=== PATIENT | male | born 1940 | race Caucasian/White ===

== ENCOUNTER → 2017-04-20 09:40 | Outpatient (CLI) | payer MEDICARE, MEDICAID, SELFPAY ==
--- NOTE | 2017-04-20 09:54 | XR_ITS ---
XR ankle RT min 3V HISTORY: Right ankle pain ITS.REASON: FACET DEGENERATION LSPINE, RT HIP AND ANKLE PAIN ORDERING PHYSICIAN: Josh Dias MD PATIENT AGE: 76 years COMPARISON: None FINDINGS: No fracture or dislocation. No lytic or blastic change. There is normal mineralization.. The joint spaces are well-preserved. No significant degenerative/arthritic changes. No erosive changes evident. Generalized vascular calcification noted. IMPRESSION: Negative ankle, no acute finding
--- NOTE | 2017-04-20 09:54 | XR_ITS ---
EXAM: XR lumbar spine min 4V HISTORY: Low back pain ITS.REASON: FACET DEGENERATION LSPINE, RT HIP AND ANKLE PAIN ORDERING PHYSICIAN: Josh Dias MD PATIENT AGE: 76 years COMPARISON: 10/22/2013 FINDINGS: No fracture or dislocation. There is mild retrolisthesis of L2 on L3 and L3 on L4 of 3 mm. There is slight decrease in height of L1 and appears chronic. Mild degenerative disc disease L2-L3 L4-L5 and L5-S1. Facet arthritic changes are present at L4-5 and L5-S1. Minimal lumbar curvature convex left. No lytic or blastic change. IMPRESSION: Mild lumbar spondylosis as described above with degenerative disc disease and facet arthritic change overall not significantly changed
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
== END ==
PROVIDERS: PCP Family Medicine; Visit Provider Family Medicine
DX: M47.816 Spondylosis without myelopathy or radiculopathy, lumbar region (principal); M25.551 Pain in right hip; M25.571 Pain in right ankle and joints of right foot
CPT/HCPCS: 72110; 73502; 73610

== ENCOUNTER 2017-04-27 13:22 | Emergency (ER) | payer MEDICARE, MEDICAID, SELFPAY ==
[2017-04-27 13:30] VITALS: BP 129/71; PULSE 66; RESP 20; TEMP 36.3; O2SAT 94; BMI 29.7
--- NOTE | 2017-04-27 13:57 | XR_ITS ---
XR chest 2V HISTORY: Fever and cough ITS.REASON: dyspnea ORDERING PHYSICIAN: Damon Blunt MD PATIENT AGE: 76 years COMPARISON: 01/11/2017 FINDINGS: Normal heart size. Right hemidiaphragm is elevated with bowel interposition on the right. There are chronic changes in the left lung base. No lobar consolidation or collapse. No acute bony anomalies. IMPRESSION: Chronic changes with elevated right hemidiaphragm, no acute finding.
[2017-04-27 14:37] LABS: Basophils # 0.1 K/mm3 (0-0.2); Basophils % 0.7 % (0.1-2.0); Eosinophils # 0.1 K/mm3 (0.0-0.4); Eosinophils % 1.2 % (0.1-12.0); Hematocrit 49.1 % (42.0-52.0); Hemoglobin 15.9 g/dL (14.1-18.0); Lymphocytes # 1.3 K/mm3 (0.7-4.5); Lymphocytes % 16.2 K/mm3 (10-50); Mean Corpuscular HGB Conc 32.5 g/dL (31.8-35.4); Mean Corpuscular Hemoglobin 31.6 pg (27.0-31.2); Mean Corpuscular Volume 97.4 fl (80-94); Mean Platelet Volume 7.6 fl (7.4-10.4); Monocytes # 0.5 K/mm3 (0.1-1.0); Monocytes % 6.7 % (1.7-9.3); Neutrophils # 5.9 K/mm3 (1.8-7.8); Neutrophils % 75.2 % (37.0-80.0); Platelet Count 279 K/mm3 (142-424); Red Blood Count 5.04 M/mm3 (4.60-6.20); Red Cell Distribution Width 12.9 % (11.5-17.5); White Blood Count 7.9 K/mm3 (4.8-10.8)
[2017-04-27 14:53] VITALS: BP 105/72; PULSE 75; O2SAT 93
[2017-04-27 14:56] LABS: Alanine Aminotransferase 42 U/L (12-78); Albumin Level 3.8 gm/dL (3.4-5.0); Albumin/Globulin Ratio 0.9 (1.1-1.8); Alkaline Phosphatase 77 U/L (46-116); Anion Gap 12.4 mEq/L (5-15); Aspartate Amino Transferase 32 U/L (15-37); Bilirubin,Total 0.9 mg/dL (0.2-1.0); Blood Urea Nitrogen 15 mg/dL (7-18); Calcium 9.2 mg/dL (8.5-10.1); Carbon Dioxide 31 mmol/L (21.0-32.0); Chloride 102 mmol/L (98-107); Creatinine Clearance Estimated 78 mL/min (0-300); Creatinine,Serum 0.73 mg/dL (0.70-1.30); Estimated Glomerular Filt Rate 105 ml/min (>60); GFR (African American) 127 ML/MIN (>60); Globulin 4.2 gm/dl (1.3-3.2); Glucose 117 mg/dL (74-106); Potassium 4.4 mmoL/L (3.5-5.1); Sodium 141 mmol/L (136-145)
[2017-04-27 14:58] LABS: Lactic Acid 1.4 mmol/L (0.4-2.0)
--- NOTE | 2017-04-27 15:34 | HMH.EDGENADL ---
ED Disposition Clinical Impression: Common cold Sinusitis Qualifiers: Sinusitis location: maxillary Chronicity: acute Recurrence: non-recurrent Qualified Code(s): J01.00 - Acute maxillary sinusitis, unspecified Disposition: Home, Self-Care Condition on Discharge: Good Instructions: Sinusitis, DI for Common Cold Additional Instructions: Please drink plenty of fluids, alternate Motrin with Tylenol for body aches/fever control. Prescriptions: Amoxicillin/Potassium Clav [Augmentin 875-125 Tablet] 1 tab PO Q12H #20 tab predniSONE [Prednisone 20mg Tab] 20 mg PO BID #10 tab Referrals: Josh Dias MD [Primary Care Provider] - Time of Disposition: 15:34 - Critical Care Critical Care Time: No Attestation: On 04/27/17, the high probability of a clinically significant, sudden or life threatening deterioration of the following system(s) required my full and direct attention, intervention and personal management. The time I documented below is in addition to time spent performing reported procedures but includes the following listed in this critical care notation. Medical Decision Making - Medical Records Medical records reviewed: Yes: I reviewed the patient's medical records. Vital Signs: 04/27/17 13:30 04/27/17 14:53 04/27/17 15:42 Temperature 97.4 F L 98.0 F Temperature Source Oral Temporal Artery Scan Pulse Rate 81 Pulse Rate [Right Brachial] 66 75 Respiratory Rate 20 20 Blood Pressure 110/73 Blood Pressure [Right Arm] 129/71 105/72 Blood Pressure Mean [Right Arm] 90 83 Blood Pressure Source Automatic Cuff Blood Pressure Source [Right Arm] Automatic Cuff Automatic Cuff Blood Pressure Position Sitting Blood Pressure Position [Right Arm] Sitting 02 Sat by Pulse Oximetry 94 L 93 L Oxygen Delivery Method Room Air Room Air - Lab Data Lab results reviewed: Yes: I reviewed the patient's lab results. Lab Results 04/27/17 13:50: Influenza Type A Ag Negative, Influenza Type B Ag Negative 04/27/17 14:00: WBC 7.9, RBC 5.04, Hgb 15.9, Hct 49.1, MCV 97.4 H, MCH 31.6 H, MCHC 32.5, RDW 12.9, Plt Count 279, MPV 7.6, Neut % (Auto) 75.2, Lymph % (Auto) 16.2, [place] % (Auto) 6.7, Eos % (Auto) 1.2, Baso % (Auto) 0.7, Neut # (Auto) 5.9, Lymph # (Auto) 1.3, [place] # (Auto) 0.5, Eos # (Auto) 0.1, Baso # (Auto) 0.1 04/27/17 14:00: Sodium 141, Potassium 4.4, Chloride 102, Carbon Dioxide 31, Anion Gap 12.4, BUN 15, Creatinine 0.73, Estimated Creat Clear 78, Estimated GFR 105, Est GFR ( Amer) 127, Glucose 117 H, Calcium 9.2, Total Bilirubin 0.9, AST 32, ALT 42, Alkaline Phosphatase 77, Total Protein 8.0, Albumin 3.8, Globulin 4.2 H, Albumin/Globulin Ratio 0.9 L 04/27/17 14:00: Lactic Acid 1.4 Result diagrams: 04/27/17 14:00 04/27/17 14:00 Orders (Tests/Meds): ED MEDICATIONS Discontinued Medications Generic Name Dose Route Start Last Admin Trade Name Jlq PRN Reason Stop Dose Admin Ondansetron HCl 4 mg 04/27/17 14:31 04/27/17 14:32 Zofran 4mg/2ml Vial IV 04/27/17 14:32 4 mg ONCE ONE Administration ORDERS Category Date Time Status Blood Culture Stat Micro 04/27/17 14:00 Results - Radiology Data #1 Image(s): Chest Image Reviewed: Yes I reviewed the patient's radiology results, Yes I reviewed the patient's radiology image Preliminary Findings: Normal/NAD - Isra Inquiry Pt receiving controlled substance: No - Reevaluation(s) Time: 15:15 Reevaluation #1: Upon reevaluation patient appears medically stable, in no acute distress. Advise patient of results obtained, need to follow-up with PCP in 2-3 days if not better. Patient instructed to take Tylenol every 4-6 hours as needed for pain, increase his fluid intake. General Adult HPI - General Chief complaint: Upper Respiratory Infection Stated complaint: flu like symptoms Mode of Arrival: Wheelchair Limitations: No Limitations Description of Symptoms (Recalled from ER Triage Doc. by RN): pt state
--- NOTE | 2017-04-27 15:37 | ED_ITS ---
ED Disposition Clinical Impression: Common cold Sinusitis Qualifiers: Sinusitis location: maxillary Chronicity: acute Recurrence: non-recurrent Qualified Code(s): J01.00 - Acute maxillary sinusitis, unspecified Disposition: Home, Self-Care Condition on Discharge: Good Instructions: Sinusitis, DI for Common Cold Additional Instructions: Please drink plenty of fluids, alternate Motrin with Tylenol for body aches/ fever control. Prescriptions: Amoxicillin/Potassium Clav [Augmentin 875-125 Tablet] 1 tab PO Q12H #20 tab predniSONE [Prednisone 20mg Tab] 20 mg PO BID #10 tab Referrals: Josh Dias MD [Primary Care Provider] - Time of Disposition: 15:34 - Critical Care Critical Care Time: No Attestation: On 04/27/17, the high probability of a clinically significant, sudden or life threatening deterioration of the following system(s) required my full and direct attention, intervention and personal management. The time I documented below is in addition to time spent performing reported procedures but includes the following listed in this critical care notation. Medical Decision Making - Medical Records Medical records reviewed: Yes: I reviewed the patient's medical records. Vital Signs: 04/27/17 13:30 04/27/17 14:53 04/27/17 15:42 Temperature 97.4 F L 98.0 F Temperature Source Oral Temporal Artery Scan Pulse Rate 81 Pulse Rate [Right Brachial] 66 75 Respiratory Rate 20 20 Blood Pressure 110/73 Blood Pressure [Right Arm] 129/71 105/72 Blood Pressure Mean [Right Arm] 90 83 Blood Pressure Source Automatic Cuff Blood Pressure Source [Right Arm] Automatic Cuff Automatic Cuff Blood Pressure Position Sitting Blood Pressure Position [Right Arm] Sitting 02 Sat by Pulse Oximetry 94 L 93 L Oxygen Delivery Method Room Air Room Air - Lab Data Lab results reviewed: Yes: I reviewed the patient's lab results. Lab Results 04/27/17 13:50: Influenza Type A Ag Negative, Influenza Type B Ag Negative 04/27/17 14:00: WBC 7.9, RBC 5.04, Hgb 15.9, Hct 49.1, MCV 97.4 H, MCH 31.6 H, MCHC 32.5, RDW 12.9, Plt Count 279, MPV 7.6, Neut % (Auto) 75.2, Lymph % (Auto) 16.2, [place] % (Auto) 6.7, Eos % (Auto) 1.2, Baso % (Auto) 0.7, Neut # (Auto) 5.9 , Lymph # (Auto) 1.3, [place] # (Auto) 0.5, Eos # (Auto) 0.1, Baso # (Auto) 0.1 04/27/17 14:00: Sodium 141, Potassium 4.4, Chloride 102, Carbon Dioxide 31, Anion Gap 12.4, BUN 15, Creatinine 0.73, Estimated Creat Clear 78, Estimated GFR 105, Est GFR ( Amer) 127, Glucose 117 H, Calcium 9.2, Total Bilirubin 0.9, AST 32, ALT 42, Alkaline Phosphatase 77, Total Protein 8.0, Albumin 3.8, Globulin 4.2 H, Albumin/Globulin Ratio 0.9 L 04/27/17 14:00: Lactic Acid 1.4 Result diagrams: 04/27/17 14:00 04/27/17 14:00 Orders (Tests/Meds): ED MEDICATIONS Discontinued Medications Generic Name Dose Route Start Last Admin Trade Name Freq PRN Reason Stop Dose Admin Ondansetron HCl 4 mg 04/27/17 14:31 04/27/17 14:32 Zofran 4mg/2ml Vial IV 04/27/17 14:32 4 mg ONCE ONE Administration ORDERS Category Date Time Status Blood Culture Stat Micro 04/27/17 14:00 Results - Radiology Data #1 Image(s): Chest Image Reviewed: Yes I reviewed the patient's radiology results, Yes I reviewed the patient's radiology image Preliminary Findings: No
[2017-04-27 15:42] VITALS: BP 110/73; PULSE 81; RESP 20; TEMP 36.7; O2SAT 95
== END 2017-04-27 15:44 | disposition home or self-care (01) ==
PROVIDERS: Emergency Provider Emergency Medicine; Family Provider Family Medicine; PCP Family Medicine
DX: J01.00 Acute maxillary sinusitis, unspecified (principal); I10 Essential (primary) hypertension; Z88.2 Allergy status to sulfonamides
CPT/HCPCS: 71046; 80053; 83605; 85025; 87040; 87275; 87276; 96374; 99284; J2405

== ENCOUNTER 2017-04-28 16:53 | Observation (INO) | payer MEDICARE, MEDICAID, SELFPAY ==
[2017-04-28 17:00] VITALS: RESP 20; TEMP 36.7; O2SAT 95
[2017-04-28 17:05] VITALS: BP 138/78; PULSE 99; RESP 18; TEMP 36.6; O2SAT 95; BMI 30.5
[2017-04-28 17:23] LABS: Basophils % 0.3 % (0.1-2.0); Eosinophils % 0.4 % (0.1-12.0); Hematocrit 49.1 % (42.0-52.0); Lymphocytes % 13.9 K/mm3 (10-50); Mean Corpuscular HGB Conc 32.5 g/dL (31.8-35.4); Mean Corpuscular Hemoglobin 31.4 pg (27.0-31.2); Mean Corpuscular Volume 96.7 fl (80-94); Mean Platelet Volume 7.8 fl (7.4-10.4); Monocytes # 0.2 K/mm3 (0.1-1.0); Neutrophils # 5.9 K/mm3 (1.8-7.8); Neutrophils % 82.4 % (37.0-80.0); Platelet Count 288 K/mm3 (142-424); Red Blood Count 5.08 M/mm3 (4.60-6.20); Red Cell Distribution Width 12.9 % (11.5-17.5); White Blood Count 7.2 K/mm3 (4.8-10.8)
[2017-04-28 17:36] LABS: Alanine Aminotransferase 41 U/L (12-78); Albumin Level 3.8 gm/dL (3.4-5.0); Albumin/Globulin Ratio 0.9 (1.1-1.8); Alkaline Phosphatase 79 U/L (46-116); Anion Gap 11.3 mEq/L (5-15); Aspartate Amino Transferase 29 U/L (15-37); Bilirubin,Total 0.9 mg/dL (0.2-1.0); Blood Urea Nitrogen 11 mg/dL (7-18); Carbon Dioxide 31 mmol/L (21.0-32.0); Chloride 102 mmol/L (98-107); Creatinine Clearance Estimated 80 mL/min (0-300); Creatinine,Serum 0.73 mg/dL (0.70-1.30); Estimated Glomerular Filt Rate 105 ml/min (>60); GFR (African American) 127 ML/MIN (>60); Globulin 4.4 gm/dl (1.3-3.2); Glucose 148 mg/dL (74-106); Potassium 4.3 mmoL/L (3.5-5.1); Sodium 140 mmol/L (136-145); Total Protein,Serum 8.2 gm/dL (6.4-8.2)
--- NOTE | 2017-04-28 17:42 | CT_ITS ---
CT head/brain wo con HISTORY: ITS.REASON: dizziness ORDERING PHYSICIAN: Damon Blunt MD PATIENT AGE: 76 years COMPARISON: None TECHNIQUE: Axial images obtained without contrast. Brain and bone windows reviewed. FINDINGS: No midline shift, mass effect, intracranial hemorrhage, hydrocephalus, or extra-axial fluid collection is evident. There are involutional changes of age with atrophy The calvarium has an unremarkable appearance. No mastoid effusion. No sinus air-fluid levels.. IMPRESSION: No acute finding, chronic senescent changes.
[2017-04-28 17:54] LABS: Microscopic, Urine URINE MICROSCOPIC (MICROSCOPIC)
[2017-04-28 17:57] LABS: Appearance,Urine CLEAR (Clear); Bilirubin,Urine Negative (Negative); Blood, Urine 1+ (Negative); Color,Urine YELLOW (Yellow); Glucose,Urine (UA) Negative (Negative); Ketones,Urine 1+ (Negative); Leukocyte Esterase,Urine Negative (Negative); Nitrate,Urine Negative (Negative); Protein,Urine Negative (Negative); Specific Gravity, Urine 1.015 (1.005-1.030); Urobilinogen,Urine 0.2 EU/dl (0.2)
[2017-04-28 18:06] LABS: Bacteria,Urine Trace /lpf; RBC,Urine Occasional #/hpf (0-3)
[2017-04-28 18:24] VITALS: BP 126/73; PULSE 84; RESP 18; O2SAT 95
--- NOTE | 2017-04-28 19:22 | HMH.EDGENADL ---
ED Disposition Clinical Impression: Labyrinthitis of left ear Disposition: Admitted As Inpatient Condition on Discharge: Good Time of Disposition: 19:22 - Critical Care Critical Care Time: No Attestation: On 04/28/17, the high probability of a clinically significant, sudden or life threatening deterioration of the following system(s) required my full and direct attention, intervention and personal management. The time I documented below is in addition to time spent performing reported procedures but includes the following listed in this critical care notation. Medical Decision Making - Medical Records Medical records reviewed: Yes: I reviewed the patient's medical records. Vital Signs: 04/28/17 17:00 04/28/17 17:05 04/28/17 18:24 Temperature 98.0 F 98 F Temperature Source Oral Oral Pulse Rate Pulse Rate [Right Brachial] 99 H 84 Respiratory Rate 20 18 18 Blood Pressure Blood Pressure [Right Arm] 138/78 126/73 Blood Pressure Mean [Right Arm] 98 90 Blood Pressure Source Blood Pressure Source [Right Arm] Automatic Cuff Blood Pressure Position Blood Pressure Position [Right Arm] Supine Right Lateral 02 Sat by Pulse Oximetry 95 95 95 Oxygen Delivery Method Room Air Room Air Room Air 04/28/17 20:22 Temperature 98.2 F Temperature Source Oral Pulse Rate 73 Pulse Rate [Right Brachial] Respiratory Rate 18 Blood Pressure 137/81 Blood Pressure [Right Arm] Blood Pressure Mean [Right Arm] Blood Pressure Source Automatic Cuff Blood Pressure Source [Right Arm] Blood Pressure Position Supine Blood Pressure Position [Right Arm] 02 Sat by Pulse Oximetry Oxygen Delivery Method Room Air - Lab Data Lab results reviewed: Yes: I reviewed the patient's lab results. Lab Results 04/28/17 17:15: WBC 7.2, RBC 5.08, Hgb 16.0, Hct 49.1, MCV 96.7 H, MCH 31.4 H, MCHC 32.5, RDW 12.9, Plt Count 288, MPV 7.8, Neut % (Auto) 82.4 H, Lymph % (Auto) 13.9, [place] % (Auto) 3.0, Eos % (Auto) 0.4, Baso % (Auto) 0.3, Neut # (Auto) 5.9, Lymph # (Auto) 1.0, [place] # (Auto) 0.2, Eos # (Auto) 0.0, Baso # (Auto) 0.0 04/28/17 17:15: Sodium 140, Potassium 4.3, Chloride 102, Carbon Dioxide 31, Anion Gap 11.3, BUN 11 D, Creatinine 0.73, Estimated Creat Clear 80, Estimated GFR 105, Est GFR ( Amer) 127, Glucose 148 H, Calcium 9.0, Total Bilirubin 0.9, AST 29, ALT 41, Alkaline Phosphatase 79, Total Protein 8.2, Albumin 3.8, Globulin 4.4 H, Albumin/Globulin Ratio 0.9 L 04/28/17 17:50: Urine Color Yellow, Urine Appearance Clear, Urine pH 6.0, Ur Specific [place] 1.015, Urine Protein Negative, Urine Glucose (UA) Negative, Urine Ketones 1+, Urine Blood 1+, Urine Nitrate Negative, Urine Bilirubin Negative, Urine Urobilinogen 0.2, Ur Leukocyte Esterase Negative, Urine RBC Occasional, Urine WBC 3-5, Ur Squamous Epith Cells 3-5, Urine Bacteria Trace Result diagrams: 04/28/17 17:15 04/28/17 17:15 Orders (Tests/Meds): ED MEDICATIONS Discontinued Medications Generic Name Dose Route Start Last Admin Trade Name Freq PRN Reason Stop Dose Admin Amoxicillin/Clavulanate Potassium 1 each 04/29/17 09:30 04/30/17 08:31 Augmentin 500mg Tablet PO 05/13/17 09:29 1 each TID MC Administration Sodium Chloride 1,000 mls @ 999 mls/hr 04/28/17 17:30 04/28/17 17:55 Sod Chlor 0.9% 1000ml Bag IV 04/28/17 18:30 999 mls/hr .Q1H1M MC Administration Sodium Chloride 1,000 mls @ 999 mls/hr 04/28/17 19:30 04/28/17 21:29 Sod Chlor 0.9% 1000ml Bag IV 04/28/17 20:30 Not Given .Q1H1M MC Sodium Chloride 1,000 mls @ 75 mls/hr 04/28/17 21:22 04/29/17 13:49 Sod Chlor 0.9% 1000ml Bag IV 05/28/17 21:21 75 mls/hr .[id number] MC Administration Methylprednisolone Sodium 100 mls @ 200 mls/hr 04/29/17 07:22 Succinate 250 mg/ Sodium IV 04/29/17 07:23 Chloride ONCE ONE Methylprednisolone Sodium 100 mls @ 200 mls/hr 04/29/17 08:15 04/29/17 09:51 Succinate 250 mg/ Sodium IV 04/29/17 08:44 200 mls/hr
[2017-04-28 20:22] VITALS: BP 137/81; PULSE 73; RESP 18; TEMP 36.8; O2SAT 96
[2017-04-28 21:56] VITALS: BMI 29.4
[2017-04-28 22:21] VITALS: O2SAT 95
[2017-04-29 04:28] VITALS: BP 119/50; PULSE 65; RESP 18; TEMP 36.7; O2SAT 94
--- NOTE | 2017-04-29 04:28 | PC.NURSE ---
no changes noted from previous assessment, pt has slept brief periods this shift, pt states he has nausea and vomiting, pt given prn medication per MAR with little relief, pt also states he feels like something is continuously creeping up his throat , bowel sounds are active x4 quad, pt c/o tenderness in the lower abdomen, breath sounds are clear, vss, no acute distress noted at this time, call light in reach, will continue to monitor.
--- NOTE | 2017-04-29 07:18 | PC.NURSE ---
Addendum entered by Elvira Arevalo RN 04/29/17 07:18: Report given to Tiffany Parra RN Original Note: Report given to Tiffany Parra
--- NOTE | 2017-04-29 07:22 | HMH.HP ---
*Admission Date: 04/28/17 *Chief complaint: Vertigo and vomiting *History of present illness: A 6-year-old male presented to the emergency department for the second time in 2 days with complaints of vertigo that now had associated vomiting. Patient tells me yesterday morning he awoke and felt slightly nauseous. As the day progressed nausea intensified until he developed vomiting and when vomiting began he also developed vertigo. Vertigo was so intense that the patient could not ambulate without holding onto objects at home. He felt so bad that he presented to the emergency department yesterday evening. Patient had presented with milder symptoms the day before. In the emergency department he continued to vomit and any time the patient returned to his right he would become dizzy and was unable to stand without holding onto someone or something. Patient was diagnosed with labyrinthitis. He was given a dose of Solu-Medrol intravenously and started on IV fluids. This morning the patient states so far he is feeling a little bit better. He has made no attempt to get out of bed. Overnight he did have some nausea and vomiting that was treated with Zofran and Phenergan. He believes the Phenergan caused bilateral leg tingling. His nausea has subsided. [facility] History Medical History: Reports:: Hyperlipidemia, Hypertension Denies:: Cancer, Diabetes Mellitus Type 1, Diabetes Mellitus Type 2, Internal Pacemaker, MRSA Other Surgeries: No: Pacemaker Amputation: No Fractures: No - *Social History Educational Level: Attended Grade School Smoking Status: Former smoker Tobacco Type: cigarettes #Yrs smoked (if former smoker): 10 Smoking End Date: 25 years ago Alcohol Intake: former Alcohol Intake Frequency:: a few times a week Occupational Status: employed Housing: house Household Members: other - Psychiatric History Expresses thoughts of harming self/others: None Suicide Plan Description: No Plan *Family Hx:: Diabetes, Hyperlipidemia, Hypertension Review of Systems - Review of Systems See HPI. He denies headache, chest pain, shortness of breath, visual disturbance, unilateral paresthesias or paralysis, unilateral weakness Meds Home Medications Medication Instructions Recorded Confirmed Type Esomeprazole Magnesium [Nexium] 20 mg PO DAILY 04/27/17 04/28/17 History Levocetirizine Dihydrochloride 5 mg PO DAILY 04/27/17 04/28/17 History Lisinopril [Lisinopril 10mg Tab] 10 mg PO DAILY 04/27/17 04/28/17 History Pravastatin Sodium [Pravachol 40mg 40 mg PO DAILY 04/27/17 04/28/17 History Tablet] Tamsulosin HCl [Flomax 0.4mg 0.4 mg PO DAILY 04/27/17 04/28/17 History capsule] [place]-3 Fatty Acids/Fish Oil [Fish 1 each PO DAILY 04/28/17 04/28/17 History Oil 1,000 mg Capsule] predniSONE [Prednisone 20mg 20 mg PO BID 04/28/17 04/28/17 History Tab] Allergies Allergy/AdvReac Type Severity Reaction Status Date / Time Sulfa (Sulfonamide Allergy Unknown I-RASH Verified 04/27/17 13:38 Antibiotics) [SULFA (SULFONAMIDE ANTIBIOTICS)] Exam Vital signs and Labs for Last 24 Hours: Temp Pulse Resp BP Pulse Ox 98.1 F 65 18 119/50 94 L 04/29/17 04:28 04/29/17 04:28 04/29/17 04:28 04/29/17 04:28 04/29/17 04:28 I & O for Last 24 hours: Intake & Output 04/26/17 04/27/17 04/28/17 04/29/17 11:59 11:59 11:59 11:59 Weight 187 lb 13.341 oz Narrative: Patient is lying comfortably in bed. HEENT exam is grossly normal. Pupils are equal round reactive to light and extraocular movements are intact. There is no nystagmus. Oropharynx is moist. Tongue is midline. Neck without carotid bruits. Lungs are clear. Heart has a regular rate and rhythm. Neurologic exam reveals no focal neurologic deficits Assessment and Plan (1) Labyrinthitis of left ear Current visit: Yes Status: Acute Category: Medical Code(s): H83.02 - Labyrinthitis, left ear - Assessment and plan all Dx Asse
--- NOTE | 2017-04-29 07:26 | P.HP_ITS ---
*Admission Date: 04/28/17 *Chief complaint: Vertigo and vomiting *History of present illness: A 6-year-old male presented to the emergency department for the second time in 2 days with complaints of vertigo that now had associated vomiting. Patient tells me yesterday morning he awoke and felt slightly nauseous. As the day progressed nausea intensified until he developed vomiting and when vomiting began he also developed vertigo. Vertigo was so intense that the patient could not ambulate without holding onto objects at home. He felt so bad that he presented to the emergency department yesterday evening. Patient had presented with milder symptoms the day before. In the emergency department he continued to vomit and any time the patient returned to his right he would become dizzy and was unable to stand without holding onto someone or something. Patient was diagnosed with labyrinthitis. He was given a dose of Solu-Medrol intravenously and started on IV fluids. This morning the patient states so far he is feeling a little bit better. He has made no attempt to get out of bed. Overnight he did have some nausea and vomiting that was treated with Zofran and Phenergan. He believes the Phenergan caused bilateral leg tingling. His nausea has subsided. [facility] History Medical History: Reports:: Hyperlipidemia, Hypertension Denies:: Cancer, Diabetes Mellitus Type 1, Diabetes Mellitus Type 2, Internal Pacemaker, MRSA Other Surgeries: No: Pacemaker Amputation: No Fractures: No - *Social History Educational Level: Attended Grade School Smoking Status: Former smoker Tobacco Type: cigarettes #Yrs smoked (if former smoker): 10 Smoking End Date: 25 years ago Alcohol Intake: former Alcohol Intake Frequency:: a few times a week Occupational Status: employed Housing: house Household Members: other - Psychiatric History Expresses thoughts of harming self/others: None Suicide Plan Description: No Plan *Family Hx:: Diabetes, Hyperlipidemia, Hypertension Review of Systems - Review of Systems See HPI. He denies headache, chest pain, shortness of breath, visual disturbance, unilateral paresthesias or paralysis, unilateral weakness Meds Home Medications Medication Instructions Recorded Confirmed Type Esomeprazole Magnesium [Nexium] 20 mg PO DAILY 04/27/17 04/28/17 History Levocetirizine Dihydrochloride 5 mg PO DAILY 04/27/17 04/28/17 History Lisinopril [Lisinopril 10mg Tab] 10 mg PO DAILY 04/27/17 04/28/17 History Pravastatin Sodium [Pravachol 40mg 40 mg PO DAILY 04/27/17 04/28/17 History Tablet] Tamsulosin HCl [Flomax 0.4mg 0.4 mg PO DAILY 04/27/17 04/28/17 History capsule] [place]-3 Fatty Acids/Fish Oil [Fish 1 each PO DAILY 04/28/17 04/28/17 History Oil 1,000 mg Capsule] predniSONE [Prednisone 20mg 20 mg PO BID 04/28/17 04/28/17 History Tab] Allergies Allergy/AdvReac Type Severity Reaction Status Date / Time Sulfa (Sulfonamide Allergy Unknown I-RASH Verified 04/27/17 13:38 Antibiotics) [SULFA (SULFONAMIDE ANTIBIOTICS)] Exam Vital signs and Labs for Last 24 Hours: Temp Pulse Resp BP Pulse Ox 98.1 F 65 18 119/50 94 L 04/29/17 04:28 04/29/17 04:28 04/29/17 04:28 04/29/17 04:28 04/29/17 04:28 I & O for Last 24 hours: Intake & Output 04/26/17 04/27/17 04/28/17 04/29/17 11:59 11:59 11:59 11:59 Weight 187 lb 13.341 oz
--- NOTE | 2017-04-29 07:32 | HMH.PHAVTE ---
[facility] Pharmacy VTE Monitoring - Patient Demographics Admission date: 04/28/17 Report Date: 04/29/17 Time: 07:32 Allergies/Adverse Reactions: Patient Allergies Sulfa (Sulfonamide Antibiotics) [SULFA (SULFONAMIDE ANTIBIOTICS)] Allergy (Unknown, Verified 04/27/17 13:38) I-RASH Height: 1.7 m Weight: 85.2 kg Patient Problems: Current Active Problems Labyrinthitis of left ear (Acute) - VTE Risk Labs: VTE Related Lab Results Hgb 16.0 g/dL (14.1-18.0) 04/28/17 17:15 Hct 49.1 % (42.0-52.0) 04/28/17 17:15 Plt Count 288 K/mm3 (142-424) 04/28/17 17:15 BUN 11 mg/dL (7-18) D 04/28/17 17:15 Creatinine 0.73 mg/dL (0.70-1.30) 04/28/17 17:15 Estimated Creat Clear 80 mL/min (0-300) 04/28/17 17:15 Was VTE Risk Assessment Performed: Yes VTE Score: 2 VTE Risk Level: Low Risk - Prophylaxis VTE Prophylaxis Ordered?: Yes Types of VTE Prophylaxis: TEDS Knee High Location of Applied Device: Bilateral Lower Extremeties - VTE Diagnosis Confirmed Treatment or plan recommended: Continue Current Treatment
[2017-04-29 07:53] VITALS: BP 134/75; PULSE 77; RESP 16; TEMP 36.8; O2SAT 93
--- NOTE | 2017-04-29 10:17 | PC.NURSE ---
PT IS RESTING IN BED, STATED HE DID NOT SLEEP WELL LAST NIGHT DUE TO FEELING SO NAUSEATED. FOR NOW HIS NAUSEA HAS SUBSIDED. HE HAS BEEN TOLERATING LIQUIDS AND WAS ABLE TO EAT SOME BREAKFAST THIS MORNING. LUNG SOUNDS CLEAR, BOWEL SOUNDS NORMAL, TEDS APPLIED. PT STATES HE STILL HAS NOT MADE ANY ATTEMPT TO GET OOB THIS MORNING. WILL CONTINUE TO MONITOR.
--- NOTE | 2017-04-29 12:14 | HMH.PTEV ---
Physical Therapy Evaluation Rehab PT IP Evaluation Start: 04/29/17 07:29 Freq: ONCE Status: Active Protocol: Document 04/29/17 12:12 PHORNE (Rec: 04/29/17 12:14 PHORNE [id number]) Subjective/History History History 76 yom adm to [facility] with c/o severe vertigo and nausea. Subjective Subjective Pt with no c/o this am, feels much better. Rehab PT IP Eval Objective Appearance Patient Behavior Appropriate Cooperative Patient Orientation Person Place Time Difficulty following instructions none Speech Pattern Clear Appropriate Ambulation Patient Able to Ambulate Yes Ambulation Observation IP General Gait Pattern Observation Wide Based Gait Ambulation Distance (feet) 25 Ambulation Assistive Device None Balance Ability to Arise Able, w/o using arms Sitting Balance Steady, safe Standing Balance Steady, wide stance Dynamic Sitting Balance Ability Good Dynamic Standing Balance Ability Good Transfers Bed Transfer Ability Independent Chair Transfer Ability Independent Sit to Stand Bed Transfer Ability Independent Sit to Stand Chair Transfer Ability Independent ROM All Extremities PT ROM Status WFL MMT All Extremities PT MMT WFL Rehab PT IP prob,goals,plan Problems Date of Evaluation: 04/29/17 Rehab Potential Rehab Potential Good Discharge Plan PT Discharge Plan Pt is appropriate to return home once medically stable. G -code Required Yes Eval Complexity Eval Charge Codes 33324 - Moderate Complexity G Codes PT Current Status Mobility PT Current Status Modifier CI-At least 1% but less than 20% impaired, limited or restricted PT Goal Status Mobility PT Goal Status Modifer CI-At least 1% but less than 20% impaired, limited or restricted PHYSICIAN CERTIFICATION: I certify the specified therapy services for Waldemar Bolaños are required, authorized, and reviewed every 30 days.
--- NOTE | 2017-04-29 14:35 | PC.NURSE ---
PT WAS ABLE TO GET OOB AND AMBULATE WITH PHYSICAL THERAPY. PT DID REALLY WELL AND HAS BEEN AMBULATING IN THE ROOM ON HIS OWN SINCE THERAPY HAS SEEN HIM. WAS ABLE TO TOLERATE HIS LUNCH W/O N/V. PT STATES HE IS NOT HAVING ANYMORE DIZZINESS. THE ONLY CONCERN PT STATES HE HAS IS GOING HOME AND FEELING BAD AGAIN AND HAVING TO BACK TO THE HOSPITAL.
[2017-04-29 16:00] VITALS: BP 122/74; PULSE 74; RESP 16; TEMP 37.1; O2SAT 92
[2017-04-29 20:00] VITALS: BP 130/73; PULSE 77; RESP 18; TEMP 36.9; O2SAT 93
[2017-04-30 04:00] VITALS: BP 107/54; PULSE 78; RESP 18; TEMP 36.7; O2SAT 92
--- NOTE | 2017-04-30 07:18 | PC.NURSE ---
pt has rested well this shift, denies weakness, n/v, and SOA, pt states he feels much better tonight, breath sounds are diminished in the bases, pt is tolerating room air well, no acute changes noted at this time, will continue to monitor.
[2017-04-30 07:26] VITALS: BP 102/60; PULSE 88; RESP 18; TEMP 36.8; O2SAT 94
--- NOTE | 2017-04-30 07:43 | HMH.DCSUM ---
General - General Admission date: 04/28/17 Discharge date: 04/30/17 HPI HPI: A 6-year-old male presented to the emergency department for the second time in 2 days with complaints of vertigo that now had associated vomiting. Patient tells me yesterday morning he awoke and felt slightly nauseous. As the day progressed nausea intensified until he developed vomiting and when vomiting began he also developed vertigo. Vertigo was so intense that the patient could not ambulate without holding onto objects at home. He felt so bad that he presented to the emergency department yesterday evening. Patient had presented with milder symptoms the day before. In the emergency department he continued to vomit and any time the patient returned to his right he would become dizzy and was unable to stand without holding onto someone or something. Patient was diagnosed with labyrinthitis. He was given a dose of Solu-Medrol intravenously and started on IV fluids. This morning the patient states so far he is feeling a little bit better. He has made no attempt to get out of bed. Overnight he did have some nausea and vomiting that was treated with Zofran and Phenergan. He believes the Phenergan caused bilateral leg tingling. His nausea has subsided. Objective Vital signs: Temp Pulse Resp BP Pulse Ox 98.2 F 88 18 102/60 94 L 04/30/17 07:26 04/30/17 07:26 04/30/17 07:26 04/30/17 07:26 04/30/17 07:26 Narrative: On my examination patient was not distressed. Tympanic membranes were clear without effusions. Oropharynx was moist. Eye examination revealed intact extraocular movements without nystagmus. Lungs are clear to auscultation. Heart had a regular rate and rhythm. Sitting balance was normal. Standing balance was also normal. Gait was assessed by physical therapy and was described as wide base. Patient had no focal neurologic deficits Hospital Course Hospital Course: Patient was admitted and placed on IV fluids and Solu-Medrol. By the following morning (April 29) patient had noted improvement in vertigo and nausea. Diet was ordered which patient tolerated. He was continued on Solu-Medrol 250 mg IV twice daily for labyrinthitis. On the morning of the the patient had been ambulating without difficulty and was tolerating his diet without nausea or vomiting. Patient was discharged home. He will finish steroids as an outpatient. He was given a prescription for meclizine. DS: Diagnosis - Discharge Diagnosis (1) Labyrinthitis of left ear Status: Resolved Meds Home Medications Medication Instructions Recorded Confirmed Type Esomeprazole Magnesium [Nexium] 20 mg PO DAILY 04/27/17 04/28/17 History Levocetirizine Dihydrochloride 5 mg PO DAILY 04/27/17 04/28/17 History Lisinopril [Lisinopril 10mg Tab] 10 mg PO DAILY 04/27/17 04/28/17 History Pravastatin Sodium [Pravachol 40mg 40 mg PO DAILY 04/27/17 04/28/17 History Tablet] Tamsulosin HCl [Flomax 0.4mg 0.4 mg PO DAILY 04/27/17 04/28/17 History capsule] [place]-3 Fatty Acids/Fish Oil [Fish 1 each PO DAILY 04/28/17 04/28/17 History Oil 1,000 mg Capsule] predniSONE [Prednisone 20mg 20 mg PO BID 04/28/17 04/28/17 History Tab] Allergies Allergy/AdvReac Type Severity Reaction Status Date / Time Sulfa (Sulfonamide Allergy Unknown I-RASH Verified 04/27/17 13:38 Antibiotics) [SULFA (SULFONAMIDE ANTIBIOTICS)] Discharge Plan - Patient Discharge Instructions ACTIVITY: Continue current activity DIET: continue same diet Patient Instructions: DI for Gastroesophageal Reflux Disease (GERD) - Follow up Plan Disposition: Home, Self-Retirement Medications: Home Medications Medication Instructions Recorded Confirmed Type Esomeprazole Magnesium [Nexium] 20 mg PO DAILY 04/27/17 04/28/17 History Levocetirizine Dihydrochloride 5 mg PO DAILY 04/27/17 04/28/17 History Lisinopril [Lisinopril 10mg Tab] 10 mg PO DAILY 0
--- NOTE | 2017-04-30 07:47 | P.DS_ITS ---
General - General Admission date: 04/28/17 Discharge date: 04/30/17 HPI HPI: A 6-year-old male presented to the emergency department for the second time in 2 days with complaints of vertigo that now had associated vomiting. Patient tells me yesterday morning he awoke and felt slightly nauseous. As the day progressed nausea intensified until he developed vomiting and when vomiting began he also developed vertigo. Vertigo was so intense that the patient could not ambulate without holding onto objects at home. He felt so bad that he presented to the emergency department yesterday evening. Patient had presented with milder symptoms the day before. In the emergency department he continued to vomit and any time the patient returned to his right he would become dizzy and was unable to stand without holding onto someone or something. Patient was diagnosed with labyrinthitis. He was given a dose of Solu-Medrol intravenously and started on IV fluids. This morning the patient states so far he is feeling a little bit better. He has made no attempt to get out of bed. Overnight he did have some nausea and vomiting that was treated with Zofran and Phenergan. He believes the Phenergan caused bilateral leg tingling. His nausea has subsided. Objective Vital signs: Temp Pulse Resp BP Pulse Ox 98.2 F 88 18 102/60 94 L 04/30/17 07:26 04/30/17 07:26 04/30/17 07:26 04/30/17 07:26 04/30/17 07:26 Narrative: On my examination patient was not distressed. Tympanic membranes were clear without effusions. Oropharynx was moist. Eye examination revealed intact extraocular movements without nystagmus. Lungs are clear to auscultation. Heart had a regular rate and rhythm. Sitting balance was normal. Standing balance was also normal. Gait was assessed by physical therapy and was described as wide base. Patient had no focal neurologic deficits Hospital Course Hospital Course: Patient was admitted and placed on IV fluids and Solu-Medrol. By the following morning (April 29) patient had noted improvement in vertigo and nausea. Diet was ordered which patient tolerated. He was continued on Solu-Medrol 250 mg IV twice daily for labyrinthitis. On the morning of the the patient had been ambulating without difficulty and was tolerating his diet without nausea or vomiting. Patient was discharged home. He will finish steroids as an outpatient. He was given a prescription for meclizine. DS: Diagnosis - Discharge Diagnosis (1) Labyrinthitis of left ear Status: Resolved Meds Home Medications Medication Instructions Recorded Confirmed Type Esomeprazole Magnesium [Nexium] 20 mg PO DAILY 04/27/17 04/28/17 History Levocetirizine Dihydrochloride 5 mg PO DAILY 04/27/17 04/28/17 History Lisinopril [Lisinopril 10mg Tab] 10 mg PO DAILY 04/27/17 04/28/17 History Pravastatin Sodium [Pravachol 40mg 40 mg PO DAILY 04/27/17 04/28/17 History Tablet] Tamsulosin HCl [Flomax 0.4mg 0.4 mg PO DAILY 04/27/17 04/28/17 History capsule] [place]-3 Fatty Acids/Fish Oil [Fish 1 each PO DAILY 04/28/17 04/28/17 History Oil 1,000 mg Capsule] predniSONE [Prednisone 20mg 20 mg PO BID 04/28/17 04/28/17 History Tab] Allergies Allergy/AdvReac Type Severity Reaction Status Date / Time Sulfa (Sulfonamide Allergy Unknown I-RASH Verified 04/27/17 13:38 Antibiotics) [SULFA (SULFONAMIDE ANTIBIOTICS)] Disch
== END 2017-04-30 09:25 | disposition home or self-care (01) ==
LOC: ER 19:22 → 2ND 20:23
PROVIDERS: Admitting Provider Family Medicine; Emergency Provider Emergency Medicine; Family Provider Family Medicine; PCP Family Medicine; Visit Provider Family Medicine
DX: H83.02 Labyrinthitis, left ear (principal); I10 Essential (primary) hypertension; Z87.891 Personal history of nicotine dependence; Z83.3 Family history of diabetes mellitus; Z82.49 Family history of ischemic heart disease and other diseases of the circulatory system; Z83.49 Family history of other endocrine, nutritional and metabolic diseases; Z79.52 Long term (current) use of systemic steroids; Z79.899 Other long term (current) drug therapy; Z88.2 Allergy status to sulfonamides
CPT/HCPCS: 70450; 80053; 81001; 85025; 96365; 97162; 99283; G0378; J2405

== ENCOUNTER → 2017-05-19 07:31 | Outpatient (CLI) | payer MEDICARE, MEDICAID, SELFPAY ==
--- NOTE | 2017-05-19 08:00 | CT_ITS ---
CT lumbar spine wo con INDICATION: Low back pain, lumbar spondylosis ITS.REASON: FACET DEGENERATION OF LUMBAR SPINE ORDERING PHYSICIAN: Josh Dias MD PATIENT AGE: 76 years COMPARISON: 04/20/2017 TECHNIQUE: Axial images are obtained without contrast. Sagittal and coronal reformatted images are reviewed as well. FINDINGS: There is normal alignment. No acute fracture or dislocation. No bony destructive process. T10-T11, T11-T12, T12-L1 have an unremarkable appearance. L1-L2: Minimal retrolisthesis of L1 of 2 to 3 mm. L2-L3: Minimal retrolisthesis of L2 on L3 of 3 mm. Small anterior osteophytes. L3-L4: Mild bulging disc. L4-5: Degenerative disc disease. There is facet hypertrophic change. L5-S1: Mild degenerative disc disease with bulging disc. There is moderate facet hypertrophic change slightly greater on the right. There is mild right-sided foraminal narrowing from facet hypertrophy. Incidental note made of cholelithiasis, 18 mm right renal cyst, and sigmoid diverticulosis. IMPRESSION: 1. Mild lumbar spondylosis as described above with mild degenerative disc disease and bulging disc along with facet hypertrophic change. Please see above for detailed description at each level. 2. Mild right-sided foraminal narrowing at L5-S1 from facet hypertrophy. 3. Cholelithiasis
== END ==
PROVIDERS: Family Provider Family Medicine; PCP Family Medicine; Visit Provider Family Medicine
DX: M47.816 Spondylosis without myelopathy or radiculopathy, lumbar region (principal)
CPT/HCPCS: 72131

== ENCOUNTER → 2017-06-28 09:18 | Outpatient (POV) | payer MEDICARE, MEDICAID, SELFPAY ==
[2017-06-28 09:31] VITALS: BP 134/75; PULSE 82; RESP 18; TEMP 36.9; O2SAT 95
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
== END ==
PROVIDERS: Family Provider Family Medicine; PCP Family Medicine; Visit Provider Clinical Nurse Specialist Family Health
DX: M47.9 Spondylosis, unspecified (principal)
CPT/HCPCS: 99202

== ENCOUNTER → 2017-08-30 11:17 | Outpatient (POV) | payer MEDICARE, MEDICAID, SELFPAY ==
[2017-08-30 11:30] VITALS: BP 107/69; PULSE 90; RESP 18; O2SAT 98; BMI 29.7
--- NOTE | 2017-08-30 11:53 | HMH.PAINSOAP ---
[facility] Pain Management SOAP Note Subjective:: Patient is a pleasant 77-year-old white male who presents today for follow-up after first round of medial branch blocks at L4-L5 L5-S1. Patient states he had significant relief of 90% and did not have to use his cane for ambulation after the injection. Patient is still having some pain relief however some of his pain is return. Patient and I discussed repeating the medial branch block and then moving forward with an RFA of those levels. Patient would like to do this. Patient has tried and failed physical therapy, medications, anti-inflammatories. ROS General: no recent weight change, no fever, no sleep disturbances Respiratory: no cough, no shortness of air, no recurring pulmonary infections Cardiovascular/Peripheral Vascular: No chest pain, No palpitations, no edema, no shortness of breath. Gastrointestinal: no incontinence, normal bowel movements reported Genitourinary: no incontinence Musculoskeletal: Lumbar back pain Psychiatric: normal mood/ affect Neurological: [denies weakness in extremities], [denies balance issues] Objective:: Physical Exam General: Alert and oriented x3, no acute distress, pleasant and cooperative, [on room air] Lungs: Resps E/U, Symmetrical chest expansion, Eyes: PERRL Musculoskeletal: Flexion and extension of lumbar spine somewhat guarded secondary to pain, deep tendon reflexes normal, strength in upper and lower extremities [5/5], [abnormal gait noted] a positive Kemps test Neurological: speech clear, maintainer central office equal, no gross sensory deficits Assessment:: 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 He will follow-up with the patient after this injection and we will determine if we need to move forward with a rhizotomy of these levels. Patient has tried and failed other modalities of treatment such as physical therapy, medications, anti-inflammatories. This note was dictated using voice recognition software and may contain errors or omissions
--- NOTE | 2017-08-30 11:56 | P.CONS_ITS ---
[facility] Pain Management SOAP Note Subjective:: Patient is a pleasant 77-year-old white male who presents today for follow-up after first round of medial branch blocks at L4-L5 L5-S1. Patient states he had significant relief of 90% and did not have to use his cane for ambulation after the injection. Patient is still having some pain relief however some of his pain is return. Patient and I discussed repeating the medial branch block and then moving forward with an RFA of those levels. Patient would like to do this. Patient has tried and failed physical therapy, medications, anti- inflammatories. ROS General: no recent weight change, no fever, no sleep disturbances Respiratory: no cough, no shortness of air, no recurring pulmonary infections Cardiovascular/Peripheral Vascular: No chest pain, No palpitations, no edema, no shortness of breath. Gastrointestinal: no incontinence, normal bowel movements reported Genitourinary: no incontinence Musculoskeletal: Lumbar back pain Psychiatric: normal mood/ affect Neurological: [denies weakness in extremities], [denies balance issues] Objective:: Physical Exam General: Alert and oriented x3, no acute distress, pleasant and cooperative, [ on room air] Lungs: Resps E/U, Symmetrical chest expansion, Eyes: PERRL Musculoskeletal: Flexion and extension of lumbar spine somewhat guarded secondary to pain, deep tendon reflexes normal, strength in upper and lower extremities [5/5], [abnormal gait noted] a positive Kemps test Neurological: speech clear, it sales representative equal, no gross sensory deficits Assessment:: 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 He will follow-up with the patient after this injection and we will determine if we need to move forward with a rhizotomy of these levels. Patient has tried and failed other modalities of treatment such as physical therapy, medications, anti-inflammatories. This note was dictated using voice recognition software and may contain errors or omissions
== END ==
PROVIDERS: Family Provider Family Medicine; PCP Family Medicine; Visit Provider Clinical Nurse Specialist Family Health
DX: M47.9 Spondylosis, unspecified (principal)
CPT/HCPCS: 99212

== ENCOUNTER → 2017-10-31 09:23 | Outpatient (POV) | payer MEDICARE, MEDICAID, SELFPAY ==
[2017-10-31 09:41] VITALS: BP 141/78; PULSE 79; RESP 18; O2SAT 98; BMI 30.5
--- NOTE | 2017-10-31 10:25 | P.CONS_ITS ---
[facility] Pain Management SOAP Note Subjective:: Patient is a pleasant 77-year-old white male who presents today for follow-up after second round of medial branch block/facet joint injections at L4-L5 L5- S1. Patient got 90% relief for several weeks. Patient is interested in pursuing an RFA. Patient states his left side hurts worse than his right side. Patient states the pain worsens when he does any twisting motions. Patient states the pain stays in his back and does not travel down his legs. ROS General: no recent weight change, no fever, no sleep disturbances Respiratory: no cough, no shortness of air, no recurring pulmonary infections Cardiovascular/Peripheral Vascular: No chest pain, No palpitations, no edema, no shortness of breath. Gastrointestinal: no incontinence, normal bowel movements reported Genitourinary: no incontinence Musculoskeletal: Back pain Psychiatric: normal mood/ affect Neurological: [denies weakness in extremities], [denies balance issues] Objective:: Physical Exam General: Alert and oriented x3, no acute distress, pleasant and cooperative, [ on room air] Lungs: Resps E/U, Symmetrical chest expansion, Eyes: PERRL Musculoskeletal: Flexion and extension of lumbar spine somewhat guarded secondary to pain, deep tendon reflexes normal, strength in upper and lower extremities [5/5], antalgic gait noted, positive facet loading bilaterally lumbar spine Neurological: speech clear, supplier quality engineer equal, no gross sensory deficits Assessment:: Facet arthropathy, 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 Patient and I discussed the procedure he understands the risks and benefits to proceed. Patient has had 2 rounds of medial branch blocks with good relief. Patient is not on any anticoagulation therapy. This note was dictated using voice recognition software and may contain errors or omissions
== END ==
PROVIDERS: Family Provider Family Medicine; PCP Family Medicine; Visit Provider Clinical Nurse Specialist Family Health
DX: M12.88 Other specific arthropathies, not elsewhere classified, other specified site (principal); M51.36 Other intervertebral disc degeneration, lumbar region; M47.896 Other spondylosis, lumbar region
CPT/HCPCS: 99212

== ENCOUNTER → 2017-12-12 09:47 | Outpatient (POV) | payer MEDICARE, MEDICAID, SELFPAY ==
[2017-12-12 10:18] VITALS: BP 139/68; PULSE 72; RESP 18; O2SAT 98; BMI 29.7
--- NOTE | 2017-12-12 10:55 | HMH.PAINSOAP ---
[facility] Pain Management SOAP Note Subjective:: Patient is a pleasant 77-year-old white male who presents today for follow-up after RFA of the left side at L4-L5 L5-S1. Patient states that he did not have much relief with this. Patient states that he gets 90% relief of his pain symptoms for several weeks when he has injections. Patient would like to continue with injective therapy instead of pursuing the other side of his RFA. Patient rates his pain a 6 out of 10 today mostly in his low back. Patient states that twisting motions make it worse. Patient is not on any blood thinners at this time. ROS General: no recent weight change, no fever, no sleep disturbances Respiratory: no cough, no shortness of air, no recurring pulmonary infections Cardiovascular/Peripheral Vascular: No chest pain, No palpitations, no edema, no shortness of breath. Gastrointestinal: no incontinence, normal bowel movements reported Genitourinary: no incontinence Musculoskeletal: Back pain Psychiatric: normal mood/ affect Neurological: [denies weakness in extremities], [denies balance issues] Objective:: Physical Exam General: Alert and oriented x3, no acute distress, pleasant and cooperative, [on room air] Lungs: Resps E/U, Symmetrical chest expansion, Eyes: PERRL Musculoskeletal: Flexion and extension of lumbar spine somewhat guarded secondary to pain, deep tendon reflexes normal, strength in upper and lower extremities [5/5], slightly antalgic gait noted, positive Kemps test bilaterally lumbar spine Neurological: speech clear, over the horizon targeting supervisor equal, no gross sensory deficits Assessment:: Degenerative disc disease lumbar spine with facet arthritic and lumbar spondylosis Plan:: We will schedule the patient for an L4-L5 L5-S1 bilateral medial branch block/facet joint injection. Patient is gotten good relief with these past. I will follow-up with the patient after his injection. Patient is not on any antibiotics and is not on any blood thinner. Patient is continuing to do home stretching program. This note was dictated using voice recognition software and may contain errors or omissions
--- NOTE | 2017-12-12 10:58 | P.CONS_ITS ---
[facility] Pain Management SOAP Note Subjective:: Patient is a pleasant 77-year-old white male who presents today for follow-up after RFA of the left side at L4-L5 L5-S1. Patient states that he did not have much relief with this. Patient states that he gets 90% relief of his pain symptoms for several weeks when he has injections. Patient would like to continue with injective therapy instead of pursuing the other side of his RFA. Patient rates his pain a 6 out of 10 today mostly in his low back. Patient states that twisting motions make it worse. Patient is not on any blood thinners at this time. ROS General: no recent weight change, no fever, no sleep disturbances Respiratory: no cough, no shortness of air, no recurring pulmonary infections Cardiovascular/Peripheral Vascular: No chest pain, No palpitations, no edema, no shortness of breath. Gastrointestinal: no incontinence, normal bowel movements reported Genitourinary: no incontinence Musculoskeletal: Back pain Psychiatric: normal mood/ affect Neurological: [denies weakness in extremities], [denies balance issues] Objective:: Physical Exam General: Alert and oriented x3, no acute distress, pleasant and cooperative, [on room air] Lungs: Resps E/U, Symmetrical chest expansion, Eyes: PERRL Musculoskeletal: Flexion and extension of lumbar spine somewhat guarded secondary to pain, deep tendon reflexes normal, strength in upper and lower extremities [5/5], slightly antalgic gait noted, positive Kemps test bilaterally lumbar spine Neurological: speech clear, plant operator control room operator equal, no gross sensory deficits Assessment:: Degenerative disc disease lumbar spine with facet arthritic and lumbar spondylosis Plan:: We will schedule the patient for an L4-L5 L5-S1 bilateral medial branch block/facet joint injection. Patient is gotten good relief with these past. I will follow-up with the patient after his injection. Patient is not on any antibiotics and is not on any blood thinner. Patient is continuing to do home stretching program. This note was dictated using voice recognition software and may contain errors or omissions
== END ==
PROVIDERS: Family Provider Family Medicine; PCP Family Medicine; Visit Provider Clinical Nurse Specialist Family Health
DX: M51.36 Other intervertebral disc degeneration, lumbar region (principal); M46.96 Unspecified inflammatory spondylopathy, lumbar region; M47.896 Other spondylosis, lumbar region
CPT/HCPCS: 99213

== ENCOUNTER → 2018-03-06 08:30 | Outpatient (CLI) | payer MEDICARE, MEDICAID, SELFPAY ==
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
--- NOTE | 2018-03-06 08:32 | NM_ITS ---
NM bone scan whole body Ordering Physician: Waldemar Beckford MD Patient Age: 77 years: Male HISTORY: ITS.REASON: prostate cancer TECHNIQUE: 3 hours after administration 27.2 mCi Tc MDP images of the entire skeletal were obtained. COMPARISON :CT lumbar spine 05/19/2017 as well as left femur left knee radiograph from today FINDINGS No metastatic disease evident. Areas of minimal activity related to arthritic changes old fractures and other features as detailed below: Subtle increased activity seen at the distal left femoral shaft .. Left femur and left knee radiograph from today shows the patient has had a old healed fracture of the distal left femur shaft.. At the medial left main Pronounced arthritic changes at medial compartment account for the appearance here. Subtle activity at the tibia is fairly symmetric only slightly more than left reflect mechanical changes likely. But no focal lesions Subtle activity related to mild arthritic changes at the right ankle likely account for the slight increased activity here. No significant findings in the spine. Subtle activity at lower L-spine is compatible with the degenerative changes seen on the CT L-spine. No rib lesion. No osseous lesions suspect for metastatic disease. The shoulder girdle symmetric and within normal limits. Cervical spine and skull reveal no suspicious areas. There is tiny focal slight activity projected over left ostiomeatal complex may reflect some mild sinus inflammatory changes here IMPRESSION: No metastatic disease evident. Subtle Activity at the distal femur from old fracture. Focal Activity at medial knee reflect advanced arthritic changes at medial compartment..
--- NOTE | 2018-03-06 08:32 | CT_ITS ---
CT abdomen pelvis wo/w con INDICATION: Urinary tract infections. New diagnosis prostate cancer rule out metastatic disease ITS.REASON: prostate cancer ORDERING PHYSICIAN: Waldemar Beckford MD PATIENT AGE: 77 years COMPARISON: Previous CT abdomen pelvis September 2015. . TECHNIQUE: . CT performed with and without contrast. Following the noncontrast study a postcontrast study was performed utilizing 75 cc Isovue-370 IV. No oral contrast.. Axial images obtained with sagittal and coronal reformats. All CT scans at the facility use one or more dose reduction, viz: automated exposure control, ma/kV adjustment per patient size (including targeted exams where dose is matched to indication, i.e. head), or iterative reconstruction technique. FINDINGS: Lung bases.. Stable. Right basilar atelectasis & scarring with elevation right hemidiaphragm again noted, similar to previous 2016 CT abdomen. Left lung bases clear. Heart normal size with calcified coronary artery most pronounced at LAD. Abdomen/pelvis Liver no focal lesions. Spleen unremarkable. Anchors unremarkable. Adrenals unremarkable. No retroperitoneal nor mesenteric nor pelvic adenopathy. Postsurgical changes right upper upper abdomen-history states previous stomach surgery. Gallbladder. A few small layering radiopaque stones at the dependen small gallbladder. No biliary ductal dilatation. . Pancreas on appears satisfactory and stable. Kidneys. No hydronephrosis. No significant mass. No obstruction. No calculi Benign right renal cyst 2 cm size stable. Minimal stranding about kidneys unchanged since prior study and. Reflect minor chronic change Ureters unremarkable. Pelvis. Enlarged prostate again noted. It measures up to 5.6 cm transverse x 4.7 cm AP. Life inhomogeneous character but with thick CT Again see enlarged seminal vesicles on right more so than left. With somewhat lobular characteristic Urinary bladder only question some borderline wall thickening which could reflect some hypertrophy. The enlarged prostate indents the base the bladder. No significant pelvic sidewall adenopathy no retroperitoneal nor mesenteric adenopathy. . Large bowel. Diverticulosis seen throughout the colon most evident at the sigmoid and left colon. No diverticulitis. Small bowel unremarkable.: . Diverticulosis sigmoid colon. No diverticulitis. \ Bones. No metastatic osseous lesions evident on CT nor on bone scan. Performed today IMPRESSION......... Enlarged prostate again evident Enlarged seminal vesicles, right greater than left.. Slightly lobulated contour. . Bones show no evidence of metastatic disease on CT nor on the bone scan from today Benign renal cyst. No hydronephrosis Cholelithiasis Colonic diverticulosis. No diverticulitis.
[2018-03-06 09:17] LABS: Blood Urea Nitrogen 14 mg/dL (7-18); Creatinine,Serum 0.76 mg/dL (0.70-1.30); Estimated Glomerular Filt Rate 100 ml/min (>60); GFR (African American) 121 ML/MIN (>60)
--- NOTE | 2018-03-06 09:22 | HMH.ITSHM ---
Current Home Medications as stated by this patient Waldemar Bolaños or associate financial representative. []LEVOCETIRIZINE TAMSULOSIN PRAVASTATIN LISINOPRIL NEXIUM NASAL SPRAY
== END ==
PROVIDERS: PCP Family Medicine; Visit Provider Urology
DX: C61 Malignant neoplasm of prostate (principal)
CPT/HCPCS: 73552; 73562; 74178; 78306; 82565; 84520; A9503; Q9967

== ENCOUNTER → 2018-10-02 11:12 | Outpatient (POV) | payer MEDICARE, MEDICAID, SELFPAY ==
[2018-10-02 11:34] VITALS: BP 143/74; PULSE 96; RESP 18; O2SAT 98; BMI 29.6
--- NOTE | 2018-10-02 11:54 | HMH.PAINSOAP ---
[facility] Pain Management SOAP Note Subjective:: Patient is a very pleasant 77-year-old white male who presents today for follow-up. Patient was last seen in December of 2017 for low back pain with back pain radiating to his left lower extremity. Since that time, the patient has been diagnosed with prostate cancer and has been undergoing treatment. He was advised by his oncologist to postpone pain management therapy while undergoing treatment. He recently finished 5-week treatment of radiation beads and says that he is ready to resume pain management therapy. Patient is complaining of pain to his lower back radiating into his left leg and knee. He also says that the pain is worse with bending and twisting. Patient says he is having difficulty with ambulation. He rates his pain an 8 out of 10 today. In the past, the patient did have medial branch blocks of L4-L5 and L5-S1 and says that he had 90% relief with this. He says that following the medial branch block in the past he was to walk without a cane. Today, he says he is unable to walk without the cane. The patient would like to have medial branch blocks again. Review of Systems General: No recent weight changes, no fever, no sleep disturbances Respiratory: No cough, no shortness of air, no recurring pulmonary infections Cardiovascular/peripheral vascular: No chest pain, no palpitations, no edema, no shortness of breath Gastrointestinal: No new onset incontinence, normal bowel movements reported Genitourinary: No new onset incontinence Musculoskeletal: Back pain, leg pain Psychiatric: Normal mood/affect Neurological: [Denies weakness in extremities], [denies balance issues] Objective:: Physical exam General: Alert and oriented x3, no acute distress, pleasant and cooperative, [on room air] Lungs: Respirations even and unlabored, symmetrical chest expansion Eyes: PERRL Musculoskeletal: Flexion and extension of lumbar spine somewhat guarded secondary to pain, deep tendon reflexes normal, strength in upper and lower extremities [5/5], [abnormal gait noted] positive Kemps test Neurological: Speech clear, rugby union footballer equal, no gross sensory deficit Assessment:: Degenerative disc disease lumbar spine with facet arthropathy and lumbar spondylosis Plan:: We will schedule the patient for an L4-L5 L5-S1 bilateral medial branch block/facet joint injection. He is not on any anticoagulation therapy. He will continue anti-inflammatories and a home stretching program. We will see the patient back after the procedure to reassess his symptoms at that time. He has been instructed to call the office if he has any concerns prior to his next appointment. Dr. Jacobs has reviewed this note and agrees with this plan of care. This note was dictated using voice recognition software and make contain errors or omissions
--- NOTE | 2018-10-02 11:58 | P.CONS_ITS ---
[facility] Pain Management SOAP Note Subjective:: Patient is a very pleasant 77-year-old white male who presents today for follow- up. Patient was last seen in December of 2017 for low back pain with back pain radiating to his left lower extremity. Since that time, the patient has been diagnosed with prostate cancer and has been undergoing treatment. He was advised by his oncologist to postpone pain management therapy while undergoing treatment. He recently finished 5-week treatment of radiation beads and says that he is ready to resume pain management therapy. Patient is complaining of pain to his lower back radiating into his left leg and knee. He also says that the pain is worse with bending and twisting. Patient says he is having dif ficulty with ambulation. He rates his pain an 8 out of 10 today. In the past, the patient did have medial branch blocks of L4-L5 and L5-S1 and says that he had 90% relief with this. He says that following the medial branch block in the past he was to walk without a cane. Today, he says he is unable to walk without the cane. The patient would like to have medial branch blocks again. Review of Systems General: No recent weight changes, no fever, no sleep disturbances Respiratory: No cough, no shortness of air, no recurring pulmonary infections Cardiovascular/peripheral vascular: No chest pain, no palpitations, no edema, no shortness of breath Gastrointestinal: No new onset incontinence, normal bowel movements reported Genitourinary: No new onset incontinence Musculoskeletal: Back pain, leg pain Psychiatric: Normal mood/affect Neurological: [Denies weakness in extremities], [denies balance issues] Objective:: Physical exam General: Alert and oriented x3, no acute distress, pleasant and cooperative, [on room air] Lungs: Respirations even and unlabored, symmetrical chest expansion Eyes: PERRL Musculoskeletal: Flexion and extension of lumbar spine somewhat guarded secondary to pain, deep tendon reflexes normal, strength in upper and lower extremities [5/5], [abnormal gait noted] positive Kemps test Neurological: Speech clear, general counsel equal, no gross sensory deficit Assessment:: Degenerative disc disease lumbar spine with facet arthropathy and lumbar spondylosis Plan:: We will schedule the patient for an L4-L5 L5-S1 bilateral medial branch block/facet joint injection. He is not on any anticoagulation therapy. He will continue anti-inflammatories and a home stretching program. We will see the patient back after the procedure to reassess his symptoms at that time. He has been instructed to call the office if he has any concerns prior to his next appointment. Dr. Jacobs has reviewed this note and agrees with this plan of care. This note was dictated using voice recognition software and make contain errors or omissions
== END ==
PROVIDERS: PCP Family Medicine; Visit Provider Clinical Nurse Specialist Family Health
DX: M51.36 Other intervertebral disc degeneration, lumbar region (principal); M47.896 Other spondylosis, lumbar region; M54.06 Panniculitis affecting regions of neck and back, lumbar region
CPT/HCPCS: 99212

== ENCOUNTER → 2018-10-09 14:00 | Outpatient (CLI) | payer MEDICARE, MEDICAID, SELFPAY ==
--- NOTE | 2018-10-09 14:13 | CT_ITS ---
CT lumbar spine wo con INDICATION: ITS.REASON: SPINAL STENOSIS ORDERING PHYSICIAN: Josh Dias MD PATIENT AGE: 78 years COMPARISON: 05/19/2017. TECHNIQUE: Axial images obtained with sagittal and coronal reformats. All CT scans at the facility use one or more dose reduction, viz: automated exposure control, ma/kV adjustment per patient size (including targeted exams where dose is matched to indication, i.e. head), or iterative reconstruction technique. FINDINGS: Bone density is normal. The previously described minimal retrolisthesis of L1 on L2 and L2 on L3 appears stable. Disc space heights are stable with moderate loss of disc space height posteriorly at L2-3, L3-4 and L4-5. There are borderline very minimal bulges at L1-2, L2-3 and L3-4. There is no significant mass effect. There is no central canal stenosis or focal soft disc herniation. There is borderline mild facet hypertrophy which is stable at L4-5 and more severe facet a percutaneous pressure on the right with mild foraminal stenosis which is stable at L5-S1. Again seen are the hypodense right renal lesions likely cysts as well as gallstones without pericholecystic fluid. There are some colonic diverticula without inflammatory changes. IMPRESSION: Overall no change. There has been no development of disc herniation or acquired central canal stenosis. Borderline minimal bulge is without mass effect at L1-2, L2-3 and L3-4. Stable L5-S1 facet arthrosis with mild foraminal stenosis on the right. Uncomplicated colonic diverticulosis. Uncomplicated cholelithiasis.
== END ==
PROVIDERS: PCP Family Medicine; Visit Provider Family Medicine
DX: M48.062 Spinal stenosis, lumbar region with neurogenic claudication (principal)
CPT/HCPCS: 72131

== ENCOUNTER → 2018-11-27 12:31 | Outpatient (POV) | payer MEDICARE, MEDICAID, SELFPAY ==
[2018-11-27 13:06] VITALS: BP 150/74; PULSE 78; RESP 18; O2SAT 98; BMI 30.5
--- NOTE | 2018-11-27 13:42 | HMH.PAINSOAP ---
[facility] Pain Management SOAP Note Subjective:: Patient is a very pleasant 78-year-old white male who presents today for follow-up. Patient had very good relief with his L4-L5 L5-S1 bilateral medial branch block. He rates pain 5 out of 10 states that he got 90% relief of his pain symptoms and would like to repeat this before the weather gets too cold. He does not have any active infections he is not on any anticoagulation therapy. He has been continuing his home stretching program. He is also on anti-inflammatory. ROS General: no recent weight change, no fever, no sleep disturbances Respiratory: no cough, no shortness of air, no recurring pulmonary infections Cardiovascular/Peripheral Vascular: No chest pain, No palpitations, no edema, no shortness of breath. Gastrointestinal: no incontinence, normal bowel movements reported Genitourinary: no incontinence Musculoskeletal: Back pain Psychiatric: normal mood/ affect, [denies depression], [denies anxiety] Neurological: [denies weakness in extremities], [denies balance issues] Objective:: Physical Exam General: Alert and oriented x3, no acute distress, pleasant and cooperative, [on room air] Lungs: Resps E/U, Symmetrical chest expansion, Eyes: PERRL Musculoskeletal: Flexion and extension of lumbar spine somewhat guarded secondary to pain, deep tendon reflexes normal, strength in upper and lower extremities [5/5], [abnormal gait noted] positive Kemps test bilateral lumbar spine positive facet loading lumbar spine Neurological: speech clear, network operations lead equal, no gross sensory deficits Assessment:: Degenerative disc disease lumbar spine with lumbar spondylosis and facet arthropathy of lumbar spine Plan:: We will schedule him for an L4-L5 L5-S1 bilateral medial branch block/facet joint injection at the end of next month. Patient's been instructed to call the office if he has any issues prior to his next appointment. Dr. Jacobs has reviewed this note and agrees with this plan of care. This note was dictated using voice recognition software and may contain errors or omissions Pain Management Hx Components *Have you ever received a pneumonia vaccine?: Yes *Have you received a flu vaccine this season?: Yes - *Social History *Occupational Status:: other *Travel in the last 8 weeks: None
== END ==
PROVIDERS: PCP Family Medicine; Visit Provider Clinical Nurse Specialist Family Health
DX: M51.36 Other intervertebral disc degeneration, lumbar region (principal); M47.896 Other spondylosis, lumbar region; M54.06 Panniculitis affecting regions of neck and back, lumbar region
CPT/HCPCS: 99212

== ENCOUNTER → 2019-01-01 09:02 | Outpatient (POV) | payer MEDICARE, MEDICAID, SELFPAY ==
[2019-01-01 09:39] VITALS: BP 115/71; PULSE 90; RESP 18; O2SAT 98; BMI 30.5
--- NOTE | 2019-01-01 10:14 | P.CONS_ITS ---
[facility] Pain Management SOAP Note Subjective:: Patient is a pleasant 78-year-old white male who presents today for follow-up after medial branch block. Patient had 90% relief after the procedure. His pain is just now beginning to come back he rates his pain a 7 out of 10. Patient has had RFA in the past however he did not feel it was as beneficial as the injections. He would like to repeat this medial branch block in several weeks. We did briefly discuss potential RFA. He is not on any anticoagulation therapy. He is continuing a home stretching program. ROS General: no recent weight change, no fever, no sleep disturbances Respiratory: no cough, no shortness of air, no recurring pulmonary infections Cardiovascular/Peripheral Vascular: No chest pain, No palpitations, no edema, no shortness of breath. Gastrointestinal: no incontinence, normal bowel movements reported Genitourinary: no incontinence Musculoskeletal: Back pain Psychiatric: normal mood/ affect Neurological: [denies weakness in extremities], [denies balance issues] Objective:: Physical Exam General: Alert and oriented x3, no acute distress, pleasant and cooperative, [on room air] Lungs: Resps E/U, Symmetrical chest expansion, Eyes: PERRL Musculoskeletal: Flexion and extension of lumbar spine somewhat guarded secondary to pain, deep tendon reflexes normal, strength in upper and lower extremities [5/5], [abnormal gait noted] Neurological: speech clear, beef cattle grazier equal, no gross sensory deficits Assessment:: Lumbar spondylosis, degenerative disc disease lumbar spine, facet arthropathy Plan:: We will plan a repeat medial branch block at L4-L5 L5-S1 bilaterally given the efficacy in the past I believe it would be beneficial. Dr. Jacobs has reviewed this note and agrees with this plan of care. This note was dictated using voice recognition software and may contain errors or omissions [facility] History I have reviewed the patient's past medical history: Yes Medical History: Reports:: Cancer, Hyperlipidemia, Hypertension Denies:: Diabetes Mellitus Type 1, Diabetes Mellitus Type 2, Internal Pacemaker, MRSA, Seizures *Have you ever received a pneumonia vaccine?: Yes *Have you received a flu vaccine this season?: No Other Medical History: Reports: Arthritis, Radiation Therapy, Sinus Problems Other Surgeries: Yes: No Previous Surgery, Colonoscopy, EGD. No: Pacemaker Amputation: No Fractures: No - *Social History Smoking Status: Never smoker Tobacco Type: cigarettes #Yrs smoked (if former smoker): 10 Alcohol Intake: never Alcohol Intake Frequency:: a few times a week Substance Use Type: denies use *Occupational Status:: other Housing: house Household Members: family *Travel in the last 8 weeks: None Family Hx:: Diabetes, Hyperlipidemia, Hypertension
== END ==
PROVIDERS: PCP Family Medicine; Visit Provider Clinical Nurse Specialist Family Health
DX: M47.816 Spondylosis without myelopathy or radiculopathy, lumbar region (principal); M51.36 Other intervertebral disc degeneration, lumbar region; M54.06 Panniculitis affecting regions of neck and back, lumbar region
CPT/HCPCS: 99212

== ENCOUNTER → 2019-02-06 08:56 | Outpatient (POV) | payer MEDICARE, MEDICAID, SELFPAY ==
[2019-02-06 09:17] VITALS: BP 124/65; PULSE 98; RESP 18; O2SAT 95; BMI 30.5
--- NOTE | 2019-02-06 09:49 | P.CONS_ITS ---
[facility] Pain Management SOAP Note Subjective:: Patient is a pleasant 78-year-old white male who presents today for follow-up after medial branch block at L3-L4 L4-L5 L5-S1 bilaterally. Patient is doing extremely well he rates his pain a 6 out of 10. Patient would like to repeat this given the efficacy of the injection. He states that he has 80% relief of his symptomology for up to 3 months at a time. Patient overall doing well he is not on any anticoagulation therapy is continuing anti-inflammatories and is continuing a home stretching program. He rates his pain a 6 out of 10 today. He does have a positive Kemps test and facet loading bilateral lumbar spine. ROS General: no recent weight change, no fever, no sleep disturbances Respiratory: no cough, no shortness of air, no recurring pulmonary infections Cardiovascular/Peripheral Vascular: No chest pain, No palpitations, no edema, no shortness of breath. Gastrointestinal: no new onset incontinence, normal bowel movements reported Genitourinary: no new onset incontinence Musculoskeletal: Back pain Psychiatric: normal mood/ affect Neurological: [denies new onset weakness in extremities], [denies new onset balance issues] Objective:: Physical Exam General: Alert and oriented x3, no acute distress, pleasant and cooperative, [on room air] Lungs: Resps E/U, Symmetrical chest expansion, Eyes: PERRL Musculoskeletal: Flexion and extension of lumbar spine somewhat guarded secondary to pain, deep tendon reflexes normal, strength in upper and lower extremities [5/5], [abnormal gait noted] Neurological: speech clear, holistic pulser equal, no gross sensory deficits Assessment:: Degenerative disc disease lumbar spine with lumbar spondylosis and facet arthropathy of lumbar spine Plan:: We will schedule an L3-L4 L4-L5 L5-S1 bilateral medial branch block given the efficacy of this in the past. Patient and I also discussed that potentially may be in the future doing some epidural injections. I will follow-up with the patient after his injection reassess his symptoms at that time he has been instructed to call the office if he has any issues prior to his next appointment. Dr. Jacobs has reviewed this note and agrees with this plan of care. This note was dictated using voice recognition software and may contain errors or omissions [facility] History I have reviewed the patient's past medical history: Yes Medical History: Reports:: Cancer, Hyperlipidemia, Hypertension Denies:: Diabetes Mellitus Type 1, Diabetes Mellitus Type 2, Internal Pacemaker, MRSA, Seizures *Have you ever received a pneumonia vaccine?: No *Have you received a flu vaccine this season?: No Other Medical History: Reports: Arthritis, Radiation Therapy, Sinus Problems. Denies: Blood Transfusion Reaction Other Surgeries: Yes: No Previous Surgery, Colonoscopy, EGD. No: Pacemaker Amputation: No Fractures: No - *Social History Smoking Status: Never smoker Tobacco Type: cigarettes #Yrs smoked (if former smoker): 10 Alcohol Intake: never Alcohol Intake Frequency:: a few times a week Substance Use Type: denies use *Occupational Status:: employed Housing: house Household Members: family *Travel in the last 8 weeks: None Family Hx:: Diabetes, Hyperlipidemia, Hypertension
== END ==
PROVIDERS: PCP Family Medicine; Visit Provider Clinical Nurse Specialist Family Health
DX: M51.36 Other intervertebral disc degeneration, lumbar region (principal); M47.816 Spondylosis without myelopathy or radiculopathy, lumbar region; M54.06 Panniculitis affecting regions of neck and back, lumbar region
CPT/HCPCS: 99212

== ENCOUNTER → 2019-03-22 11:05 | Outpatient (CLI) | payer MEDICARE, MEDICAID, SELFPAY ==
[2019-03-22 12:25] LABS: Prostate Specific Ag, Diagnost 0 ng/mL (0.0-4.0)
== END ==
PROVIDERS: Visit Provider Urology
DX: C61 Malignant neoplasm of prostate (principal)
CPT/HCPCS: 36415; 84153

== ENCOUNTER → 2019-03-26 10:53 | Outpatient (POV) | payer MEDICARE, MEDICAID, SELFPAY ==
--- NOTE | 2019-03-26 11:38 | HMH.PAINSOAP ---
[facility] Pain Management SOAP Note Subjective:: Is a pleasant 78-year-old white male who we are treating for low back pain. Patient had a medial branch block and he got good relief however his pain in his been a little different lately. Mostly in his low back and down his legs. He is interested in epidural injection I believe this would be beneficial for him. He rates his pain a 5 out of 10. He is not on any anticoagulation therapy he is continuing a home stretching program. Patient's failed anti-inflammatories. ROS General: no recent weight change, no fever, no sleep disturbances Respiratory: no cough, no shortness of air, no recurring pulmonary infections Cardiovascular/Peripheral Vascular: No chest pain, No palpitations, no edema, no shortness of breath. Gastrointestinal: no new onset incontinence, normal bowel movements reported Genitourinary: no new onset incontinence Musculoskeletal: Back pain, leg pain Psychiatric: normal mood/ affect Neurological: [denies new onset weakness in extremities], [denies new onset balance issues] Objective:: Physical Exam General: Alert and oriented x3, no acute distress, pleasant and cooperative, [on room air] Lungs: Resps E/U, Symmetrical chest expansion, Eyes: PERRL Musculoskeletal: Flexion and extension of lumbar spine somewhat guarded secondary to pain, deep tendon reflexes normal, strength in upper and lower extremities [5/5], [abnormal gait noted] Neurological: speech clear, training and development assistant equal, no gross sensory deficits Assessment:: Degenerative disc disease lumbar spine with lumbar radiculopathy Plan:: We will schedule L4-L5 lumbar epidural steroid injection with the patient. I will follow-up with him afterwards reassess his symptoms at this time he is been instructed call the office if he has any issues prior to his next appointment. Dr. Jacobs has reviewed this note and agrees with this plan of care. This note was dictated using voice recognition software and may contain errors or omissions [facility] History I have reviewed the patient's past medical history: Yes Medical History: Reports:: Cancer, Diabetes Mellitus Type 1, Diabetes Mellitus Type 2, Hyperlipidemia, Hypertension, Internal Pacemaker, MRSA, Seizures *Have you ever received a pneumonia vaccine?: Yes *Have you received a flu vaccine this season?: No Other Medical History: Reports: Arthritis, Blood Transfusion Reaction, Radiation Therapy, Sinus Problems Other Surgeries: Yes: No Previous Surgery, Colonoscopy, EGD, Pacemaker Amputation: No Fractures: No - *Social History Smoking Status: Never smoker Tobacco Type: cigarettes #Yrs smoked (if former smoker): 10 Alcohol Intake: never Alcohol Intake Frequency:: a few times a week Substance Use Type: denies use *Occupational Status:: employed Housing: house Household Members: family *Travel in the last 8 weeks: None Family Hx:: Diabetes, Hyperlipidemia, Hypertension
[2019-03-26 12:04] VITALS: BP 131/70; PULSE 91; RESP 18; O2SAT 99; BMI 30.5
== END ==
PROVIDERS: PCP Family Medicine; Visit Provider Clinical Nurse Specialist Family Health
DX: M51.16 Intervertebral disc disorders with radiculopathy, lumbar region (principal); E10.8 Type 1 diabetes mellitus with unspecified complications; E11.8 Type 2 diabetes mellitus with unspecified complications; E78.5 Hyperlipidemia, unspecified; I10 Essential (primary) hypertension; Z95.0 Presence of cardiac pacemaker; Z86.14 Personal history of Methicillin resistant Staphylococcus aureus infection
CPT/HCPCS: 99212

== ENCOUNTER → 2019-10-18 08:59 | Outpatient (CLI) | payer MEDICARE, MEDICAID, SELFPAY ==
[2019-10-18 11:25] LABS: Coronavirus 19 IgG Antibody Negative (Negative); Coronavirus 19 IgM Antibody Negative (Negative)
== END ==
PROVIDERS: Visit Provider Internal Medicine Gastroenterology
DX: Z01.818 Encounter for other preprocedural examination (principal); Z12.11 Encounter for screening for malignant neoplasm of colon
CPT/HCPCS: 36415; 86328

== ENCOUNTER 2019-10-19 11:06 | Day surgery (SDC) | payer MEDICARE, MEDICAID, SELFPAY ==
[2019-10-11 14:22] VITALS: BMI 31.3
[2019-10-19 12:44] VITALS: BP 171/92; PULSE 110; RESP 20; TEMP 36.2; O2SAT 96
[2019-10-19 13:39] VITALS: O2SAT 97
--- NOTE | 2019-10-19 14:03 | HMH.PROC ---
[facility] Procedure Note Procedure Note:: Colonoscopy Procedure Report: Colonoscopy with APC ablation Endoscopist: César Duke II, MD Referring physician: Josh Dias MD Date of Procedure: October 19, 2019 Equipment: Olympus 180 variable stiffness pediatric colonoscope Sedation: MAC sedation Indication: Mr. Bolaños is a 79-year-old gentleman who is here for diagnostic colonoscopy secondary to rectal bleeding. He does have chronic constipation. He has been on Senna?S for long-term. He does report some chronic lower abdominal discomfort, bloating and gassiness. He was having fairly frequent bright red rectal bleeding and some dark blood on the tissue and in the toilet bowl. This has improved over the last month. He reports no weight loss or family history of colon cancer. He did have a colonoscopy in 2009 and had a serrated adenoma. His colonoscopy in 2013 revealed no colon polyps. His recent lab work showed hemoglobin 14.4 and hematocrit 44.5. He does have a history of prostate cancer with radiation therapy. Procedure: Prior to the procedure, a history and physical exam was performed, and patient's medications and allergies were reviewed. The risks, benefits and alternatives of the sedation and procedure were discussed with the patient. All questions were answered and informed consent was obtained. The patient was brought to the procedure room. Patient identification and proposed procedure were verified by the physician and the nurse. The patient was placed in a left lateral decubitus position and the scope was passed under direct vision. Throughout the procedure, the patient's blood pressure, pulse, and oxygen saturations were monitored continuously. The colonoscopy was accomplished without difficulty. The patient tolerated the procedure well. Findings: On digital rectal examination there was reduced rectal tone. There were no external hemorrhoids. The colonoscope was introduced through the anal canal to the rectum and advanced to the cecum. The cecal cap was very difficult to visualize because of greenish-brown liquid stool with a lot of residue that could not be suctioned. The remainder of the colon was fully visualized. There was mild melanosis coli throughout the colon. There were extensive scattered diverticuli throughout the descending and sigmoid colon (LEFT colon). 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 This was certainly the presumed cause of his intermittent rectal bleeding. The radiation proctitis was treated with APC/argon ablation with ablation of all identified telangiectasias with excellent cautery effect. Upon retroflexion within the rectum there were grade 2 internal hemorrhoids. The preparation was excellent throughout with [place] Preparation Score of 7 out of 9. The cecal time was 12 minutes. Impression: 1. 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 Mild melanosis coli 3. Extensive left-sided diverticulosis 4. Grade 2 internal hemorrhoids Plan: I strongly suspect bleeding from radiation proctitis. I will discuss the findings with the patient and family. I would encourage a fiber bowel regimen which may improve defecation and colonic health. He should not require any further preventive colonoscopy.
[2019-10-19 14:05] VITALS: BP 102/49; PULSE 90; RESP 18; TEMP 36.2; O2SAT 92
[2019-10-19 14:15] VITALS: BP 103/50; PULSE 85; RESP 18; TEMP 36.2; O2SAT 95
[2019-10-19 14:25] VITALS: BP 119/75; PULSE 91; RESP 18; TEMP 36.2; O2SAT 96
[2019-10-19 14:40] VITALS: BP 114/77; PULSE 94; RESP 18; TEMP 36.2; O2SAT 96
--- NOTE | 2019-10-19 15:17 | P.PN_ITS ---
[facility] Anesthesia Checklist - Patient Identification Patient Identification: Arm Band - Structural Data Admitted From: Home Planned Operative Procedure/s: colonoscopy Consent for Planned Operative Procedure(s) Verified: Yes Verified Documents: Surgical Consent, History and Physical - NPO Status Verified Time NPO: 00:00 - Additional verifications Anesthesia Reactions: No Hx Blood Transfusions: Yes Blood Transfusion Reaction: Yes - Airway Assessment C-Spine Mobility Assessed: Yes (mp2) TMJ Mobility Assessed: Yes Dentition: Dentures-good fit - Neurological Assessment Level of Consciousness: Awake, Alert - Anesthesia Plan Anesthesia Risk discussed: Yes Anesthesia Plan: Verified ASA Class: III Anesthesia Type: MAC [facility] History I have reviewed the patient's past medical history: Yes Medical History: Reports:: Cancer (prostate), Chronic Obstructive Pulmonary Disease (COPD), Depression, Gastroesophageal Reflux Disease(GERD), Hyperlipidemia, Hypertension, Seizures Denies:: Diabetes Mellitus Type 1, Diabetes Mellitus Type 2, Internal Pacemaker, MRSA *Have you ever received a pneumonia vaccine?: Yes *Have you received a flu vaccine this season?: Yes Other Medical History: Reports: Arthritis, Blood Transfusion Reaction, Radiation Therapy, Sinus Problems Anesthesia experience/problems:: nac Other Surgeries: Yes: Cancer Surgery, Colonoscopy, EGD. No: Pacemaker Amputation: No Fractures: No - *Social History Last grade of school completed: 9th or 10th Smoking Status: Never smoker Tobacco Type: cigarettes #Yrs smoked (if former smoker): 10 Alcohol Intake: never Alcohol Intake Frequency:: a few times a week Substance Use Type: denies use *Occupational Status:: retired Housing: house Household Members: family *Travel in the last 8 weeks: None Family Hx:: Diabetes, Hyperlipidemia, Hypertension
== END 2019-10-19 14:40 | disposition home or self-care (01) ==
LOC: OUTP 11:09
PROVIDERS: PCP Family Medicine; Visit Provider Internal Medicine Gastroenterology
PROC: 0DJD8ZZ Inspection of Lower Intestinal Tract, Via Natural or Artificial Opening Endoscopic (ICD-10-PCS; CPT 45378; principal; 2019-10-19 13:00)
DX: K59.09 Other constipation (principal); K62.7 Radiation proctitis; K63.89 Other specified diseases of intestine; K57.30 Diverticulosis of large intestine without perforation or abscess without bleeding; K64.1 Second degree hemorrhoids; Z85.46 Personal history of malignant neoplasm of prostate; J44.9 Chronic obstructive pulmonary disease, unspecified; F32.9 Major depressive disorder, single episode, unspecified; K21.9 Gastro-esophageal reflux disease without esophagitis; E78.5 Hyperlipidemia, unspecified; I10 Essential (primary) hypertension; R56.9 Unspecified convulsions
CPT/HCPCS: 45388; C2618

== ENCOUNTER → 2019-10-22 09:23 | Outpatient (CLI) | payer MEDICARE, MEDICAID, SELFPAY | PROVIDERS: PCP Family Medicine; Visit Provider Family Medicine | DX: R06.02 Shortness of breath (principal); R06.2 Wheezing | CPT/HCPCS: 94060; 94640 ==

== ENCOUNTER → 2019-10-24 08:15 | Outpatient (CLI) | payer MEDICARE, MEDICAID, SELFPAY ==
--- NOTE | 2019-10-24 | CA_ITS ---
APPROVED REPORT EXAM: Comprehensive 2D, Doppler, and color-flow Echocardiogram Roller Maker: Karlee Garza CRT Ht: 5 ft 7 in Wt: 195lbs BSA: 2.00 BP: 120/82 mmHg Indications: COPD, Shortness of Breath, Obesity, Fatigue, Hyperlipidemia, Hypertension/HDD 2D Dimensions LVOT 1.62 cm (M/F) 1.5-2.5 M-Mode Dimensions RVDd 3.46 cm (0.9-2.6) LVDd 4.10 cm (3.5-5.7) LVDs 2.72 cm (3.5-5.7) IVSd 1.85 cm (0.6-1.1) PWd 0.84 cm (0.6-1.1) EF (Teich) 62.90% FS 33.70% EDV (Teich) 74.20 mL ESV (Teich) 27.50 mL LV Diastology E/A Ratio 0.70 Aortic Valve LVOT Max 121.00 (70-110 cm/s) LVOT VTI 19.63 cm Mitral Valve MV A Velocity 87.00 (40-130 cm/s) Left Ventricle Left atrium is mildly enlarged, left ventricle is normal size, mild concentric left ventricular hypertrophy, visually estimated ejection fraction 55% with no regional wall motion abnormality. Grade 1 diastolic dysfunction seen without tissue Doppler evidence of raise left atrial pressure. Right Ventricle Right atrium and right ventricle are mildly enlarged with normal contractility. Aortic Valve Aortic valve is thickened and calcified leaflet continue to display mobility. Aortic outflow velocities not indicated for aortic stenosis or aortic insufficiency. Mitral Valve Mitral valve is minimally thickened, there is no mitral stenosis, there is mild mitral regurgitation. Tricuspid Valve Tricuspid valve is grossly normal, there is mild tricuspid regurgitation, tricuspid regurgitation jet velocity is inadequate for calculation of the right ventricular systolic pressure Pulmonic Valve Pulmonic valve is poorly visualized. Great Vessels Aortic root is normal size. Pericardium No significant pericardial effusion noted. Conclusion 1. Mildly enlarged left atrium, normal left ventricular size, mild concentric left ventricular hypertrophy, visually estimated ejection fraction 55% with no regional wall motion abnormality, grade 1 diastolic dysfunction seen without tissue Doppler evidence of raise left atrial pressure. 2. Thickened and calcified aortic valve without Doppler evidence of aortic stenosis or aortic insufficiency. 3. Mildly enlarged right ventricle with normal contractility. 4. Mild mitral and tricuspid regurgitation. 5. No significant pericardial effusion noted. Electronically signed by : Rajesh Chew, 10/25/2019 14:37:09
== END ==
PROVIDERS: PCP Family Medicine; Visit Provider Family Medicine
DX: R07.89 Other chest pain (principal); R06.02 Shortness of breath
CPT/HCPCS: 93306

== ENCOUNTER → 2020-01-11 11:28 | Outpatient (CLI) | payer MEDICARE, MEDICAID, SELFPAY ==
[2020-01-12 15:25] LABS: Covid-19 Nasal PCR Sendout Lex Not Detected
== END ==
PROVIDERS: PCP Family Medicine; Visit Provider Nurse Practitioner Family
DX: Z03.818 Encounter for observation for suspected exposure to other biological agents ruled out (principal)
CPT/HCPCS: U0004

== ENCOUNTER → 2020-01-28 15:51 | Outpatient (CLI) | payer MEDICARE, MEDICAID, SELFPAY ==
--- NOTE | 2020-01-28 16:05 | XR_ITS ---
PROCEDURE: XR CHEST 2V CLINICAL HISTORY: SOA Shortness of air COMPARISON: CR CXR CHEST(2 VIEWS-NOT PORTABLE) from 03/14/2015 CR CXR CHEST(2 VIEWS-NOT PORTABLE) from 01/11/2017 CR CXR2V XR chest 2V from 04/27/2017 FINDINGS: The cardiomediastinal silhouette and pulmonary vascularity are within normal limits. Right hemidiaphragm is elevated with bowel interposition on the right with minimal blunting of the right CP angle. Chronic changes are present in the left lung base. Upper lobes are clear. No acute bony abnormalities. 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 No change with no acute finding. Dictated by: Clem Schroeder MD 01/28/2020 16:28 Clem Schroeder MD in [place] 01/28/2020 16:28
[2020-01-28 16:15] LABS: Basophils # 0.1 K/mm3 (0-0.2); Basophils % 0.6 % (0.1-2.0); Eosinophils # 0.5 K/mm3 (0.0-0.4); Eosinophils % 4.9 % (0.1-12.0); Hematocrit 47.9 % (42.0-52.0); Hemoglobin 15.4 g/dL (14.1-18.0); Lymphocytes # 1.3 K/mm3 (0.7-4.5); Lymphocytes % 13.8 % (10-50); Mean Corpuscular HGB Conc 32.1 g/dL (31.8-35.4); Mean Corpuscular Hemoglobin 31.9 pg (27.0-31.2); Mean Corpuscular Volume 99.3 fl (80-94); Mean Platelet Volume 7.8 fl (7.4-10.4); Monocytes # 0.8 K/mm3 (0.1-1.0); Monocytes % 8.5 % (1.7-9.3); Neutrophils # 6.9 K/mm3 (1.8-7.8); Neutrophils % 72.3 % (37.0-80.0); Platelet Count 358 K/mm3 (142-424); Red Blood Count 4.82 M/mm3 (4.60-6.20); White Blood Count 9.5 K/mm3 (4.8-10.8)
[2020-01-28 17:09] LABS: Anion Gap 12.5 mEq/L (5-15); Blood Urea Nitrogen 25 mg/dl (9-20); Calcium 9.5 mg/dl (8.4-10.2); Carbon Dioxide 30 mmol/L (22.0-30.0); Chloride 100 mmol/L (98-107); Estimated Glomerular Filt Rate 109 ml/min (>60); GFR (African American) 132 ML/MIN (>60); Glucose 124 mg/dl (74-100); Potassium 4.5 mmoL/L (3.5-5.1); Sodium 138 mmol/L (136-145)
[2020-01-28 17:20] LABS: NT Pro Brain Natriuretic Pep. 57.4 pg/mL (0-450)
[2020-01-28 17:25] LABS: Troponin I < 0.01 ng/ml (0.00-0.034)
== END ==
PROVIDERS: Visit Provider Family Medicine
DX: R06.02 Shortness of breath (principal)
CPT/HCPCS: 36415; 71046; 80048; 83880; 84484; 85025

== ENCOUNTER → 2020-03-03 14:46 | Outpatient (CLI) | payer MEDICARE, MEDICAID, SELFPAY ==
[2020-03-06 06:17] LABS: Covid-19 Nasal PCR Sendout Lex NOT DETECTED
== END ==
PROVIDERS: PCP Family Medicine; Visit Provider Nurse Practitioner Family
DX: Z03.818 Encounter for observation for suspected exposure to other biological agents ruled out (principal)
CPT/HCPCS: U0004

== ENCOUNTER 2020-03-22 15:11 | Emergency (ER) | payer MEDICARE, MEDICAID, SELFPAY ==
[2020-03-22 15:12] VITALS: BP 140/60; PULSE 60; RESP 16; TEMP 36.8; O2SAT 98; BMI 28.8
--- NOTE | 2020-03-22 15:38 | CT_ITS ---
PROCEDURE: CT ABDOMEN PELVIS WO CON CLINICAL INDICATION: urinary retention poss stone COMPARISON: CT [id number] CT abdomen pelvis wo/w con from 03/06/2018 TECHNIQUE: Axial images obtained with sagittal and coronal reformats. All CT scans at the facility use one or more dose reduction, viz: automated exposure control, ma/kV adjustment per patient size (including targeted exams where dose is matched to indication, i.e. head), or iterative reconstruction technique. FINDINGS: Lower thorax: Minimal right basilar atelectasis. There is elevation right hemidiaphragm. There is no pleural fluid. Cardiac size is normal, there is prominent coronary artery calcification. ABDOMEN: Liver: No masses or biliary dilatation. Gallbladder: The gallbladder is normal in size and there is somewhat subtle heterogenic appearance suggesting biliary sludge and a couple images suggest several tiny calcified gallstones layering along the dependent wall. Pancreas: No masses or peripancreatic fluid collections. Spleen: unremarkable Adrenals: unremarkable Kidneys/ureters: The kidneys are lower limits of normal in size and there are no calculi and there is no obstructive uropathy ABDOMEN & PELVIS: Stomach bowel: . there is a large amount of ingested food particles within the stomach. The duodenal sweep and small bowel appear normal. There is moderate scattered stool and gas seen throughout the colon. There is diffuse diverticulosis of the lower descending and sigmoid colon especially sigmoid colon but there is no definite evidence of diverticulitis. Peritoneum: There is a small umbilical hernia containing fat only. There is a small right inguinal hernia containing some mesentery but no definite loop of bowel. Lymph nodes: No enlarged lymph nodes apparent. Vasculature: There is scattered arteriosclerotic calcification of the abdominal aorta but there is no aneurysm. Bones: No acute fracture there are no lytic or blastic lesions seen in the visualized bony skeleton. PELVIS: Reproductive: unremarkable Bladder: The bladder is decompressed and there is a Ramirez catheter at the base of the bladder. There are multiple radium seeds within the prostate Appendix: There are no findings to suggest appendicitis. IMPRESSION: Diffuse diverticulosis of the descending and sigmoid colon without diverticulitis. There multiple radium seeds within the prostate, no acute abdominal or pelvic pathology identified Dictated by: Dr. Damon Belcher MD 03/22/2020 18:46 Dr. Damon Belcher MD in [place] 03/22/2020 18:46
[2020-03-22 15:44] VITALS: BP 140/60; PULSE 69; RESP 18; O2SAT 94
[2020-03-22 15:59] LABS: Microscopic, Urine URINE MICROSCOPIC (MICROSCOPIC)
[2020-03-22 16:00] LABS: Appearance,Urine CLEAR (Clear); Bilirubin,Urine Negative (Negative); Blood, Urine Negative (Negative); Color,Urine YELLOW (Yellow); Glucose,Urine (UA) Negative (Negative); Ketones,Urine Negative (Negative); Leukocyte Esterase,Urine Negative (Negative); Nitrate,Urine Negative (Negative); Protein,Urine Negative (Negative); Urobilinogen,Urine 0.2 EU/dl (0.2)
[2020-03-22 16:00] LABS: Basophils # 0.1 K/mm3 (0-0.2); Basophils % 0.5 % (0.1-2.0); Eosinophils # 0.2 K/mm3 (0.0-0.4); Eosinophils % 1.6 % (0.1-12.0); Hematocrit 42.6 % (42.0-52.0); Hemoglobin 13.8 g/dL (14.1-18.0); Lymphocytes # 1.3 K/mm3 (0.7-4.5); Lymphocytes % 12.7 % (10-50); Mean Corpuscular HGB Conc 32.3 g/dL (31.8-35.4); Mean Corpuscular Hemoglobin 32.7 pg (27.0-31.2); Mean Corpuscular Volume 101.1 fl (80-94); Mean Platelet Volume 7.8 fl (7.4-10.4); Monocytes # 0.7 K/mm3 (0.1-1.0); Monocytes % 6.7 % (1.7-9.3); Neutrophils % 78.4 % (37.0-80.0); Platelet Count 261 K/mm3 (142-424); Red Blood Count 4.21 M/mm3 (4.60-6.20); Red Cell Distribution Width 14.5 % (11.5-17.5); White Blood Count 10.2 K/mm3 (4.8-10.8)
[2020-03-22 16:07] LABS: Alanine Aminotransferase 41 U/L (12-78); Albumin/Globulin Ratio 1.3 (1.1-1.8); Alkaline Phosphatase 83 U/L (38-126); Anion Gap 10.2 mEq/L (5-15); Aspartate Amino Transferase 47 U/L (17-59); Bilirubin,Total 0.9 mg/dl (0.2-1.3); Blood Urea Nitrogen 19 mg/dl (9-20); Calcium 9.5 mg/dl (8.4-10.2); Carbon Dioxide 32 mmol/L (22.0-30.0); Chloride 99 mmol/L (98-107); Creatinine Clearance Estimated 76 mL/min (50-200); Estimated Glomerular Filt Rate 109 ml/min (>60); GFR (African American) 132 ML/MIN (>60); Globulin 3.1 g/dL (1.3-3.2); Glucose 126 mg/dl (74-100); Potassium 4.2 mmoL/L (3.5-5.1); Sodium 137 mmol/L (136-145); Total Protein,Serum 7.1 g/dl (6.3-8.2)
--- NOTE | 2020-03-22 16:57 | HMH.EDGENADL ---
ED Disposition Clinical Impression: Acute urinary retention Disposition: Home, Self-Care Condition on Discharge: Good Instructions: How to Care for Your Ramirez Catheter -- Male, DI for Urinary Retention in Men Additional Instructions: Keep Ramirez catheter in. See Dr. Beckford on Tuesday as scheduled. Referrals: Josh Dias MD [Primary Care Provider] - - Critical Care Critical Care Time: No Attestation: On 03/22/20, the high probability of a clinically significant, sudden or life threatening deterioration of the following system(s) required my full and direct attention, intervention and personal management. The time I documented below is in addition to time spent performing reported procedures but includes the following listed in this critical care notation. Medical Decision Making - Isra Inquiry Pt receiving controlled substance: No Vital Signs: 03/22/20 15:12 03/22/20 15:44 03/22/20 17:00 Temperature 98.2 F Temperature Source Oral Pulse Rate [Right] 60 69 56 L Respiratory Rate 16 18 20 Blood Pressure [Right Arm] 140/60 140/60 138/66 Blood Pressure Mean [Right Arm] 86 86 90 Blood Pressure Source [Right Arm] Automatic Cuff Automatic Cuff Automatic Cuff Blood Pressure Position [Right Arm] Sitting Sitting Sitting 02 Sat by Pulse Oximetry 98 94 L 96 Oxygen Delivery Method Room Air - Lab Data Lab Results 03/22/20 15:30: Urine Color Yellow, Urine Appearance Clear, Urine pH 6.0, Ur Specific Elizabeth 1.020, Urine Protein Negative, Urine Glucose (UA) Negative, Urine Ketones Negative, Urine Blood Negative, Urine Nitrate Negative, Urine Bilirubin Negative, Urine Urobilinogen 0.2, Ur Leukocyte Esterase Negative, Urine RBC None, Urine WBC None, Ur Squamous Epith Cells None, Urine Bacteria None 03/22/20 15:50: WBC 10.2, RBC 4.21 L, Hgb 13.8 L, Hct 42.6, MCV 101.1 H, MCH 32.7 H, MCHC 32.3, RDW 14.5, Plt Count 261, MPV 7.8, Neut % (Auto) 78.4, Lymph % (Auto) 12.7, Roane % (Auto) 6.7, Eos % (Auto) 1.6, Baso % (Auto) 0.5, Neut # (Auto) 8.0 H, Lymph # (Auto) 1.3, Roane # (Auto) 0.7, Eos # (Auto) 0.2, Baso # (Auto) 0.1 03/22/20 15:50: Sodium 137, Potassium 4.2, Chloride 99, Carbon Dioxide 32 H, Anion Gap 10.2, BUN 19, Creatinine 0.70, Estimated Creat Clear 76, Estimated GFR 109, Est GFR ( Amer) 132, Glucose 126 H, Calcium 9.5, Total Bilirubin 0.9, AST 47, ALT 41, Alkaline Phosphatase 83, Total Protein 7.1, Albumin 4.0, Globulin 3.1, Albumin/Globulin Ratio 1.3 Result diagrams: 03/22/20 15:50 03/22/20 15:50 Orders (Tests/Meds): ORDERS Category Date Time Status CT abdomen pelvis wo con Stat Cat Scan 03/22/20 15:38 Taken General Adult HPI - General Chief complaint: Abdominal Pain Stated complaint: Can't urinate Time Seen by Provider: 03/22/20 16:57 Mode of Arrival: Ambulatory Limitations: No Limitations Description of Symptoms (Recalled from ER Triage Doc. by RN): pt advises he hasn't been able to urinate since yesterday and has been having pain. Advises last time this happened he had a kidney stone - History of Present Illness HPI narrative: Unable to urinate since last night. Complains of bladder distention. States that he had bladder cancer a few years ago, treated with radiation treatments and implant beads and has had burning with urination ever since then. Had one previous episode of urinary retention with hematuria and it was thought that he might have passed a stone although none was found. He has an appointment to see Dr. Beckford, urologist, this Tuesday on 03/24/2020. No back pain, fever, vomiting. - Related Data Home Medications Medication Instructions Recorded Confirmed lisinopriL [Lisinopril 10mg Tab] 10 mg PO DAILY 04/27/17 10/19/19 fluticasone propionate 50 2 spray INTRANASAL DAILY 08/17/18 10/19/19 mcg/actuation nasal spray,suspension pravastatin 40 mg tablet 40 mg PO DAILY 08/17/18 10/19/19 tamsulosin 0.4 mg capsule 0.4 mg PO DAILY 08/17/18 10/19/19 Gabapentin [Gabapenti
[2020-03-22 17:00] VITALS: BP 138/66; PULSE 56; RESP 20; O2SAT 96
--- NOTE | 2020-03-22 17:42 | PC.NURSE ---
called about reading of ct scan , they advised me they were sending it to [facility] [place]
[2020-03-22 18:15] VITALS: BP 110/52; PULSE 61; RESP 16; TEMP 36.9; O2SAT 95
== END 2020-03-22 18:16 | disposition home or self-care (01) ==
PROVIDERS: Emergency Provider Emergency Medicine; PCP Family Medicine
DX: R33.8 Other retention of urine (principal); Z85.51 Personal history of malignant neoplasm of bladder; Z85.46 Personal history of malignant neoplasm of prostate; I10 Essential (primary) hypertension; J44.9 Chronic obstructive pulmonary disease, unspecified; K21.9 Gastro-esophageal reflux disease without esophagitis; F33.1 Major depressive disorder, recurrent, moderate; E78.5 Hyperlipidemia, unspecified; Z88.2 Allergy status to sulfonamides; Z79.899 Other long term (current) drug therapy
CPT/HCPCS: 74176; 80053; 81001; 85025; 99283

== ENCOUNTER 2020-07-09 16:33 | Emergency (ER) | payer MEDICARE, MEDICAID, SELFPAY ==
[2020-07-09 17:11] VITALS: BP 152/73; PULSE 103; RESP 18; TEMP 36.9; O2SAT 96; BMI 30.5
--- NOTE | 2020-07-09 17:38 | HMH.EDUTC ---
[facility] [place] Disposition Clinical Impression: Spider bite Qualifiers: Encounter type: initial encounter Injury intent: undetermined intent Qualified Code(s): T63.304A - Toxic effect of unspecified spider venom, undetermined, initial encounter Disposition: Home, Self-Care Condition on Discharge: Good Instructions: DI for Spider Bites, Bacitracin Topical Additional Instructions: Keep bite areas clean and dry Continue taking Cefdinir as prescribed by your family Doctor Apply ointment as prescribed FOllow up with Family Doctor immediately if no improvement or any worsening of symptom in the next 48 hours Return if needed Straight to ER if any life threatening symptoms Prescriptions: Bacitracin [Bacitracin Oint 0.9GM UDP] 1 each TP TID 10 Days #30 packet Transmission Status: Received by [facility] Referrals: Josh Dias MD [Primary Care Provider] - As needed Time of Disposition: 18:01 Medical Decision Making - Isra Inquiry Pt receiving controlled substance: No Isra was queried for this patient: No Vital Signs: 07/09/20 17:11 07/09/20 18:03 Temperature 98.4 F 98.4 F Temperature Source Oral Oral Pulse Rate 103 H Pulse Rate [Left] 103 H Respiratory Rate 18 18 Blood Pressure 152/73 H Blood Pressure [Left Arm] 152/73 H Blood Pressure Mean [Left Arm] 99 Blood Pressure Source Automatic Cuff Blood Pressure Source [Left Arm] Automatic Cuff Blood Pressure Position Sitting Blood Pressure Position [Left Arm] Sitting 02 Sat by Pulse Oximetry 96 Oxygen Delivery Method Room Air Room Air Medical Decision Narrative: Patient was prescribed Cefdinir by his PCP yesterday medications discussed with pharmacy, recommended continue taking Cefdinir add bacitracin and have patient follow up with Family Doctor if any worsening of infection [facility] [place] HPI - General Stated complaint: possible spidle bite on r leg Time Seen by Provider: 07/09/20 17:38 Mode of Arrival: Ambulatory Source of Information: Patient Limitations: No Limitations Description of Symptoms (Recalled from Triage Doc. by RN): Pt reports he has two red/purple spots on the back of his right leg that he thinks may be spider bites. HEENT Symptoms (Recalled from RN notes): No Resp Symptoms (Recalled from RN notes): No Skin Symptoms (Recalled from RN notes): Yes MS Symptoms (Recalled from RN notes): No Functional Status (Recalled from RN notes): wnl - History of Present Illness Provider Complaint: Patient states he was sitting in his chair and thinks he may have got bitten by a spider States that he felt something crawling and he looked down and saw a spider on the arm of the chair States that he saw his PCP yesterday and didnt think anything of it but noticed last night two small red itchy like areas on the back of his right leg and he scratched them State that today they was more red and had got a little larger so he came in to get them looked at - Related Data Home Medications Medication Instructions Recorded Confirmed lisinopriL [Lisinopril 10mg Tab] 10 mg PO DAILY 04/27/17 03/24/20 fluticasone propionate 50 2 spray INTRANASAL DAILY 08/17/18 03/24/20 mcg/actuation nasal spray,suspension pravastatin 40 mg tablet 40 mg PO DAILY 08/17/18 03/24/20 tamsulosin 0.4 mg capsule 0.4 mg PO DAILY 08/17/18 03/24/20 Gabapentin [Gabapentin 100mg Cap] 100 mg PO TID 10/27/18 03/24/20 esomeprazole magnesium 20 mg 20 mg PO cap 03/24/20 03/24/20 capsule,delayed release Previous Rx's Medication Instructions Recorded Bacitracin [Bacitracin Oint 0.9GM 1 each TP TID 10 Days #30 packet 07/09/20 UDP] Allergies Allergy/AdvReac Type Severity Reaction Status Date / Time Sulfa (Sulfonamide Allergy Unknown I-RASH Verified 03/24/20 13:10 Antibiotics) [SULFA (SULFONAMIDE ANTIBIOTICS)] - Worker's Comp Is this a Worker's Comp case?: No [facility] History - Hepatitis A Screen Drug use history?: No High risk sexual behaviors?: No History o
[2020-07-09 18:03] VITALS: BP 152/73; PULSE 103; RESP 18; TEMP 36.9; O2SAT 96
== END 2020-07-09 18:08 | disposition home or self-care (01) ==
LOC: ER 16:46 → UTC 17:09
PROVIDERS: Emergency Provider Emergency Medicine; PCP Family Medicine
DX: T63.304A Toxic effect of unspecified spider venom, undetermined, initial encounter (principal); S70.361A Insect bite (nonvenomous), right thigh, initial encounter; W57.XXXA Bitten or stung by nonvenomous insect and other nonvenomous arthropods, initial encounter; Y92.019 Unspecified place in single-family (private) house as the place of occurrence of the external cause; I10 Essential (primary) hypertension; K21.9 Gastro-esophageal reflux disease without esophagitis; E78.5 Hyperlipidemia, unspecified; J44.9 Chronic obstructive pulmonary disease, unspecified; F33.1 Major depressive disorder, recurrent, moderate; Z88.2 Allergy status to sulfonamides
CPT/HCPCS: G0463; 99202

== ENCOUNTER → 2020-09-23 09:48 | Outpatient (CLI) | payer MEDICARE, MEDICAID, SELFPAY ==
[2020-09-23 22:23] LABS: Prostate Specific Ag, Diagnost < 0.064 ng/ml (0.0-4.0)
== END ==
PROVIDERS: Visit Provider Urology
DX: C61 Malignant neoplasm of prostate (principal)
CPT/HCPCS: 36415; 84153

== ENCOUNTER 2020-12-13 11:00 | Emergency (ER) | payer MEDICARE, MEDICAID, SELFPAY ==
[2020-12-13 11:40] VITALS: BP 144/80; PULSE 67; RESP 18; TEMP 36.9; O2SAT 97; BMI 31.0
--- NOTE | 2020-12-13 12:26 | HMH.EDUTC ---
[facility] [place] Clinical Impression: Encounter for laboratory testing for COVID-19 virus Bilateral otitis media Qualifiers: Otitis media type: suppurative Chronicity: acute Recurrence: non-recurrent Spontaneous tympanic membrane rupture: without spontaneous rupture Qualified Code(s): H66.003 - Acute suppurative otitis media without spontaneous rupture of ear drum, bilateral Sinusitis Qualifiers: Sinusitis location: maxillary Chronicity: chronic Qualified Code(s): J32.0 - Chronic maxillary sinusitis Disposition: Home, Self-Care Condition on Discharge: Good Instructions: DI for Sinusitis Additional Instructions: Take all antibiotics as prescribed until gone Follow up with Dr Dias if not improving Prescriptions: Cefdinir [Omnicef 300mg Capsule] 300 mg PO BID #20 cap Transmission Status: Pending to [facility] Referrals: Josh Dias MD [Primary Care Provider] - Time of Disposition: 12:41 Medical Decision Making - Isra Inquiry Pt receiving controlled substance: No Vital Signs: 12/13/20 11:40 Temperature 98.5 F Temperature Source Oral Pulse Rate [Right Brachial] 67 Respiratory Rate 18 Blood Pressure [Right Arm] 144/80 H Blood Pressure Mean [Right Arm] 101 Blood Pressure Source [Right Arm] Automatic Cuff Blood Pressure Position [Right Arm] Sitting 02 Sat by Pulse Oximetry 97 Oxygen Delivery Method Room Air [facility] [place] - General Stated complaint: sinus pressure Time Seen by Provider: 12/13/20 12:26 Mode of Arrival: Ambulatory Source of Information: Patient Limitations: No Limitations Description of Symptoms (Recalled from Triage Doc. by RN): PATIENT C/O SINUS PRESSURE. ALSO NEEDING COVID TEST FOR EYE SURGERY NEXT WEEK HEENT Symptoms (Recalled from RN notes): Yes Resp Symptoms (Recalled from RN notes): No Skin Symptoms (Recalled from RN notes): No MS Symptoms (Recalled from RN notes): No Functional Status (Recalled from RN notes): WNL - History of Present Illness Provider Complaint: Patient has bilateral ear pain, sinus congestion and pressure X several days. Has chronic sinusitis. Has cataract surgery next week and needs COVID19 test. Onset (ago): day(s) (3) Relieving factors: none Exacerbating factors: none Associated symptoms: malaise Treatments prior to arrival: none - Related Data Home Medications Medication Instructions Recorded Confirmed lisinopriL [Lisinopril 10mg Tab] 10 mg PO DAILY 04/27/17 12/12/20 fluticasone propionate 50 2 spray INTRANASAL DAILY 08/17/18 12/12/20 mcg/actuation nasal spray,suspension pravastatin 40 mg tablet 40 mg PO DAILY 08/17/18 12/12/20 tamsulosin 0.4 mg capsule 0.4 mg PO DAILY 08/17/18 12/12/20 Gabapentin [Gabapentin 100mg Cap] 100 mg PO TID 10/27/18 12/12/20 esomeprazole magnesium 20 mg 20 mg PO DAILY cap 03/24/20 12/12/20 capsule,delayed release Fluticasone/Umeclidin/Vilanter 1 each IH DAILY 12/12/20 12/12/20 [Trelegy Ellipta 100-62.5-25] Previous Rx's Medication Instructions Recorded Cefdinir [Omnicef 300mg Capsule] 300 mg PO BID #20 cap 12/13/20 Allergies Allergy/AdvReac Type Severity Reaction Status Date / Time Sulfa (Sulfonamide Allergy Unknown I-RASH Verified 09/23/20 09:20 Antibiotics) [SULFA (SULFONAMIDE ANTIBIOTICS)] - Worker's Comp Is this a Worker's Comp case?: No H History - Hepatitis A Screen Drug use history?: No High risk sexual behaviors?: No History of sexually transmitted infection?: No Currently employed?: No Childcare worker?: No Do you have indoor plumbing?: Yes Do you have electricity?: Yes Attestation statement:: This patient has been screened for Hepatitis A risk factors. I have reviewed the patient's past medical history: Yes Medical History: Reports:: Cancer (prostate), Chronic Obstructive Pulmonary Disease (COPD), Depression, Gastroesophageal Reflux Disease(GERD), Hyperlipidemia, Hypertension, Seizures Denies:: Diabetes Mellitus Type 1, Diabetes Mercedes
[2020-12-13 12:50] VITALS: BP 144/80; PULSE 67; RESP 18; TEMP 36.9; O2SAT 97
== END 2020-12-13 13:00 | disposition home or self-care (01) ==
PROVIDERS: Emergency Provider Physician Assistant; PCP Family Medicine
DX: H66.003 Acute suppurative otitis media without spontaneous rupture of ear drum, bilateral (principal); J32.0 Chronic maxillary sinusitis; Z20.822 Contact with and (suspected) exposure to COVID-19; C61 Malignant neoplasm of prostate; K21.9 Gastro-esophageal reflux disease without esophagitis; I10 Essential (primary) hypertension; F33.1 Major depressive disorder, recurrent, moderate; E78.5 Hyperlipidemia, unspecified
CPT/HCPCS: G0463; 96372; 99202; C9803; J1040; U0003; U0005

== ENCOUNTER 2020-12-16 07:45 | Day surgery (SDC) | payer MEDICARE, MEDICAID, SELFPAY ==
[2020-12-12 14:34] VITALS: BMI 29.7
[2020-12-16] VITALS (8 sets, daily range): BP systolic 131–154; BP diastolic 55–76; PULSE 58–90; RESP 14–16; TEMP 36.1–36.6; O2SAT 96–100
== END 2020-12-16 09:23 | disposition home or self-care (01) ==
LOC: OR 07:47
PROVIDERS: PCP Family Medicine; Visit Provider Ophthalmology
DX: H25.813 Combined forms of age-related cataract, bilateral (principal); H53.149 Visual discomfort, unspecified; H02.831 Dermatochalasis of right upper eyelid; H02.834 Dermatochalasis of left upper eyelid; Z88.2 Allergy status to sulfonamides; Z79.899 Other long term (current) drug therapy; H21.81 Floppy iris syndrome
CPT/HCPCS: 66982; V2632

== ENCOUNTER 2021-01-10 11:37 | Emergency (ER) | payer MEDICARE, MEDICAID, SELFPAY ==
[2021-01-10 11:54] VITALS: BP 142/82; PULSE 109; RESP 22; TEMP 37; O2SAT 95; BMI 34.3
--- NOTE | 2021-01-10 12:05 | HMH.EDUTC ---
[facility] [place] Clinical Impression: Acute sinus infection Qualifiers: Sinusitis location: unspecified location Recurrence: non-recurrent Qualified Code(s): J01.90 - Acute sinusitis, unspecified Disposition: Home, Self-Care Condition on Discharge: Good Instructions: Sinusitis, DI for Sinusitis Additional Instructions: Drink plenty of fluids. Take tylenol or ibuprofen for pain or fever. Take the medications as directed. Follow up with your regular doctor. GO TO THE ER FOR ANY WORSENING SYMPTOMS Quarantine until you know the results of your covid-19 test. If it is positive, the health department should call you and give you further instructions about your length of Quarantine and other things. Notify your school or workplace of your results and follow their instructions regarding return to work/school. Prescriptions: Amoxicillin/Potassium Clav [Augmentin 875-125 Tablet] 1 tab PO Q12H 10 Days #20 tab Transmission Status: [facility] predniSONE [Deltasone 10mg tablet] 10 mg PO DAILY 9 Days #21 tab Transmission Status: Received by [facility] Benzonatate [Tessalon Perle 100mg Cap] 100 mg PO TIDP PRN #30 cap PRN Reason: Cough Transmission Status: Received by [facility] Referrals: Josh Dias MD [Primary Care Provider] - Time of Disposition: 12:37 Medical Decision Making - Medical Records Medical records reviewed: No: I reviewed the patient's medical records. - Isra Inquiry Pt receiving controlled substance: No Vital Signs: 01/10/21 11:54 01/10/21 12:41 Temperature 98.6 F 98.6 F Temperature Source Oral Oral Pulse Rate 100 H Pulse Rate [Radial] 109 H Respiratory Rate 22 17 Blood Pressure 140/80 Blood Pressure [Right Arm] 142/82 H Blood Pressure Mean [Right Arm] 102 02 Sat by Pulse Oximetry 95 Oxygen Delivery Method Room Air - Lab Data Lab Results 01/10/21 12:30: Chlamy pneumoniae PCR Not detected, Adenovirus (PCR) Not detected, B. pertussis DNA (PCR) Not detected, Coronavirus OC43 (PCR) Not detected, Coronavirus HKU1 (PCR) Not detected, Coronavirus 229E (PCR) Not detected, SARS-CoV-2 (PCR) Not detected, Coronavirus NL63 (PCR) Not detected, Human Metapneumovir PCR Not detected, Influenza A (H1) PCR Not detected, Influ A (H1N1/09) PCR Not detected, Influenza A (H3) PCR Not detected, Influenza Type A (PCR) Not detected, Influenza Type B (PCR) Not detected, M. pneumoniae (PCR) Not detected, Parainfluenza 1 (PCR) Not detected, Parainfluenza 2 (PCR) Not detected, Parainfluenza 3 (PCR) Not detected, Parainfluenza 4 (PCR) Not detected, RSV (PCR) Not detected, Entero/Rhino (PCR) Not detected Orders (Tests/Meds): ED MEDICATIONS Discontinued Medications Generic Name Dose Route Start Last Admin Trade Name Freq PRN Reason Stop Dose Admin Ceftriaxone Sodium 1 gm 01/10/21 12:12 01/10/21 12:22 Ceftriaxone 1gm Vial IM 01/10/21 12:13 1 gm ONCE ONE Administration Lidocaine HCl 0 ml 01/10/21 12:12 01/10/21 12:22 Lidocaine 1% 5ml Pf Vial IM 01/10/21 12:13 2.1 ml ONCE ONE Administration [facility] [place]PI - General Stated complaint: Sinus pain Time Seen by Provider: 01/10/21 12:06 Mode of Arrival: Ambulatory Source of Information: Patient Limitations: No Limitations Description of Symptoms (Recalled from Triage Doc. by RN): C/O SINUS PAIN/PRESSURE, CONGESTION, AND SOA FOR 1 WEEK. DENIES FEVRS. HEENT Symptoms (Recalled from RN notes): Yes Resp Symptoms (Recalled from RN notes): Yes Skin Symptoms (Recalled from RN notes): No MS Symptoms (Recalled from RN notes): No Functional Status (Recalled from RN notes): NA - History of Present Illness Provider Complaint: He states that for the past approx 10 days he has had sinus congestion and sinus pressure. He has saw his pcp (Dr. Dias) and he was prescribed prednisone. He finished the prednisone last Tuesday (4 days ago) and he did not get better with taking that. He has been vaccina
[2021-01-10 12:39] LABS: Adenovirus,PCR Not Detected (NotDetected); Bordetella Pertussis Not Detected (NotDetected); Chlamydophila Pneumoniae, PCR Not Detected (NotDetected); Coronavirus 19, PCR Not Detected (NotDetected); Coronavirus 229E Not Detected (NotDetected); Coronavirus NL63 Not Detected (NotDetected); Coronavirus OC43 Not Detected (NotDetected); Coronovirus HKU1,PCR Not Detected (NotDetected); Human Metapneumovirus Not Detected (NotDetected); Influenza A, PCR Not Detected (NotDetected); Influenza AH1, 2009 Not Detected (NotDetected); Influenza AH1, PCR Not Detected (NotDetected); Influenza AH3,PCR Not Detected (NotDetected); Influenza B, PCR Not Detected (NotDetected); Mycoplasma Pneumoniae, PCR Not Detected (NotDetected); Parainfluenza 1, PCR Not Detected (NotDetected); Parainfluenza 2, PCR Not Detected (NotDetected); Parainfluenza 3, PCR Not Detected (NotDetected); Parainfluenza 4, PCR Not Detected (NotDetected); Respiratory Syncytial Virus Not Detected (NotDetected); Rhinovirus/Enterovirus Not Detected (NotDetected)
[2021-01-10 12:41] VITALS: BP 140/80; PULSE 100; RESP 17; TEMP 37; O2SAT 100
== END 2021-01-10 12:42 | disposition home or self-care (01) ==
PROVIDERS: Emergency Provider Nurse Practitioner Family; PCP Family Medicine
DX: J01.90 Acute sinusitis, unspecified (principal); J44.9 Chronic obstructive pulmonary disease, unspecified; K21.9 Gastro-esophageal reflux disease without esophagitis; E78.5 Hyperlipidemia, unspecified; I10 Essential (primary) hypertension; Z20.822 Contact with and (suspected) exposure to COVID-19
CPT/HCPCS: G0463; 87581; 87632; 87798; 96372; 99202; C9803; U0003; U0005

== ENCOUNTER → 2021-02-18 08:20 | Outpatient (CLI) | payer MEDICARE, MEDICAID, SELFPAY | PROVIDERS: PCP Family Medicine; Visit Provider Nurse Practitioner | DX: Z20.822 Contact with and (suspected) exposure to COVID-19 (principal) | CPT/HCPCS: C9803; U0003; U0005 ==

== ENCOUNTER → 2021-03-31 13:21 | Outpatient (CLI) | payer MEDICARE, MEDICAID, SELFPAY ==
--- NOTE | 2021-03-31 13:21 | CT_ITS ---
FINAL REPORT TECHNIQUE: Thin section axial CT images of the facial bones and sinuses were obtained without contrast. Coronal reformatted images were also obtained.This study was performed with techniques to keep radiation doses as low as reasonably achievable, (ALARA). Individualized dose reduction techniques using automated exposure control or adjustment of mA and/or kV according to the patient''''s size were employed. CLINICAL HISTORY: sinusitis, drainage and sinus pressure COMPARISON: 04/28/2017 FINDINGS: There are postoperative changes of resection of the medial maxillary sinus mendosa and multiple ethmoid air cells. There is mild mucosal thickening of the maxillary sinuses as well as bilateral ethmoid regions. No fluid levels are identified. There is mild rightward nasal septal deviation. A paradoxical right middle turbinate is seen. There is nodular soft tissue in the nasal cavity which may represent nasal polyposis. No fracture or acute bony abnormality is identified. IMPRESSION: Mild mucosal thickening of the maxillary sinuses and ethmoid regions. No fluid levels identified. Nodular soft tissue in the nasal cavity which may represent nasal polyposis. Reviewed, Interpreted and Dictated by Reji Anne III, MD Transcribed by Mary Morrow Authenticated by Reji Anne III, MD on 03/31/2021 03:14:09 PM [facility]
== END ==
PROVIDERS: PCP Family Medicine; Visit Provider Otolaryngology
DX: J32.9 Chronic sinusitis, unspecified (principal)
CPT/HCPCS: 70486

== ENCOUNTER → 2021-04-02 11:17 | Outpatient (CLI) | payer MEDICARE, MEDICAID, SELFPAY ==
[2021-04-02 13:18] LABS: Prostate Specific Ag, Diagnost < 0.064 ng/ml (0.0-4.0)
== END ==
PROVIDERS: PCP Family Medicine; Visit Provider Urology
DX: C61 Malignant neoplasm of prostate (principal)
CPT/HCPCS: 36415; 84153

== ENCOUNTER → 2021-05-04 08:41 | Outpatient (CLI) | payer MEDICARE, MEDICAID, SELFPAY ==
--- NOTE | 2021-05-04 08:44 | US_ITS ---
FINAL REPORT CLINICAL HISTORY: EPIGASTRIC PAIN FINDINGS: Sonographic images of the abdomen were obtained. The liver has increased echogenicity consistent with mild fatty infiltration. The gallbladder has an unremarkable appearance without evidence of gallstones. There is no evidence of biliary ductal dilatation. The common hepatic duct measures 3 mm, which is within normal limits. Limited images of the pancreas are unremarkable. The spleen size is normal. The right kidney measures 10.8 cm in length. The left kidney measures 12.8 cm in length. There is normal renal echogenicity. There is a small right renal cyst measuring 1.7 cm. There is no evidence of hydronephrosis. The aorta has an unremarkable appearance. Limited images of the inferior vena cava are unremarkable. IMPRESSION: Mild fatty infiltration. Small right renal cyst. Reviewed, Interpreted and Dictated by Reji Anne III, MD Transcribed by Barb Carrion Authenticated by Reji Anne III, MD on 05/04/2021 11:08:07 AM [facility]
== END ==
PROVIDERS: PCP Family Medicine; Visit Provider Family Medicine
DX: R10.13 Epigastric pain (principal)
CPT/HCPCS: 76700

== ENCOUNTER → 2021-05-07 16:13 | Outpatient (CLI) | payer MEDICARE, MEDICAID, SELFPAY | PROVIDERS: Visit Provider Urology | DX: R31.0 Gross hematuria (principal) | CPT/HCPCS: 87086 ==

== ENCOUNTER → 2021-05-15 09:55 | Outpatient (CLI) | payer MEDICARE, MEDICAID, SELFPAY | PROVIDERS: Visit Provider Urology | DX: C61 Malignant neoplasm of prostate (principal); Z01.812 Encounter for preprocedural laboratory examination; Z11.52 Encounter for screening for COVID-19 | CPT/HCPCS: C9803; U0003; U0005 ==

== ENCOUNTER 2021-07-23 14:07 | Emergency (ER) | payer MEDICARE, MEDICAID, SELFPAY ==
[2021-07-23 16:00] VITALS: BP 143/73; PULSE 95; RESP 18; TEMP 36.9; O2SAT 94; BMI 29.2
--- NOTE | 2021-07-23 16:15 | HMH.EDUTC ---
[facility] [place] Disposition Clinical Impression: Sinusitis Qualifiers: Sinusitis location: unspecified location Chronicity: unspecified Qualified Code(s): J32.9 - Chronic sinusitis, unspecified Disposition: Home, Self-Care Condition on Discharge: Good Instructions: Sinusitis, DI for Sinusitis Additional Instructions: *Monitor Temp, Over the counter Motrin or Tylenol as directed/as needed Tylenol every 4 hours and Motrin every 6 hours (as long as your family doctor has told you that you can take it) for fever or pain. and straight to ER if unable to lower temp less than 101.0 after medication given *Warm salt water gargles may help to soothe the throat *Throat Lozenges *Warm fluids like tea with honey may help to soothe the throat *Sleep elevated *Humidifier/Vaporizer Take medication as prescribed Follow up IMMEDIATELY for new or worsening symptoms or no Noticeable improvement over the next 48-72 hours. 911 for difficulty breathing or swallowing Prescriptions: Amoxicillin/Potassium Clav [Amox-Clav 875-125 mg Tablet] 1 tab PO BID #20 tab Transmission Status: Received by [facility] Referrals: Josh Dias MD [Primary Care Provider] - As needed Time of Disposition: 16:19 Medical Decision Making - Isra Inquiry Pt receiving controlled substance: No Isra was queried for this patient: No Vital Signs: 07/23/21 16:00 07/23/21 16:27 Temperature 98.4 F 98.4 F Temperature Source Oral Pulse Rate 95 H Pulse Rate [Left Brachial] 95 H Respiratory Rate 18 18 Blood Pressure 143/73 H Blood Pressure [Left Arm] 143/73 H Blood Pressure Mean [Left Arm] 96 Blood Pressure Source [Left Arm] Automatic Cuff Blood Pressure Position [Left Arm] Sitting 02 Sat by Pulse Oximetry 94 L Oxygen Delivery Method Room Air Orders (Tests/Meds): ED MEDICATIONS Discontinued Medications Generic Name Dose Route Start Last Admin Trade Name Freq PRN Reason Stop Dose Admin Methylprednisolone Sodium Succinate 125 mg 07/23/21 16:15 07/23/21 16:25 Methylprednisolone Sod Succ 125mg Vial IM 07/23/21 16:16 125 mg ONCE ONE Administration [facility] [place] HPI - General Stated complaint: congestion, runny nose, sore throat Time Seen by Provider: 07/23/21 16:10 Mode of Arrival: Ambulatory Source of Information: Patient Limitations: No Limitations Description of Symptoms (Recalled from Triage Doc. by RN): PATIENT C/O SINUS PRESSURE, RUNNY NOSE, SCRATCHY THROAT, AND COUGH SINCE YESTERDAY MORNING HEENT Symptoms (Recalled from RN notes): Yes Resp Symptoms (Recalled from RN notes): Yes Skin Symptoms (Recalled from RN notes): No MS Symptoms (Recalled from RN notes): No Functional Status (Recalled from RN notes): WNL - History of Present Illness Provider Complaint: Patient states that he gets chronic sinus infections several times each year State that he has been having sinus congestion and pressure for over two weeks that has got worse over he last couple of days and this morning he felt like it was draining in his throat making his throat feel sore and scratchy so he came in to get it treated - Related Data Home Medications Medication Instructions Recorded Confirmed lisinopriL [Lisinopril 10mg Tab] 10 mg PO DAILY 04/27/17 05/07/21 pravastatin 40 mg tablet 40 mg PO DAILY 08/17/18 05/07/21 tamsulosin 0.4 mg capsule 0.4 mg PO DAILY 08/17/18 05/07/21 esomeprazole magnesium 20 mg 20 mg PO DAILY cap 03/24/20 05/07/21 capsule,delayed release clopidogrel 75 mg tablet 75 mg PO DAILY tab 03/18/21 05/07/21 ipratropium bromide 21 mcg (0.03 2 spray INTRANASAL BID 03/18/21 05/07/21 %) nasal spray Previous Rx's Medication Instructions Recorded Amoxicillin/Potassium Clav 1 tab PO BID #20 tab 07/23/21 [Amox-Clav 875-125 mg Tablet] Allergies Allergy/AdvReac Type Severity Reaction Status Date / Time Sulfa (Sulfonamide Allergy Unknown I-RASH Verified 04/02/21 10:27 Antibiotics) [SULFA (SULFONAMIDE
[2021-07-23 16:27] VITALS: BP 143/73; PULSE 95; RESP 18; TEMP 36.9; O2SAT 94
== END 2021-07-23 16:38 | disposition home or self-care (01) ==
PROVIDERS: Emergency Provider Nurse Practitioner; PCP Family Medicine
DX: J32.9 Chronic sinusitis, unspecified (principal); J44.9 Chronic obstructive pulmonary disease, unspecified; I10 Essential (primary) hypertension; K21.9 Gastro-esophageal reflux disease without esophagitis; E78.5 Hyperlipidemia, unspecified; Z87.891 Personal history of nicotine dependence; Z85.46 Personal history of malignant neoplasm of prostate
CPT/HCPCS: 96372; 99212; G0463

== ENCOUNTER 2021-08-28 13:16 | Emergency (ER) | payer MEDICARE, MEDICAID, SELFPAY ==
[2021-08-28 13:18] VITALS: BP 149/73; PULSE 83; RESP 16; TEMP 37.1; O2SAT 98; BMI 29.7
--- NOTE | 2021-08-28 13:44 | PC.NURSE ---
ER MD Cummings at
--- NOTE | 2021-08-28 14:07 | PC.NURSE ---
Dalilarn at [facility] at this time obtaining labs
--- NOTE | 2021-08-28 14:10 | HMH.EDGENADL ---
ED Disposition Clinical Impression: Dental abscess, Cellulitis Disposition: Home, Self-Care Condition on Discharge: Good Instructions: Cellulitis, Tooth Abscess Additional Instructions: Follow-up with your doctor on Tuesday and return to the ER if you develop difficulty swallowing, changes in your voice, or persistent fever. Prescriptions: cephALEXin [Cephalexin 500mg Tab] 500 mg PO Q6H 7 Days #28 tab Transmission Status: Pending to [facility] clindamycin HCL [Clindamycin HCl] 300 mg PO TID 7 Days #21 cap Transmission Status: Pending to [facility] Referrals: Josh Dias MD [Primary Care Provider] - - Critical Care Critical Care Time: No Attestation: On 08/28/21, the high probability of a clinically significant, sudden or life threatening deterioration of the following system(s) required my full and direct attention, intervention and personal management. The time I documented below is in addition to time spent performing reported procedures but includes the following listed in this critical care notation. Medical Decision Making - Medical Records Medical records reviewed: Yes: I reviewed the patient's medical records. - Isra Inquiry Pt receiving controlled substance: No Vital Signs: 08/28/21 13:18 Temperature 98.7 F Temperature Source Oral Pulse Rate [Radial] 83 Respiratory Rate 16 Blood Pressure [Right Arm] 149/73 H Blood Pressure Mean [Right Arm] 98 Blood Pressure Position [Right Arm] Sitting 02 Sat by Pulse Oximetry 98 Oxygen Delivery Method Room Air - Lab Data Lab Results 08/28/21 14:10: WBC 8.1, RBC 4.09 L, Hgb 13.8 L, Hct 42.0, MCV 102.6 H, MCH 33.7 H, MCHC 32.8, RDW 14.2, Plt Count 358, MPV 8.5, Neut % (Auto) 77.7, Lymph % (Auto) 13.6, [place] % (Auto) 6.4, Eos % (Auto) 1.8, Baso % (Auto) 0.5, Neut # (Auto) 6.3, Lymph # (Auto) 1.1, [place] # (Auto) 0.5, Eos # (Auto) 0.1, Baso # (Auto) 0.0 08/28/21 14:10: C-Reactive Protein 1.9 Result diagrams: 08/28/21 14:10 Medical Decision Narrative: 81-year-old male who presents with left-sided facial erythema there is no obvious fluctuance or firmness to the exam. Soft tissues are unremarkable. There is no concern for elevation of the floor the mouth he does have a dental carry concerning for dental abscess on the left lower molar of that side. The left TM and ear canal are clear. CBC and CRP are within normal limits. We will treat with clindamycin and Keflex for dental abscess concerning for early mild cellulitis. General Adult HPI - General Chief complaint: PAIN Stated complaint: facial redness/heat Time Seen by Provider: 08/28/21 13:30 Mode of Arrival: Ambulatory Limitations: No Limitations Description of Symptoms (Recalled from ER Triage Doc. by RN): TO ED PER PVT CAR WITH C/O LT SIDE FACIAL SWELLING AND EAR PAIN STARTING TODAY STATES STARTED WITH A STIFF NECK LT SIDE 2 DAYS AGO. DENIES RASH, NAUSEA, VOMITING, FEVER, CHILLS. - History of Present Illness HPI narrative: 81-year-old male who presents with mild redness to the left side of the face with pain over the left jaw. No change in voice no difficulty swallowing and denies fevers chills or body aches. No changes to hearing has a history of shingles but it did not feel like this. No medication taken prior to arrival has been ongoing for about 2 days. Pain is 4 out of 10. - Related Data Home Medications Medication Instructions Recorded Confirmed lisinopriL [Lisinopril 10mg Tab] 10 mg PO DAILY 04/27/17 05/07/21 pravastatin 40 mg tablet 40 mg PO DAILY 08/17/18 05/07/21 tamsulosin 0.4 mg capsule 0.4 mg PO DAILY 08/17/18 05/07/21 esomeprazole magnesium 20 mg 20 mg PO DAILY cap 03/24/20 05/07/21 capsule,delayed release clopidogrel 75 mg tablet 75 mg PO DAILY tab 03/18/21 05/07/21 ipratropium bromide 21 mcg (0.03 2 spray INTRANASAL BID 03/18/21 05/07/21 %) nasal spray Previous Rx's Medication Instructions Recorded Amoxicillin/Potassium Clav 1
[2021-08-28 14:17] LABS: Basophils % 0.5 % (0.1-2.0); Eosinophils # 0.1 K/mm3 (0.0-0.4); Eosinophils % 1.8 % (0.1-12.0); Hemoglobin 13.8 g/dL (14.1-18.0); Lymphocytes # 1.1 K/mm3 (0.7-4.5); Lymphocytes % 13.6 % (10-50); Mean Corpuscular HGB Conc 32.8 g/dL (31.8-35.4); Mean Corpuscular Hemoglobin 33.7 pg (27.0-31.2); Mean Corpuscular Volume 102.6 fl (80-94); Mean Platelet Volume 8.5 fl (7.4-10.4); Monocytes # 0.5 K/mm3 (0.1-1.0); Monocytes % 6.4 % (1.7-9.3); Neutrophils # 6.3 K/mm3 (1.8-7.8); Neutrophils % 77.7 % (37.0-80.0); Platelet Count 358 K/mm3 (142-424); Red Blood Count 4.09 M/mm3 (4.60-6.20); Red Cell Distribution Width 14.2 % (11.5-17.5); White Blood Count 8.1 K/mm3 (4.8-10.8)
[2021-08-28 14:27] LABS: C-Reactive Protein 1.9 mg/L (0-4)
[2021-08-28 14:28] VITALS: BP 117/49; PULSE 73; O2SAT 95
[2021-08-28 14:30] VITALS: BP 114/53; PULSE 73; O2SAT 94
[2021-08-28 15:00] VITALS: BP 114/63; PULSE 78; RESP 16; TEMP 36.6; O2SAT 98
== END 2021-08-28 15:01 | disposition home or self-care (01) ==
PROVIDERS: Student in an Organized Health Care Education/Training Program; Emergency Provider Emergency Medicine; PCP Family Medicine
DX: K04.7 Periapical abscess without sinus; L03.211 Cellulitis of face; Z88.2 Allergy status to sulfonamides; J44.9 Chronic obstructive pulmonary disease, unspecified; K21.9 Gastro-esophageal reflux disease without esophagitis; F32.A Depression, unspecified; E78.5 Hyperlipidemia, unspecified; I11.0 Hypertensive heart disease with heart failure; I50.9 Heart failure, unspecified; M19.90 Unspecified osteoarthritis, unspecified site; Z87.891 Personal history of nicotine dependence; Z85.46 Personal history of malignant neoplasm of prostate
CPT/HCPCS: 85025; 86140; 99283

== ENCOUNTER → 2021-10-01 14:26 | Outpatient (CLI) | payer MEDICARE, MEDICAID, SELFPAY ==
[2021-10-01 16:43] LABS: Prostate Specific Ag, Diagnost < 0.064 ng/ml (0.0-4.0)
== END ==
PROVIDERS: PCP Family Medicine; Visit Provider Urology
DX: C61 Malignant neoplasm of prostate (principal)
CPT/HCPCS: 36415; 84153

== ENCOUNTER → 2021-11-12 09:41 | Outpatient (CLI) | payer MEDICARE, MEDICAID, SELFPAY | PROVIDERS: PCP Family Medicine; Visit Provider Urology | DX: Z01.812 Encounter for preprocedural laboratory examination (principal); Z20.822 Contact with and (suspected) exposure to COVID-19; R31.9 Hematuria, unspecified; R33.9 Retention of urine, unspecified | CPT/HCPCS: C9803; U0003; U0005 ==

== ENCOUNTER 2021-11-13 10:18 | Day surgery (SDC) | payer MEDICARE, MEDICAID, SELFPAY ==
[2021-11-13 10:44] VITALS: BP 135/68; PULSE 95; RESP 18; TEMP 36.3; O2SAT 96; BMI 29.7
[2021-11-13 12:19] VITALS: BP 120/68; PULSE 98; RESP 16; TEMP 36.8; O2SAT 97
--- NOTE | 2021-11-13 12:21 | EXP.OP.NOTE ---
Date of procedure: 11/13/21 Pre-op Diagnosis:: Urinary retention, gross hematuria Post-op Diagnosis:: BPH Procedure performed:: Cystoscopy Surgeon:: Waldemar Beckford MD Anesthesia: local Estimated blood loss (mL): 0 Clinical Note:: 81-year-old white male with recent urinary retention and gross hematuria presents for cystoscopic evaluation. He has had a Ramirez catheter and since his emergency room visit last week. Operative findings:: Cystoscopy revealed some mild bullous edema from the Ramirez catheter. There is no evidence of papillary tumors, stones or diverticula. Some mild trabeculation was present. There was some moderate hyperplasia of the prostate noted. Operative note:: Patient taken to the cystoscopy suite after informed consent was obtained. He was prepped and draped in the standard surgical fashion and 2% lidocaine placed into the urethra and clamped. After 5 minutes the Clamp was removed and the flexible cystoscope introduced into the urethral meatus and it was passed to the prostatic urethra without difficulty. There was moderate hyperplasia of the prostatic urethra and small amount of blood in the prostatic urethra. Scope passed into the bladder and examined in a systematic fashion. Some bullous edema noted in the floor the bladder consistent with Ramirez catheter. No papillary tumors were noted, no stones or diverticula were noted. Some mild trabeculation was present. The ureteral orifices in their normal anatomic position with clear efflux of urine. Scope was retroflexed showing a small median lobe. Scope then brought back to the prostatic urethra and it did not appear to be obstructing. The scope was removed and patient tolerated the procedure well. Patient was able to void after the procedure so the Ramirez catheter was not replaced. Condition: stable Disposition: same day Specimens:: None Complications:: None
== END 2021-11-13 12:40 | disposition home or self-care (01) ==
PROVIDERS: PCP Family Medicine; Visit Provider Urology
DX: N40.1 Benign prostatic hyperplasia with lower urinary tract symptoms (principal); R31.0 Gross hematuria; R33.8 Other retention of urine
CPT/HCPCS: 52000

== ENCOUNTER → 2021-11-25 10:04 | Outpatient (CLI) | payer MEDICARE, MEDICAID, SELFPAY | PROVIDERS: Visit Provider Urology | DX: R31.9 Hematuria, unspecified (principal) | CPT/HCPCS: 87086; 87088; 87186 ==

== ENCOUNTER 2021-11-25 12:35 | Emergency (ER) | payer MEDICARE, MEDICAID, SELFPAY ==
--- NOTE | 2021-11-25 13:22 | PC.NURSE ---
pt ambulated to restroom
[2021-11-25 13:30] VITALS: BP 161/64; PULSE 60; RESP 16; TEMP 36.7; O2SAT 96; BMI 29.7
[2021-11-25 13:35] VITALS: BP 161/64; PULSE 72; RESP 18; O2SAT 96
[2021-11-25 13:47] VITALS: BMI 29.7
[2021-11-25 13:49] LABS: Microscopic, Urine URINE MICROSCOPIC (MICROSCOPIC)
[2021-11-25 13:53] LABS: Appearance,Urine SL CLOUDY (Clear); Bilirubin,Urine Negative (Negative); Blood, Urine 3+ (Negative); Color,Urine YELLOW (Yellow); Glucose,Urine (UA) Negative (Negative); Ketones,Urine Negative (Negative); Leukocyte Esterase,Urine Negative (Negative); Nitrate,Urine Negative (Negative); PH,Urine 7.5 (5.0-8.5); Protein,Urine Negative (Negative)
--- NOTE | 2021-11-25 13:53 | PC.NURSE ---
LAB HERE FOR BLOOD DRAW
[2021-11-25 14:00] VITALS: BP 114/62; PULSE 94; O2SAT 97
[2021-11-25 14:15] LABS: RBC,Urine 50-100 #/hpf (0-3); WBC,Urine Occasional #/hpf (0-3)
[2021-11-25 14:16] LABS: Basophils % 0.5 % (0.1-2.0); Eosinophils # 0.1 K/mm3 (0.0-0.4); Eosinophils % 1.2 % (0.1-12.0); Hematocrit 44.1 % (42.0-52.0); Hemoglobin 13.9 g/dL (14.1-18.0); Lymphocytes # 0.9 K/mm3 (0.7-4.5); Lymphocytes % 13.7 % (10-50); Mean Corpuscular HGB Conc 31.5 g/dL (31.8-35.4); Mean Corpuscular Hemoglobin 32.4 pg (27.0-31.2); Mean Corpuscular Volume 102.8 fl (80-94); Mean Platelet Volume 7.9 fl (7.4-10.4); Monocytes # 0.5 K/mm3 (0.1-1.0); Monocytes % 7.6 % (1.7-9.3); Neutrophils # 4.9 K/mm3 (1.8-7.8); Platelet Count 407 K/mm3 (142-424); Red Blood Count 4.29 M/mm3 (4.60-6.20); Red Cell Distribution Width 13.4 % (11.5-17.5); White Blood Count 6.4 K/mm3 (4.8-10.8)
[2021-11-25 14:17] LABS: Chloride 104 mmol/L (98-107); Potassium 4.2 mmoL/L (3.5-5.1); Sodium 138 mmol/L (136-145)
[2021-11-25 14:20] LABS: Alanine Aminotransferase 29 U/L (12-78); Albumin Level 3.8 g/dl (3.5-5.0); Albumin/Globulin Ratio 1.2 (1.1-1.8); Alkaline Phosphatase 103 U/L (38-126); Anion Gap 9.2 mEq/L (5-15); Aspartate Amino Transferase 41 U/L (17-59); Bilirubin,Total 0.4 mg/dl (0.2-1.3); Calcium 8.4 mg/dl (8.4-10.2); Carbon Dioxide 29 mmol/L (22.0-30.0); Globulin 3.1 g/dL (1.3-3.2); Glucose 119 mg/dl (74-100); Total Protein,Serum 6.9 g/dl (6.3-8.2)
[2021-11-25 14:25] LABS: Blood Urea Nitrogen 11 mg/dl (9-20); Creatinine Clearance Estimated 72 mL/min (50-200); Estimated Glomerular Filt Rate 160 ml/min (>60); GFR (African American) 194 ML/MIN (>60)
[2021-11-25 14:31] VITALS: BP 93/50; PULSE 63; O2SAT 98
--- NOTE | 2021-11-25 14:43 | HMH.EDGENADL ---
Discharge Plan Disposition Patient Disposition: Home, Self-Care Condition: Good Prescriptions Prescriptions: No Action pravastatin 40 mg tablet 40 mg PO DAILY tamsulosin 0.4 mg capsule 0.4 mg PO DAILY esomeprazole magnesium 20 mg capsule,delayed release(DR/EC) 20 mg PO DAILY clopidogrel 75 mg tablet 75 mg PO DAILY ipratropium bromide 21 mcg (0.03 %) spray,non-aerosol 2 spray INTRANASAL BID Rx Instructions: administer into each nostril Eligard (6 month) 45 mg syringe 45 mg SQ [id number] Qty: 1 0RF clindamycin HCl 300 MG capsule 300 mg PO TID lisinopril 10 MG tablet 10 mg PO DAILY Label Comments: Referrals Follow up/Referrals: Josh Dias MD [Primary Care Provider] - See instructions Waldemar Beckford MD [Staff Physician] - See instructions Activity Restrictions/Add. Instructions Additional Instructions/Restrictions: You have been evaluated for inability to urinate, hematuria. Please keep Ramirez catheter in place until you follow-up with your urologist tomorrow. Return to the emergency department at once for any new or worsening symptoms, inability to urinate, flank pain, other concerns. Clinical Impressions Clinical Impression: Hematuria, Acute urinary retention Instructions Patient Instructions: DI for Urinary Tract Infection (UTI), DI for Urinary Tract Infection in Children Discharge ED Provider: Ana Rosa Malcolm Adult HPI General Chief complaint: Urogenital-Male Stated complaint: Trouble urinating Time Seen by Provider: 11/25/21 14:13 Mode of Arrival: Ambulatory Source of Information: Patient Limitations: No Limitations Description of Symptoms (Recalled from ER Triage Doc. by RN): pt reports unable to urinate since last night. Pt reports he began urinating blood and then was unable to urinate anymore since then. Pt reports has hx of prostate CA, sees Dr. Beckford for urology. Pt reports has hx of urinary retention, reports in the past he has had to wear a catheter for about a week and then he is okay after that. Pt reports he has an appt with dr. beckford tomorrow. History of Present Illness HPI narrative: 81-year-old male presenting to the emergency department with dysuria. Symptom started yesterday evening. He initially had a weak stream of urine, noticed some bright red blood. Overnight, he became unable to urinate at all. Now he has abdominal pain that is located in the lower abdomen. Feels like pressure. He has had symptoms like this before, follows with Dr. Beckford. Had a Ramirez catheter in place, had cystoscopy. Was not told of any abnormal findings other than a large prostate. Denies fevers, chills, nausea, vomiting. Related Data Home Medications Medication Instructions Recorded Confirmed lisinopril 10 mg tablet 10 mg PO DAILY blood pressure 04/27/17 11/24/21 pravastatin 40 mg tablet 40 mg PO DAILY cholestrol 08/17/18 11/24/21 tamsulosin 0.4 mg capsule 0.4 mg PO DAILY prostate 08/17/18 11/24/21 esomeprazole magnesium 20 mg 20 mg PO DAILY allergies 03/24/20 11/24/21 capsule,delayed release clopidogrel 75 mg tablet 75 mg PO DAILY Blood thinner 03/18/21 11/24/21 ipratropium bromide 21 mcg (0.03 2 spray intranasal BID Allergy 03/18/21 11/24/21 %) nasal spray symptoms clindamycin HCl 300 mg capsule 300 mg PO TID Infection 11/13/21 11/24/21 Allergies Allergy/AdvReac Type Severity Reaction Status Date / Time Sulfa (Sulfonamide Allergy Unknown I-RASH Verified 11/24/21 09:25 Antibiotics) [SULFA (SULFONAMIDE ANTIBIOTICS)] [facility] Medical History (Updated 11/25/21 @ 14:59 by Ana Rosa Malcolm DO) Arthritis Asthma Colonoscopy planned COPD (chronic obstructive pulmonary disease) History of gastroesophageal reflux (GERD) Hyperlipidemia Hypertension Prostate cancer Ulcer Urinary tract infection Surgical History History of cardiac cath History
[2021-11-25 15:32] VITALS: BP 102/60; PULSE 100; RESP 19; TEMP 36.7; O2SAT 98
== END 2021-11-25 15:35 | disposition home or self-care (01) ==
PROVIDERS: Emergency Provider Emergency Medicine; PCP Family Medicine
DX: R33.9 Retention of urine, unspecified (principal); R31.9 Hematuria, unspecified; Z79.899 Other long term (current) drug therapy; Z88.2 Allergy status to sulfonamides; M19.90 Unspecified osteoarthritis, unspecified site; J44.9 Chronic obstructive pulmonary disease, unspecified; K21.9 Gastro-esophageal reflux disease without esophagitis; E78.5 Hyperlipidemia, unspecified; I10 Essential (primary) hypertension; Z85.46 Personal history of malignant neoplasm of prostate; Z87.440 Personal history of urinary (tract) infections
CPT/HCPCS: 51702; 80053; 81001; 85025; 87086; 87088; 87186; 99282; 99283

== ENCOUNTER 2022-05-27 17:40 | Emergency (ER) | payer MEDICARE, MEDICAID, SELFPAY ==
[2022-05-27 17:50] VITALS: BP 128/69; PULSE 100; RESP 16; TEMP 37; O2SAT 95; BMI 28.1
--- NOTE | 2022-05-27 18:19 | PC.NURSE ---
Pt states he does not want to see the MD, he just wanted a emanuel cath and fu with his urologist.
--- NOTE | 2022-05-27 18:41 | PC.NURSE ---
LEG BAG PLACED ON PT. HE IS READY TO GO AND IS GONNA F/U WITH HIS UROLOGIST
--- NOTE | 2022-05-27 19:04 | HMH.EDGENADL ---
Discharge Plan Disposition Patient Disposition: Home, Self-Care Condition: Good Chief Complaint: Urogenital-Male Prescriptions Prescriptions: No Action pravastatin 40 mg tablet 40 mg PO DAILY tamsulosin 0.4 mg capsule 0.4 mg PO DAILY esomeprazole magnesium 20 mg capsule,delayed release(DR/EC) 20 mg PO DAILY clopidogrel 75 mg tablet 75 mg PO DAILY ipratropium bromide 21 mcg (0.03 %) spray,non-aerosol 2 spray INTRANASAL BID Rx Instructions: administer into each nostril Eligard (6 month) 45 mg syringe 45 mg SQ [id number] Qty: 1 0RF cefdinir 300 mg capsule 300 mg PO BID Qty: 14 0RF ondansetron HCl 4 mg tablet 4 mg PO DAILY MDD take 1 q 12h prn nausea Qty: 10 2RF clindamycin HCl 300 MG capsule 300 mg PO TID lisinopril 10 MG tablet 10 mg PO DAILY Label Comments: Referrals Follow up/Referrals: Josh Dias MD [Primary Care Provider] - See instructions Activity Restrictions/Add. Instructions Additional Instructions/Restrictions: Follow-up with Dr. Brooks in 1 week. Urine culture has been performed, results generally take 2 to 3 days. Follow-up the results of this test with your primary care provider within 2 to 3 days. Clinical Impressions Clinical Impression: Acute urinary retention Instructions Patient Instructions: DI for Urinary Retention in Men, How to Care for Your Emanuel Catheter -- Male Discharge ED Provider: Aldo Shaffer General Adult HPI General Chief complaint: Urogenital-Male Stated complaint: cannot urinate Time Seen by Provider: 05/27/22 18:59 Mode of Arrival: Wheelchair Source of Information: Patient Limitations: No Limitations Description of Symptoms (Recalled from ER Triage Doc. by RN): Presents with urinary retention. Pt states he is followed by Dr. Brooks ([facility]) which has had an indwelling emanuel x 1 week with clear urine output. Pt saw Uro yesterday and discontinued the catheter in the office. Pt was able to spontaneous void last night without complication. Pt awoke this morning with slight blood in urine. Second void with increased elly blood. Pt unable to void since. History of Present Illness HPI narrative: Patient complains of urinary retention. He has a history of prostate cancer treated with radiation and pellets. States that he has had problems with urinary retention and hematuria ever since then. He says he has had many Emanuel catheters in the past. Most recently he had urinary retention a week ago and had a catheter put in. He says that he was seen in [facility] and they did a full work-up and he did not have a UTI. He had his catheter taken out yesterday at his urologist office, Dr. Brooks. He was urinating well until today when he began having some hematuria and then this evening developed urinary retention. He comes in requesting a catheter. His urologist went out of town and will be back in 1 week and he will follow-up with him then. He denies dysuria, fever, back pain, or vomiting. Related Data Home Medications Medication Instructions Recorded Confirmed lisinopril 10 mg tablet 10 mg PO DAILY blood pressure 04/27/17 12/03/21 pravastatin 40 mg tablet 40 mg PO DAILY cholestrol 08/17/18 12/03/21 tamsulosin 0.4 mg capsule 0.4 mg PO DAILY prostate 08/17/18 12/03/21 esomeprazole magnesium 20 mg 20 mg PO DAILY allergies 03/24/20 12/03/21 capsule,delayed release clopidogrel 75 mg tablet 75 mg PO DAILY Blood thinner 03/18/21 12/03/21 ipratropium bromide 21 mcg (0.03 2 spray intranasal BID Allergy 03/18/21 12/03/21 %) nasal spray symptoms clindamycin HCl 300 mg capsule 300 mg PO TID Infection 11/13/21 12/03/21 Previous Rx's Medication Instructions Recorded cefdinir 300 mg capsule 300 mg PO BID #14 caps 11/26/21 ondansetron HCl 4 mg tablet 4 mg PO DAILY #10 tabs 11/26/21 Allergies Allergy/AdvReac Type Severity Reaction Status Date / Time Sulfa (Sulfona
[2022-05-27 19:07] LABS: Microscopic, Urine URINE MICROSCOPIC (MICROSCOPIC)
[2022-05-27 19:15] LABS: Appearance,Urine CLEAR (Clear); Bilirubin,Urine Negative (Negative); Blood, Urine 3+ (Negative); Color,Urine YELLOW (Yellow); Glucose,Urine (UA) Negative (Negative); Ketones,Urine Negative (Negative); Leukocyte Esterase,Urine Negative (Negative); Nitrate,Urine Negative (Negative); PH,Urine 6.5 (5.0-8.5); Protein,Urine Negative (Negative); Specific Gravity, Urine <= 1.005 (1.005-1.030); Urobilinogen,Urine 0.2 EU/dl (0.2)
[2022-05-27 19:31] VITALS: BP 122/74; PULSE 90; RESP 16; TEMP 37; O2SAT 95
[2022-05-27 19:40] LABS: Squamous Epithelial Cell,Urine Occasional #/hpf (0-5); WBC,Urine Occasional #/hpf (0-3)
== END 2022-05-27 19:32 | disposition home or self-care (01) ==
PROVIDERS: Emergency Provider Emergency Medicine; PCP Family Medicine
DX: R33.9 Retention of urine, unspecified (principal); M19.90 Unspecified osteoarthritis, unspecified site; J45.909 Unspecified asthma, uncomplicated; J44.9 Chronic obstructive pulmonary disease, unspecified; I10 Essential (primary) hypertension; E78.5 Hyperlipidemia, unspecified; K21.9 Gastro-esophageal reflux disease without esophagitis; Z87.440 Personal history of urinary (tract) infections; Z86.79 Personal history of other diseases of the circulatory system; Z85.46 Personal history of malignant neoplasm of prostate; Z95.1 Presence of aortocoronary bypass graft
CPT/HCPCS: 51702; 81001; 87086; 99283

== ENCOUNTER 2023-04-22 23:45 | Observation (INO) | payer MEDICARE, MEDICAID, SELFPAY ==
--- NOTE | 2023-04-22 23:39 | XR_ITS ---
PROCEDURE INFORMATION: Exam: XR Pelvis Exam date and time: 04/22/2023 11:59 PM Age: 82 years old Clinical indication: Injury or trauma; Fall; Blunt trauma (contusions or hematomas); Left; Pelvic region TECHNIQUE: Imaging protocol: Radiologic exam of the pelvis. Views: 1 or 2 view. COMPARISON: CT ABDOMEN PELVIS WO CON 03/22/2020 4:08 PM FINDINGS: Bones/joints: The bony pelvis is intact. The SI joints, hips and pubic symphysis are normally aligned. There are 2 vertical lucency is involving the left greater trochanter which are noted on both images. Soft tissues: Multiple round metallic foreign bodies are noted within the soft tissues of the proximal thighs and lower pelvis. Organs: Prostate seed implants are noted. IMPRESSION: Vertical lucencies of the left greater trochanter may represent nondisplaced fractures. Further evaluation with CT of the left hip is recommended.
--- NOTE | 2023-04-22 23:39 | XR_ITS ---
PROCEDURE INFORMATION: Exam: XR Left Tibia and Fibula Exam date and time: 04/22/2023 11:59 PM Age: 82 years old Clinical indication: Pain; Knee; Left; Additional info: Fall knee pain TECHNIQUE: Imaging protocol: Radiologic exam of the left tibia and fibula. Views: 2 views. COMPARISON: BONEWB NM bone scan whole body 03/06/2018 2:20 PM FINDINGS: Bones/joints: The tibia and fibula are intact. There is no acute fracture. Severe tricompartment degenerative change of the knee is noted. The ankle is normally aligned. Soft tissues: Normal. IMPRESSION: No acute findings.
--- NOTE | 2023-04-22 23:39 | CT_ITS ---
PROCEDURE INFORMATION: Exam: CT Head Without Contrast Exam date and time: 04/23/2023 12:00 AM Age: 82 years old Clinical indication: Pain and injury or trauma; Fall; Blunt trauma (contusions or hematomas); Additional info: Fall, neck pain TECHNIQUE: Imaging protocol: Computed tomography of the head without contrast. Radiation optimization: All CT scans at this facility use at least one of these dose optimization techniques: automated exposure control; mA and/or kV adjustment per patient size (includes targeted exams where dose is matched to clinical indication); or iterative reconstruction. COMPARISON: 1. HEADWO CT head/brain wo con 04/28/2017 5:[address] SINUS WO CON 03/31/2021 1:56 PM 3. BONEWB NM bone scan whole body 03/06/2018 2:20 PM FINDINGS: Brain: The brain parenchyma appears unremarkable, with no signs of acute intracranial hemorrhage or significant mass effect. There is hypodensity in the subcortical and periventricular white matter which is technically nonspecific but most often related to chronic microvascular disease. Cerebral ventricles: Mild ventricular enlargement consistent with age-related cerebral atrophy is noted. Paranasal sinuses: Paranasal sinuses show age-appropriate mucosal thickening. Mastoid air cells: Visualized mastoid air cells are well aerated. Dental: There is dental amalgam which causes streak artifact and mildly limits evaluation of the oral cavity. Bones/joints: There are no skull fractures or bony lesions. Soft tissues: Unremarkable. IMPRESSION: Presumably age-related and chronic changes without acute intracranial abnormality.
--- NOTE | 2023-04-22 23:39 | CT_ITS ---
PROCEDURE INFORMATION: Exam: CT Cervical Spine Without Contrast Exam date and time: 04/23/2023 12:00 AM Age: 82 years old Clinical indication: Neck pain; Additional info: Fall neck pain TECHNIQUE: Imaging protocol: Computed tomography of the cervical spine without contrast. Radiation optimization: All CT scans at this facility use at least one of these dose optimization techniques: automated exposure control; mA and/or kV adjustment per patient size (includes targeted exams where dose is matched to clinical indication); or iterative reconstruction. COMPARISON: 1. BONEWB NM bone scan whole body 03/06/2018 2:[address] HEAD/BRAIN WO CON 04/23/2023 12:[address] SINUS WO CON 03/31/2021 1:56 PM FINDINGS: Bones/joints: There is diffuse osseous demineralization. The cervical spine shows relatively preserved alignment of the vertebral bodies with no evidence of acute fractures or dislocations. However, age-related degenerative changes are observed, including mild disc space narrowing and osteophyte formation at multiple levels. These findings are consistent with age related degenerative disease. Lungs: Lung apices are normal. Vasculature: There are atherosclerotic calcifications of the carotid bulbs bilaterally. Soft tissues: Unremarkable. IMPRESSION: Multilevel degenerative change without acute injury identified.
--- NOTE | 2023-04-22 23:39 | XR_ITS ---
PROCEDURE INFORMATION: Exam: XR Left Knee Exam date and time: 04/22/2023 11:59 PM Age: 82 years old Clinical indication: Pain; Hip; Left; Additional info: Fall knee pain TECHNIQUE: Imaging protocol: Radiologic exam of the left knee. Views: 3 views. COMPARISON: CR [id number] XR knee LT 3V 03/06/2018 2:13 PM FINDINGS: Bones/joints: There is severe tricompartmental degenerative changes of the left knee. No acute fracture. No joint effusion. Old healed distal femoral shaft fracture. Soft tissues: Multiple metallic foreign bodies within the soft tissues of the thigh. IMPRESSION: No acute fracture.
--- NOTE | 2023-04-22 23:39 | XR_ITS ---
PROCEDURE INFORMATION: Exam: XR Left Femur Exam date and time: 04/22/2023 11:59 PM Age: 82 years old Clinical indication: Pain; Knee; Left; Additional info: Fall knee pain TECHNIQUE: Imaging protocol: Radiologic exam of the left femur. Views: 2 views. COMPARISON: CR FEMURLT XR femur LT 2V 03/06/2018 2:13 PM FINDINGS: Bones/joints: The femur is intact. The linear lucencies of the greater trochanter noted on the pelvic images are not appreciated on this study. There is an old healed distal shaft fracture. Severe degenerative change the knee is noted. Soft tissues: Multiple soft tissue metallic foreign bodies are evident. IMPRESSION: No acute findings.
--- NOTE | 2023-04-22 23:39 | XR_ITS ---
PROCEDURE INFORMATION: Exam: XR Chest Exam date and time: 04/22/2023 11:59 PM Age: 82 years old Clinical indication: Injury or trauma; Fall; Blunt trauma (contusions or hematomas) TECHNIQUE: Imaging protocol: Radiologic exam of the chest. Views: 1 view. COMPARISON: CR XR CHEST 2V 01/28/2020 4:05 PM FINDINGS: Lungs: Stable density at the periphery left lung base likely representing scarring. No consolidation. Pleural spaces: Unremarkable. No pleural effusion. No pneumothorax. Heart/Mediastinum: Unremarkable. No cardiomegaly. Vasculature: Unremarkable. Diaphragm: There is persistent significant elevation of the right hemidiaphragm. Bones/joints: There is significant degenerative change of the left glenohumeral joint. IMPRESSION: No acute findings.
[2023-04-22 23:45] VITALS: BP 129/68; PULSE 108; RESP 18; TEMP 37.1; O2SAT 96; BMI 28.1
--- NOTE | 2023-04-22 23:45 | HMH.EDGENADL ---
Discharge Plan Disposition Patient Disposition: Admitted Chief Complaint: Fall Prescriptions Prescriptions: No Action pravastatin 40 mg tablet 40 mg PO DAILY tamsulosin 0.4 mg capsule 0.4 mg PO DAILY esomeprazole magnesium 20 mg capsule,delayed release(DR/EC) 20 mg PO DAILY ipratropium bromide 21 mcg (0.03 %) spray,non-aerosol 2 spray INTRANASAL BID Rx Instructions: administer into each nostril Eligard (6 month) 45 mg syringe 45 mg SQ [id number] Qty: 1 0RF lisinopril 10 MG tablet 10 mg PO DAILY Patient Comments: Referrals Follow up/Referrals: oJsh Dias MD [Primary Care Provider] - See instructions Clinical Impressions Clinical Impression: Acute pain of left hip, Physical debility Contusion of knee, left Qualifiers: Encounter type: initial encounter Qualified Code(s): S80.02XA - Contusion of left knee, initial encounter Discharge ED Provider: Beau Blanton General Adult HPI General Chief complaint: Fall Stated complaint: fall Time Seen by Provider: 04/22/23 23:45 History of Present Illness HPI narrative: 82-year-old male with history of prostate cancer, chronic left knee pain presents with left knee pain and neck pain after a fall. He reports that he tripped over his feet, falling forward striking his head against the wall and landing primarily on his left knee. He reports that he was able to walk immediately after, but his pain has been worsening and he is now unable to ambulate. He denies loss of consciousness or headache. He reports that he has chronic neck pain but it feels a little bit worse than normal. Denies any neurologic symptoms. Denies any chest pain abdominal pain shortness of breath. Related Data Home Medications Medication Instructions Recorded Confirmed lisinopril 10 mg tablet 10 mg PO DAILY blood pressure 04/27/17 04/23/23 pravastatin 40 mg tablet 40 mg PO DAILY cholestrol 08/17/18 04/23/23 tamsulosin 0.4 mg capsule 0.4 mg PO DAILY prostate 08/17/18 04/23/23 esomeprazole magnesium 20 mg 20 mg PO DAILY allergies 03/24/20 04/23/23 capsule,delayed release ipratropium bromide 21 mcg (0.03 2 spray intranasal BID Allergy 03/18/21 04/23/23 %) nasal spray symptoms Allergies Allergy/AdvReac Type Severity Reaction Status Date / Time Sulfa (Sulfonamide Allergy Unknown I-RASH Verified 12/03/21 08:50 Antibiotics) [SULFA (SULFONAMIDE ANTIBIOTICS)] [facility] Disclaimer: The information contained in this section may have been updated after the patient was seen, as this information can be updated by other users. Medical History Arthritis Asthma Colonoscopy planned COPD (chronic obstructive pulmonary disease) History of gastroesophageal reflux (GERD) Hyperlipidemia Hypertension Prostate cancer Ulcer Urinary tract infection Surgical History History of cardiac cath History of heart artery stent Family History Other Family history of acute congestive heart failure Social History Smoking Status: Former smoker tobacco type: cigarettes second hand exposure: No alcohol intake: former substance use type: denies use current occupational status: retired Travel in the last 8 weeks: None household members: family housing: house current occupational exposures/hazards: No caffeine: Yes ROS Obtained: Yes All systems reviewed & no additional complaints except as documented Physical Exam General General appearance: alert and in no apparent distress Head Head exam: atraumatic and normocephalic Eye Eye exam: Present normal appearance, PERRL and EOMI ENT ENT exam: Present normal oropharynx and normal external ear exam Neck Neck exam: Present full ROM and other (Neck tenderness, the patient reports that is stable from baseline.) Chest Chest inspection: Present normal inspection and symmetric chest wall rise; Absent tenderness Respiratory Respiratory exam: Present normal lung sounds bilaterally; Absent respiratory distress Cardiovascular Cardiovascular exam: Present regular rate and normal rhythm Abdominal Exam Abdominal exam: Present soft; Absent distention, tenderness or guarding Extremities Exam Extremities exam: Present other (Tenderness to palpation of the distal femur, knee, proximal tib-fib. Swelling of the knee noted. Range of motion limited secondary to pain. Otherwise no significant extremity tenderness.) Back Exam Back exam: Present normal inspection; Absent tenderness Neurological Exam Neurological exam: Present alert and oriented X3; Absent motor sensory deficit Psychiatric Psychiatric exam: Present normal affect and normal mood Skin Skin exam: Present warm, dry and normal color Lymphatic Lymphatic Findings: no adenopathy Medical Decision Making Medical Records Medical records reviewed: Yes I reviewed the patient's medical records. Isra Inquiry Pt receiving controlled substance: No Isra was queried for this patient: No Vital Signs: 04/22/23 23:45 Temperature 98.7 F Temperature Source Oral Pulse Rate [Left] 108 H Respiratory Rate 18 Blood Pressure [Right Arm] 129/68 Blood Pressure Mean [Right Arm] 88 Blood Pressure Source [Right Arm] Automatic Cuff Blood Pressure Position [Right Arm] Sitting 02 Sat by Pulse Oximetry 96 Oxygen Delivery Method Room Air Lab Data Lab results reviewed: Yes I reviewed the patient's lab results. Orders (Tests/Meds): ED MEDICATIONS Discontinued Medications Generic Name Dose Route Start Last Admin Trade Name Freq PRN Reason Stop Dose Admin Acetaminophen 1,000 mg 04/22/23 23:39 04/23/23 00:25 Acetaminophen 500mg Tab PO 04/22/23 23:40 1,000 mg ONCE ONE Administration Ketorolac Tromethamine 15 mg 04/22/23 23:39 04/23/23 00:27 Ketorolac 30mg/Ml Vial IM 04/22/23 23:40 15 mg ONCE ONE Administration Methocarbamol 500 mg 04/22/23 23:41 04/23/23 00:25 Methocarbamol 500mg Tablet PO 04/22/23 23:42 500 mg ONCE ONE Administration Oxycodone HCl 5 mg 04/22/23 23:39 04/23/23 00:25 Oxycodone 5mg Immediate Release Tablet PO 04/22/23 23:40 5 mg ONCE ONE Administration ORDERS Category Date Time Status CT cervical spine wo con Stat Cat Scan 04/22/23 23:[address] head/brain wo con Stat Cat Scan 04/22/23 23:[address] hip LT wo con Stat Cat Scan 04/23/23 01:[address] knee LT wo con Stat Cat Scan 04/23/23 01:06 Completed CXR --portable [XR chest portable] Stat Exams 04/22/23 23:39 Completed Femur XR left 2 views [XR femur LT 2V] Stat Exams 04/22/23 23:39 Completed Fibula/tibia XR left 2 views [XR tibia fibula LT 2V] Exams 04/22/23 23:39 Completed Stat Knee XR left 3 views [XR knee LT 3V] Stat Exams 02/02/24 23:39 Completed Pelvis XR 1-2 views [XR pelvis 1-2V] Stat Exams 04/22/23 23:39 Completed Medical Decision Narrative: 82-year-old male with history of prostate cancer, chronic left knee pain presents with neck pain and left knee pain after a mechanical fall from standing without loss of consciousness. History was obtained via conversation with patient, EMS. On arrival, patient is [afebrile, hemodynamically stable, satting appropriately, alert, oriented x4, GCS 15], moving all extremities spontaneously. Full physical exam performed and significant for traumatic findings as above. Differential includes but is not limited to intracranial trauma, cervical trauma, intrathoracic intra-abdominal trauma, extremity trauma, fracture dislocation. Patient was given p.o. Tylenol, IM Toradol, p.o. oxycodone, p.o. Robaxin for symptomatic management and correction of underlying abnormalities. Workup initiated including CT head, CT C-spine, chest x-ray pelvis x-ray and radiographs of the left femur knee tib-fib to assess for traumatic injuries.. On re-evaluation, patient [remains afebrile, HD stable.] Patient reports persistent severe pain. Imaging independently interpreted by me and significant for no intracranial bleeding, no acute cervical fracture on CT. Radiographs show questionable lucency in the left greater trochanter and severe degenerative changes in the left knee without obvious fracture. Given concern for occult hip/knee fracture, CTs of the left hip and knee were obtained. They show chronic degenerative changes but no evidence of acute fracture.. See radiology read for full review of final results. Labs and full contrasted trauma CT scans was considered, but deemed unnecessary due to history and exam. MRI of the knee was considered, but is unable to be performed secondary to retained metal fragments. Given patient history, exam and workup, patient's presentation most likely represents left knee and hip contusion after fall from standing. Patient is markedly debilitated, is unable to bear any weight. He reports that he has no significant family support or friends who can help him at home. He is not safe for discharge home alone at this time. Given this, interactive discussion was had with the hospitalist on-call and patient was admitted for debility. Procedures Risk/Benefits of Procedure(s) Were Explained: Yes Critical Care Critical Care Time Critical Care Time: No
[2023-04-23] MEDS: ACETAMINOPHEN 500MG TAB 1000 MG PO (00:25)
[2023-04-23] MEDS: OXYCODONE 5MG IMMEDIATE RELEASE TABLET 5 MG PO ×2 (00:25→10:25)
[2023-04-23] MEDS: METHOCARBAMOL 500MG TABLET 500 MG PO (00:25)
[2023-04-23] MEDS: KETOROLAC 30MG/ML VIAL 15 MG IM (00:27)
--- NOTE | 2023-04-23 01:06 | CT_ITS ---
PROCEDURE INFORMATION: Exam: CT Left Lower Extremity Without Contrast, Hip Exam date and time: 04/23/2023 1:51 AM Age: 82 years old Clinical indication: Injury or trauma; Fall; Blunt trauma; Hip; Left; Additional info: Fall, abnormal xray TECHNIQUE: Imaging protocol: CT of the left lower extremity without contrast was performed. Exam focused on the hip. Radiation optimization: All CT scans at this facility use at least one of these dose optimization techniques: automated exposure control; mA and/or kV adjustment per patient size (includes targeted exams where dose is matched to clinical indication); or iterative reconstruction. [facility] 03/06/2018 2:20 PM FINDINGS: Bones/joints: The left hip is normally aligned. There is [id number] joint space narrowing. No acute fracture of the proximal femur or imaged bony pelvis is noted. Soft tissues: Scattered small metallic soft tissue foreign bodies are noted. The musculature surrounding the hip is normal. No contusion or hematoma. Reproductive: Prostate seed implants are present. IMPRESSION: No acute fracture of the left hip.
--- NOTE | 2023-04-23 01:06 | CT_ITS ---
PROCEDURE INFORMATION: Exam: CT Left Lower Extremity Without Contrast, Knee Exam date and time: 04/23/2023 1:54 AM Age: 82 years old Clinical indication: Pain; Knee; Left; Additional info: Fall, knee pain TECHNIQUE: Imaging protocol: CT of the left lower extremity without contrast was performed. Exam focused on the knee. Radiation optimization: All CT scans at this facility use at least one of these dose optimization techniques: automated exposure control; mA and/or kV adjustment per patient size (includes targeted exams where dose is matched to clinical indication); or iterative reconstruction. COMPARISON: CT HIP LT WO CON 04/23/2023 1:51 AM FINDINGS: Bones/joints: There is a healed distal femoral shaft fracture. There are severe tricompartmental degenerative changes of the knee with associated prominent medial and lateral joint line and patellofemoral osteophytes. Very small suprapatellar joint effusion is noted. Soft tissues: The quadriceps and patellar tendons are intact. A few scattered metallic soft tissue foreign bodies noted. Vasculature: Arterial calcifications are noted. IMPRESSION: No acute fracture of the left knee. Severe tricompartment degenerative changes and very small suprapatellar effusion.
--- NOTE | 2023-04-23 02:58 | PC.NURSE ---
Report called to Natasha Velasco RN
--- NOTE | 2023-04-23 03:04 | P.HP_ITS ---
History of Present Illness *Admission Date: 04/23/23 *Reason for visit:: Non weight bearing left leg *History of present illness: 82 year old male presented to the [facility] ED with left knee pain and neck pain after a fall. He reports that he tripped over his feet, falling forward striking his head against the wall and landing primarily on his left knee. He reports that he was able to walk immediately after, but his pain has been worsening and he is now unable to ambulate. He denies loss of consciousness or headache. PMHX of prostate cancer, HTN and HLD. ED workup consisted of CT head, CT C-spine, chest x-ray pelvis x-ray and radiographs of the left femur knee tib-fib. There is no acute fracture noted on imaging. Unable to obtain MRI due to hx of metal in knee. The ED physician consulted the hospitalist team for further medical management. Pt is admitted to the medical floor for PT evaluation due to being non weight bearing on the left leg. [facility] Disclaimer: The information contained in this section may have been updated after the patient was seen, as this information can be updated by other users. Medical History (Updated 04/23/23 @ 03:09 by MALVIN Ragland) Arthritis Asthma Colonoscopy planned COPD (chronic obstructive pulmonary disease) History of gastroesophageal reflux (GERD) Hyperlipidemia Hypertension Prostate cancer Ulcer Urinary tract infection Surgical History History of cardiac cath History of heart artery stent Family History Other Family history of acute congestive heart failure Social History (Updated 04/23/23 @ 04:00 by Darlin Velasco RN) Smoking Status: Former smoker tobacco type: cigarettes second hand exposure: No alcohol intake: former substance use type: denies use current occupational status: retired Travel in the last 8 weeks: None household members: family housing: house current occupational exposures/hazards: No caffeine: Yes Review of Systems *Cardiovascular Cardiovascular: Reports system reviewed and no additional complaints, except as documented *Respiratory Respiratory: Reports system reviewed and no additional complaints, except as documented *Gastrointestinal Gastrointestinal: Reports system reviewed and no additional complaints, except as documented *Genitourinary Genitourinary: Reports system reviewed and no additional complaints, except as documented *Musculoskeletal Musculoskeletal: Reports abnormal gait, Reports arthralgias, Reports joint swelling and Reports limited range of motion Comments: left knee *Neurologic Neurologic: Reports abnormal gait Meds Home Medications and Allergies Home Medications Medication Instructions Recorded Confirmed Type lisinopril 10 mg tablet 10 mg PO DAILY High Blood Pressure 04/27/17 04/23/23 History tamsulosin 0.4 mg capsule 0.4 mg PO DAILY prostate 08/17/18 04/23/23 History esomeprazole magnesium 20 mg 20 mg PO DAILY Acid Reflux 03/24/20 04/23/23 History capsule,delayed release ipratropium bromide 21 mcg (0.03 2 spray intranasal BID Allergy 03/18/21 04/23/23 History %) nasal spray symptoms naproxen 500 mg tablet 500 mg PO BID PRN pain 5 days #10 04/23/23 Rx tabs rosuvastatin 20 mg tablet 20 mg PO DAILY Cholesterol 04/23/23 04/23/23 History New Prescriptions to Start Prescriptions: naproxen ReyIrfan Allergies Allergy/AdvReac Type Severity Reaction Status Date / Time Sulfa (Sulfonamide Allergy Unknown I-RASH Verified 12/03/21 08:50 Antibiotics) [SULFA (SULFONAMIDE ANTIBIOTICS)] Exam Data for Last 24 hours Vital signs and Labs for Last 24 Hours: Temp Pulse Resp BP Pulse Ox O2 Del Method 98.7 F 108 H 18 129/68 96 Room Air 04/22/23 23:45 04/22/23 23:45 04/22/23 23:45 04/22/23 23:45 04/22/23 23:45 04/22/23 23:45 I & O for Last 24 hours: Intake & Output 04/20/23 04/21/23 04/22/23 04/23/23 23:59 23:59 23:59 23:59 Weight 81.647 kg *Routine HEENT Exam Head: Present normocephalic Eye: Present EOMI ENT: Present mucous membranes moist *Routine Neck Exam Neck: Present full ROM *Routine Respiratory Exam Respiratory: Present CTA bilaterally *Routine Cardiovascular Exam Cardiovascular: Present RRR *Routine Abdominal Exam Abdominal: Present soft and normoactive bowel sounds; Absent tenderness *Routine Rectal Exam Rectal:: deferred *Routine Genitalia Exam Genitalia:: deferred *Routine Extremities Exam Extremities: Present tenderness (left knee ) and joint swelling *Routine Skin Exam Skin: Present intact *Routine Neurological Exam Neurological: Present alert and oriented X3 Assessment and Plan *Assessment and plan (1) Contusion of knee, left: Status: Acute Qualifiers: Encounter type: initial encounter Qualified Code(s): S80.02XA - Co ntusion of left knee, initial encounter Category: Medical Code(s): S80.02XA - Contusion of left knee, initial encounter (2) Hypertension: Status: Acute Category: Medical Code(s): I10 - Essential (primary) hypertension (3) Hyperlipidemia: Status: Acute Category: Medical Code(s): E78.5 - Hyperlipidemia, unspecified (4) Prostate cancer: Status: Acute Category: Medical Code(s): C61 - Malignant neoplasm of prostate Plan 82 year old male presented to the [facility] ED with left knee pain and neck pain after a fall. He reports that he tripped over his feet, falling forward striking his head against the wall and landing primarily on his left knee. He reports that he was able to walk immediately after, but his pain has been worsening and he is now unable to ambulate. He denies loss of consciousness or headache. PMHX of prostate cancer, HTN and HLD. ED workup consisted of CT head, CT C-spine, chest x-ray pelvis x-ray and radiographs of the left femur knee tib-fib. There is no acute fracture noted on imaging. Unable to obtain MRI due to hx of metal in knee. The ED physician consulted the hospitalist team for further medical management. Pt is admitted to the medical floor for PT evaluation due to being non weight bearing on the left leg. CONTUSION OF LEFT KNEE -Admission for non weight bearing of left knee. -Imaging reviewed and reveals no acute fracture. A suprapatellar effusion and degenerative changes noted. -PT evalution consult placed -CBC and CMP ordered for admission- Pending -Tylenol 1000mg, toradol 15mg, and oxycodone HCL PRN 6hr for pain HTN HLD PROSTATE CANCER -continue home medications lisinopril, pravastatin, and tamsulosin FULL CODE REGULAR DIET HEP SUB Q Patient was seen and evaluated at the bedside myself, agree with JAYLEEN note. Knee swelling is improving
[2023-04-23 03:38] VITALS: BP 128/74; PULSE 90; RESP 20; TEMP 37.1; O2SAT 97
--- NOTE | 2023-04-23 03:43 | PC.NURSE ---
Patient arrived to floor via stretcher from ED at 03:34.
[2023-04-23 03:45] VITALS: BP 109/58; PULSE 70; RESP 16; TEMP 36.9; O2SAT 90; BMI 27.1
[2023-04-23 04:00] VITALS: BMI 27.2
[2023-04-23 04:36] LABS: Basophils # 0.1 K/mm3 (0-0.2); Basophils % 0.5 % (0.1-2.0); Eosinophils # 0.2 K/mm3 (0.0-0.4); Eosinophils % 1.4 % (0.1-12.0); Hematocrit 39.5 % (42.0-52.0); Hemoglobin 13.4 g/dL (14.1-18.0); Lymphocytes # 1.4 K/mm3 (0.7-4.5); Lymphocytes % 12.5 % (10-50); Mean Corpuscular HGB Conc 33.9 g/dL (31.8-35.4); Mean Corpuscular Hemoglobin 33.3 pg (27.0-31.2); Mean Corpuscular Volume 98.1 fl (80-94); Mean Platelet Volume 8.5 fl (7.4-10.4); Monocytes # 0.7 K/mm3 (0.1-1.0); Neutrophils # 8.7 K/mm3 (1.8-7.8); Neutrophils % 79.6 % (37.0-80.0); Platelet Count 252 K/mm3 (142-424); Red Blood Count 4.03 M/mm3 (4.60-6.20); Red Cell Distribution Width 13.2 % (11.5-17.5); White Blood Count 10.9 K/mm3 (4.8-10.8)
[2023-04-23 04:44] LABS: Alanine Aminotransferase 21 U/L (12-78); Albumin Level 3.9 g/dl (3.5-5.0); Albumin/Globulin Ratio 1.3 (1.1-1.8); Alkaline Phosphatase 85 U/L (38-126); Anion Gap 11.4 mEq/L (5-15); Aspartate Amino Transferase 28 U/L (17-59); Blood Urea Nitrogen 18 mg/dl (9-20); Calcium 8.8 mg/dl (8.4-10.2); Carbon Dioxide 30 mmol/L (22.0-30.0); Chloride 99 mmol/L (98-107); Creatinine Clearance Estimated 64 mL/min (50-200); Estimated Glomerular Filt Rate 108 ml/min (>60); GFR (African American) 131 ML/MIN (>60); Glucose 114 mg/dl (74-100); Potassium 4.4 mmoL/L (3.5-5.1); Sodium 136 mmol/L (136-145); Total Protein,Serum 6.9 g/dl (6.3-8.2)
[2023-04-23 08:00] VITALS: BP 99/51; PULSE 76; RESP 16; TEMP 36.7; O2SAT 95
[2023-04-23] MEDS: PRAVASTATIN 40MG TAB 40 MG PO (10:16)
[2023-04-23] MEDS: TAMSULOSIN 0.4MG CAPSULE 0.400000000000000022 MG PO (10:16)
[2023-04-23] MEDS: HEPARIN SODIUM 5,000 UNIT/ML VIAL 5000 UNIT SQ (10:16)
--- NOTE | 2023-04-23 10:37 | HMH.PHAINT1 ---
Pharmacy Intervention Comments: MEDICATION RECONCILIATION COMPLETED ON PATIENT USING EXTERNAL FILL HISTORY FROM PHARMACY. -BELINDA SUH, ERLIND
[2023-04-23] MEDS: POLYETHYLENE GLYCOL 3350 17 GM PACKET PO (13:35)
[2023-04-23 15:34] VITALS: BP 113/61; PULSE 85; RESP 18; TEMP 36.8; O2SAT 97
[2023-04-23] MEDS: KETOROLAC 30MG/ML VIAL 15 MG IV (15:51)
--- NOTE | 2023-04-23 18:34 | PC.NURSE ---
pt has done well this shift. c/o pain x2 treated per mar with relief. attempted to stand but pt unable to bear weight on lt leg at this time. cb within reach.
[2023-04-23 20:00] VITALS: BP 106/54; PULSE 78; RESP 16; TEMP 37.1; O2SAT 92
--- NOTE | 2023-04-24 03:35 | PC.NURSE ---
PATIENT HAS RESTED WELL THIS SHIFT. NO C/O PAIN. REFUSED VTE HEPAINE AT HS.
[2023-04-24 04:00] VITALS: BP 132/83; PULSE 88; RESP 16; TEMP 36.9; O2SAT 92; BMI 27.1
--- NOTE | 2023-04-24 05:47 | PC.NURSE ---
CONTINUES TO REST COMFORTABLY AT THIS TIME. RESPS EVEN/UNLABORED.
[2023-04-24 07:36] VITALS: BP 130/63; PULSE 87; RESP 18; TEMP 36.8; O2SAT 93
[2023-04-24] MEDS: TAMSULOSIN 0.4MG CAPSULE 0.400000000000000022 MG PO (08:25)
[2023-04-24] MEDS: LISINOPRIL 10MG TABLET 10 MG PO (08:25)
[2023-04-24] MEDS: PRAVASTATIN 40MG TAB 40 MG PO (08:25)
[2023-04-24] MEDS: POLYETHYLENE GLYCOL 3350 17 GM PACKET PO (08:25)
[2023-04-24] MEDS: HEPARIN SODIUM 5,000 UNIT/ML VIAL 5000 UNIT SQ (08:25)
[2023-04-24] MEDS: OXYCODONE 5MG IMMEDIATE RELEASE TABLET 5 MG PO (08:29)
[2023-04-24 08:58] LABS: MANUAL DIFFERENTIAL MANUAL DIFFERENTIAL (MANUAL DIFF)
[2023-04-24 09:06] LABS: Basophils # 0.1 K/mm3 (0-0.2); Basophils % 0.5 % (0.1-2.0); Eosinophils # 0.3 K/mm3 (0.0-0.4); Eosinophils % 3.1 % (0.1-12.0); Hematocrit 36.5 % (42.0-52.0); Hemoglobin 12.3 g/dL (14.1-18.0); Lymphocytes # 1.7 K/mm3 (0.7-4.5); Lymphocytes % 17.2 % (10-50); Mean Corpuscular HGB Conc 33.8 g/dL (31.8-35.4); Mean Corpuscular Hemoglobin 32.9 pg (27.0-31.2); Mean Corpuscular Volume 97.5 fl (80-94); Mean Platelet Volume 8.9 fl (7.4-10.4); Monocytes # 0.7 K/mm3 (0.1-1.0); Monocytes % 7.2 % (1.7-9.3); Neutrophils # 7.1 K/mm3 (1.8-7.8); Neutrophils % 71.9 % (37.0-80.0); Platelet Count 224 K/mm3 (142-424); Red Blood Count 3.74 M/mm3 (4.60-6.20); Red Cell Distribution Width 13.3 % (11.5-17.5); White Blood Count 9.9 K/mm3 (4.8-10.8)
[2023-04-24 09:29] LABS: Chloride 100 mmol/L (98-107); Potassium 4.6 mmoL/L (3.5-5.1); Sodium 133 mmol/L (136-145)
[2023-04-24 09:31] LABS: Alanine Aminotransferase 18 U/L (12-78); Blood Urea Nitrogen 19 mg/dl (9-20); Creatinine Clearance Estimated 64 mL/min (50-200); Estimated Glomerular Filt Rate 108 ml/min (>60); GFR (African American) 131 ML/MIN (>60)
[2023-04-24 09:32] LABS: Albumin Level 3.7 g/dl (3.5-5.0); Albumin/Globulin Ratio 1.2 (1.1-1.8); Alkaline Phosphatase 93 U/L (38-126); Anion Gap 7.6 mEq/L (5-15); Aspartate Amino Transferase 27 U/L (17-59); Bilirubin,Total 1.1 mg/dl (0.2-1.3); Calcium 8.4 mg/dl (8.4-10.2); Carbon Dioxide 30 mmol/L (22.0-30.0); Glucose 116 mg/dl (74-100); Total Protein,Serum 6.7 g/dl (6.3-8.2)
[2023-04-24 10:12] LABS: Eosinophils % 2 % (0-3); Lymphocytes % 19 % (10-50); Monocytes % 7 % (2-9); Neutrophils % 71 % (42-76); Total Cells Counted 100
[2023-04-24 10:14] LABS: Band Neutrophils % 1 (0-8)
[2023-04-24 10:18] LABS: Anisocytosis 1+; Platelet Estimate Normal
[2023-04-24 10:19] LABS: Macrocytosis 1+
--- NOTE | 2023-04-24 11:25 | HMH.PTEV ---
Physical Therapy Evaluation Rehab PT IP Evaluation Start: 04/23/23 02:39 Freq: ONCE Status: Active Protocol: Document 04/24/23 11:20 PHORVIANNEY (Rec: 04/24/23 11:25 PHORNE [id number]) Subjective/History History History 82 yowm adm to [facility] with L knee pain after ground level fall at home. He has PMH of HTN, HLD, COPD, OA, prostate cancer . He reports he lives alone, ramp to enter the home, and he has cane, RW, and motorized w /c at home. He generally ambulates with the cane and is independent with all ADLs and mobility at baseline. Subjective Subjective Pt c/o pain in the L knee with weight bearing, but he does agree to mobility assessment. New diagnosis of cancer in past 12 No months? Rehab PT IP Eval Objective Appearance Patient Behavior Appropriate Patient Orientation Person,Place,Time Difficulty following instructions none Speech Pattern Clear Ambulation Patient Able to Ambulate Yes Ambulation Observation IP General Gait Pattern Observation Antalgic Gait,Decrease Stride Lngth (R),Decrease Stride Lngth (L) Ambulation Distance (feet) 15 Ambulation Assistive Device Rolling Walker Ambulation Ability Supervision/Stand by Balance Ability to Arise Able, uses arms to help Sitting Balance Steady, safe Standing Balance Steady, wide stance Dynamic Sitting Balance Ability Good Dynamic Standing Balance Ability Good Transfers Bed Transfer Ability Supervision/Stand by Chair Transfer Ability Supervision/Stand by Sit to Stand Bed Transfer Ability Supervision/Stand by Sit to Stand Chair Transfer Ability Supervision/Stand by ROM All Extremities PT ROM Status WFL MMT All Extremities PT MMT WFL Rehab PT IP prob,goals,plan Problems Date of Evaluation: 04/24/23 PT IP Problems Transfers,Gait Rehab Potential Rehab Potential Good Plan PT Intervention Plan Transfers,Gait,Therapeutic Exercise PT Plan Frequency Daily Duration LOS Discharge Goals Bed Transfer Ability Independent Sit to Stand Chair Transfer Ability Independent Ambulation Assistive Device Rolling Walker Ambulation Distance (feet) 30 Discharge Plan PT Discharge Plan Pt is appropriate to return home once medically stable for d/c. Recommend home health therapy and BSC once ready for d/c. Eval Complexity Eval Charge Codes 65452 - High Complexity PHYSICIAN CERTIFICATION: I certify the specified therapy services for Waldemar Kaure are required, authorized, and reviewed every 30 days.
--- NOTE | 2023-04-24 11:40 | EXP.DC.SUM ---
General Admission date:: 04/23/23 Discharge date: 04/24/23 HPI HPI HPI: 82 year old male presented to the [facility] ED with left knee pain and neck pain after a fall. He reports that he tripped over his feet, falling forward striking his head against the wall and landing primarily on his left knee. He reports that he was able to walk immediately after, but his pain has been worsening and he is now unable to ambulate. He denies loss of consciousness or headache. PMHX of prostate cancer, HTN and HLD. ED workup consisted of CT head, CT C-spine, chest x-ray pelvis x-ray and radiographs of the left femur knee tib-fib. There is no acute fracture noted on imaging. Unable to obtain MRI due to hx of metal in knee. The ED physician consulted the hospitalist team for further medical management. Pt is admitted to the medical floor for PT evaluation due to being non weight bearing on the left leg. Hospital Course Hospital Course Hospital Course: 82 year old male presented to the [facility] ED with left knee pain and neck pain after a fall. He reports that he tripped over his feet, falling forward striking his head against the wall and landing primarily on his left knee. He reports that he was able to walk immediately after, but his pain has been worsening and he is now unable to ambulate. He denies loss of consciousness or headache. PMHX of prostate cancer, HTN and HLD. ED workup consisted of CT head, CT C-spine, chest x-ray pelvis x-ray and radiographs of the left femur knee tib-fib. There is no acute fracture noted on imaging. Unable to obtain MRI due to hx of metal in knee. The ED physician consulted the hospitalist team for further medical management. Pt is admitted to the medical floor for PT evaluation due to being non weight bearing on the left leg. CONTUSION OF LEFT KNEE swelling has been improving and going down patient mentions pain is tolerable plan for dc on naproxen Stable for dc, f/u with PCP at DC Exam Data for Last 24 hours Vital signs and Labs for Last 24 Hours: Temp Pulse Resp BP Pulse Ox O2 Del Method 98.2 F 87 18 130/63 93 L Room Air 04/24/23 07:36 04/24/23 07:36 04/24/23 07:36 04/24/23 07:36 04/24/23 07:36 04/24/23 09:00 Laboratory Results - last 24 hr 04/24/23 08:46: WBC 9.9, RBC 3.74 L, Hgb 12.3 L, Hct 36.5 L, MCV 97.5 H, MCH 32.9 H, MCHC 33.8, RDW 13.3, Plt Count 224, MPV 8.9, Neut % (Auto) 71.9, Lymph % (Auto) 17.2, [place] % (Auto) 7.2, Eos % (Auto) 3.1, Baso % (Auto) 0.5, Neut # (Auto) 7.1, Lymph # (Auto) 1.7, [place] # (Auto) 0.7, Eos # (Auto) 0.3, Baso # (Auto) 0.1, Total Counted 100, Neutrophils % (Manual) 71, Band Neutrophils % 1, Lymphocytes % (Manual) 19, Monocytes % (Manual) 7, Eosinophils % (Manual) 2, Platelet Estimate Normal, Anisocytosis 1+, Macrocytosis 1+, Sodium 133 L, Potassium 4.6, Chloride 100, Carbon Dioxide 30, Anion Gap 7.6, BUN 19, Creatinine 0.70, Estimated Creat Clear 64, Estimated GFR 108, Est GFR ( Amer) 131, Glucose 116 H, Calcium 8.4, Total Bilirubin 1.1, AST 27, ALT 18, Alkaline Phosphatase 93, Total Protein 6.7, Albumin 3.7, Globulin 3.0, Albumin/Globulin Ratio 1.2 I & O for Last 24 hours: Intake & Output 04/21/23 04/22/23 04/23/23 04/24/23 23:59 23:59 23:59 23:59 Intake Total 1530 / 1530 280 / 280 Output Total 50 / 350 1600 / 1600 Balance 1480 / 1180 -1320 / -1320 Weight 81.647 kg 78.698 kg 78.517 kg Constitutional Constitutional: no acute distress *Routine HEENT Exam Head: Present normocephalic Eye: Present EOMI and PERRL ENT: Present mucous membranes moist *Routine Neck Exam Neck: Present supple; Absent lymphadenopathy *Routine Respiratory Exam Respiratory: Present CTA bilaterally *Routine Cardiovascular Exam Cardiovascular: Present RRR *Routine Abdominal Exam Abdominal: Present soft and normoactive bowel sounds; Absent tenderness *Routine Extremities Exam Extremities: Absent cyanosis, clubbing or edema Comments: has swelling on Left knee, no redness noted, has some tenderness *Routine Skin Exam Skin: Present warm; Absent rash *Routine Neurological Exam Neurological: Present alert and oriented X3 Results Data Completed and Pending Labs on day of discharge: Labs from last 24 hours 04/24/23 08:46 WBC 9.9 RBC 3.74 L Hgb 12.3 L Hct 36.5 L MCV 97.5 H MCH 32.9 H MCHC 33.8 RDW 13.3 Plt Count 224 MPV 8.9 Neut % (Auto) 71.9 Lymph % (Auto) 17.2 [place] % (Auto) 7.2 Eos % (Auto) 3.1 Baso % (Auto) 0.5 Neut # (Auto) 7.1 Lymph # (Auto) 1.7 [place] # (Auto) 0.7 Eos # (Auto) 0.3 Baso # (Auto) 0.1 Total Counted 100 Neutrophils % (Manual) 71 Band Neutrophils % 1 Lymphocytes % (Manual) 19 Monocytes % (Manual) 7 Eosinophils % (Manual) 2 Platelet Estimate Normal Anisocytosis 1+ Macrocytosis 1+ Sodium 133 L Potassium 4.6 Chloride 100 Carbon Dioxide 30 Anion Gap 7.6 BUN 19 Creatinine 0.70 Estimated Creat Clear 64 Estimated GFR 108 Est GFR ( Amer) 131 Glucose 116 H Calcium 8.4 Total Bilirubin 1.1 AST 27 ALT 18 Alkaline Phosphatase 93 Total Protein 6.7 Albumin 3.7 Globulin 3.0 Albumin/Globulin Ratio 1.2 DS: Diagnosis Discharge Diagnosis (1) Contusion of knee, left: Status: Acute Code(s): S80.02XA - Contusion of left knee, initial encounter Qualifiers: Encounter type: initial encounter Qualified Code(s): S80.02XA - Contusion of left knee, initial encounter (2) Hypertension: Status: Acute Code(s): I10 - Essential (primary) hypertension (3) Hyperlipidemia: Status: Acute Code(s): E78.5 - Hyperlipidemia, unspecified (4) Prostate cancer: Status: Acute Code(s): C61 - Malignant neoplasm of prostate Meds Home Medications and Allergies Home Medications Medication Instructions Recorded Confirmed Type lisinopril 10 mg tablet 10 mg PO DAILY High Blood Pressure 04/27/17 04/23/23 History tamsulosin 0.4 mg capsule 0.4 mg PO DAILY prostate 08/17/18 04/23/23 History esomeprazole magnesium 20 mg 20 mg PO DAILY Acid Reflux 03/24/20 04/23/23 History capsule,delayed release ipratropium bromide 21 mcg (0.03 2 spray intranasal BID Allergy 03/18/21 04/23/23 History %) nasal spray symptoms naproxen 500 mg tablet 500 mg PO BID PRN pain 5 days #10 04/23/23 Rx tabs rosuvastatin 20 mg tablet 20 mg PO DAILY Cholesterol 04/23/23 04/23/23 History New Prescriptions to Start Prescriptions: naproxen Soni Le Allergies Allergy/AdvReac Type Severity Reaction Status Date / Time Sulfa (Sulfonamide Allergy Unknown I-RASH Verified 12/03/21 08:50 Antibiotics) [SULFA (SULFONAMIDE ANTIBIOTICS)] Discharge Plan Disposition Patient Disposition: Home, Self-Care Condition: Good Follow up Plan Follow up with: Josh Dias MD [Primary Care Provider] - 2 weeks Prescriptions/Medication Reconciliation: New naproxen 500 mg tablet 500 mg PO BID PRN (Reason: pain) 5 Days Qty: 10 0RF Continued tamsulosin 0.4 mg capsule 0.4 mg PO DAILY esomeprazole magnesium 20 mg capsule,delayed release(DR/EC) 20 mg PO DAILY ipratropium bromide 21 mcg (0.03 %) spray,non-aerosol 2 spray INTRANASAL BID Rx Instructions: administer into each nostril Eligard (6 month) 45 mg syringe 45 mg SQ [id number] Qty: 1 0RF lisinopril 10 MG tablet 10 mg PO DAILY Patient Comments: rosuvastatin 20 mg tablet 20 mg PO DAILY Problem Reconciliation Problems Reviewed?: Yes Patient Discharge Instructions ACTIVITY: Ambulate as tolerated DIET: advance to your usual diet Patient Instructions: DI for Muscle Weakness Providers Primary Care Provider: Josh Dias Admit Provider: Soni Le Attending Provider: Soni Le
[2023-04-24] MEDS: KETOROLAC 30MG/ML VIAL 15 MG IV (12:46)
--- NOTE | 2023-04-25 15:53 | SW/DCPLANNER ---
Follow up phone call w/ this patient: patient stated that he is doing well and does not have any needs at this time. Patient is aware of his follow up appointments and will make an appointment w/ Dr Dias. Patient has no further needs at this time.
== END 2023-04-24 14:11 | disposition home or self-care (01) ==
LOC: ER 04-23 02:44 → 2ND 04-23 03:48
PROVIDERS: Nurse Practitioner Critical Care Medicine; Admitting Provider Internal Medicine; Emergency Provider Emergency Medicine; PCP Family Medicine; Visit Provider Internal Medicine
DX: S80.02XA Contusion of left knee, initial encounter (principal); I10 Essential (primary) hypertension; E78.5 Hyperlipidemia, unspecified; M25.552 Pain in left hip; W01.0XXA Fall on same level from slipping, tripping and stumbling without subsequent striking against object, initial encounter; M19.90 Unspecified osteoarthritis, unspecified site; Z87.891 Personal history of nicotine dependence; Z85.46 Personal history of malignant neoplasm of prostate
CPT/HCPCS: 70450; 71045; 72125; 72170; 73552; 73562; 73590; 73700; 80053; 85007; 85014; 85018; 85025; 85048; 85049; 97163; 99285; G0378

== ENCOUNTER 2023-08-13 14:25 | Emergency (ER) | payer MEDICARE, MEDICAID, SELFPAY ==
[2023-08-13 14:25] VITALS: BP 110/39; PULSE 78; RESP 18; TEMP 36.6; O2SAT 95; BMI 29.0
[2023-08-13 15:00] VITALS: BP 114/51; PULSE 71; O2SAT 95
--- NOTE | 2023-08-13 15:08 | XR_ITS ---
PROCEDURE INFORMATION: Exam: XR Chest Exam date and time: 08/13/2023 3:14 PM Age: 83 years old Clinical indication: Cough and dyspnea; Additional info: carmen CASTELLANOS TECHNIQUE: Imaging protocol: Radiologic exam of the chest. Views: 2 views. COMPARISON: CR XR CHEST PORTABLE 04/22/2023 11:59 PM FINDINGS: Lungs: Moderate elevation right hemidiaphragm with adjacent right basilar subsegmental atelectasis unchanged. Remaining lung santana are aerated and clear. There is an indistinct nodular density right lung apex not evident previously that needs further evaluation. Pleural spaces: Unremarkable. No pleural effusion. No pneumothorax. Heart/Mediastinum: Heart is borderline enlarged, unchanged. Bones/joints: Unremarkable for age. IMPRESSION: 1. Chronic elevation right hemidiaphragm with adjacent right basilar subsegmental atelectasis, stable. 2. Interval development of indistinct nodular density right lung apex which follow-up nonemergent CT chest recommended for further assessment..
[2023-08-13 15:20] VITALS: PULSE 71
[2023-08-13] MEDS: IPRATROPIUM/ALBUTEROL 3 ML NEB IH (15:20)
--- NOTE | 2023-08-13 15:34 | ECG_ITS ---
APPROVED REPORT Exam: Resting ECG HR:75 bpm ECG Measurements Heart Rate 75 AXES VT 157 P 26 QRSd 85 QRS -18 QT 362 T 10 QTc 391 Conclusion SINUS RHYTHM VOLTAGE CRITERIA FOR LVH [MEETS CRITERIA IN ONE OF: R(aVL), S(V1), R(V5), R(V5/V6)+S(V1)] POSSIBLE ANTERIOR MYOCARDIAL INFARCTION , PROBABLY OLD [30 ms Q WAVE IN V3/V4, OR R < 0.2 mV IN V4] INFERIOR MYOCARDIAL INFARCTION , PROBABLY OLD [40+ ms Q WAVE AND/OR ST/T ABNORMALITY IN II/aVF] ABNORMAL ECG Electronically signed by : CARROLL STONE, 08/14/2023 00:54:23
--- NOTE | 2023-08-13 15:52 | HMH.EDGENADL ---
Discharge Plan Disposition Patient Disposition: Home, Self-Care Condition: Good Prescriptions Prescriptions: New doxycycline hyclate 100 mg tablet 100 mg PO BID 7 Days Qty: 14 0RF [id number] [Bromfed DM] 2-30-10 mg/5 mL syrup 5 ml PO Q6H PRN (Reason: cold symptoms) Qty: 118 0RF No Action tamsulosin 0.4 mg capsule 0.4 mg PO DAILY esomeprazole magnesium 20 mg capsule,delayed release(DR/EC) 20 mg PO DAILY ipratropium bromide 21 mcg (0.03 %) spray,non-aerosol 2 spray INTRANASAL BID Rx Instructions: administer into each nostril Eligard (6 month) 45 mg syringe 45 mg SQ [id number] Qty: 1 0RF lisinopril 10 MG tablet 10 mg PO DAILY Patient Comments: rosuvastatin 20 mg tablet 20 mg PO DAILY naproxen 500 mg tablet 500 mg PO BID PRN (Reason: pain) 5 Days Qty: 10 0RF Referrals Follow up/Referrals: Josh Dias MD [Primary Care Provider] - See instructions Activity Restrictions/Add. Instructions Additional Instructions/Restrictions: You were evaluated in the emergency department today. 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 Follow-up closely with your primary care provider. Return to the emergency department for new or worsening symptoms. Clinical Impressions Clinical Impression: Acute exacerbation of chronic obstructive pulmonary disease, Bronchitis Instructions Patient Instructions: DI for Acute Bronchitis Discharge ED Provider: Paulina Singh General Adult HPI General Chief complaint: Upper Respiratory Infection Stated complaint: cough, SOA, back pain Time Seen by Provider: 08/13/23 15:01 Mode of Arrival: Wheelchair Source of Information: Patient Limitations: No Limitations Description of Symptoms (Recalled from ER Triage Doc. by RN): coughing,congestion. History of Present Illness HPI narrative: This patient is an 83-year-old male with a history of hypertension, hyperlipidemia, GERD, and COPD presenting to the emergency department for evaluation with concern for congestion, cough, and back pain. Patient reports that he started with a sinus infection about a week ago, and it has gone to his chest. He notes that he is coughing up stuff. He states it is mostly clear sputum, but it is intermittent. He notes that he overall just does not feel well and feels like he has felt when he had pneumonia in the past. No other concerns noted at this time Related Data Home Medications Medication Instructions Recorded Confirmed lisinopril 10 mg tablet 10 mg PO DAILY High Blood Pressure 04/27/17 04/23/23 tamsulosin 0.4 mg capsule 0.4 mg PO DAILY prostate 08/17/18 04/23/23 esomeprazole magnesium 20 mg 20 mg PO DAILY Acid Reflux 03/24/20 04/23/23 capsule,delayed release ipratropium bromide 21 mcg (0.03 2 spray intranasal BID Allergy 03/18/21 04/23/23 %) nasal spray symptoms rosuvastatin 20 mg tablet 20 mg PO DAILY Cholesterol 04/23/23 04/23/23 Previous Rx's Medication Instructions Recorded naproxen 500 mg tablet 500 mg PO BID PRN pain 5 days #10 04/23/23 tabs [id number]-[id number] 5 ml PO Q6H PRN cold symptoms #118 08/13/23 2 mg-30 mg-10 mg/5 mL oral syrup mL (Bromfed DM) doxycycline hyclate 100 mg tablet 100 mg PO BID 7 days #14 tabs 08/13/23 Allergies Allergy/AdvReac Type Severity Reaction Status Date / Time Sulfa (Sulfonamide Allergy Unknown I-RASH Verified 12/03/21 08:50 Antibiotics) [SULFA (SULFONAMIDE ANTIBIOTICS)] [facility] Disclaimer: The information contained in this section may have been updated after the patient was seen, as this information can be updated by other users. Medical History Physical debility Acute pain of left hip Acute urinary retention Acute UTI Acute urinary retention Hematuria Prostate cancer Colonoscopy planned Ulcer Urinary tract infection COPD (chronic obstructive pulmonary disease) Asthma Arthritis History of gastroesophageal reflux (GERD) Hyperlipidemia Hypertension Prostate cancer Urinary retention Hematuria Cellulitis Dental abscess Acute sinus infection Encounter for laboratory testing for COVID-19 virus Bilateral otitis media Spider bite Acute urinary retention Spondylosis Labyrinthitis of left ear Sinusitis Common cold Surgical History History of heart artery stent History of cardiac cath Family History Other Family history of acute congestive heart failure Social History Smoking Status: Never smoker second hand exposure: No alcohol intake: former substance use type: denies use current occupational status: retired Travel in the last 8 weeks: None household members: family housing: house current occupational exposures/hazards: No caffeine: Yes ROS Obtained: Yes All systems reviewed & no additional complaints except as documented Physical Exam General General appearance: alert and in no apparent distress Head Head exam: atraumatic and normocephalic Eye Eye exam: Present normal appearance, PERRL and EOMI ENT ENT exam: Present normal exam, normal oropharynx, mucous membranes moist and normal external ear exam Neck Neck exam: Present normal inspection, full ROM and trachea midline; Absent tenderness Chest Chest inspection: Present normal inspection and symmetric chest wall rise; Absent tenderness Respiratory Respiratory exam: Present wheezes and prolonged expiratory phase; Absent respiratory distress, stridor or accessory muscle use Cardiovascular Cardiovascular exam: Present regular rate and normal rhythm Abdominal Exam Abdominal exam: Present soft; Absent distention, tenderness or guarding Extremities Exam Extremities exam: Present normal inspection, full ROM and normal capillary refill; Absent tenderness or edema Back Exam Back exam: Present normal inspection and full ROM; Absent tenderness Neurological Exam Neurological exam: Present alert, oriented X3 and CN II-XII intact; Absent motor sensory deficit Psychiatric Psychiatric exam: Present normal affect and normal mood Skin Skin exam: Present warm and dry Medical Decision Making Medical Records Medical records reviewed: Yes I reviewed the patient's medical records. Isra Inquiry Pt receiving controlled substance: No Vital Signs: 08/13/23 14:25 08/13/23 15:00 08/13/23 15:20 Temperature 97.9 F Temperature Source Oral Pulse Rate 71 71 Pulse Rate [Right] 78 Respiratory Rate 18 Blood Pressure 114/51 L Blood Pressure [Right Arm] 110/39 L Blood Pressure Mean [Right Arm] 62 02 Sat by Pulse Oximetry 95 95 Oxygen Delivery Method Room Air Room Air 08/13/23 15:20 08/13/23 16:00 08/13/23 17:35 Temperature 97.9 F Temperature Source Pulse Rate 71 74 75 Pulse Rate [Right] Respiratory Rate 16 Blood Pressure 110/85 105/64 L Blood Pressure [Right Arm] Blood Pressure Mean [Right Arm] 02 Sat by Pulse Oximetry 100 Oxygen Delivery Method Room Air Lab Data Lab results reviewed: Yes I reviewed the patient's lab results. Lab Results 08/13/23 16:01: SARS-CoV-2 (PCR) Not detected, Influenza A Untype (PCR) Not detected, Influenza Type B (PCR) Not detected 08/13/23 16:39: WBC 7.4, RBC 3.98 L, Hgb 12.8 L, Hct 40.2 L, MCV 100.9 H, MCH 32.2 H, MCHC 31.9, RDW 13.8, Plt Count 282, MPV 7.7, Neut % (Auto) 59.9, Lymph % (Auto) 28.4, [place] % (Auto) 9.7 H, Eos % (Auto) 0.8, Baso % (Auto) 1.1, Neut # (Auto) 4.4, Lymph # (Auto) 2.1, [place] # (Auto) 0.7, Eos # (Auto) 0.1, Baso # (Auto) 0.1, Sodium 137, Potassium 4.6, Chloride 99, Carbon Dioxide 32 H, Anion Gap 10.6, BUN 14, Creatinine 0.70, Estimated Creat Clear 68, Estimated GFR 108, Est GFR ( Amer) 131, Glucose 104 H, Calcium 9.1, Total Bilirubin 0.4, AST 34, ALT 20, Alkaline Phosphatase 97, Total Protein 7.4, Albumin 4.0, Globulin 3.4 H, Albumin/Globulin Ratio 1.2 08/13/23 16:39 08/13/23 16:39 Orders (Tests/Meds): ED MEDICATIONS Discontinued Medications Generic Name Dose Route Start Last Admin Trade Name Freq PRN Reason Stop Dose Admin Albuterol/Ipratropium 3 ml 08/13/23 15:10 08/13/23 15:20 Ipratropium/Albuterol 3 Ml Neb IH 08/13/23 15:11 3 ml ONCE ONE Administration Doxycycline Hyclate 100 mg 08/13/23 17:21 08/13/23 17:29 Doxycycline Hycl 100 Mg Tablet PO 08/13/23 17:22 100 mg ONCE ONE Administration Prednisone 40 mg 08/13/23 16:26 08/13/23 16:32 Prednisone 20mg Tab PO 08/13/23 16:27 40 mg ONCE ONE Administration ORDERS Category Date Time Status Chest XR 2 view (NOT portable) [XR chest 2V] Stat Exams 08/13/23 15:08 Completed Complete Blood Count Auto Diff Stat Lab 08/13/23 16:39 Completed Comprehensive Metabolic Panel Stat Lab 08/13/23 16:39 Completed Rapid PCR Covid and Flu A/B Stat Lab 08/13/23 16:01 Completed ECG Data Tracing #1: I reviewed this ECG and interpreted as documented below: Normal sinus rhythm with a ventricular rate of [address] changes concerning for ischemia. Normal intervals. ECG initial impression date: 08/13/23 ECG initial impression time: 15:36 Medical Decision Narrative: In summary, this patient is a 83-year-old male presenting to the Emergency Department for evaluation of cough and congestion. Differential diagnoses considered include but are not limited to COPD exacerbation, viral syndrome, pneumonia, bronchitis. Ruling out the most morbid conditions drove assessment. It should be noted patient's history includes COPD, hypertension, and hyperlipidemia which may or may not be at goal therapy. This complicates all aspects of care by increasing patient's risk for morbidity. I reviewed patient's past medical records and noted previous ED evaluations in the past for urinary retention. On exam, the patient is resting comfortably. He does have wheezes noted on clinical exam, but he has no increased work of breathing. Vitals are reassuring cardiac telemetry. EKG was obtained and is reassuring workup included CBC, CMP, viral swab, and x-ray. He was given DuoNeb presented medic improvement. I independently interpreted x-ray prior to the radiologist read and noted obvious large focal consolidation. Please see their read for final interpretation. Labs were obtained that demonstrated no significant leukocytosis or other concern. On reassessment, patient had good improvement after administration of event as above. I feel that he is appropriate for discharge home with diagnosis of COPD exacerbation. He was given oral doxycycline for antibiotic treatment.. Patient was given prescriptions for doxycycline. He declines need for prednisone going home. He states that he does not like to take prednisone because it causes bladder issues after his radiation. Given this, I advised that he follow-up closely with his primary care provider for reassessment. He was given strict return precautions and was discharged after all questions were answered. Critical Care Critical Care Time Critical Care Time: No
[2023-08-13 16:00] VITALS: BP 110/85; PULSE 74; O2SAT 100
[2023-08-13 16:09] LABS: Coronavirus 19, PCR Not Detected (NotDetected); Influenza A, PCR Not Detected (NotDetected); Influenza B, PCR Not Detected (NotDetected)
[2023-08-13] MEDS: predniSONE 20MG TAB 40 MG PO (16:32)
[2023-08-13 16:51] LABS: Basophils # 0.1 K/mm3 (0-0.2); Basophils % 1.1 % (0.1-2.0); Eosinophils # 0.1 K/mm3 (0.0-0.4); Eosinophils % 0.8 % (0.1-12.0); Hematocrit 40.2 % (42.0-52.0); Hemoglobin 12.8 g/dL (14.1-18.0); Lymphocytes # 2.1 K/mm3 (0.7-4.5); Lymphocytes % 28.4 % (10-50); Mean Corpuscular HGB Conc 31.9 g/dL (31.8-35.4); Mean Corpuscular Hemoglobin 32.2 pg (27.0-31.2); Mean Corpuscular Volume 100.9 fl (80-94); Mean Platelet Volume 7.7 fl (7.4-10.4); Monocytes # 0.7 K/mm3 (0.1-1.0); Monocytes % 9.7 % (1.7-9.3); Neutrophils # 4.4 K/mm3 (1.8-7.8); Neutrophils % 59.9 % (37.0-80.0); Platelet Count 282 K/mm3 (142-424); Red Blood Count 3.98 M/mm3 (4.60-6.20); Red Cell Distribution Width 13.8 % (11.5-17.5); White Blood Count 7.4 K/mm3 (4.8-10.8)
[2023-08-13 16:56] LABS: Chloride 99 mmol/L (98-107); Potassium 4.6 mmoL/L (3.5-5.1); Sodium 137 mmol/L (136-145)
[2023-08-13 16:58] LABS: Alanine Aminotransferase 20 U/L (12-78); Aspartate Amino Transferase 34 U/L (17-59); Blood Urea Nitrogen 14 mg/dl (9-20); Creatinine Clearance Estimated 68 mL/min (50-200); Estimated Glomerular Filt Rate 108 ml/min (>60); GFR (African American) 131 ML/MIN (>60)
[2023-08-13 16:59] LABS: Albumin/Globulin Ratio 1.2 (1.1-1.8); Alkaline Phosphatase 97 U/L (38-126); Anion Gap 10.6 mEq/L (5-15); Bilirubin,Total 0.4 mg/dl (0.2-1.3); Calcium 9.1 mg/dl (8.4-10.2); Carbon Dioxide 32 mmol/L (22.0-30.0); Globulin 3.4 g/dL (1.3-3.2); Glucose 104 mg/dl (74-100); Total Protein,Serum 7.4 g/dl (6.3-8.2)
[2023-08-13] MEDS: DOXYCYCLINE HYCL 100 MG TABLET PO (17:29)
[2023-08-13 17:35] VITALS: BP 105/64; PULSE 75; RESP 16; TEMP 36.6; O2SAT 96
== END 2023-08-13 17:37 | disposition home or self-care (01) ==
PROVIDERS: Emergency Provider Emergency Medicine; PCP Family Medicine
DX: J44.1 Chronic obstructive pulmonary disease with (acute) exacerbation (principal); J20.9 Acute bronchitis, unspecified; K21.9 Gastro-esophageal reflux disease without esophagitis; I10 Essential (primary) hypertension; E78.5 Hyperlipidemia, unspecified
CPT/HCPCS: 71046; 80053; 85025; 87636; 93005; 99284

== ENCOUNTER 2023-10-08 14:39 | Observation (INO) | payer MEDICARE, MEDICAID, SELFPAY ==
[2023-10-08] VITALS (11 sets, daily range): BP systolic 102–132; BP diastolic 55–74; PULSE 63–109; RESP 18–20; TEMP 36.4–36.8; O2SAT 93–98; BMI 29.0
--- NOTE | 2023-10-08 14:40 | ECG_ITS ---
APPROVED REPORT Exam: Resting ECG HR:105 bpm ECG Measurements Heart Rate 105 AXES NE 141 P 59 QRSd 83 QRS -17 QT 316 T 66 QTc 377 Conclusion SINUS TACHYCARDIA INFERIOR MYOCARDIAL INFARCTION , PROBABLY OLD [40+ ms Q WAVE AND/OR ST/T ABNORMALITY IN II/aVF] ABNORMAL ECG Nonspecific ST changes lateral leads. Electronically signed by : EDDIE OSBORNE, 10/08/2023 15:33:39
--- OUTSIDE RECORDS SUMMARY | 2023-10-08 14:45 | XMS_ITS | Clinical Summary ---
Author Name Unknown Address [address] [place] [address] [place] [address] Phone Organization [facility] , [facility] Address [address] [place] [address] [place] [address] Phone Care Team Providers Care Operation Agent Name Role Phone Lyndon Miller MD Unavailable [phone] Reason for Visit and Chief Complaint Physician Specified Plan of Treatment No Plan of Treatment Recorded Assessments Includes: Assessments from this encounter No Assessments Recorded Medical Equipment - Implanted Devices Includes: Current Devices No Medical Equipment Recorded Medications Administered Includes: Administered Medications from this encounter No Administered Medications Recorded Results Includes: Results discussed during this encounter No Results Recorded For Specified Dates History of Present Illness Includes: History of Present Illness from this encounter No History of Present Illness Recorded Social History No Social History Recorded - Smoking Status Unknown Medical History Includes: Medical History addressed during this encounter No Medical History Recorded Family History Includes: Family History addressed during this encounter No Family History Recorded Review of Systems Includes: Review of Systems from this encounter No Review of Systems Recorded Mental Status Includes: Mental Status from this encounter No Mental Status Recorded Functional Status Includes: Functional Status from this encounter No Functional Status Recorded Physical Exam Includes: Physical Exam from this encounter No Physical Exam Recorded Insurance Includes: Active Insurance Policies Plan Name Member ID Group # Subscriber Relationship Effect shiraz Dates 1 - Medicare Part B [facility] [id number] Waldemar Ndiaye 2 - [facility] CLAIMS [employer] [id number] Waldemar Ndiaye Clinical Notes Includes: Clinical Notes from this encounter No Clinical Notes Recorded
--- OUTSIDE RECORDS SUMMARY | 2023-10-08 14:45 | XMS_ITS ---
Care Plan - [facility], [facility] Created on: October 08, 2023 Waldemar Bolaños : 1940 Sex: Male Author Name Unknown Address [address] [place] [address] [place] [address] Phone Organization [facility] , [facility] Address [address] [place] [address] [place] [address] Phone Care Team Providers Care Deboner Name Role Phone Paul ZIMMERMAN, Lyndon Naranjo Unavailable [phone]
--- OUTSIDE RECORDS SUMMARY | 2023-10-08 14:45 | XMS_ITS ---
Author Name Unknown Address [address] [place] [address] [place] [address] Phone Organization [facility] , [facility] Address [address] [place] [address] [place] [address] Phone Care Team Providers Care Supervisor International Reservations Name Role Phone Paul ZIMMERMAN, Lyndon Naranjo Unavailable [phone] Plan of Treatment No Plan of Treatment Recorded Assessments Includes: Assessments for all patient encounters No Assessments Recorded Medical Equipment - Implanted Devices Includes: Current and historical Devices No Medical Equipment Recorded Medications Administered Includes: Administered Medications in patient's chart No Administered Medications Recorded Results Includes: Results from 10/07/2022 through 10/08/2023 No Results Recorded For Specified Dates History of Present Illness History of Present Illness not supported for this document type No History of Present Illness Recorded Social History No Social History Recorded - Smoking Status Unknown Medical History Includes: Medical History in patient's chart No Medical History Recorded Family History Includes: Family History in patient's chart No Family History Recorded Review of Systems Review of Systems not supported for this document type No Review of Systems Recorded Mental Status No Mental Status Recorded Functional Status No Functional Status Recorded Physical Exam Physical Exam not supported for this document type No Physical Exam Recorded Insurance Includes: Active Insurance Policies Plan Name Member ID Group # Subscriber Relationship Effect shiraz Dates 1 - Medicare Part B [facility] [id number] Waldemar Ndiaye 2 - [facility] [id number] Waldemar Ndiaye Clinical Notes Includes: Signed Clinical Notes starting from 03/04/2022 No Clinical Notes Recorded
--- OUTSIDE RECORDS SUMMARY | 2023-10-08 14:45 | XMS_ITS ---
Author Name Unknown Organization [facility] No information ASSESSMENT No information CHIEF COMPLAINT No information Medications Date Medication Dosage Dosageunit Startdate Active Dispense Refills Ndccode Isprescription Srcstatus 10/22 00:00 :00 Albuterol Sulfate 108 (90 Base) MCG/ACT Aerosol Powder Breath Activated null 0 3 3 Stop 07/28 00:00 :00 Albuterol Sulfate 108 (90 Base) MCG/ACT Aerosol Powder Breath Activated 02/09/2020 00:00:00 1 3 3 Taking 04/28 00:00 :00 Albuterol Sulfate 108 (90 Base) MCG/ACT Aerosol Powder Breath Activated 02/09/2020 00:00:00 1 3 3 Taking 04/15 00:00 :00 Albuterol Sulfate 108 (90 Base) MCG/ACT Aerosol Powder Breath Activated 02/09/2020 00:00:00 1 3 3 Taking 03/11 00:00 :00 Albuterol Sulfate 108 (90 Base) MCG/ACT Aerosol Powder Breath Activated 02/09/2020 00:00:00 1 3 3 Taking 02/11 00:00 :00 Albuterol Sulfate 108 (90 Base) MCG/ACT Aerosol Powder Breath Activated 02/09/2020 00:00:00 1 3 3 Taking 12/29 00:00 :00 Albuterol Sulfate 108 (90 Base) MCG/ACT Aerosol Powder Breath Activated 02/09/2020 00:00:00 1 3 3 Taking 11/28 00:00 :00 Albuterol Sulfate 108 (90 Base) MCG/ACT Aerosol Powder Breath Activated 02/09/2020 00:00:00 1 3 3 Taking 11/10 00:00 :00 Albuterol Sulfate 108 (90 Base) MCG/ACT Aerosol Powder Breath Activated 02/09/2020 00:00:00 1 3 3 Taking 10/27 00:00 :00 Albuterol Sulfate 108 (90 Base) MCG/ACT Aerosol Powder Breath Activated 02/09/2020 00:00:00 1 3 3 Taking 10/06 00:00 :00 Albuterol Sulfate 108 (90 Base) MCG/ACT Aerosol Powder Breath Activated 02/09/2020 00:00:00 1 3 3 Taking 10/22 00:00 :00 Albuterol Sulfate HFA 108 (90 Base) MCG/ACT Aerosol Solution null 1 8.5 Gram 1 [id number] 301 Start 12/29 00:00 :00 Azithromyci n 250 MG Tablet 11/28/2020 00:00:00 0 6 0 [id number] 104 P Discontinu ed 11/28 00:00 :00 Azithromyci n 250 MG Tablet 11/28/2020 00:00:00 1 6 0 [id number] 104 P Start 07/28 00:00 :00 Cefdinir 300 MG Capsule 07/28/2021 00:00:00 1 20 0 [id number] 006 P Start 10/06 00:00 :00 Cyclobenzap rine HCl 5 MG Tablet 01/17/2020 00:00:00 0 30 0 [id number] 101 P Discontinu ed 10/27 00:00 :00 Doxycycline 100 MG Capsule Delayed Release 09/29/2020 00:00:00 0 14 Capsule 0 [id number] 205 P Discontinu ed 10/06 00:00 :00 Doxycycline 100 MG Capsule Delayed Release 09/29/2020 00:00:00 1 14 Capsule 0 [id number] 205 P Taking 07/28 00:00 :00 Esomeprazol e Magnesium 20 MG Capsule Delayed Release null 1 90 Capsule 1 [id number] 901 Start 07/28 00:00 :00 Esomeprazol e Magnesium 20 MG Capsule Delayed Release null 0 30 11 [id number] 056 Stop 07/28 00:00 :00 Esomeprazol e Magnesium 20 MG Capsule Delayed Release null 1 30 11 [id number] 056 Continue 07/28 00:00 :00 Esomeprazol e Magnesium 20 MG Capsule Delayed Release null 1 30 11 [id number] 056 P Taking 04/28 00:00 :00 Esomeprazol e Magnesium 20 MG Capsule Delayed Release null 1 30 11 [id number] 056 P Taking 04/15 00:00 :00 Esomeprazol e Magnesium 20 MG Capsule Delayed Release null 1 30 11 [id number] 056 P Taking 03/11 00:00 :00 Esomeprazol e Magnesium 20 MG Capsule Delayed Release null 1 30 11 [id number] 056 P Taking 02/11 00:00 :00 Esomeprazol e Magnesium 20 MG Capsule Delayed Release null 1 30 11 [id number] 056 P Taking 12/29 00:00 :00 Esomeprazol e Magnesium 20 MG Capsule Delayed Release null 1 30 11 [id number] 056 P Taking 11/28 00:00 :00 Esomeprazol e Magnesium 20 MG Capsule Delayed Release null 1 30 11 [id number] 056 P Taking 11/10 00:00 :00 Esomeprazol e Magnesium 20 MG Capsule Delayed Release null 1 30 11 [id number] 056 P Taking 10/27 00:00 :00 Esomeprazol e Magnesium 20 MG Capsule Delayed Release null 1 30 11 [id number] 056 P Taking 10/06 00:00 :00 Esomeprazol e Magnesium 20 MG Capsule Delayed Release null 1 30 11 [id number] 056 P Taking 07/28 00:00 :00 Fluticasone Propionate 50 MCG/ACT Suspension null 1 3 3 [id number] 099 Taking 04/28 00:00 :00 Fluticasone Propionate 50 MCG/ACT Suspension null 1 3 3 [id number] 099 Taking 04/15 00:00 :00 Fluticasone Propionate 50 MCG/ACT Suspension null 1 3 3 [id number] 099 Taking 03/11 00:00 :00 Fluticasone Propionate 50 MCG/ACT Suspension null 1 3 3 [id number] 099 Taking 02/11 00:00 :00 Fluticasone Propionate 50 MCG/ACT Suspension null 1 3 3 [id number] 099 Taking 12/29 00:00 :00 Fluticasone Propionate 50 MCG/ACT Suspension null 1 3 3 [id number] 099 Taking 11/28 00:00 :00 Fluticasone Propionate 50 MCG/ACT Suspension null 1 3 3 [id number] 099 Taking 11/10 00:00 :00 Fluticasone Propionate 50 MCG/ACT Suspension null 1 3 3 [id number] 099 Taking 10/27 00:00 :00 Fluticasone Propionate 50 MCG/ACT Suspension null 1 3 3 [id number] 099 Taking 10/10 00:00 :00 Fluticasone Propionate 50 MCG/ACT Suspension null 1 3 3 [id number] 099 Continue 10/06 00:00 :00 Fluticasone Propionate 50 MCG/ACT Suspension null 1 1 11 [id number] 099 Taking 07/28 00:00 :00 Gabapentin 300 MG Capsule 10/06/2020 00:00:00 1 90 5 [id number] 901 P Taking 04/28 00:00 :00 Gabapentin 300 MG Capsule 10/06/2020 00:00:00 1 90 5 [id number] 901 P Taking 04/15 00:00 :00 Gabapentin 300 MG Capsule 10/06/2020 00:00:00 1 90 5 [id number] 901 P Taking 03/11 00:00 :00 Gabapentin 300 MG Capsule 10/06/2020 00:00:00 1 90 5 [id number] 901 P Taking 02/11 00:00 :00 Gabapentin 300 MG Capsule 10/06/2020 00:00:00 1 90 5 [id number] 901 P Taking 12/29 00:00 :00 Gabapentin 300 MG Capsule 10/06/2020 00:00:00 1 90 5 [id number] 901 P Taking 11/28 00:00 :00 Gabapentin 300 MG Capsule 10/06/2020 00:00:00 1 90 5 [id number] 901 P Taking 11/10 00:00 :00 Gabapentin 300 MG Capsule 10/06/2020 00:00:00 1 90 5 [id number] 901 P Taking 10/27 00:00 :00 Gabapentin 300 MG Capsule 10/06/2020 00:00:00 1 90 5 [id number] 901 P Taking 10/06 00:00 :00 Gabapentin 300 MG Capsule 10/06/2020 00:00:00 1 90 5 [id number] 901 P Refill 10/06 00:00 :00 Gabapentin 100 MG Capsule 09/25/2018 00:00:00 0 90 5 [id number] 302 P Discontinu ed 01/07 00:00 :00 Ipratropium [place] 0.03 % Solution null 1 30 Millilite r 2 12876688 601 Start 01/07 00:00 :00 Ipratropium [place] 0.03 % Solution null 0 1 1 10615897 544 Stop 07/28 00:00 :00 Ipratropium [place] 0.03 % Solution 02/11/2021 00:00:00 1 1 1 [id number] 544 Taking 04/28 00:00 :00 Ipratropium [place] 0.03 % Solution 02/11/2021 00:00:00 1 1 1 [id number] 544 Taking 04/15 00:00 :00 Ipratropium [place] 0.03 % Solution 02/11/2021 00:00:00 1 1 1 [id number] 544 Taking 03/11 00:00 :00 Ipratropium [place] 0.03 % Solution 02/11/2021 00:00:00 1 1 1 [id number] 544 Taking 03/02 00:00 :00 Ipratropium [place] 0.03 % Solution 02/11/2021 00:00:00 1 1 1 [id number] 544 Continue 02/11 00:00 :00 Ipratropium [place] 0.03 % Solution 02/11/2021 00:00:00 1 1 1 [id number] 544 P Start 04/28 00:00 :00 levoFLOXaci n 500 MG Tablet 04/15/2021 00:00:00 0 7 Tablet 0 [id number] 502 P Discontinu ed 04/15 00:00 :00 levoFLOXaci n 500 MG Tablet 04/15/2021 00:00:00 1 7 Tablet 0 [id number] 502 P Start 07/28 00:00 :00 Lisinopril 10 MG Tablet null 1 90 3 [id number] 311 Taking 04/28 00:00 :00 Lisinopril 10 MG Tablet null 1 90 3 [id number] 311 Taking 04/15 00:00 :00 Lisinopril 10 MG Tablet null 1 90 3 [id number] 311 Taking 03/11 00:00 :00 Lisinopril 10 MG Tablet null 1 90 3 [id number] 311 Taking 03/02 00:00 :00 Lisinopril 10 MG Tablet null 1 90 3 [id number] 311 Continue 02/11 00:00 :00 Lisinopril 10 MG Tablet null 1 90 3 [id number] 311 Taking 12/29 00:00 :00 Lisinopril 10 MG Tablet null 1 90 3 [id number] 311 Taking 11/28 00:00 :00 Lisinopril 10 MG Tablet null 1 90 3 [id number] 311 Taking 11/10 00:00 :00 Lisinopril 10 MG Tablet null 1 90 3 [id number] 311 Taking 10/27 00:00 :00 Lisinopril 10 MG Tablet null 1 90 3 [id number] 311 Taking 10/06 00:00 :00 Lisinopril 10 MG Tablet null 1 90 3 [id number] 311 Taking 04/28 00:00 :00 Meloxicam 15 MG Tablet Disintegrat ing 10/27/2020 00:00:00 0 30 0 P Discontinu ed 04/15 00:00 :00 Meloxicam 15 MG Tablet Disintegrat ing 10/27/2020 00:00:00 1 30 0 P Taking 03/11 00:00 :00 Meloxicam 15 MG Tablet Disintegrat ing 10/27/2020 00:00:00 1 30 0 P Taking 02/11 00:00 :00 Meloxicam 15 MG Tablet Disintegrat ing 10/27/2020 00:00:00 1 30 0 P Taking 12/29 00:00 :00 Meloxicam 15 MG Tablet Disintegrat ing 10/27/2020 00:00:00 1 30 0 P Taking 11/28 00:00 :00 Meloxicam 15 MG Tablet Disintegrat ing 10/27/2020 00:00:00 1 30 0 P Taking 11/10 00:00 :00 Meloxicam 15 MG Tablet Disintegrat ing 10/27/2020 00:00:00 1 30 0 P Taking 10/27 00:00 :00 Meloxicam 15 MG Tablet Disintegrat ing 10/27/2020 00:00:00 1 30 0 P Start 10/06 00:00 :00 Meloxicam 7.5 MG Tablet 11/27/2019 00:00:00 0 30 0 [id number] 100 P Discontinu ed 07/28 00:00 :00 Ondansetron HCl 8 MG Tablet 04/28/2021 00:00:00 1 30 Tablet 0 [id number] 302 P Taking 04/28 00:00 :00 Ondansetron HCl 8 MG Tablet 04/28/2021 00:00:00 1 30 Tablet 0 [id number] 302 P Start 07/28 00:00 :00 Pravastatin Sodium 40 MG Tablet null 1 90 3 [id number] 007 P Taking 04/28 00:00 :00 Pravastatin Sodium 40 MG Tablet null 1 90 3 [id number] 007 P Refill 04/28 00:00 :00 Pravastatin Sodium 40 MG Tablet null 1 90 3 42240995 007 Taking 04/15 00:00 :00 Pravastatin Sodium 40 MG Tablet null 1 90 3 85132108 007 Taking 03/11 00:00 :00 Pravastatin Sodium 40 MG Tablet null 1 90 3 48995069 007 Taking 02/11 00:00 :00 Pravastatin Sodium 40 MG Tablet null 1 90 3 23170778 007 Taking 12/29 00:00 :00 Pravastatin Sodium 40 MG Tablet null 1 90 3 45985661 007 Taking 11/28 00:00 :00 Pravastatin Sodium 40 MG Tablet null 1 90 3 [id number] 007 Taking 11/10 00:00 :00 Pravastatin Sodium 40 MG Tablet null 1 90 3 [id number] 007 Taking 10/27 00:00 :00 Pravastatin Sodium 40 MG Tablet null 1 90 3 [id number] 007 Taking 10/10 00:00 :00 Pravastatin Sodium 40 MG Tablet null 1 90 3 [id number] 007 Continue 10/06 00:00 :00 Pravastatin Sodium 40 MG Tablet null 1 30 2 [id number] 007 Taking 04/28 00:00 :00 predniSONE 20 MG Tablet 09/29/2020 00:00:00 0 15 0 [id number] 820 P Discontinu ed 04/15 00:00 :00 predniSONE 20 MG Tablet 09/29/2020 00:00:00 1 15 0 [id number] 820 P Taking 03/11 00:00 :00 predniSONE 20 MG Tablet 09/29/2020 00:00:00 1 15 0 [id number] 820 P Taking 02/11 00:00 :00 predniSONE 20 MG Tablet 09/29/2020 00:00:00 1 15 0 [id number] 820 P Refill 02/11 00:00 :00 predniSONE 20 MG Tablet 09/29/2020 00:00:00 0 15 0 [id number] 820 P Discontinu ed 12/29 00:00 :00 predniSONE 20 MG Tablet 09/29/2020 00:00:00 1 15 0 [id number] 820 P Refill 10/27 00:00 :00 predniSONE 20 MG Tablet 09/29/2020 00:00:00 0 15 0 [id number] 820 P Discontinu ed 10/06 00:00 :00 predniSONE 20 MG Tablet 09/29/2020 00:00:00 1 15 0 [id number] 820 P Taking 12/29 00:00 :00 PredniSONE 20 MG Tablet 11/10/2020 00:00:00 0 21 0 [id number] 810 P Discontinu ed 11/28 00:00 :00 PredniSONE 20 MG Tablet 11/10/2020 00:00:00 1 21 0 [id number] 810 P Taking 11/10 00:00 :00 PredniSONE 20 MG Tablet 11/10/2020 00:00:00 1 21 0 [id number] 810 P Start 07/28 00:00 :00 Stahist AD 25-60 MG Tablet 02/11/2021 00:00:00 1 30 Tablet 0 [id number] 530 P Taking 04/28 00:00 :00 Stahist AD 25-60 MG Tablet 02/11/2021 00:00:00 1 30 Tablet 0 [id number] 530 P Taking 04/15 00:00 :00 Stahist AD 25-60 MG Tablet 02/11/2021 00:00:00 1 30 Tablet 0 [id number] 530 P Taking 03/11 00:00 :00 Stahist AD 25-60 MG Tablet 02/11/2021 00:00:00 1 30 Tablet 0 [id number] 530 P Taking 02/11 00:00 :00 Stahist AD 25-60 MG Tablet 02/11/2021 00:00:00 1 30 Tablet 0 [id number] 530 P Start 07/28 00:00 :00 Tamsulosin HCl 0.4 MG Capsule null 1 90 Capsule 1 [id number] 301 Taking 07/20 00:00 :00 Tamsulosin HCl 0.4 MG Capsule null 1 90 Capsule 1 [id number] 301 Start 07/20 00:00 :00 Tamsulosin HCl 0.4 MG Capsule null 0 90 3 [id number] 301 Stop 04/28 00:00 :00 Tamsulosin HCl 0.4 MG Capsule null 1 90 3 [id number] 301 Taking 04/15 00:00 :00 Tamsulosin HCl 0.4 MG Capsule null 1 90 3 [id number] 301 Taking 03/11 00:00 :00 Tamsulosin HCl 0.4 MG Capsule null 1 90 3 [id number] 301 Taking 02/11 00:00 :00 Tamsulosin HCl 0.4 MG Capsule null 1 90 3 [id number] 301 Taking 12/29 00:00 :00 Tamsulosin HCl 0.4 MG Capsule null 1 90 3 [id number] 301 Taking 11/28 00:00 :00 Tamsulosin HCl 0.4 MG Capsule null 1 90 3 [id number] 301 Taking 11/10 00:00 :00 Tamsulosin HCl 0.4 MG Capsule null 1 90 3 [id number] 301 Taking 10/27 00:00 :00 Tamsulosin HCl 0.4 MG Capsule null 1 90 3 [id number] 301 Taking 10/10 00:00 :00 Tamsulosin HCl 0.4 MG Capsule null 1 90 3 [id number] 301 Continue 10/06 00:00 :00 Tamsulosin HCl 0.4 MG Capsule null 1 30 2 [id number] 301 Taking 07/28 00:00 :00 Trelegy Ellipta 100-62. 5-25 MCG/INH Aerosol Powder Breath Activated 11/27/2019 00:00:00 1 1 11 [id number] 710 P Taking 04/28 00:00 :00 Trelegy Ellipta 100-62. 5-25 MCG/INH Aerosol Powder Breath Activated 11/27/2019 00:00:00 1 1 11 [id number] 710 P Taking 04/15 00:00 :00 Trelegy Ellipta 100-62. 5-25 MCG/INH Aerosol Powder Breath Activated 11/27/2019 00:00:00 1 1 11 [id number] 710 P Taking 03/11 00:00 :00 Trelegy Ellipta 100-62. 5-25 MCG/INH Aerosol Powder Breath Activated 11/27/2019 00:00:00 1 1 11 [id number] 710 P Taking 02/11 00:00 :00 Trelegy Ellipta 100-62. 5-25 MCG/INH Aerosol Powder Breath Activated 11/27/2019 00:00:00 1 1 11 [id number] 710 P Taking 12/29 00:00 :00 Trelegy Ellipta 100-62. 5-25 MCG/INH Aerosol Powder Breath Activated 11/27/2019 00:00:00 1 1 11 [id number] 710 P Taking 11/28 00:00 :00 Trelegy Ellipta 100-62. 5-25 MCG/INH Aerosol Powder Breath Activated 11/27/2019 00:00:00 1 1 11 [id number] 710 P Taking 11/10 00:00 :00 Trelegy Ellipta 100-62. 5-25 MCG/INH Aerosol Powder Breath Activated 11/27/2019 00:00:00 1 1 11 [id number] 710 P Taking 10/27 00:00 :00 Trelegy Ellipta 100-62. 5-25 MCG/INH Aerosol Powder Breath Activated 11/27/2019 00:00:00 1 1 11 [id number] 710 P Taking 10/06 00:00 :00 Trelegy Ellipta 100-62. 5-25 MCG/INH Aerosol Powder Breath Activated 11/27/2019 00:00:00 1 1 11 [id number] 710 P Taking OBJECTIVE DATA No information PHYSICAL EXAMINATION No information TREATMENT PLAN No information PROBLEMS No information RESULTS No information REVIEW OF SYSTEMS No information SUBJECTIVE DATA No information VITAL SIGNS No information
--- NOTE | 2023-10-08 14:55 | XR_ITS ---
PROCEDURE INFORMATION: Exam: XR Chest Exam date and time: 10/08/2023 2:57 PM Age: 83 years old Clinical indication: Pain; Shortness of breath; Chest pressure; Additional info: Chest pain, SOA TECHNIQUE: Imaging protocol: Radiologic exam of the chest. Views: 1 view. COMPARISON: CR XR CHEST 2V 08/13/2023 3:14 PM FINDINGS: Lungs: Bibasilar atelectasis. Pleural spaces: Unremarkable. No pleural effusion. No pneumothorax. Heart/Mediastinum: Unremarkable. No cardiomegaly. Diaphragm: Elevated right hemidiaphragm. Bones/joints: Unremarkable. IMPRESSION: Bibasilar atelectasis.
--- NOTE | 2023-10-08 14:57 | HMH.EDGENADL ---
Discharge Plan Disposition Chief Complaint: Chest Pain Prescriptions Prescriptions: No Action tamsulosin 0.4 mg capsule 0.4 mg PO DAILY esomeprazole magnesium 20 mg capsule,delayed release(DR/EC) 20 mg PO DAILY ipratropium bromide 21 mcg (0.03 %) spray,non-aerosol 2 spray INTRANASAL BID Rx Instructions: administer into each nostril Eligard (6 month) 45 mg syringe 45 mg SQ [id number] Qty: 1 0RF doxycycline hyclate 100 mg tablet 100 mg PO BID 7 Days Qty: 14 0RF [id number]-[id number]-[id number] [Bromfed DM] 2-30-10 mg/5 mL syrup 5 ml PO Q6H PRN (Reason: cold symptoms) Qty: 118 0RF lisinopril 10 MG tablet 10 mg PO DAILY Patient Comments: rosuvastatin 20 mg tablet 20 mg PO DAILY naproxen 500 mg tablet 500 mg PO BID PRN (Reason: pain) 5 Days Qty: 10 0RF Referrals Follow up/Referrals: Josh Dias MD [Primary Care Provider] - See instructions Clinical Impressions Clinical Impression: Chest pain Discharge ED Provider: Paulina Singh General Adult HPI <Paulina Singh DO - Last Filed: 10/08/23 15:02> General Chief complaint: Chest Pain Stated complaint: chest pain Time Seen by Provider: 10/08/23 14:39 History of Present Illness HPI narrative: Patient is an 83-year-old male with a history of hypertension, hyperlipidemia, COPD, CAD status post stenting, and GERD presenting to the emergency department for evaluation with concern for chest pressure and shortness of breath. Patient states that he always has some baseline shortness of breath, however it got acutely worse this morning when he woke up. He feels like something is sitting on his chest. He states that felt so bad he had to sit straight up. He notes he can never sleep lying flat at baseline. He states he had to clear his throat a lot, but he denies any fevers or cough. For associated symptoms, he does note lightheadedness as well as general weakness. He came in because he is concerned it could be his heart. He denies any calf pain or tenderness, leg swelling, abdominal pain, nausea, or vomiting. He does note compliance with his home medications. Related Data Home Medications Medication Instructions Recorded Confirmed lisinopril 10 mg tablet 10 mg PO DAILY High Blood Pressure 04/27/17 04/23/23 tamsulosin 0.4 mg capsule 0.4 mg PO DAILY prostate 08/17/18 04/23/23 esomeprazole magnesium 20 mg 20 mg PO DAILY Acid Reflux 03/24/20 04/23/23 capsule,delayed release ipratropium bromide 21 mcg (0.03 2 spray intranasal BID Allergy 03/18/21 04/23/23 %) nasal spray symptoms rosuvastatin 20 mg tablet 20 mg PO DAILY Cholesterol 04/23/23 04/23/23 Previous Rx's Medication Instructions Recorded naproxen 500 mg tablet 500 mg PO BID PRN pain 5 days #10 04/23/23 tabs mfqybkasgooektz-fhpfqdqffwxgdru-VI 5 ml PO Q6H PRN cold symptoms #118 08/13/23 2 mg-30 mg-10 mg/5 mL oral syrup mL (Bromfed DM) doxycycline hyclate 100 mg tablet 100 mg PO BID 7 days #14 tabs 08/13/23 Allergies Allergy/AdvReac Type Severity Reaction Status Date / Time Sulfa (Sulfonamide Allergy Unknown I-RASH Verified 12/03/21 08:50 Antibiotics) [SULFA (SULFONAMIDE ANTIBIOTICS)] [facility] <Paulina Singh DO - Last Filed: 10/08/23 15:02> [facility] Disclaimer: The information contained in this section may have been updated after the patient was seen, as this information can be updated by other users. Medical History Physical debility Acute pain of left hip Acute urinary retention Acute UTI Acute urinary retention Hematuria Prostate cancer Colonoscopy planned Ulcer Urinary tract infection COPD (chronic obstructive pulmonary disease) Asthma Arthritis History of gastroesophageal reflux (GERD) Hyperlipidemia Hypertension Prostate cancer Urinary retention Hematuria Cellulitis Dental abscess Acute sinus infection Encounter for laboratory testing for COVID-19 virus Bilateral otitis media Spider bite Acute urinary retention Spondylosis Labyrinthitis of left ear Sinusitis Common cold Surgical History History of heart artery stent History of cardiac cath Family History Other Family history of acute congestive heart failure Social History (Reviewed 10/08/23 @ 14:58 by HARLEEN Ascencio Smoking Status: Smoker, status unknown tobacco type: cigarettes second hand exposure: No alcohol intake: former substance use type: denies use current occupational status: retired Travel in the last 8 weeks: None household members: family housing: house current occupational exposures/hazards: No caffeine: Yes <Paulina Singh DO - Last Filed: 10/08/23 15:02> ROS Obtained: Yes All systems reviewed & no additional complaints except as documented Physical Exam <Paulina Singh DO - Last Filed: 10/08/23 15:02> General General appearance: alert and in no apparent distress Head Head exam: atraumatic and normocephalic Eye Eye exam: Present normal appearance, PERRL and EOMI ENT ENT exam: Present normal exam, normal oropharynx, mucous membranes moist and normal external ear exam Neck Neck exam: Present normal inspection, full ROM and trachea midline; Absent tenderness Chest Chest inspection: Present normal inspection and symmetric chest wall rise; Absent tenderness Respiratory Respiratory exam: Present normal lung sounds bilaterally; Absent respiratory distress, wheezes, stridor or accessory muscle use Cardiovascular Cardiovascular exam: Present regular rate and normal rhythm Abdominal Exam Abdominal exam: Present soft; Absent distention, tenderness or guarding Extremities Exam Extremities exam: Present normal inspection, full ROM and normal capillary refill; Absent tenderness or edema Back Exam Back exam: Present normal inspection and full ROM; Absent tenderness Neurological Exam Neurological exam: Present alert, oriented X3, CN II-XII intact and normal gait; Absent motor sensory deficit Psychiatric Psychiatric exam: Present normal affect and normal mood Skin Skin exam: Present warm and dry Medical Decision Making <Paulina Singh DO - Last Filed: 10/08/23 15:02> Medical Records Medical records reviewed: Yes I reviewed the patient's medical records. Isra Inquiry Pt receiving controlled substance: No Vital Signs: 10/08/23 14:52 10/08/23 15:00 10/08/23 15:30 Temperature 98.3 F Temperature Source Oral Pulse Rate 63 72 Pulse Rate [Left] 107 H Respiratory Rate 18 Blood Pressure 121/70 123/55 L Blood Pressure [Right Arm] 132/74 Blood Pressure Mean Blood Pressure Mean [Right Arm] 93 Blood Pressure Source [Right Arm] Automatic Cuff Blood Pressure Position [Right Arm] Sitting 02 Sat by Pulse Oximetry 93 L 94 L 93 L Oxygen Delivery Method Room Air 10/08/23 16:01 10/08/23 16:30 10/08/23 17:01 Temperature Temperature Source Pulse Rate 86 97 H 107 H Pulse Rate [Left] Respiratory Rate Blood Pressure 113/59 L 102/66 L 105/57 L Blood Pressure [Right Arm] Blood Pressure Mean 77 Blood Pressure Mean [Right Arm] Blood Pressure Source [Right Arm] Blood Pressure Position [Right Arm] 02 Sat by Pulse Oximetry 98 95 95 Oxygen Delivery Method Room Air Lab Data Lab results reviewed: Yes I reviewed the patient's lab results. Lab Results 10/08/23 14:45: WBC 10.5, RBC 3.91 L, Hgb 12.6 L, Hct 38.7 L, MCV 99.1 H, MCH 32.3 H, MCHC 32.6, RDW 14.1, Plt Count 267, MPV 8.2, Neut % (Auto) 70.8, Lymph % (Auto) 16.4, [place] % (Auto) 8.2, Eos % (Auto) 4.0, Baso % (Auto) 0.6, Neut # (Auto) 7.4, Lymph # (Auto) 1.7, [place] # (Auto) 0.9, Eos # (Auto) 0.4, Baso # (Auto) 0.1, D-Dimer 0.47, Sodium 138, Potassium 4.1, Chloride 104, Carbon Dioxide 27, Anion Gap 11.1, BUN 20, Creatinine 0.50 L, Estimated Creat Clear 68, Estimated GFR 159, Est GFR ( Amer) 193, Glucose 126 H, Calcium 9.2, Total Bilirubin 0.6, AST 33, ALT 26, Alkaline Phosphatase 91, Troponin I < 0.01, NT-Pro-B Natriuret Pep 132, Total Protein 7.2, Albumin 4.0, Globulin 3.2, Albumin/Globulin Ratio 1.3, TSH 1.13, Thyroxine (T4) 10.4 10/08/23 15:07: SARS-CoV-2 (PCR) Not detected, Influenza A Untype (PCR) Not detected, Influenza Type B (PCR) Not detected 10/08/23 16:45: Troponin I 0.03 10/08/23 14:45 10/08/23 14:45 Orders (Tests/Meds): ED MEDICATIONS Generic Name Dose Route Start Last Admin Trade Name Freq PRN Reason Stop Dose Admin Enoxaparin Sodium 85 mg 10/08/23 17:45 Enoxaparin 100mg/Ml Syringe 1 mg/kg (85 mg) 11/07/23 17:44 SQ Q12H MC Discontinued Medications Generic Name Dose Route Start Last Admin Trade Name Hilary PRN Reason Stop Dose Admin Albuterol/Ipratropium 6 ml 10/08/23 15:02 10/08/23 15:37 Ipratropium/Albuterol 3 Ml Neb IH 10/08/23 15:03 6 ml ONCE ONE Administration Aspirin 324 mg 10/08/23 14:58 10/08/23 15:09 Aspirin 81mg Chewable Tablet PO 10/08/23 14:59 324 mg ONCE ONE Administration Belladonna Alkaloids 60 ml 10/08/23 17:40 Belladonna Alkaloids 60 Ml Ml PO 10/08/23 17:41 ONCE ONE Clopidogrel Bisulfate 300 mg 10/08/23 17:36 Clopidogrel 300mg Tablet PO 10/08/23 17:37 ONCE ONE Nitroglycerin 1 gm 10/08/23 17:40 Nitroglycerin 1 Gm Ointment TD 10/08/23 17:41 ONCE ONE ORDERS Category Date Time Status CXR --portable [XR chest portable] Stat Exams 10/08/23 14:55 Completed BNP [NT Pro Brain Natriuretic Pep.] Stat Lab 10/08/23 14:45 Completed Complete Blood Count Auto Diff AMLAB Lab 10/09/23 06:00 Ordered Complete Blood Count Auto Diff Stat Lab 10/08/23 14:45 Completed Comprehensive Metabolic Panel AMLAB Lab 10/09/23 06:00 Ordered Comprehensive Metabolic Panel Stat Lab 10/08/23 14:45 Completed D-Dimer Stat Lab 10/08/23 14:45 Completed Magnesium AMLAB Lab 10/09/23 06:00 Ordered Rapid PCR Covid and Flu A/B Stat Lab 10/08/23 15:07 Completed T4 (Thyroxine) Stat Lab 10/08/23 14:45 Completed TSH [Thyroid Stimulating Hormone] Stat Lab 10/08/23 14:45 Completed Trop I [Troponin I] Routine Lab 10/09/23 06:00 Ordered Trop I [Troponin I] Stat Lab 10/08/23 14:45 Completed Troponin I Q3H Lab 10/08/23 16:45 Completed Troponin I Q3H Lab 10/08/23 21:00 Ordered ECG Data Tracing #1: I reviewed this ECG and interpreted as documented below: Sinus tachycardia with a ventricular rate of [address] changes concerning for ischemia. Normal intervals. ECG initial impression date: 10/08/23 ECG initial impression time: 14:42 HEART Score History (anamnesis): Highly suspicious ECG: Normal Age: >65 years Risk factors: Atherosclerosis history Medical Decision Narrative: In summary, this patient is a 83-year-old male presenting to the Emergency Department for evaluation of chest heaviness and shortness of breath. Differential diagnoses considered include but are not limited to ACS, dysrhythmia, GERD, COPD exacerbation, pneumonia, viral syndrome, PE. Ruling out the most morbid conditions drove assessment. It should be noted patient's history includes hypertension, hyperlipidemia, COPD, and CAD which may or may not be at goal therapy. This complicates all aspects of care by increasing patient's risk for morbidity. I reviewed patient's past medical records and noted previous ED evaluation approximately 2 months ago for COPD exacerbation. On exam, the patient is resting comfortably. He has reassuring vital signs on cardiac telemetry with the exception of mild sinus tachycardia. Oxygen saturation is normal on room air. Cardiopulmonary exam is reassuring, but he does have slightly diminished breath sounds, for which I will administer 2 DuoNeb to assess for symptomatic improvement. Workup included CBC, CMP, troponin, TSH, T4, BNP, viral swab, and D-dimer since per criteria cannot be used to exclude PE given the patient's age and tachycardia. Chest x-ray was also obtained. Patient was given oral aspirin. Patient care signed out to oncoming provider, Dr. Bone, pending workup and disposition. [HEART SCORE] <Juan Carlos Bone MD - Last Filed: 10/08/23 17:43> Vital Signs: 10/08/23 14:52 10/08/23 15:00 10/08/23 15:30 Temperature 98.3 F Temperature Source Oral Pulse Rate 63 72 Pulse Rate [Left] 107 H Respiratory Rate 18 Blood Pressure 121/70 123/55 L Blood Pressure [Right Arm] 132/74 Blood Pressure Mean Blood Pressure Mean [Right Arm] 93 Blood Pressure Source [Right Arm] Automatic Cuff Blood Pressure Position [Right Arm] Sitting 02 Sat by Pulse Oximetry 93 L 94 L 93 L Oxygen Delivery Method Room Air 10/08/23 16:01 10/08/23 16:30 10/08/23 17:01 Temperature Temperature Source Pulse Rate 86 97 H 107 H Pulse Rate [Left] Respiratory Rate Blood Pressure 113/59 L 102/66 L 105/57 L Blood Pressure [Right Arm] Blood Pressure Mean 77 Blood Pressure Mean [Right Arm] Blood Pressure Source [Right Arm] Blood Pressure Position [Right Arm] 02 Sat by Pulse Oximetry 98 95 95 Oxygen Delivery Method Room Air Lab Data Lab Results 10/08/23 14:45: WBC 10.5, RBC 3.91 L, Hgb 12.6 L, Hct 38.7 L, MCV 99.1 H, MCH 32.3 H, MCHC 32.6, RDW 14.1, Plt Count 267, MPV 8.2, Neut % (Auto) 70.8, Lymph % (Auto) 16.4, [place] % (Auto) 8.2, Eos % (Auto) 4.0, Baso % (Auto) 0.6, Neut # (Auto) 7.4, Lymph # (Auto) 1.7, [place] # (Auto) 0.9, Eos # (Auto) 0.4, Baso # (Auto) 0.1, D-Dimer 0.47, Sodium 138, Potassium 4.1, Chloride 104, Carbon Dioxide 27, Anion Gap 11.1, BUN 20, Creatinine 0.50 L, Estimated Creat Clear 68, Estimated GFR 159, Est GFR ( Amer) 193, Glucose 126 H, Calcium 9.2, Total Bilirubin 0.6, AST 33, ALT 26, Alkaline Phosphatase 91, Troponin I < 0.01, NT-Pro-B Natriuret Pep 132, Total Protein 7.2, Albumin 4.0, Globulin 3.2, Albumin/Globulin Ratio 1.3, TSH 1.13, Thyroxine (T4) 10.4 10/08/23 15:07: SARS-CoV-2 (PCR) Not detected, Influenza A Untype (PCR) Not detected, Influenza Type B (PCR) Not detected 10/08/23 16:45: Troponin I 0.03 Orders (Tests/Meds): ED MEDICATIONS Generic Name Dose Route Start Last Admin Trade Name Freq PRN Reason Stop Dose Admin Enoxaparin Sodium 85 mg 10/08/23 17:45 Enoxaparin 100mg/Ml Syringe 1 mg/kg (85 mg) 11/07/23 17:44 SQ Q12H MC Discontinued Medications Generic Name Dose Route Start Last Admin Trade Name Hilary PRN Reason Stop Dose Admin Albuterol/Ipratropium 6 ml 10/08/23 15:02 10/08/23 15:37 Ipratropium/Albuterol 3 Ml Neb IH 10/08/23 15:03 6 ml ONCE ONE Administration Aspirin 324 mg 10/08/23 14:58 10/08/23 15:09 Aspirin 81mg Chewable Tablet PO 10/08/23 14:59 324 mg ONCE ONE Administration Belladonna Alkaloids 60 ml 10/08/23 17:40 Belladonna Alkaloids 60 Ml Ml PO 10/08/23 17:41 ONCE ONE Clopidogrel Bisulfate 300 mg 10/08/23 17:36 Clopidogrel 300mg Tablet PO 10/08/23 17:37 ONCE ONE Nitroglycerin 1 gm 10/08/23 17:40 Nitroglycerin 1 Gm Ointment TD 10/08/23 17:41 ONCE ONE ORDERS Category Date Time Status CXR --portable [XR chest portable] Stat Exams 10/08/23 14:55 Completed BNP [NT Pro Brain Natriuretic Pep.] Stat Lab 10/08/23 14:45 Completed Complete Blood Count Auto Diff AMLAB Lab 10/09/23 06:00 Ordered Complete Blood Count Auto Diff Stat Lab 10/08/23 14:45 Completed Comprehensive Metabolic Panel AMLAB Lab 10/09/23 06:00 Ordered Comprehensive Metabolic Panel Stat Lab 10/08/23 14:45 Completed D-Dimer Stat Lab 10/08/23 14:45 Completed Magnesium AMLAB Lab 10/09/23 06:00 Ordered Rapid PCR Covid and Flu A/B Stat Lab 10/08/23 15:07 Completed T4 (Thyroxine) Stat Lab 10/08/23 14:45 Completed TSH [Thyroid Stimulating Hormone] Stat Lab 10/08/23 14:45 Completed Trop I [Troponin I] Routine Lab 10/09/23 06:00 Ordered Trop I [Troponin I] Stat Lab 10/08/23 14:45 Completed Troponin I Q3H Lab 10/08/23 16:45 Completed Troponin I Q3H Lab 10/08/23 21:00 Ordered ECG Data Tracing #2: Independently inter by me rate is 107, rhythm is regular, axis normal, no ST elevation in anatomical contiguous leads, ST depression in the anterolateral leads. T wave inversions. QTc 389. HEART Score ECG: Non-specific disturbance Troponin: </= normal limit HEART Score: 7 Medical Decision Narrative: In summary, this patient is a 83-year-old male presenting to the Emergency Department for evaluation of chest heaviness and shortness of breath. Differential diagnoses considered include but are not limited to ACS, dysrhythmia, GERD, COPD exacerbation, pneumonia, viral syndrome, PE. Ruling out the most morbid conditions drove assessment. It should be noted patient's history includes hypertension, hyperlipidemia, COPD, and CAD which may or may not be at goal therapy. This complicates all aspects of care by increasing patient's risk for morbidity. I reviewed patient's past medical records and noted previous ED evaluation approximately 2 months ago for COPD exacerbation. On exam, the patient is resting comfortably. He has reassuring vital signs on cardiac telemetry with the exception of mild sinus tachycardia. Oxygen saturation is normal on room air. Cardiopulmonary exam is reassuring, but he does have slightly diminished breath sounds, for which I will administer 2 DuoNeb to assess for symptomatic improvement. Workup included CBC, CMP, troponin, TSH, T4, BNP, viral swab, and D-dimer since per criteria cannot be used to exclude PE given the patient's age and tachycardia. Chest x-ray was also obtained. Patient was given oral aspirin. Patient care signed out to oncoming provider, Dr. Bone, pending workup and disposition. Juan Carlos Bone: Upon assumption of care patient is hemodynamically stable. Initial workup reviewed by me, hematologic labs are nonactionable, initial troponin undetectably low. There appears to be subtle ST changes in the initial anterolateral lead on EKG. D-dimer excludes pulmonary embolism and low risk aortic dissection. Serial troponin is now 0.03 although in the upper realm of normal given that it is uptrending patient will benefit from admission and further evaluation. Repeat EKG shows no dynamic changes, persistent ST changes in the anterolateral leads. Case was discussed with hospital medicine regarding management they will admit the patient their service for continued evaluation at this time. Critical Care <Paulina Singh, DO - Last Filed: 10/08/23 15:02> Critical Care Time Critical Care Time: No
[2023-10-08 15:01] LABS: Basophils # 0.1 K/mm3 (0-0.2); Basophils % 0.6 % (0.1-2.0); Eosinophils # 0.4 K/mm3 (0.0-0.4); Hematocrit 38.7 % (42.0-52.0); Hemoglobin 12.6 g/dL (14.1-18.0); Lymphocytes # 1.7 K/mm3 (0.7-4.5); Lymphocytes % 16.4 % (10-50); Mean Corpuscular HGB Conc 32.6 g/dL (31.8-35.4); Mean Corpuscular Hemoglobin 32.3 pg (27.0-31.2); Mean Corpuscular Volume 99.1 fl (80-94); Mean Platelet Volume 8.2 fl (7.4-10.4); Monocytes # 0.9 K/mm3 (0.1-1.0); Monocytes % 8.2 % (1.7-9.3); Neutrophils # 7.4 K/mm3 (1.8-7.8); Neutrophils % 70.8 % (37.0-80.0); Platelet Count 267 K/mm3 (142-424); Red Blood Count 3.91 M/mm3 (4.60-6.20); Red Cell Distribution Width 14.1 % (11.5-17.5); White Blood Count 10.5 K/mm3 (4.8-10.8)
[2023-10-08 15:09] LABS: Alanine Aminotransferase 26 U/L (12-78); Albumin/Globulin Ratio 1.3 (1.1-1.8); Alkaline Phosphatase 91 U/L (38-126); Anion Gap 11.1 mEq/L (5-15); Aspartate Amino Transferase 33 U/L (17-59); Bilirubin,Total 0.6 mg/dl (0.2-1.3); Blood Urea Nitrogen 20 mg/dl (9-20); Calcium 9.2 mg/dl (8.4-10.2); Carbon Dioxide 27 mmol/L (22.0-30.0); Chloride 104 mmol/L (98-107); Creatinine Clearance Estimated 68 mL/min (50-200); Estimated Glomerular Filt Rate 159 ml/min (>60); GFR (African American) 193 ML/MIN (>60); Globulin 3.2 g/dL (1.3-3.2); Glucose 126 mg/dl (74-100); Potassium 4.1 mmoL/L (3.5-5.1); Sodium 138 mmol/L (136-145); Total Protein,Serum 7.2 g/dl (6.3-8.2)
[2023-10-08] MEDS: ASPIRIN 81MG CHEWABLE TABLET 324 MG PO (15:09)
[2023-10-08 15:13] LABS: Coronavirus 19, PCR Not Detected (NotDetected); Influenza A, PCR Not Detected (NotDetected); Influenza B, PCR Not Detected (NotDetected)
[2023-10-08 15:14] LABS: D-Dimer 0.47 ug/mL (0.0-0.5)
[2023-10-08 15:23] LABS: NT Pro Brain Natriuretic Pep. 132 pg/mL (0-450)
[2023-10-08 15:27] LABS: Troponin I < 0.01 ng/ml (0.00-0.034)
[2023-10-08 15:28] LABS: T4 (Thyroxine) 10.4 ug/dl (5.53-11.0)
[2023-10-08] MEDS: IPRATROPIUM/ALBUTEROL 3 ML NEB 6 ML IH (15:37)
[2023-10-08 15:42] LABS: Thyroid Stimulating Hormone 1.13 uIU/mL (0.465-4.68)
--- NOTE | 2023-10-08 16:13 | PC.NURSE ---
urinal given to pt no other needs at this time
[2023-10-08 17:18] LABS: Troponin I 0.03 ng/ml (0.00-0.034)
--- NOTE | 2023-10-08 17:25 | ECG_ITS ---
APPROVED REPORT Exam: Resting ECG HR:107 bpm ECG Measurements Heart Rate 107 AXES CO 145 P 56 QRSd 88 QRS -17 QT 326 T 70 QTc 389 Conclusion SINUS TACHYCARDIA LEFT VENTRICULAR HYPERTROPHY AND ST-T CHANGE [VOLTAGE CRITERIA PLUS ST/T ABNORMALITY] INFERIOR MYOCARDIAL INFARCTION , OF INDETERMINATE AGE [40+ ms Q WAVE AND/OR ST/T ABNORMALITY IN II/aVF] ABNORMAL ECG Anterolateral ST depression, no ST elevation in anatomical contiguous leads. Electronically signed by : EDDIE OSBORNE, 10/09/2023 00:13:03
--- NOTE | 2023-10-08 17:40 | EXP.HP ---
History of Present Illness *Admission Date: 10/08/23 *Reason for visit:: chest pressure *History of present illness: Mr. Parr is an 83-year-old male with history of CAD, reports having had a cath a few years ago at with 2 stents to his LAD. Also has history of hypertension, hyperlipidemia, COPD, GERD. Presented to the ER for evaluation of chest pain and shortness of breath. States has had worsening shortness of breath over the past month or more. Got worse today when he woke up and felt like something was sitting on his chest. He states felt so bad he had to sit straight up. He has had dyspnea with exertion and orthopnea. Does not sleep laying flat. Denies any fever, cough, nausea, vomiting. No syncope. Has had slight increase swelling in his legs. Taking his medications at home. Workup in the ER concerning for uptrending troponins from less than 0.01-0.03. EKG with nonspecific changes. Patient has elevated cardiac risk. Medicine consulted for admission and further management. Loaded with 324 mg of aspirin in the ER. Prior to arrival to the floor, patient loaded with 300 mg Plavix and 1 mg/kg of Lovenox. Started 1 mg nitroglycerin paste on his chest. Feeling some better. Pain improving but not completely resolved. On telemetry. Stable on room air. On-call lithographic artist consulted and aware of patient. [facility] Disclaimer: The information contained in this section may have been updated after the patient was seen, as this information can be updated by other users. Medical History Physical debility Acute pain of left hip Acute urinary retention Acute UTI Acute urinary retention Hematuria Prostate cancer Colonoscopy planned Ulcer Urinary tract infection COPD (chronic obstructive pulmonary disease) Asthma Arthritis History of gastroesophageal reflux (GERD) Hyperlipidemia Hypertension Prostate cancer Urinary retention Hematuria Cellulitis Dental abscess Acute sinus infection Encounter for laboratory testing for COVID-19 virus Bilateral otitis media Spider bite Acute urinary retention Spondylosis Labyrinthitis of left ear Sinusitis Common cold Surgical History H/O abdominal surgery History of heart artery stent History of cardiac cath Family History Other Family history of acute congestive heart failure Social History Smoking Status: Former smoker tobacco type: cigarettes second hand exposure: No alcohol intake: former substance use type: denies use current occupational status: retired Travel in the last 8 weeks: None household members: family housing: house current occupational exposures/hazards: No caffeine: Yes Review of Systems Review of Systems Review of systems (narrative): 14 point review of systems performed, pertinent positives and negatives as per HPI Meds Home Medications and Allergies Home Medications Medication Instructions Recorded Confirmed Type lisinopril 10 mg tablet 10 mg PO DAILY High Blood Pressure 04/27/17 10/08/23 History tamsulosin 0.4 mg capsule 0.4 mg PO DAILY prostate 08/17/18 10/08/23 History esomeprazole magnesium 20 mg 20 mg PO DAILY Acid Reflux 03/24/20 10/08/23 History capsule,delayed release ipratropium bromide 21 mcg (0.03 2 spray intranasal BID Allergy 03/18/21 10/08/23 History %) nasal spray symptoms rosuvastatin 20 mg tablet 20 mg PO DAILY Cholesterol 04/23/23 10/08/23 History New Prescriptions to Start Prescriptions: Allergies Allergy/AdvReac Type Severity Reaction Status Date / Time Sulfa (Sulfonamide Allergy Unknown I-RASH Verified 12/03/21 08:50 Antibiotics) [SULFA (SULFONAMIDE ANTIBIOTICS)] Exam Data for Last 24 hours Vital signs and Labs for Last 24 Hours: Temp Pulse Resp BP Pulse Ox O2 Del Method 98.3 F 107 H 18 105/57 L 95 Room Air 10/08/23 14:52 10/08/23 17:01 10/08/23 14:52 10/08/23 17:01 10/08/23 17:01 10/08/23 17:01 Laboratory Results - last 24 hr 10/08/23 14:45: WBC 10.5, RBC 3.91 L, Hgb 12.6 L, Hct 38.7 L, MCV 99.1 H, MCH 32.3 H, MCHC 32.6, RDW 14.1, Plt Count 267, MPV 8.2, Neut % (Auto) 70.8, Lymph % (Auto) 16.4, [place] % (Auto) 8.2, Eos % (Auto) 4.0, Baso % (Auto) 0.6, Neut # (Auto) 7.4, Lymph # (Auto) 1.7, [place] # (Auto) 0.9, Eos # (Auto) 0.4, Baso # (Auto) 0.1, D-Dimer 0.47, Sodium 138, Potassium 4.1, Chloride 104, Carbon Dioxide 27, Anion Gap 11.1, BUN 20, Creatinine 0.50 L, Estimated Creat Clear 68, Estimated GFR 159, Est GFR ( Amer) 193, Glucose 126 H, Calcium 9.2, Total Bilirubin 0.6, AST 33, ALT 26, Alkaline Phosphatase 91, Troponin I < 0.01, NT-Pro-B Natriuret Pep 132, Total Protein 7.2, Albumin 4.0, Globulin 3.2, Albumin/Globulin Ratio 1.3, TSH 1.13, Thyroxine (T4) 10.4 10/08/23 15:07: SARS-CoV-2 (PCR) Not detected, Influenza A Untype (PCR) Not detected, Influenza Type B (PCR) Not detected 10/08/23 16:45: Troponin I 0.03 I & O for Last 24 hours: Intake & Output 10/05/23 10/06/23 10/07/23 10/08/23 23:59 23:59 23:59 23:59 Weight 83.915 kg Constitutional Constitutional: no acute distress, average body habitus, chronically ill appearing and cooperative *Routine HEENT Exam Head: Present normocephalic Eye: Present EOMI ENT: Present mucous membranes moist *Routine Neck Exam Neck: Present full ROM Routine Chest/Breast/Axilla Exam Chest wall: Absent tenderness *Routine Respiratory Exam Respiratory: Present CTA bilaterally; Absent rhonchi, wheezes or crackles *Routine Cardiovascular Exam Cardiovascular: Present RRR *Routine Abdominal Exam Abdominal: Present soft and normoactive bowel sounds; Absent tenderness *Routine Rectal Exam Rectal:: deferred *Routine Genitalia Exam Genitalia:: deferred *Routine Extremities Exam Extremities: Absent cyanosis, clubbing or edema *Routine Skin Exam Skin: Present intact *Routine Neurological Exam Neurological: Present alert, oriented X3 and moving all extremities; Absent altered mental status Assessment and Plan *Assessment and plan (1) Unstable angina: Status: Acute Category: Medical Code(s): I20.0 - Unstable angina (2) CAD (coronary artery disease): Status: Acute Category: Medical Code(s): I25.10 - Atherosclerotic heart disease of [place] coronary artery without angina pectoris (3) Hyperlipidemia: Status: Acute Category: Medical Code(s): E78.5 - Hyperlipidemia, unspecified (4) Hypertension: Status: Acute Category: Medical Code(s): I10 - Essential (primary) hypertension Plan 83-year-old male with history of CAD and previous stenting. Presented with chest pressure, exertional dyspnea. Discussed case with ER physician, request admission for serial troponins and medical management of unstable angina. I agreed to admit for further management. Having some improvement but still having pain by the time of arrival to the floor. Loaded with aspirin, Plavix. Initiated on Lovenox. Monitoring on telemetry. Problems addressed as follows: Unstable angina CAD -Loaded with aspirin, Plavix. Initiated on Lovenox 1 mg/kg twice daily. -Continue aspirin 81 mg daily. Continue Plavix 75 mg daily. Continue Lovenox 85 mg twice daily. -Echocardiogram ordered, will obtain Tuesday morning. -Monitoring on telemetry. -Cardiology consulted. -Serial troponins pending. Troponin peak so far of 0.03. Will obtain repeat EKG in the morning. -To evaluate for GERD component, will trial GI cocktail x 1. Continue pantoprazole 40 mg nightly. -Will obtain records from [facility] of previous cath and stents HLD: Lipid panel ordered for the morning. Continue Lipitor 20 mg daily HTN: Continue lisinopril 10 mg daily. BPH: Continue tamsulosin 0.4 mg daily Full code Lovenox 1mg/kg BID Cardiac diet
--- NOTE | 2023-10-08 17:42 | PC.NURSE ---
I had registration page Dr. Ball on for cardiology
--- NOTE | 2023-10-08 17:43 | PC.NURSE ---
Dr. Bone spoke to cardiology via phone.
--- NOTE | 2023-10-08 17:43 | PC.NURSE ---
I notified for the need of a bed for admission for unstable angina.
--- NOTE | 2023-10-08 17:55 | PC.NURSE ---
I called report to Tiffany Parra RN
[2023-10-08] MEDS: NITROGLYCERIN 1 GM OINTMENT TD (18:00)
[2023-10-08] MEDS: BELLADONNA ALKALOIDS 60 ML ML PO (18:01)
[2023-10-08] MEDS: CLOPIDOGREL 300MG TABLET 300 MG PO (18:01)
[2023-10-08] MEDS: ENOXAPARIN 100MG/ML SYRINGE 85 MG SQ (18:02)
--- NOTE | 2023-10-08 18:10 | PC.NURSE ---
arrived by w/c from ED
[2023-10-08] MEDS: ATORVASTATIN 40MG TABLET 40 MG PO (20:30)
[2023-10-08] MEDS: PANTOPRAZOLE 40MG TABLET 40 MG PO (20:31)
[2023-10-09] VITALS (7 sets, daily range): BP systolic 99–111; BP diastolic 51–67; PULSE 69–91; RESP 16–18; TEMP 36.6–36.9; O2SAT 93–97; BMI 27.8
--- NOTE | 2023-10-09 04:31 | PC.NURSE ---
83 yo male pt admitted with unstable angina has remained free from pain or discomfort throughout shift. BP has been slightly low but pt has been asymptomatic. He has tolerated his diet and is voiding per urinal. Pt is standby assist with walker but has remained in bed through shift.
[2023-10-09] MEDS: ENOXAPARIN 100MG/ML SYRINGE 85 MG SQ (05:59)
--- NOTE | 2023-10-09 08:24 | PC.NURSE ---
Nitro paste removed off pt's chest at this time. due to BP being on the soft side of 111/51
[2023-10-09 08:25] LABS: Basophils # 0.1 K/mm3 (0-0.2); Basophils % 0.9 % (0.1-2.0); Eosinophils # 0.4 K/mm3 (0.0-0.4); Eosinophils % 4.8 % (0.1-12.0); Hematocrit 36.4 % (42.0-52.0); Hemoglobin 12.3 g/dL (14.1-18.0); Lymphocytes # 1.6 K/mm3 (0.7-4.5); Lymphocytes % 17.9 % (10-50); Mean Corpuscular HGB Conc 33.9 g/dL (31.8-35.4); Mean Corpuscular Hemoglobin 34.2 pg (27.0-31.2); Mean Corpuscular Volume 100.9 fl (80-94); Mean Platelet Volume 8.5 fl (7.4-10.4); Monocytes # 0.7 K/mm3 (0.1-1.0); Monocytes % 8.1 % (1.7-9.3); Neutrophils % 68.3 % (37.0-80.0); Platelet Count 267 K/mm3 (142-424); Red Blood Count 3.61 M/mm3 (4.60-6.20); Red Cell Distribution Width 14.3 % (11.5-17.5); White Blood Count 8.7 K/mm3 (4.8-10.8)
[2023-10-09 08:29] LABS: Chloride 103 mmol/L (98-107); Potassium 4.2 mmoL/L (3.5-5.1); Sodium 139 mmol/L (136-145)
[2023-10-09 08:31] LABS: Blood Urea Nitrogen 19 mg/dl (9-20); Creatinine Clearance Estimated 65 mL/min (50-200); Estimated Glomerular Filt Rate 108 ml/min (>60); GFR (African American) 131 ML/MIN (>60)
[2023-10-09 08:32] LABS: Alanine Aminotransferase 22 U/L (12-78); Albumin Level 3.8 g/dl (3.5-5.0); Albumin/Globulin Ratio 1.2 (1.1-1.8); Alkaline Phosphatase 93 U/L (38-126); Anion Gap 12.2 mEq/L (5-15); Aspartate Amino Transferase 32 U/L (17-59); Bilirubin,Total 0.7 mg/dl (0.2-1.3); Calcium 8.8 mg/dl (8.4-10.2); Carbon Dioxide 28 mmol/L (22.0-30.0); Globulin 3.3 g/dL (1.3-3.2); Glucose 103 mg/dl (74-100); Total Protein,Serum 7.1 g/dl (6.3-8.2)
[2023-10-09 08:33] LABS: Magnesium 2.1 mg/dl (1.6-2.3)
[2023-10-09 08:39] LABS: Troponin I 0.11 ng/ml (0.00-0.034)
[2023-10-09 08:49] LABS: Chol/HDL Ratio 3.4 (1-3.5); Cholesterol 130 mg/dl (140-200); HDL Cholesterol 38 mg/dl (40-60); Triglycerides 150 mg/dl (30-150); VLDL Cholesterol 30 mg/dL (0-40)
[2023-10-09 09:00] LABS: Direct LDL Cholesterol 54.41 mg/dL (100-129)
--- NOTE | 2023-10-09 09:06 | ECG_ITS ---
APPROVED REPORT Exam: Resting ECG HR:73 bpm ECG Measurements Heart Rate 73 AXES AZ 172 P 36 QRSd 86 QRS -16 QT 374 T 56 QTc 400 Conclusion SINUS RHYTHM LAD Inferior STTW changes noted Abnormal ECG UNCONFIRMED REPORT Electronically signed by : Josh Blackman MD 10/09/2023 16:21:41
[2023-10-09] MEDS: CLOPIDOGREL 75MG TAB 75 MG PO (09:21)
[2023-10-09] MEDS: ASPIRIN EC 81MG TABLET 81 MG PO (09:21)
[2023-10-09] MEDS: TAMSULOSIN 0.4MG CAPSULE 0.4 MG PO (09:21)
[2023-10-09] MEDS: LISINOPRIL 10MG TABLET 10 MG PO (09:21)
--- NOTE | 2023-10-09 12:23 | EXP.ACUTE.PN ---
Subjective *Date: 10/09/23 *Time: 17:11 Interval history: Chest pain resolved this morning. Troponin on morning labs stable at 0.11. Continue to monitor on telemetry. Stable on room air. No nausea or vomiting. Tolerating p.o. intake. Medical Exam Vital signs and Labs for Last 24 Hours: Vital Signs Temp Pulse Pulse Resp BP BP Pulse Ox 10/09/23 11:00 10/09/23 09:00 10/09/23 08:25 10/09/23 08:00 75 10/09/23 08:00 98.2 F 82 16 111/51 L 95 10/09/23 06:42 10/09/23 05:00 10/09/23 04:00 75 10/09/23 04:00 98.0 F 72 16 102/54 L 96 10/09/23 03:00 10/09/23 01:00 10/09/23 00:00 85 10/09/23 00:00 97.9 F 91 H 18 99/52 L 94 L 10/08/23 23:00 10/08/23 21:00 10/08/23 20:00 107 H 10/08/23 20:00 96 10/08/23 19:38 97.5 F L 109 H 113/63 96 10/08/23 18:46 10/08/23 18:05 98.3 F 109 H 20 121/67 10/08/23 18:00 98 F 106 H 20 121/67 96 10/08/23 17:30 107 H 123/64 95 10/08/23 17:01 107 H 105/57 L 95 10/08/23 16:30 97 H 102/66 L 95 10/08/23 16:01 86 113/59 L 98 10/08/23 15:30 72 123/55 L 93 L 10/08/23 15:00 63 121/70 94 L 10/08/23 14:52 98.3 F 107 H 18 132/74 93 L O2 Del Method 10/09/23 11:00 Room Air 10/09/23 09:00 Room Air 10/09/23 08:25 Room Air 10/09/23 08:00 10/09/23 08:00 Room Air 10/09/23 06:42 Room Air 10/09/23 05:00 Room Air 10/09/23 04:00 10/09/23 04:00 Room Air 10/09/23 03:00 Room Air 10/09/23 01:00 Room Air 10/09/23 00:00 10/09/23 00:00 Room Air 10/08/23 23:00 Room Air 10/08/23 21:00 Room Air 10/08/23 20:00 10/08/23 20:00 Room Air 10/08/23 19:38 Room Air 10/08/23 18:46 Room Air 10/08/23 18:05 Room Air 10/08/23 18:00 Room Air 10/08/23 17:30 Room Air 10/08/23 17:01 Room Air 10/08/23 16:30 10/08/23 16:01 10/08/23 15:30 10/08/23 15:00 10/08/23 14:52 Room Air Intake and Output 10/08/23 10/09/23 10/09/23 23:59 07:59 15:59 Intake Total 240 / 590 350 / 590 Output Total 0 / 200 300 / 300 0 / 300 Balance 0 / -200 -60 / 290 350 / 290 Intake: Intake, Oral Amount 240 / 590 350 / 590 Output: Output, Urine Amount 0 / 200 300 / 300 0 / 300 Other: Number of Unmeasured Voids 1 1 1 Number of Bowel Movements 1 Weight 80.286 kg Patient Weight 10/09/23 23:59 Weight 80.286 kg Laboratory Results - last 24 hr 10/08/23 14:45: WBC 10.5, RBC 3.91 L, Hgb 12.6 L, Hct 38.7 L, MCV 99.1 H, MCH 32.3 H, MCHC 32.6, RDW 14.1, Plt Count 267, MPV 8.2, Neut % (Auto) 70.8, Lymph % (Auto) 16.4, [place] % (Auto) 8.2, Eos % (Auto) 4.0, Baso % (Auto) 0.6, Neut # (Auto) 7.4, Lymph # (Auto) 1.7, [place] # (Auto) 0.9, Eos # (Auto) 0.4, Baso # (Auto) 0.1, D-Dimer 0.47, Sodium 138, Potassium 4.1, Chloride 104, Carbon Dioxide 27, Anion Gap 11.1, BUN 20, Creatinine 0.50 L, Estimated Creat Clear 68, Estimated GFR 159, Est GFR ( Amer) 193, Glucose 126 H, Calcium 9.2, Total Bilirubin 0.6, AST 33, ALT 26, Alkaline Phosphatase 91, Troponin I < 0.01, NT-Pro-B Natriuret Pep 132, Total Protein 7.2, Albumin 4.0, Globulin 3.2, Albumin/Globulin Ratio 1.3, TSH 1.13, Thyroxine (T4) 10.4 10/08/23 15:07: SARS-CoV-2 (PCR) Not detected, Influenza A Untype (PCR) Not detected, Influenza Type B (PCR) Not detected 10/08/23 16:45: Troponin I 0.03 10/08/23 20:42: Troponin I 0.10 H 10/09/23 07:20: WBC 8.7, RBC 3.61 L, Hgb 12.3 L, Hct 36.4 L, MCV 100.9 H, MCH 34.2 H, MCHC 33.9, RDW 14.3, Plt Count 267, MPV 8.5, Neut % (Auto) 68.3, Lymph % (Auto) 17.9, [place] % (Auto) 8.1, Eos % (Auto) 4.8, Baso % (Auto) 0.9, Neut # (Auto) 6.0, Lymph # (Auto) 1.6, [place] # (Auto) 0.7, Eos # (Auto) 0.4, Baso # (Auto) 0.1, Sodium 139, Potassium 4.2, Chloride 103, Carbon Dioxide 28, Anion Gap 12.2, BUN 19, Creatinine 0.70 D, Estimated Creat Clear 65, Estimated GFR 108, Est GFR ( Amer) 131 D, Glucose 103 H, Calcium 8.8, Magnesium 2.1, Total Bilirubin 0.7, AST 32, ALT 22, Alkaline Phosphatase 93, Troponin I 0.11 H, Total Protein 7.1, Albumin 3.8, Globulin 3.3 H, Albumin/Globulin Ratio 1.2, Triglycerides 150, Cholesterol 130 L, LDL Cholesterol Direct 54.41 L, VLDL Cholesterol 30, HDL Cholesterol 38 L, Cholesterol/HDL Ratio 3.4 I & O for Labs for Last 24 Hours: Intake & Output 07/1810/07/23 10/08/23 10/09/23 23:59 23:59 23:59 23:59 Intake Total 590 / 590 Output Total 0 / 200 300 / 300 Balance 0 / -200 290 / 290 Weight 83.915 kg 80.286 kg Constitutional: Present no acute distress, average body habitus and cooperative Head: Present atraumatic and normocephalic ENT: Present normal exam Neck: Present normal inspection Respiratory: Present normal respiratory effort; Absent rhonchi, wheezes or crackles Cardiac: Present Reg Rate and Rhythm GI: Present soft and normal bowel sounds; Absent distention or tenderness Extremities: Present normal inspection and full ROM Skin: Present intact; Absent erythema Neuro: Present Grossly Intact, alert, awake, oriented x 3 and moves all extremities Assessment and Plan *Assessment and plan (1) Unstable angina: Status: Acute Category: Medical Code(s): I20.0 - Unstable angina (2) CAD (coronary artery disease): Status: Acute Category: Medical Code(s): I25.10 - Atherosclerotic heart disease of [place] coronary artery without angina pectoris (3) Hyperlipidemia: Status: Acute Category: Medical Code(s): E78.5 - Hyperlipidemia, unspecified (4) Hypertension: Status: Acute Category: Medical Code(s): I10 - Essential (primary) hypertension Plan 83-year-old male with history of CAD and previous stenting. Presented with chest pressure, exertional dyspnea. Discussed case with ER physician, request admission for serial troponins and medical management of unstable angina. I agreed to admit for further management. Chest pain improved this morning. Continues to require medical management. Cardiology to evaluate the patient in the morning for possible heart cath. Monitoring on telemetry. Problems addressed as follows: Unstable angina CAD -Loaded with aspirin, Plavix. Initiated on Lovenox 1 mg/kg twice daily. -Continue aspirin 81 mg daily. Continue Plavix 75 mg daily. Continue Lovenox 85 mg twice daily. -Echocardiogram ordered, will obtain Tuesday morning. -Monitoring on telemetry. -Cardiology consulted. -Serial troponins pending. Troponin 0.11 this morning, 0.10 last night. Stable. EKG with nonspecific changes, appears to have old MO. No acute ST changes -Will obtain records from [facility] of previous cath and stents HLD: Lipid panel with LDL of 54. Continue Lipitor 20 mg daily HTN: Continue lisinopril 10 mg daily. BPH: Continue tamsulosin 0.4 mg daily Full code Lovenox 1mg/kg BID Cardiac diet, n.p.o. at midnight.
[2023-10-09] MEDS: ENOXAPARIN 80MG/0.8ML SYRINGE 80 MG SQ (20:20)
[2023-10-09] MEDS: ATORVASTATIN 40MG TABLET 40 MG PO (20:20)
[2023-10-09] MEDS: PANTOPRAZOLE 40MG TABLET 40 MG PO (20:20)
[2023-10-10] VITALS (23 sets, daily range): BP systolic 92–123; BP diastolic 53–66; PULSE 66–100; RESP 16–19; TEMP 36–36.9; O2SAT 93–97; BMI 27.6
--- NOTE | 2023-10-10 04:31 | PC.NURSE ---
83 yo male pt admitted for unstable angina. Pt is A/O X 4. He has had uneventful night and continues to deny chest pain or increased SOA. He has slept most of the night and has remained NPO since [place] for upcoming procedure. Pt ambulates with walker and assist of 1.
[2023-10-10 06:33] LABS: Basophils # 0.1 K/mm3 (0-0.2); Eosinophils # 0.5 K/mm3 (0.0-0.4); Eosinophils % 5.9 % (0.1-12.0); Hematocrit 38.5 % (42.0-52.0); Hemoglobin 12.3 g/dL (14.1-18.0); Lymphocytes % 25.3 % (10-50); Mean Corpuscular HGB Conc 32.1 g/dL (31.8-35.4); Mean Corpuscular Hemoglobin 32.3 pg (27.0-31.2); Mean Corpuscular Volume 100.7 fl (80-94); Mean Platelet Volume 8.7 fl (7.4-10.4); Monocytes # 0.8 K/mm3 (0.1-1.0); Monocytes % 9.8 % (1.7-9.3); Neutrophils # 4.5 K/mm3 (1.8-7.8); Neutrophils % 58.1 % (37.0-80.0); Platelet Count 275 K/mm3 (142-424); Red Blood Count 3.82 M/mm3 (4.60-6.20); White Blood Count 7.8 K/mm3 (4.8-10.8)
[2023-10-10 06:34] LABS: Chloride 105 mmol/L (98-107); Potassium 4.3 mmoL/L (3.5-5.1); Sodium 139 mmol/L (136-145)
[2023-10-10 06:37] LABS: Alanine Aminotransferase 20 U/L (12-78); Albumin Level 3.5 g/dl (3.5-5.0); Albumin/Globulin Ratio 1.1 (1.1-1.8); Alkaline Phosphatase 83 U/L (38-126); Anion Gap 8.3 mEq/L (5-15); Aspartate Amino Transferase 27 U/L (17-59); Bilirubin,Total 0.7 mg/dl (0.2-1.3); Blood Urea Nitrogen 15 mg/dl (9-20); Carbon Dioxide 30 mmol/L (22.0-30.0); Creatinine Clearance Estimated 64 mL/min (50-200); Estimated Glomerular Filt Rate 108 ml/min (>60); GFR (African American) 131 ML/MIN (>60); Globulin 3.1 g/dL (1.3-3.2); Glucose 99 mg/dl (74-100); Total Protein,Serum 6.6 g/dl (6.3-8.2)
[2023-10-10] MEDS: ASPIRIN EC 81MG TABLET 81 MG PO (09:30)
[2023-10-10] MEDS: CLOPIDOGREL 75MG TAB 75 MG PO (09:30)
--- NOTE | 2023-10-10 09:52 | EXP.CARD.CON ---
History of Present Illness History of Present Illness Consult date: 10/10/23 Requesting physician: Pablo Calixto Consult reason: chest pain Chief complaint: chest pain History of present illness: This is an 83-year-old white gentleman who presented to the emergency department complaints of chest pressure. He has a past medical history of coronary artery disease with stenting to his LAD approximately 2 to 3 years ago, hypertension, hyperlipidemia and COPD. The patient states that he woke up on Tuesday morning with sudden onset of substernal chest pressure. He states that it radiated to his left arm. It was associated with shortness of breath. He states that this was a severe pain that continue to persist and worsen. He states that he had to sit up straight and was unable to lie down. He denies any nausea or diaphoresis. He states that this was worse with exertion and did improve with rest. He states for approximately a week before the chest pain he had noticed worsening in his shortness of breath and orthopnea. He also had a little bit of associated bilateral lower extremity edema. The patient presented to the emergency department and was found to have an elevated troponin consistent with a non-STEMI. The patient was admitted to the hospital. He has been loaded with Plavix and started on Nitropaste with improvement in his chest pressure. The patient reports that he just feels like something is really wrong and hopes that we get to the bottom of it while he is hospitalized. He denies any fever, chills, nausea, vomiting, diarrhea [facility] Disclaimer: The information contained in this section may have been updated after the patient was seen, as this information can be updated by other users. Medical History (Updated 10/10/23 @ 10:15 by Elvira Gallardo APRN) Abnormal electrocardiogram [ECG] [EKG] CAD (coronary artery disease) Non-STEMI (non-ST elevated myocardial infarction) Physical debility Acute pain of left hip Acute urinary retention Acute UTI Acute urinary retention Hematuria Prostate cancer Colonoscopy planned Ulcer Urinary tract infection COPD (chronic obstructive pulmonary disease) Asthma Arthritis History of gastroesophageal reflux (GERD) Hyperlipidemia Hypertension Prostate cancer Urinary retention Hematuria Cellulitis Dental abscess Acute sinus infection Encounter for laboratory testing for COVID-19 virus Bilateral otitis media Spider bite Acute urinary retention Spondylosis Labyrinthitis of left ear Sinusitis Common cold Surgical History H/O abdominal surgery History of heart artery stent History of cardiac cath Family History Other Family history of acute congestive heart failure Social History Smoking Status: Former smoker tobacco type: cigarettes second hand exposure: No alcohol intake: former substance use type: denies use current occupational status: retired Travel in the last 8 weeks: None household members: family housing: house current occupational exposures/hazards: No caffeine: Yes Review of Systems Review of Systems Review of systems:: pertinent systems reviewed and negative unless documented below Constitutional Constitutional: Reports system reviewed and no additional complaints, except as documented Eyes Eyes: Reports system reviewed and no additional complaints, except as documented ENT Ears, Nose, Mouth, and Throat: Reports system reviewed and no additional complaints, except as documented *Cardiovascular Cardiovascular: Reports system reviewed and no additional complaints, except as documented, Reports chest pain, Reports chest pain at rest, Reports chest pain with activity, Reports dyspnea, Reports dyspnea on exertion, Reports orthopnea and Reports radiating jaw, neck or arm pain *Respiratory Respiratory: Reports system reviewed and no additional complaints, except as documented, Reports dyspnea and Reports dyspnea on exertion *Gastrointestinal Gastrointestinal: Reports system reviewed and no additional complaints, except as documented *Genitourinary Genitourinary: Reports system reviewed and no additional complaints, except as documented *Musculoskeletal Musculoskeletal: Reports system reviewed and no additional complaints, except as documented Integumentary/Breasts Skin/Breast: Reports system reviewed and no additional complaints, except as documented *Neurologic Neurologic: Reports system reviewed and no additional complaints, except as documented Psychiatric Psychiatric: Reports system reviewed and no additional complaints, except as documented Endocrine Endocrine: Reports system reviewed and no additional complaints, except as documented Hematologic/Lymphatic Hematologic/Lymphatic: Reports system reviewed and no additional complaints, except as documented Allergic/Immunologic Allergic/Immunologic: Reports system reviewed and no additional complaints, except as documented Exam Data for Last 24 hours Vital signs and Labs for Last 24 Hours: Temp Pulse Resp BP Pulse Ox O2 Del Method 98.1 F 91 H 16 119/53 L 95 Room Air 10/10/23 08:00 10/10/23 08:00 10/10/23 08:00 10/10/23 08:00 10/10/23 08:00 10/10/23 09:00 Laboratory Results - last 24 hr 10/10/23 05:53: WBC 7.8, RBC 3.82 L, Hgb 12.3 L, Hct 38.5 L, MCV 100.7 H, MCH 32.3 H, MCHC 32.1, RDW 14.0, Plt Count 275, MPV 8.7, Neut % (Auto) 58.1, Lymph % (Auto) 25.3, [place] % (Auto) 9.8 H, Eos % (Auto) 5.9, Baso % (Auto) 1.0, Neut # (Auto) 4.5, Lymph # (Auto) 2.0, [place] # (Auto) 0.8, Eos # (Auto) 0.5 H, Baso # (Auto) 0.1, Sodium 139, Potassium 4.3, Chloride 105, Carbon Dioxide 30, Anion Gap 8.3, BUN 15, Creatinine 0.70, Estimated Creat Clear 64, Estimated GFR 108, Est GFR ( Amer) 131, Glucose 99, Calcium 9.0, Magnesium 2.0, Total Bilirubin 0.7, AST 27, ALT 20, Alkaline Phosphatase 83, Total Protein 6.6, Albumin 3.5, Globulin 3.1, Albumin/Globulin Ratio 1.1 I & O for Last 24 hours: Intake & Output 10/07/23 10/08/23 10/09/23 10/10/23 23:59 23:59 23:59 23:59 Intake Total 1130 / 1370 240 / 240 Output Total 0 / 200 300 / 950 1250 / 1250 Balance 0 / -200 830 / 420 -1010 / -1010 Weight 185 lb 177 lb 176 lb 6.4 oz Narrative: EKG #1 shows sinus tachycardia with a rate of 105 and an old inferior SD pattern. EKG #2 shows sinus tachycardia with a rate of 107 bpm, LVH, old inferior SD and anterior lateral ST depression. EKG #3 shows sinus rhythm with left axis deviation and old inferior SD pattern. Constitutional Constitutional: no acute distress and average body habitus *Routine HEENT Exam Head: Present normocephalic and atraumatic ENT: Present mucous membranes moist *Routine Neck Exam Neck: Present supple, full ROM and normal carotid upstroke; Absent JVD, carotid bruit or lymphadenopathy *Routine Respiratory Exam Respiratory: Present CTA bilaterally, normal respiratory effort, able to speak in complete sentences and symmetric chest movement *Routine Cardiovascular Exam Cardiovascular: Present RRR, Normal S1 and Normal S2; Absent murmur or gallop *Routine Abdominal Exam Abdominal: Present soft and normoactive bowel sounds; Absent tenderness, distended or organomegaly *Routine Extremities Exam Extremities: Present full ROM, pulses intact and normal capillary refill; Absent cyanosis, clubbing or edema *Routine Skin Exam Skin: Present intact and warm; Absent erythema *Routine Neurological Exam Neurological: Present alert, oriented X3 and CN II-XII intact; Absent sensory deficit or motor deficit Routine Psychiatric Exam Psychiatric: Present normal affect Meds Home Medications and Allergies Home Medications Medication Instructions Recorded Confirmed Type lisinopril 10 mg tablet 10 mg PO DAILY High Blood Pressure 04/27/17 10/08/23 History tamsulosin 0.4 mg capsule 0.4 mg PO DAILY prostate 08/17/18 10/08/23 History esomeprazole magnesium 20 mg 20 mg PO DAILY Acid Reflux 03/24/20 10/08/23 History capsule,delayed release ipratropium bromide 21 mcg (0.03 2 spray intranasal BID Allergy 03/18/21 10/08/23 History %) nasal spray symptoms rosuvastatin 20 mg tablet 20 mg PO DAILY Cholesterol 04/23/23 10/08/23 History New Prescriptions to Start Prescriptions: Allergies Allergy/AdvReac Type Severity Reaction Status Date / Time Sulfa (Sulfonamide Allergy Unknown I-RASH Verified 12/03/21 08:50 Antibiotics) [SULFA (SULFONAMIDE ANTIBIOTICS)] Assessment and Plan *Assessment and plan (1) Non-STEMI (non-ST elevated myocardial infarction): Status: Acute Category: Medical Code(s): I21.4 - Non-ST elevation (NSTEMI) myocardial infarction (2) Unstable angina: Status: Acute Category: Medical Code(s): I20.0 - Unstable angina (3) CAD (coronary artery disease): Status: Acute Qualifiers: Associated angina: with unstable angina Coronary Disease-Associated Artery/Lesion type: [place] artery [place] vs. transplanted heart: [place] heart Qualified Code(s): I25.110 - Atherosclerotic heart disease of [place] coronary artery with unstable angina pectoris Category: Medical Code(s): I25.10 - Atherosclerotic heart disease of [place] coronary artery without angina pectoris (4) Hyperlipidemia: Status: Acute Qualifiers: Hyperlipidemia type: mixed hyperlipidemia Qualified Code(s): E78.2 - Mixed hyperlipidemia Category: Medical Code(s): E78.5 - Hyperlipidemia, unspecified (5) Hypertension: Status: Acute Qualifiers: Hypertension type: primary hypertension Qualified Code(s): I10 - Essential (primary) hypertension Category: Medical Code(s): I10 - Essential (primary) hypertension (6) Abnormal electrocardiogram [ECG] [EKG]: Status: Acute Category: Medical Code(s): R94.31 - Abnormal electrocardiogram [ECG] [EKG] Plan Plan: 1. The patient was admitted to the hospital with a non-STEMI. He has known coronary artery disease with stenting to his LAD approximately 2 to 3 years ago at [facility]. Given his non-STEMI and unstable angina we will plan to proceed with left cardiac catheterization today to evaluate his coronary artery disease. 2. The patient has been educated the risk and benefits of proceeding with left cardiac catheterization. The patient verbalized understanding and is agreeable in proceeding with the procedure. 3. The patient will be n.p.o. in preparation for left cardiac catheterization. 4. He has been loaded with Plavix and will remain on Plavix and aspirin for dual antiplatelet therapy. 5. The patient does report having a history of prostate cancer in the past and the radiation treatments for his prostate cancer did burn his bladder and he had some hematuria while on Plavix in the past. That is why his Plavix was subsequently stopped. He has been restarted on Plavix this hospital admission with no signs of hematuria at this time. 6. His blood pressure is well-controlled. 7. His LDL goal is less than 55. His LDL is 54. He is on a statin. 8. Start Toprol-XL 12.5 mg p.o. daily for coronary artery disease and angina. 9. Will decrease his lisinopril to 5 mg p.o. daily because his blood pressure is on the lower side and we do want to get him started on a beta-yanick. 10. Echocardiogram to evaluate his LV function secondary to his non-STEMI and shortness of breath. 11. Further recommendations will be made pending the patient's response to treatment and the results of his echocardiogram and left cardiac catheterization today. Thank you for the opportunity to help participate in the care of this patient. All recommendations and orders are per Dr. Urbano. Addendum: LHC shows severe circumflex artery and distal left main artery disease with chronically occluded right coronary artery. Will refer patient as an outpatient for consideration of CABG due to severe left main and circumflex disease. In the meantime, pt would benefit from anti-anginals. Continue with Toprol XL 12.5 mg daily for angina. Stop Lisinopril due to be bein yoon lower side. Start Isosorbide mononitrate 30 mg daily for angina. Stop Plavix for consideration of CABG. Will refer to CT surgery at [facility]. If surgeon does not think patient is CABG candidate, then conisder stenting circumflex and left main arteries if he fails medical management. AMB Pre-cath Criteria Pre-cath considerations: Clinical evaluation and indication for coronary angiography includes:: know CAD, new onset angina <= 2 months and worsening angina Patient is describing chest pain symtom as:: typical angina Clinical risk factors:: CAD, HTN, HLD, elevated troponin, non-stemi, abnormal EKG How many antianginals is the patient taking?: 2 Patient is taking:: beta yanick and Long acting nitrate Risks and benefits:: We will plan to proceed with LHC/coronary angiography with right radial access. The patient has been educated on the risks and benefits of proceeding with LHC/coronary angiography with right radial access. The patient verbalized understanding and is agreeable in proceeding with the procedure.
--- NOTE | 2023-10-10 10:01 | IR_ITS ---
APPROVED REPORT Patient Location: Inpatient PROCEDURES Left heart catheterization Selective coronary angiogram Left ventriculogram INDICATION Acute non-ST elevation myocardial infarction, Coronary artery disease Informed consent was obtained prior to the procedure. COMPLICATIONS NONE Estimated Blood Loss: LESS THAN 10 ML TECHNIQUE One percent lidocaine used to anesthetize the right anterior aspect of the wrist. The right radial artery was accessed via the Seldinger technique. A 6 [place] sheath was placed in the right radial artery. 2.5 mg of Verapamil, 800 mcg of nitroglycerin, 1mg Lidocaine and 5000 U Heparin were given through the arterial sheath. The papa catheter was also used to perform left heart catheterization, left ventriculogram and selective coronary angiogram. At the end of the procedure the sheath was removed good hemostasis was achieved using Traclet band, patient was transferred to the postop holding area in stable condition. ANGIOGRAPHIC RESULTS The left main artery Has an ostial 50 and distal 60% calcified stenosis The left anterior descending artery Has proximal 20 and 30% calcified stenoses with mid vessel 30% concentric stenosis. The LAD is large and wraps the apex. A moderate to large ramus intermedius originates in the proximal LAD and has 30% proximal calcified stenoses while the small to medium sized first diagonal artery has an ostial 80% calcified stenosis The circumflex artery Nondominant proximally 2.5 mm in diameter and has an ostial to proximal greater than 95% concentric calcified stenosis. The proximal to distal circumflex artery is moderate in size and is accompanied by FAR[place] II flow The right coronary artery Dominant and ostially occluded which fills via [id number] collaterals primarily from the LAD The OTOOLE ventriculogram reveals Normal 60% The left ventricular end-diastolic pressure 15 to 20 mmHg IMPRESSION Severe coronary disease as described above Normal ejection fraction Mildly elevated LVEDP PLAN 1. At this point I favor either medical management or consideration of surgical bypass surgery. It is reasonable to have a surgeon discuss the risks and benefits of the surgery. 2. If patient's angina is recalcitrant to medical management consideration could be given to perform high risk bifurcating stents to the left main artery LAD and circumflex artery. Prior to undertaking this procedure I would prefer patient be evaluated by CT surgery be denied and then failed medical management 3. Maximize antianginal medications 4. LDL less than 55 to be achieved high intensity statin Electronically signed by : Fausto Fontana MD 10/10/2023 15:38:30
[2023-10-10] MEDS: HEPARIN 1,000 UNITS/500ML NS (CATH LAB) 3000 UNIT IV (10:45)
[2023-10-10] MEDS: diphenhydrAMINE 50MG/ML VIAL 50 MG IV (10:45)
[2023-10-10] MEDS: LIDOCAINE 1% 10ML MDV 20 ML IJ (10:45)
[2023-10-10] MEDS: 0.9 % SODIUM CHLORIDE 500 ML 25 ML IV (10:45)
[2023-10-10] MEDS: HEPARIN 1,000 UNITS/ML 10ML VIAL (CATH LAB) 10000 UNIT IV (10:46)
[2023-10-10] MEDS: VERAPAMIL 2.5MG/ML 2ML VIAL 2.5 MG IV (10:47)
[2023-10-10] MEDS: FENTANYL 100MCG/2ML VIAL 50 MCG IV (11:10)
[2023-10-10] MEDS: MIDAZOLAM HCL 1MG/1ML 5ML VIAL 1 MG IV (11:10)
[2023-10-10] MEDS: IOPAMIDOL-370 (76%);100ML BOTTLE 70 ML IV (12:15)
[2023-10-10] MEDS: ISOSORBIDE MONO 30MG TAB.ER.24H 30 MG PO (13:16)
[2023-10-10] MEDS: METOPROLOL SUCCINATE XL 25MG TABLET 12.5 MG PO (13:16)
--- NOTE | 2023-10-10 13:50 | P.PN_ITS ---
Subjective *Date: 10/10/23 *Time: 13:50 Interval history: Chest pain/pressure free today. No N/V, SOA. feeling well. Awaiting cards consult. Echo completed this morning. Medical Exam Vital signs and Labs for Last 24 Hours: Vital Signs Temp Pulse Pulse Resp BP Pulse Ox O2 Del Method 10/10/23 13:45 77 18 92/54 L 96 Room Air 10/10/23 13:15 79 18 92/59 L 97 Room Air 10/10/23 13:00 Room Air 10/10/23 12:45 97.3 F L 81 16 92/54 L 96 Room Air 10/10/23 12:30 97.2 F L 68 18 110/54 L 96 Room Air 10/10/23 12:15 96.8 F L 85 18 114/66 93 L Room Air 10/10/23 12:00 100 H 10/10/23 12:00 98.1 F 83 16 110/64 95 Room Air 10/10/23 11:45 93 H 18 109/57 L 94 L Room Air 10/10/23 11:40 97 H 18 114/60 94 L Room Air 10/10/23 11:35 95 H 18 119/53 L 93 L Room Air 10/10/23 11:30 97 H 97 H 19 123/57 L 95 Room Air 10/10/23 09:00 Room Air 10/10/23 08:00 95 H 10/10/23 08:00 Room Air 10/10/23 08:00 98.1 F 91 H 16 119/53 L 95 Room Air 10/10/23 06:40 Room Air 10/10/23 05:00 Room Air 10/10/23 04:55 98.1 F 78 18 100/58 L 94 L Room Air 10/10/23 04:00 95 H 10/10/23 04:00 98.1 F 78 18 100/58 L 94 L Room Air 10/10/23 02:58 Room Air 10/10/23 00:54 Room Air 10/10/23 00:00 96 H 10/10/23 00:00 98.0 F 97 H 16 119/66 94 L Room Air 10/09/23 23:00 Room Air 10/09/23 21:00 Room Air 10/09/23 20:00 77 10/09/23 20:00 95 Room Air 10/09/23 19:57 98.0 F 69 17 103/64 L 95 10/09/23 18:33 Room Air 10/09/23 17:00 Room Air 10/09/23 16:00 98.1 F 78 18 110/66 97 Room Air 10/09/23 16:00 75 10/09/23 15:00 Room Air Intake and Output 10/09/23 10/10/23 10/10/23 23:59 07:59 15:59 Intake Total 300 / 1370 240 / 240 Output Total 0 / 950 1100 / 1250 150 / 1250 Balance 300 / 420 -860 / -1010 -150 / -1010 Intake: Intake, Oral Amount 300 / 1370 240 / 240 Output: Output, Urine Amount 0 / 950 1100 / 1250 150 / 1250 Other: Number of Unmeasured Voids 1 Number of Bowel Movements 3 Weight 80.014 kg Patient Weight 10/10/23 23:59 Weight 80.014 kg Laboratory Results - last 24 hr 10/10/23 05:53: WBC 7.8, RBC 3.82 L, Hgb 12.3 L, Hct 38.5 L, MCV 100.7 H, MCH 32.3 H, MCHC 32.1, RDW 14.0, Plt Count 275, MPV 8.7, Neut % (Auto) 58.1, Lymph % (Auto) 25.3, [place] % (Auto) 9.8 H, Eos % (Auto) 5.9, Baso % (Auto) 1.0, Neut # (Auto) 4.5, Lymph # (Auto) 2.0, [place] # (Auto) 0.8, Eos # (Auto) 0.5 H, Baso # (Auto) 0.1, Sodium 139, Potassium 4.3, Chloride 105, Carbon Dioxide 30, Anion Gap 8.3, BUN 15, Creatinine 0.70, Estimated Creat Clear 64, Estimated GFR 108, Est GFR ( Amer) 131, Glucose 99, Calcium 9.0, Magnesium 2.0, Total Bilirubin 0.7, AST 27, ALT 20, Alkaline Phosphatase 83, Total Protein 6.6, Albumin 3.5, Globulin 3.1, Albumin/Globulin Ratio 1.1 I & O for Labs for Last 24 Hours: Intake & Output 10/07/23 10/08/23 10/09/2324 23:59 23:59 23:59 23:59 Intake Total 1130 / 1370 240 / 240 Output Total 0 / 200 300 / 950 1250 / 1250 Balance 0 / -200 830 / 420 -1010 / -1010 Weight 83.915 kg 80.286 kg 80.014 kg Constitutional: Present no acute distress, average body habitus and cooperative Head: Present atraumatic and normocephalic ENT: Present normal exam Neck: Present normal inspection Respiratory: Present normal respiratory effort; Absent rhonchi, wheezes or crackles Cardiac: Present Reg Rate and Rhythm GI: Present soft and normal bowel sounds; Absent distention or tenderness Extremities: Present normal inspection and full ROM Skin: Present intact; Absent erythema Neuro: Present Grossly Intact, alert, awake, oriented x 3 and moves all extremit ies Assessment and Plan *Assessment and plan (1) Non-STEMI (non-ST elevated myocardial infarction): Status: Acute Category: Medical Code(s): I21.4 - Non-ST elevation (NSTEMI) myocardial infarction (2) Unstable angina: Status: Acute Category: Medical Code(s): I20.0 - Unstable angina (3) CAD (coronary artery disease): Status: Acute Qualifiers: Coronary Disease-Associated Artery/Lesion type: [place] artery [place] vs. transplanted heart: [place] heart Associated angina: with unstable angina Qualified Code(s): I25.110 - Atherosclerotic heart disease of [place] coronary artery with unstable angina pectoris Category: Medical Code(s): I25.10 - Atherosclerotic heart disease of [place] coronary artery without angina pectoris (4) Hyperlipidemia: Status: Acute Qualifiers: Hyperlipidemia type: mixed hyperlipidemia Qualified Code(s): E78.2 - Mixed hyperlipidemia Category: Medical Code(s): E78.5 - Hyperlipidemia, unspecified (5) Hypertension: Status: Acute Qualifiers: Hypertension type: primary hypertension Qualified Code(s): I10 - Essential (primary) hypertension Category: Medical Code(s): I10 - Essential (primary) hypertension Plan 83-year-old male with history of CAD and previous stenting. Presented with chest pressure, exertional dyspnea. Discussed case with ER physician, request admission for serial troponins and medical management of unstable angina. I agreed to admit for further management. Chest pain free today. Cards evaluating, going for cath. Continues to require medical management. Monitoring on telemetry. Problems addressed as follows: NSTEMI Unstable angina CAD -Loaded with aspirin, Plavix. holding lovenox this morning - Continue aspirin 81 mg daily. Continue Plavix 75 mg daily. -Echocardiogram obtained, formal read pending, continue to monitor on telemetry. - discussed case with cards, going for cath today. will start Toprol-XL 12.5 mg p.o. daily for coronary artery disease and angina. decrease his lisinopril to 5 mg p.o. daily to allow for initiation of BB HLD: Lipid panel with LDL of 54. Continue Lipitor 20 mg daily HTN: Continue lisinopril 10 mg daily. BPH: Continue tamsulosin 0.4 mg daily Full code Lovenox 1mg/kg BID Cardiac diet after cath
--- NOTE | 2023-10-10 18:10 | PC.NURSE ---
Pt has done well today. No c/o chest pain, tightness, or SOB. Heart cath went well with no stents. Med management to start. While taking air out of the radial band cath site oozed a very minimal amount. air was place back in band. Band is now off with a dressing in place.
[2023-10-10] MEDS: ROSUVASTATIN 20 MG 1 EACH PO (20:50)
[2023-10-10] MEDS: ESOMEPRAZOLE 20 MG 1 EACH PO (20:50)
[2023-10-10] MEDS: PAT OWN MED ***TAMSULOSIN 0.4MG 0.4 MG PO (20:50)
--- NOTE | 2023-10-10 21:59 | CA_ITS ---
APPROVED REPORT EXAM: Comprehensive 2D, Doppler, and color-flow Echocardiogram Suspender Maker: Karlee Garza CRT Ht: 5 ft 7 in Wt: 185lbs BSA: 1.96 BP: 105/57 mmHg Indications: Chest Pain, COPD, Shortness of Breath, CAD, Hyperlipidemia, Hypertension/HDD, HX stents 2D Dimensions Left Atrium 4.21 cm M: 3.0 - 4.0 LVEF (Amezcua's) 62.80 % M: 52 - 72 LVOT 1.29 cm (M/F) 1.5-2.5 LV Volume 73.60 mL M: 62 - 150 LV Volume Index 37.6 mL/m2 M: 34 - 74 LA Volume 45.70 mL LA Volume Index 23.32 mL/m2 (M/F) 16-34 EF AP4 65.40 % EF AP2 58.2 % EF BP 62.8 % GL Strain -28.9 % M-Mode Dimensions RVDd 2.96 cm (0.9-2.6) LVDd 5.39 cm (3.5-5.7) Ao Diam 4.55 cm (2.0-3.7) LVDs 3.91 cm (3.5-5.7) IVSd 1.25 cm (0.6-1.1) PWd 0.76 cm (0.6-1.1) EF (Teich) 52.90% FS 27.50% EDV (Teich) 140.70 mL TAPSE 1.32 (<1.7) ESV (Teich) 66.30 mL LV Diastology E Decel Time 200 (160-240 msec) E/A Ratio 0.6 MED E' 6.8 (>= 7 cm/sec) MED A' 10.20 cm/s E'/MED E' Ratio 7.87 (<= 14) LAT E' 10.2 (>= 10 cm/sec) LAT A' 15.80 cm/s E/LAT E' Ratio 5.25 (<= 14) Aortic Valve LVOT Max 152.0 (70-110 cm/s) KEVIN Index 0.47 cm2/m2 LVOT VTI 32.52 cm AoV Peak Aashish. 230.0 (50-130 cm/s) AO Peak GR. 21.10 mmHg AO Mean GR. 11.90 (<5 mmHg) AO VTI 46.2 (18-25 cm) KEVIN (VTI) 0.92 (2.5-4.5 cm2) Mitral Valve MV E Max Aashish. 54.0 (40-130 cm/s) MV A Velocity 88.0 (40-130 cm/s) E/A Ratio 0.61 MV Decel. Time 200 (160-240 ms) Tricuspid Valve TR P. Velocity 205.00 cm/s RAP Estimate 10.00 mmHg RVSP 26.90 mmHg Left Ventricle The left ventricle is normal size. The left ventricular systolic function is normal. The left ventricular ejection fraction is within the normal range. There is increased LV wall thickness. There is normal LV segmental wall motion. Transmitral Doppler flow pattern suggests impaired LV relaxation. LVEF is 60%. Right Ventricle Right ventricle is mildly dilated. The right ventricular systolic function is normal. Atria Left atrium is mildly dilated. Right atrium is mildly dilated. There is no Doppler evidence of interatrial shunt. Aortic Valve The aortic valve is mildly thickened. Mild aortic stenosis. Peak velocity 2.4 m/s. Mean AV gradient 11 mmHg. Max AV gradient 24 mmHg. DI 0.58. KEVIN by 2D planimetry is 1.9 cm???. Trace aortic regurgitation. Mitral Valve The mitral valve is normal in structure. No evidence of mitral valve stenosis. Mild mitral regurgitation. Tricuspid Valve The tricuspid valve leaflets are thin and pliable. Mild tricuspid regurgitation. RVSP is 15-20 mmHg. Pulmonic Valve The pulmonary valve is normal in structure. Trace pulmonic regurgitation. Great Vessels The aortic root is normal in size. The ascending aorta is mildly dilated, measuring 3.8 cm in diameter. IVC is normal in size and collapses >50% with inspiration. Pericardium There is no pericardial effusion. Other Information Study Quality: Fair Conclusion Normal biventricular systolic function. Mild RV dilation. Mild biatrial dilation. Mild MR, mild TR. Mild (peak velocity 2.4 m/s. Mean AV gradient 11 mmHg. Max AV gradient 24 mmHg. DI 0.58. KEVIN by 2D planimetry is 1.9 cm???) The ascending aorta is mildly dilated, measuring 3.8 cm in diameter. Electronically signed by : Carol Urbano MD 10/10/2023 12:07:23
[2023-10-11] VITALS: BP 94/53; PULSE 74; PULSE 80; RESP 16; TEMP 37.2; O2SAT 92
[2023-10-11 04:00] VITALS: BP 84/51; PULSE 70; PULSE 78; RESP 16; TEMP 36.9; O2SAT 90; BMI 28.6
--- NOTE | 2023-10-11 04:34 | PC.NURSE ---
Patient alert and oriented x4 this shift. Tolerating room air well. he has had uneventful night and continues to deny chest pain/pressure or shortness of breath. He has slept most of the night. NSR on tele. Lung sounds clear. Abdomen soft, non-tender, active bowel sounds x4. No needs or concerns expressed this shift. VSS. Bed alarm on for patient safety due to recent sedated procedure. Call light within reach.
[2023-10-11 06:51] LABS: Basophils # 0.1 K/mm3 (0-0.2); Basophils % 0.8 % (0.1-2.0); Eosinophils # 0.3 K/mm3 (0.0-0.4); Hematocrit 31.3 % (42.0-52.0); Hemoglobin 11.6 g/dL (14.1-18.0); Lymphocytes # 1.8 K/mm3 (0.7-4.5); Lymphocytes % 21.1 % (10-50); Mean Corpuscular HGB Conc 37.1 g/dL (31.8-35.4); Mean Corpuscular Hemoglobin 36.7 pg (27.0-31.2); Mean Corpuscular Volume 98.8 fl (80-94); Mean Platelet Volume 8.7 fl (7.4-10.4); Monocytes # 0.7 K/mm3 (0.1-1.0); Monocytes % 8.6 % (1.7-9.3); Neutrophils # 5.6 K/mm3 (1.8-7.8); Neutrophils % 66.6 % (37.0-80.0); Platelet Count 220 K/mm3 (142-424); Red Blood Count 3.17 M/mm3 (4.60-6.20); Red Cell Distribution Width 14.2 % (11.5-17.5); White Blood Count 8.4 K/mm3 (4.8-10.8)
[2023-10-11 07:09] LABS: Alanine Aminotransferase 21 U/L (12-78); Albumin Level 3.4 g/dl (3.5-5.0); Albumin/Globulin Ratio 1.2 (1.1-1.8); Alkaline Phosphatase 78 U/L (38-126); Anion Gap 8.6 mEq/L (5-15); Aspartate Amino Transferase 37 U/L (17-59); Bilirubin,Total 0.8 mg/dl (0.2-1.3); Blood Urea Nitrogen 22 mg/dl (9-20); Calcium 8.8 mg/dl (8.4-10.2); Carbon Dioxide 29 mmol/L (22.0-30.0); Chloride 103 mmol/L (98-107); Creatinine Clearance Estimated 67 mL/min (50-200); Estimated Glomerular Filt Rate 108 ml/min (>60); GFR (African American) 131 ML/MIN (>60); Globulin 2.8 g/dL (1.3-3.2); Glucose 106 mg/dl (74-100); Potassium 4.6 mmoL/L (3.5-5.1); Sodium 136 mmol/L (136-145); Total Protein,Serum 6.2 g/dl (6.3-8.2)
[2023-10-11 07:50] VITALS: BP 90/53; PULSE 77; RESP 17; TEMP 36.7; O2SAT 95
--- NOTE | 2023-10-11 07:54 | EXP.DC.SUM ---
General Admission date:: 10/08/23 Discharge date: 10/11/23 HPI HPI HPI: Mr. Bolaños is an 83-year-old male with history of CAD, reports having had a cath a few years ago at with 2 stents to his LAD. Also has history of hypertension, hyperlipidemia, COPD, GERD. Presented to the ER for evaluation of chest pain and shortness of breath. States has had worsening shortness of breath over the past month or more. Got worse today when he woke up and felt like something was sitting on his chest. He states felt so bad he had to sit straight up. He has had dyspnea with exertion and orthopnea. Does not sleep laying flat. Denies any fever, cough, nausea, vomiting. No syncope. Has had slight increase swelling in his legs. Taking his medications at home. Workup in the ER concerning for uptrending troponins from less than 0.01-0.03. EKG with nonspecific changes. Patient has elevated cardiac risk. Medicine consulted for admission and further management. Loaded with 324 mg of aspirin in the ER. Prior to arrival to the floor, patient loaded with 300 mg Plavix and 1 mg/kg of Lovenox. Started 1 mg nitroglycerin paste on his chest. Feeling some better. Pain improving but not completely resolved. On telemetry. Stable on room air. On-call venue coordinator consulted and aware of patient. Hospital Course Hospital Course Hospital Course: 83-year-old male with history of CAD and previous stenting. Presented with chest pressure, exertional dyspnea. Discussed case with ER physician, request admission for serial troponins and medical management of unstable angina. Admitted for further management. Patient had improvement in chest pain. Cardiology was consulted and taken for heart cath due to NSTEMI. Found to have severe circumflex disease and severe disease in the distal left main as well as an occluded right coronary artery. Recommend medical management or consideration for bypass surgery at this time. Hemodynamically stable. Medications adjusted. Further management as an outpatient. Stable to discharge home with close follow-up. Problems addressed as follows: NSTEMI Unstable angina CAD -Admitted for NSTEMI. Cardiology consulted. Taken for cath. The patient was found to have severe circumflex disease and severe disease to the distal left main artery as well as an occluded right coronary artery. Medical management or consideration for bypass surgery is recommended. The patient will be referred to cardiothoracic surgery at [facility] on an outpatient basis. If cardiothoracic surgery declines proceeding with coronary artery bypass grafting and the patient fails medical management then he can be considered for coronary stenting at that time. He was initiated on metoprolol succinate 12.5 mg daily and isosorbide mononitrate 30 mg daily. Continue Crestor 20 mg daily for hyperlipidemia. - Echocardiogram shows normal ejection fraction with mild RV dilatation, mild biatrial dilatation, mild MR, mild TR and mild aortic stenosis. There is a mildly dilated ascending aorta measuring 3.8 cm. He will need further evaluation for a thoracic aneurysm on an outpatient basis. HLD: Lipid panel with LDL of 54. Continue Crestor 20 mg daily HTN: Discontinued lisinopril. Continue metoprolol succinate and isosorbide mononitrate. BPH: Continue tamsulosin 0.4 mg daily Total time spent on discharge 38 minutes in counseling, documentation, chart review, and direct care with patient. Exam Data for Last 24 hours Vital signs and Labs for Last 24 Hours: Temp Pulse Resp BP Pulse Ox O2 Del Method O2 Flow Rate 98.4 F 78 16 84/51 L 90 L Nasal Cannula 1 10/11/23 04:00 10/11/23 04:00 10/11/23 04:00 10/11/23 04:00 10/11/23 04:00 10/11/23 06:59 10/11/23 06:59 Laboratory Results - last 24 hr 10/11/23 06:20: WBC 8.4, RBC 3.17 L, Hgb 11.6 L, Hct 31.3 L, MCV 98.8 H, MCH 36.7 H, MCHC 37.1 H, RDW 14.2, Plt Count 220, MPV 8.7, Neut % (Auto) 66.6, Lymph % (Auto) 21.1, [place] % (Auto) 8.6, Eos % (Auto) 3.0, Baso % (Auto) 0.8, Neut # (Auto) 5.6, Lymph # (Auto) 1.8, [place] # (Auto) 0.7, Eos # (Auto) 0.3, Baso # (Auto) 0.1, Sodium 136, Potassium 4.6, Chloride 103, Carbon Dioxide 29, Anion Gap 8.6, BUN 22 H D, Creatinine 0.70, Estimated Creat Clear 67, Estimated GFR 108, Est GFR ( Amer) 131, Glucose 106 H, Calcium 8.8, Total Bilirubin 0.8, AST 37 D, ALT 21, Alkaline Phosphatase 78, Total Protein 6.2 L, Albumin 3.4 L, Globulin 2.8, Albumin/Globulin Ratio 1.2 I & O for Last 24 hours: Intake & Output 10/08/23 10/09/23 10/10/23 10/11/23 23:59 23:59 23:59 23:59 Intake Total 1130 / 1370 1200 / 1200 Output Total 0 / 200 300 / 950 1900 / 1900 200 / 200 Balance 0 / -200 830 / 420 -700 / -700 -200 / -200 Weight 83.915 kg 80.286 kg 80.014 kg 82.781 kg Constitutional Constitutional: no acute distress, average body habitus and cooperative *Routine HEENT Exam Head: Present normocephalic Eye: Present EOMI and PERRL ENT: Present mucous membranes moist *Routine Neck Exam Neck: Present supple; Absent lymphadenopathy Routine Chest/Breast/Axilla Exam Chest wall: Absent tenderness *Routine Respiratory Exam Respiratory: Present CTA bilaterally; Absent rhonchi, wheezes or crackles *Routine Cardiovascular Exam Cardiovascular: Present RRR *Routine Abdominal Exam Abdominal: Present soft and normoactive bowel sounds; Absent tenderness *Routine Rectal Exam Patient deferred: visual exam *Routine Exam Patient deferred: penile exam *Routine Extremities Exam Extremities: Absent cyanosis, clubbing or edema Comments: Right radial insertion site clean, dry, intact *Routine Skin Exam Skin: Present warm; Absent rash *Routine Neurological Exam Neurological: Present alert, oriented X3 and moving all extremities; Absent altered mental status Results Data Completed and Pending Labs on day of discharge: Labs from last 24 hours 10/11/23 06:20 WBC 8.4 RBC 3.17 L Hgb 11.6 L Hct 31.3 L MCV 98.8 H MCH 36.7 H MCHC 37.1 H RDW 14.2 Plt Count 220 MPV 8.7 Neut % (Auto) 66.6 Lymph % (Auto) 21.1 [place] % (Auto) 8.6 Eos % (Auto) 3.0 Baso % (Auto) 0.8 Neut # (Auto) 5.6 Lymph # (Auto) 1.8 [place] # (Auto) 0.7 Eos # (Auto) 0.3 Baso # (Auto) 0.1 Sodium 136 Potassium 4.6 Chloride 103 Carbon Dioxide 29 Anion Gap 8.6 BUN 22 H D Creatinine 0.70 Estimated Creat Clear 67 Estimated GFR 108 Est GFR ( Amer) 131 Glucose 106 H Calcium 8.8 Total Bilirubin 0.8 AST 37 D ALT 21 Alkaline Phosphatase 78 Total Protein 6.2 L Albumin 3.4 L Globulin 2.8 Albumin/Globulin Ratio 1.2 DS: Diagnosis Discharge Diagnosis (1) Non-STEMI (non-ST elevated myocardial infarction): Status: Acute Code(s): I21.4 - Non-ST elevation (NSTEMI) myocardial infarction (2) Unstable angina: Status: Acute Code(s): I20.0 - Unstable angina (3) CAD (coronary artery disease): Status: Acute Code(s): I25.10 - Atherosclerotic heart disease of [place] coronary artery without angina pectoris Qualifiers: Associated angina: with unstable angina Coronary Disease-Associated Artery/Lesion type: [place] artery [place] vs. transplanted heart: [place] heart Qualified Code(s): I25.110 - Atherosclerotic heart disease of [place] coronary artery with unstable angina pectoris (4) Hyperlipidemia: Status: Acute Code(s): E78.5 - Hyperlipidemia, unspecified Qualifiers: Hyperlipidemia type: mixed hyperlipidemia Qualified Code(s): E78.2 - Mixed hyperlipidemia (5) Hypertension: Status: Acute Code(s): I10 - Essential (primary) hypertension Qualifiers: Hypertension type: primary hypertension Qualified Code(s): I10 - Essential (primary) hypertension Meds Home Medications and Allergies Home Medications ?Medication ?Instructions ?Recorded ?Confirmed ?Type tamsulosin 0.4 mg capsule 0.4 mg PO DAILY prostate 08/17/18 10/08/23 History esomeprazole magnesium 20 mg 20 mg PO DAILY Acid Reflux 03/24/20 10/08/23 History capsule,delayed release ipratropium bromide 21 mcg (0.03 2 spray intranasal BID Allergy 03/18/21 10/08/23 History %) nasal spray symptoms rosuvastatin 20 mg tablet 20 mg PO DAILY Cholesterol 04/23/23 10/08/23 History aspirin 81 mg tablet,delayed 81 mg PO DAILY 30 days #30 tabs 10/11/23 Rx release clopidogrel 75 mg tablet 75 mg PO DAILY 30 days #30 tabs 10/11/23 Rx isosorbide mononitrate 30 mg 30 mg PO DAILY 30 days #30 tabs 10/11/23 Rx tablet,extended release 24 hr metoprolol succinate 25 mg 12.5 mg (1/2 x 25 mg) PO DAILY 30 10/11/23 Rx tablet,extended release 24 hr days #15 tabs New Prescriptions to Start Prescriptions: aspirin Pablo Calixto clopidogrel Pablo Calixto isosorbide mononitrate Pablo Calixto metoprolol succinate Pablo Calixto Allergies Allergy/AdvReac Type Severity Reaction Status Date / Time Sulfa (Sulfonamide Allergy Unknown I-RASH Verified 12/03/21 08:50 Antibiotics) [SULFA (SULFONAMIDE ANTIBIOTICS)] Discharge Plan Disposition Patient Disposition: Home, Self-Care Condition: Fair Follow up Plan Follow up with: Fausto Fontana MD [Staff Physician] - 10/25/23 2:00 pm () Josh Dias MD [Primary Care Provider] - 10/17/23 3:15 pm Prescriptions/Medication Reconciliation: New isosorbide mononitrate 30 mg Tablet Extended Release 24 Hr 30 mg PO DAILY 30 Days Qty: 30 0RF clopidogrel 75 mg Tablet 75 mg PO DAILY 30 Days Qty: 30 0RF aspirin 81 mg Tablet,Delayed Release (Dr/Ec) 81 mg PO DAILY 30 Days Qty: 30 0RF metoprolol succinate 25 mg Tablet Extended Release 24 Hr 12.5 mg PO DAILY 30 Days Qty: 15 0RF Continued tamsulosin 0.4 mg capsule 0.4 mg PO DAILY esomeprazole magnesium 20 mg capsule,delayed release(DR/EC) 20 mg PO DAILY ipratropium bromide 21 mcg (0.03 %) spray,non-aerosol 2 spray INTRANASAL BID Rx Instructions: administer into each nostril rosuvastatin 20 mg tablet 20 mg PO DAILY Discontinued lisinopril 10 MG tablet 10 mg PO DAILY Patient Comments: Problem Reconciliation Problems Reviewed?: Yes Patient Discharge Instructions ACTIVITY: Continue current activity DIET: continue same diet Patient Instructions: DI for Cardiac Catheterization, DI for Surgical Site Infection, DI for Chest Pain Print Language: Italian Providers Primary Care Provider: Josh Dias Admit Provider: Pablo Calixto Attending Provider: Pablo Calixto
[2023-10-11 08:00] VITALS: PULSE 80
[2023-10-11] MEDS: ASPIRIN EC 81MG TABLET 81 MG PO (08:49)
[2023-10-11] MEDS: METOPROLOL SUCCINATE XL 25MG TABLET 12.5 MG PO (08:50)
[2023-10-11] MEDS: ISOSORBIDE MONO 30MG TAB.ER.24H 30 MG PO (08:50)
--- NOTE | 2023-10-11 08:59 | P.PN_ITS ---
Subjective Subjective Date: 10/11/23 Time: 08:15 Principal diagnosis: non-stemi, CAD Interval history: This is an 83-year-old gentleman who presented to the emergency department with complaints of chest pressure. He was found to have a non-STEMI and underwent left cardiac catheterization yesterday. The patient was found to have severe circumflex disease as well as severe distal left main disease and a chronically occluded right coronary artery which is filling via [id number] collaterals. At this point medical management or consideration of CABG is preferred. The patient has requested to be seen by a cardiothoracic surgeon at [facility] so we are currently setting up a referral on an outpatient basis. If CT surgery denies bypass and he fails medical management then coronary stenting can be considered at that time. He has been started on antianginals with metoprolol XL and isosorbide mononitrate. This morning he denies any chest pain or pressure. He denies any shortness of breath or edema. He denies any fever, chills, nausea, vomiting, diarrhea, PND or orthopnea. Exam Data for Last 24 hours Vital signs and Labs for Last 24 Hours: Temp Pulse Resp BP Pulse Ox O2 Del Method O2 Flow Rate 98.1 F 77 17 90/53 L 95 Nasal Cannula 1 10/11/23 07:50 10/11/23 07:50 10/11/23 07:50 10/11/23 07:50 10/11/23 07:50 10/11/23 07:50 10/11/23 07:50 Laboratory Results - last 24 hr 10/11/23 06:20: WBC 8.4, RBC 3.17 L, Hgb 11.6 L, Hct 31.3 L, MCV 98.8 H, MCH 36.7 H, MCHC 37.1 H, RDW 14.2, Plt Count 220, MPV 8.7, Neut % (Auto) 66.6, Lymph % (Auto) 21.1, [place] % (Auto) 8.6, Eos % (Auto) 3.0, Baso % (Auto) 0.8, Neut # (Auto) 5.6, Lymph # (Auto) 1.8, [place] # (Auto) 0.7, Eos # (Auto) 0.3, Baso # (Auto) 0.1, Sodium 136, Potassium 4.6, Chloride 103, Carbon Dioxide 29, Anion Gap 8.6, BUN 22 H D, Creatinine 0.70, Estimated Creat Clear 67, Estimated GFR 108, Est GFR ( Amer) 131, Glucose 106 H, Calcium 8.8, Total Bilirubin 0.8, AST 37 D, ALT 21, Alkaline Phosphatase 78, Total Protein 6.2 L, Albumin 3.4 L, Globulin 2.8, Albumin/Globulin Ratio 1.2 I & O for Last 24 hours: Intake & Output 10/08/23 10/09/23 10/10/23 10/11/23 23:59 23:59 23:59 23:59 Intake Total 1130 / 1370 1200 / 1200 270 / 270 Output Total 0 / 200 300 / 950 1900 / 1900 200 / 200 Balance 0 / -200 830 / 420 -700 / -700 70 / 70 Weight 185 lb 177 lb 176 lb 6.4 oz 182 lb 8 oz Narrative: Telemetry strip shows sinus rhythm. Left cardiac catheterization shows: The left main artery Has an ostial 50 and distal 60% calcified stenosis The left anterior descending artery Has proximal 20 and 30% calcified stenoses with mid vessel 30% concentric stenosis. The LAD is large and wraps the apex. A moderate to large ramus intermedius originates in the proximal LAD and has 30% proximal calcified stenoses while the small to medium sized first diagonal artery has an ostial 80% calcified stenosis The circumflex artery Nondominant proximally 2.5 mm in diameter and has an ostial to proximal greater than 95% concentric calcified stenosis. The proximal to distal circumflex artery is moderate in size and is accompanied by FARHA[place] II flow The right coronary artery Dominant and ostially occluded which fills via [id number] collaterals primarily from the LAD The OTOOLE ventriculogram reveals Normal 60% The left ventricular end-diastolic pressure 15 to 20 mmHg IMPRESSION Severe coronary disease as described above Normal ejection fraction Mildly elevated LVEDP PLAN 1. At this point I favor either medical management or consideration of surgical bypass surgery. It is reasonable to have a surgeon discuss the risks and benefits of the surgery. 2. If patient's angina is recalcitrant to medical management consideration could be given to perform high risk bifurcating stents to the left main artery LAD and circumflex artery. Prior to undertaking this procedure I would prefer patient be evaluated by CT surgery be denied and then failed medical management 3. Maximize antianginal medications 4. LDL less than 55 to be achieved high intensity statin Constitutional Constitutional: no acute distress and average body habitus *Routine HEENT Exam Head: Present normocephalic and atraumatic ENT: Present mucous membranes moist *Routine Neck Exam Neck: Present supple, full ROM and normal carotid upstroke; Absent JVD, carotid bruit or lymphadenopathy *Routine Respiratory Exam Respiratory: Present CTA bilaterally, normal respiratory effort, able to speak in complete sentences and symmetric chest movement *Routine Cardiovascular Exam Cardiovascular: Present RRR, Normal S1 and Normal S2; Absent murmur or gallop *Routine Abdominal Exam Abdominal: Present soft and normoactive bowel sounds; Absent tenderness, distended or organomegaly *Routine Extremities Exam Extremities: Present full ROM, pulses intact and normal capillary refill; Absent cyanosis, clubbing or edema *Routine Skin Exam Skin: Present intact and warm; Absent erythema *Routine Neurological Exam Neurological: Present alert, oriented X3 and CN II-XII intact; Absent sensory deficit or motor deficit Routine Psychiatric Exam Psychiatric: Present normal affect Progress Note: A&P Assessment and plan (1) Non-STEMI (non-ST elevated myocardial infarction): Status: Acute (2) CAD (coronary artery disease): Status: Acute (3) Hyperlipidemia: Status: Acute (4) Hypertension: Status: Acute (5) Abnormal electrocardiogram [ECG] [EKG]: Status: Acute Assessment and Plan Assessment and Plan for All Diagnoses:: Plan: 1. The patient was admitted to the hospital with a non-STEMI. He had known coronary artery disease and underwent left cardiac catheterization yesterday. The patient was found to have severe circumflex disease and severe disease to the distal left main artery as well as an occluded right coronary artery. Medical management or consideration for bypass surgery is recommended. The patient will be referred to cardiothoracic surgery at [facility] on an outpatient basis. 2. If cardiothoracic surgery declines proceeding with coronary artery bypass grafting and the patient fails medical management then he can be considered for coronary stenting at that time. The patient has verbalized understanding. 3. The patient has been started on Toprol-XL and isosorbide mononitrate for antianginal's. His angina has resolved at this time. 4. Coronary artery disease is present as mentioned above. Plavix has been stopped since he is being considered for CABG. He will remain on aspirin 81 mg daily. 5. His blood pressure is acceptable. 6. His LDL goal is less than 55. His LDL is 54. He is on a statin. 7. Echocardiogram shows normal ejection fraction with mild RV dilatation, mild biatrial dilatation, mild MR, mild TR and mild aortic stenosis. 8. There is a mildly dilated ascending aorta measuring 3.8 cm. He will need further evaluation for a thoracic aneurysm on an outpatient basis. 9. The patient is stable for discharge home today from a cardiac standpoint. He will need to follow-up in cardiology clinic in 1 week on an outpatient basis. He does see a grants and contracts assistant, Dr. Salcido, in [facility] but he is going to follow-up in our office to ensure that he gets referred for bypass surgery and then he will decide whether or not he will continue with Dr. Salcido following bypass. 10. The patient can be discharged on the following cardiac medications: Aspirin 81 mg daily, isosorbide mononitrate 30 mg daily, Toprol XL 12.5 mg p.o. daily, Crestor 20 mg p.o. nightly. Thank you for the opportunity to help participate in the care of this patient. All recommendations and orders are per Dr. Urbano.
--- NOTE | 2023-10-12 13:27 | CARE MANAGER ---
Spoke with patient regarding recent discharge. Patient stated that he is doing ok, has started new medication prescribed at discharge and was aware of scheduled f/u appt with Dr. Dias. He was not aware of f/u scheduled with Dr. Fontana, which I gave him details for at time of call. No complaints/concerns voiced.
== END 2023-10-11 12:14 | disposition home or self-care (01) ==
LOC: ER 16:46 → 2ND 18:01 → ER 18:44
PROVIDERS: Internal Medicine; Nurse Practitioner Family; Admitting Provider Internal Medicine Adolescent Medicine; Emergency Provider Emergency Medicine; PCP Family Medicine; Visit Provider Internal Medicine Adolescent Medicine
DX: I25.110 Atherosclerotic heart disease of native coronary artery with unstable angina pectoris (principal); E78.5 Hyperlipidemia, unspecified; I10 Essential (primary) hypertension; I21.4 Non-ST elevation (NSTEMI) myocardial infarction; E78.2 Mixed hyperlipidemia; R94.31 Abnormal electrocardiogram [ECG] [EKG]; Z79.899 Other long term (current) drug therapy; Z95.5 Presence of coronary angioplasty implant and graft
CPT/HCPCS: 36415; 71045; 80050; 80053; 80061; 83735; 83880; 84436; 84443; 84484; 85025; 85378; 87636; 93005; 93306; 93458; 99152; 99285; C1725; C1769; G0378; J1200; J1644; J1650; J2250; J3010; J7620; Q9967

== ENCOUNTER 2023-10-16 08:11 | Emergency (ER) | payer MEDICARE, MEDICAID, SELFPAY ==
[2023-10-16 08:12] VITALS: BP 125/54; PULSE 76; RESP 18; TEMP 36.8; O2SAT 95; BMI 26.6
--- NOTE | 2023-10-16 08:15 | PC.NURSE ---
dr torres at bedside
--- NOTE | 2023-10-16 08:19 | ECG_ITS ---
APPROVED REPORT Exam: Resting ECG HR:80 bpm ECG Measurements Heart Rate 80 AXES [place] 160 P 60 QRSd 86 QRS -14 QT 345 T 39 QTc 381 Conclusion SINUS RHYTHM WITH OCCASIONAL SUPRAVENTRICULAR PREMATURE COMPLEXES INFERIOR MYOCARDIAL INFARCTION , PROBABLY OLD [40+ ms Q WAVE AND/OR ST/T ABNORMALITY IN II/aVF] ABNORMAL ECG UNCONFIRMED REPORT Electronically signed by : Pablo Aaron, 10/16/2023 14:32:39
[2023-10-16 08:21] VITALS: BP 125/54; PULSE 81; O2SAT 95
[2023-10-16 08:23] VITALS: BMI 29.7
--- NOTE | 2023-10-16 08:28 | CT_ITS ---
PROCEDURE INFORMATION: Exam: CTA Head With Contrast, Arteriography Exam date and time: 10/16/2023 9:33 AM Age: 83 years old Clinical indication: Pain; Other: Neck/head; Additional info: Severe right posterior head/neck pain TECHNIQUE: Imaging protocol: Computed tomographic angiography of the head with contrast. Exam focused on the arteries. 3D rendering (Not supervised by radiologist): MIP and/or 3D reconstructed images were created by the technologist. COMPARISON: CT ANGIO HEAD 10/16/2023 9:33 AM FINDINGS: ANTERIOR CIRCULATION: Right internal carotid artery: Intracranial segment is patent with no significant stenosis. No aneurysm. Right middle cerebral artery: No occlusion or significant stenosis. No aneurysm. Right anterior cerebral artery: No occlusion or significant stenosis. No aneurysm. 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 Left internal carotid artery: Intracranial segment is patent with no significant stenosis. No aneurysm. Left middle cerebral artery: No occlusion or significant stenosis. No aneurysm. Left anterior cerebral artery: No occlusion or significant stenosis. No aneurysm. POSTERIOR CIRCULATION: Right vertebral artery: No occlusion or significant stenosis. No aneurysm. Left vertebral artery: No occlusion or significant stenosis. No aneurysm. Basilar artery: No occlusion or significant stenosis. No aneurysm. Right posterior cerebral artery: There is a origin of right posterior cerebral artery. Left posterior cerebral artery: No occlusion or significant stenosis. No aneurysm. Brain: No definite mass, mass effect, or midline shift. Cerebral ventricles: No ventriculomegaly. Bones/joints: Unremarkable. No acute fracture. Soft tissues: Unremarkable. IMPRESSION: No acute intracranial large vessel occlusion. 5 mm anterior communicating artery aneurysms. PROCEDURE INFORMATION: Exam: CTA Neck With Contrast Exam date and time: 10/16/2023 9:33 AM Age: 83 years old Clinical indication: Pain; Other: Neck/head; Additional info: Severe right posterior head/neck pain TECHNIQUE: Imaging protocol: Computed tomographic angiography of the neck with contrast. Exam focused on the cervical segments of the vasculature. 3D rendering (Not supervised by radiologist): MIP and/or 3D reconstructed images were created by the technologist. Radiation optimization: All CT scans at this facility use at least one of these dose optimization techniques: automated exposure control; mA and/or kV adjustment per patient size (includes targeted exams where dose is matched to clinical indication); or iterative reconstruction. Contrast material: ISOVUE; Contrast volume: 100 ml; Contrast route: INTRAVENOUS (IV); COMPARISON: CT CERVICAL SPINE WO CON 04/23/2023 12:00 AM FINDINGS: Right common carotid artery: No stenosis. No dissection or occlusion. Right internal carotid artery: There is heavy calcific plaque noted at the origin of the right internal carotid artery without significant stenosis. Right external carotid artery: No occlusion or stenosis of the origin. Left common carotid artery: No stenosis. No dissection or occlusion. Left internal carotid artery: Heavy calcific atheromatous plaque is noted at the origin of the left internal carotid artery causing less than 40% stenosis. Left external carotid artery: No occlusion or stenosis of the origin. Right vertebral artery: No stenosis. No dissection or occlusion. Left vertebral artery: No stenosis. No dissection or occlusion. Soft tissues: Normal. No significant soft tissue swelling. Bones/joints: No acute fracture. IMPRESSION: Heavy atheromatous calcific plaque at the origins of the internal carotid arteries. Less than 40% stenosis on each side. REFERENCES: NASCET CRITERIA. The degree of stenosis in the cervical segment of the internal carotid artery is based on NASCET criteria. Normal is no stenosis. Mild is less than 50% stenosis. Moderate is 50-69% stenosis. Severe is 70% to 99% stenosis. Total occlusion is no detectable patent lumen.
--- NOTE | 2023-10-16 08:28 | CT_ITS ---
PROCEDURE INFORMATION: Exam: CTA Chest With Contrast Exam date and time: 10/16/2023 9:37 AM Age: 83 years old Clinical indication: Pain; Other: Head/neck/back; Patient HX: Recent heart attack, 1 week per patient; Additional info: Severe right posterior head/neck pain TECHNIQUE: Imaging protocol: Computed tomographic angiography of the chest with contrast. Exam focused on the arteries. 3D rendering (Not supervised by radiologist): MIP and/or 3D reconstructed images were created by the technologist. Radiation optimization: All CT scans at this facility use at least one of these dose optimization techniques: automated exposure control; mA and/or kV adjustment per patient size (includes targeted exams where dose is matched to clinical indication); or iterative reconstruction. Contrast material: ISOVUE; Contrast volume: 86 ml; Contrast route: INTRAVENOUS (IV); COMPARISON: CR XR CHEST PORTABLE 10/08/2023 2:57 PM FINDINGS: Pulmonary arteries: Normal. No pulmonary emboli. Aorta: Aortic atherosclerosis. No aortic aneurysm. No aortic dissection. Lungs: Right lung base atelectasis, adjacent to right hemidiaphragm elevation. No consolidation. No masses. Pleural spaces: Unremarkable. No pneumothorax. No pleural effusion. Heart: Coronary artery atherosclerosis. No cardiomegaly. No pericardial effusion. Lymph nodes: Unremarkable. No enlarged lymph nodes. Bones/joints: Unremarkable. No acute fracture. Soft tissues: Right hemidiaphragm elevation. Surgical sutures along the anterior abdominal wall IMPRESSION: No acute findings. No pulmonary emboli. No aortic dissection.
--- NOTE | 2023-10-16 08:28 | CT_ITS ---
PROCEDURE INFORMATION: Exam: CT Head Without Contrast Exam date and time: 10/16/2023 9:30 AM Age: 83 years old Clinical indication: Pain; Other: Neck/head; Additional info: Severe right posterior head/neck pain TECHNIQUE: Imaging protocol: Computed tomography of the head without contrast. Radiation optimization: All CT scans at this facility use at least one of these dose optimization techniques: automated exposure control; mA and/or kV adjustment per patient size (includes targeted exams where dose is matched to clinical indication); or iterative reconstruction. COMPARISON: CT HEAD/BRAIN WO CON 04/23/2023 12:00 AM FINDINGS: Brain: There is no mass effect, midline shift, acute hemorrhage, extra-axial fluid collection or acute lobar infarct. collection or acute lobar infarct. Cerebral ventricles: No ventriculomegaly. Paranasal sinuses: Visualized sinuses are unremarkable. No fluid levels. Mastoid air cells: Visualized mastoid air cells are well aerated. Orbital cavities: The patient is post bilateral cataract surgery. Bones: Unremarkable. No acute fracture. Soft tissues: Unremarkable. IMPRESSION: No acute intracranial process.
--- NOTE | 2023-10-16 08:34 | HMH.EDGENADL ---
Discharge Plan Disposition Patient Disposition: Home, Self-Care Prescriptions Prescriptions: New cyclobenzaprine 5 mg tablet 5 mg PO TID PRN (Reason: muscle spasm) 5 Days Qty: 15 0RF No Action tamsulosin 0.4 mg capsule 0.4 mg PO DAILY esomeprazole magnesium 20 mg capsule,delayed release(DR/EC) 20 mg PO DAILY ipratropium bromide 21 mcg (0.03 %) spray,non-aerosol 2 spray INTRANASAL BID Rx Instructions: administer into each nostril isosorbide mononitrate 30 mg Tablet Extended Release 24 Hr 30 mg PO DAILY 30 Days Qty: 30 0RF clopidogrel 75 mg Tablet 75 mg PO DAILY 30 Days Qty: 30 0RF aspirin 81 mg Tablet,Delayed Release (Dr/Ec) 81 mg PO DAILY 30 Days Qty: 30 0RF metoprolol succinate 25 mg Tablet Extended Release 24 Hr 12.5 mg PO DAILY 30 Days Qty: 15 0RF rosuvastatin 20 mg tablet 20 mg PO DAILY Referrals Follow up/Referrals: Josh Dias MD [Primary Care Provider] - See instructions Activity Restrictions/Add. Instructions Additional Instructions/Restrictions: No evidence of an acute emergent medical condition associated with your neck pain no evidence of a cardiopulmonary emergency or neurovascular emergency either. Please return with any strokelike symptoms high fevers debilitating pain or other concerns. Clinical Impressions Clinical Impression: Posterior neck pain Instructions Patient Instructions: DI for Neck Pain Print Language Print Language: [place] Discharge ED Provider: Veronica Aaron General Adult HPI General Chief complaint: Neck Pain/Injury Stated complaint: cant move head, no accident Time Seen by Provider: 10/16/23 08:15 Mode of Arrival: Wheelchair Source of Information: Patient Limitations: No Limitations Description of Symptoms (Recalled from ER Triage Doc. by RN): PT REPORTS NECK AND SHOULDER PAIN, WORSE ON RIGHT. STARTED YESTERDAY, NO FALL OR INJURY. RECENT HEART CATH, REPORTS WEAKNESS AND DIZZINESS. History of Present Illness HPI narrative: Patient is an 83-year-old male presenting today with severe right and posterior neck pain over the last 2 days that has gotten to the point where he is having a hard time moving his head. No injuries that he is aware of. Does have some pain in the right shoulder no exertional chest pain. He was recently admitted to hospital for an NSTEMI had a left heart cath, through his right radial artery, without any significant complications was found to have multivessel disease that was not severe enough to need stents he will be referred to cardiothoracic surgery on outpatient basis but has not yet had this referral and was scheduled to be followed up with our cardiologists in the clinic prior to this referral. Patient denies any worsening chest pain at this point. Denies any fevers denies any head or neck complaints particularly regards to the oropharynx no throat pain difficulty swallowing etc. No neurologic symptoms such as radiculopathy or weakness etc. Denies any significant swelling in the neck. States the pain is severe. Related Data Home Medications ?Medication ?Instructions ?Recorded ?Confirmed tamsulosin 0.4 mg capsule 0.4 mg PO DAILY prostate 08/17/18 10/08/23 esomeprazole magnesium 20 mg 20 mg PO DAILY Acid Reflux 03/24/20 10/08/23 capsule,delayed release ipratropium bromide 21 mcg (0.03 2 spray intranasal BID Allergy 03/18/21 10/08/23 %) nasal spray symptoms rosuvastatin 20 mg tablet 20 mg PO DAILY Cholesterol 04/23/23 10/08/23 Previous Rx's ?Medication ?Instructions ?Recorded aspirin 81 mg tablet,delayed 81 mg PO DAILY 30 days #30 tabs 10/11/23 release clopidogrel 75 mg tablet 75 mg PO DAILY 30 days #30 tabs 10/11/23 isosorbide mononitrate 30 mg 30 mg PO DAILY 30 days #30 tabs 10/11/23 tablet,extended release 24 hr metoprolol succinate 25 mg 12.5 mg (1/2 x 25 mg) PO DAILY 30 10/11/23 tablet,extended release 24 hr days #15 tabs cyclobenzaprine 5 mg tablet 5 mg PO TID PRN muscle spasm 5 10/16/23 days #15 tabs Allergies Allergy/AdvReac Type Severity Reaction Status Date / Time Sulfa (Sulfonamide Allergy Unknown I-RASH Verified 12/03/21 08:50 Antibiotics) [SULFA (SULFONAMIDE ANTIBIOTICS)] [facility] Disclaimer: The information contained in this section may have been updated after the patient was seen, as this information can be updated by other users. Medical History (Updated 10/16/23 @ 08:39 by Veronica Aaron MD) Abnormal electrocardiogram [ECG] [EKG] CAD (coronary artery disease) Non-STEMI (non-ST elevated myocardial infarction) Physical debility Acute pain of left hip Acute urinary retention Acute UTI Acute urinary retention Hematuria Prostate cancer Colonoscopy planned Ulcer Urinary tract infection COPD (chronic obstructive pulmonary disease) Asthma Arthritis History of gastroesophageal reflux (GERD) Hyperlipidemia Hypertension Prostate cancer Urinary retention Hematuria Cellulitis Dental abscess Acute sinus infection Encounter for laboratory testing for COVID-19 virus Bilateral otitis media Spider bite Acute urinary retention Spondylosis Labyrinthitis of left ear Sinusitis Common cold Surgical History H/O abdominal surgery History of heart artery stent History of cardiac cath Family History Other Family history of acute congestive heart failure Social History Smoking Status: Former smoker tobacco type: cigarettes second hand exposure: No alcohol intake: former substance use type: denies use current occupational status: retired Travel in the last 8 weeks: None household members: family housing: house current occupational exposures/hazards: No caffeine: Yes ROS Obtained: Yes All systems reviewed & no additional complaints except as documented Physical Exam General General appearance: alert and in no apparent distress Neck Neck exam: Present tenderness (Patient has tenderness in the right paraspinal musculature as well as in the midline no palpable mass swelling changes in the skin etc.) Respiratory Respiratory exam: Present normal lung sounds bilaterally; Absent respiratory distress Cardiovascular Cardiovascular exam: Present regular rate Extremities Exam Extremities exam: Present other (No evidence of any expanding hematoma around the left heart cath insertion site in the right radial artery neurovascular normal in the right upper extremity) Neurological Exam Neurological exam: Present alert, oriented X3, CN II-XII intact and normal gait; Absent motor sensory deficit Medical Decision Making Isra Inquiry Pt receiving controlled substance: No Vital Signs: 10/16/23 08:12 10/16/23 08:21 10/16/23 08:45 Temperature 98.2 F Temperature Source Oral Pulse Rate 81 79 Pulse Rate [Radial] 76 Respiratory Rate 18 Blood Pressure 125/54 L 119/59 L Blood Pressure [Left Arm] 125/54 L Blood Pressure Mean [Left Arm] 77 Blood Pressure Source [Left Arm] Automatic Cuff Blood Pressure Position [Left Arm] Sitting 02 Sat by Pulse Oximetry 95 95 95 Oxygen Delivery Method Room Air Room Air Room Air 10/16/23 09:00 10/16/23 10:00 Temperature Temperature Source Pulse Rate 70 78 Pulse Rate [Radial] Respiratory Rate Blood Pressure 109/59 L 102/57 L Blood Pressure [Left Arm] Blood Pressure Mean [Left Arm] Blood Pressure Source [Left Arm] Blood Pressure Position [Left Arm] 02 Sat by Pulse Oximetry 94 L 92 L Oxygen Delivery Method Room Air Room Air Lab Data Lab results reviewed: Yes I reviewed the patient's lab results. Lab Results 10/16/23 08:30: WBC 11.8 H, RBC 3.99 L, Hgb 12.7 L, Hct 39.3 L, MCV 98.6 H, MCH 31.7 H, MCHC 32.2, RDW 14.2, Plt Count 343, MPV 7.8, Neut % (Auto) 73.8, Lymph % (Auto) 15.0, [place] % (Auto) 8.0, Eos % (Auto) 2.4, Baso % (Auto) 0.7, Neut # (Auto) 8.7 H, Lymph # (Auto) 1.8, [place] # (Auto) 1.0, Eos # (Auto) 0.3, Baso # (Auto) 0.1, PT 11.0, INR 0.98, APTT 29.7, Sodium 138, Potassium 4.8, Chloride 102, Carbon Dioxide 32 H, Anion Gap 8.8, BUN 13, Creatinine 0.70, Estimated Creat Clear 69, Estimated GFR 108, Est GFR ( Amer) 131, Glucose 120 H, Calcium 9.2, Total Bilirubin 0.7, AST 31, ALT 23, Alkaline Phosphatase 92, Troponin I < 0.01, NT-Pro-B Natriuret Pep 375, Total Protein 7.2, Albumin 4.0, Globulin 3.2, Albumin/Globulin Ratio 1.3 10/16/23 08:30 10/16/23 08:30 Orders (Tests/Meds): ED MEDICATIONS Discontinued Medications Generic Name Dose Route Start Last Admin Trade Name Freq PRN Reason Stop Dose Admin Acetaminophen 1,000 mg 10/16/23 08:29 10/16/23 08:44 Acetaminophen 1,000mg/100ml Vial IV 10/16/23 08:30 1,000 mg ONCE ONE Administration Lactated Ringer's 1,000 mls @ 999 mls/hr 10/16/23 08:30 10/16/23 08:44 Lactated Ringer's 1000 Ml Bag IV 10/16/23 09:30 999 mls/hr .Q1H1M MC Administration Iopamidol 186 ml 10/16/23 09:45 10/16/23 09:46 Iopamidol-370 (76%);100ml Bottle IV 10/16/23 09:46 186 ml ONCE ONE Administration Morphine Sulfate 4 mg 10/16/23 08:29 10/16/23 08:44 Morphine 4mg/Ml Syringe IV 10/16/23 08:30 4 mg ONCE ONE Administration Ondansetron HCl 4 mg 10/16/23 08:29 10/16/23 08:44 Ondansetron 4mg/2ml Vial IV 10/16/23 08:30 4 mg ONCE ONE Administration Ondansetron HCl 4 mg 10/16/23 09:47 10/16/23 09:49 Ondansetron 4mg/2ml Vial IV 10/16/23 09:48 4 mg ONCE ONE Administration Sodium Chloride 10 ml 10/16/23 09:45 10/16/23 09:46 Sodium Chloride 0.9% 10ml Syr (Rad Only) IV 10/16/23 09:46 10 ml ONCE ONE Administration Sodium Chloride 50 ml 10/16/23 09:45 10/16/23 09:46 0.9 % Sodium Chloride 50 Ml Vial IV 10/16/23 09:46 50 ml ONCE ONE Administration ORDERS Category Date Time Status CT angio chest - dissection Stat Cat Scan 10/16/23 08:[address] angio head Stat Cat Scan 10/16/23 08:[address] angio neck Stat Cat Scan 10/16/23 08:[address] head/brain wo con Stat Cat Scan 10/16/23 08:28 Completed BNP [NT Pro Brain Natriuretic Pep.] Stat Lab 10/16/23 08:30 Completed CBC w/Auto Diff [Complete Blood Count Auto Diff] Stat Lab 10/16/23 08:30 Completed CMP [Comprehensive Metabolic Panel] Stat Lab 10/16/23 08:30 Completed PT/PTT Stat Lab 10/16/23 08:30 Completed Trop I [Troponin I] Stat Lab 10/16/23 08:30 Completed Troponin I Q3H Lab 10/16/23 11:30 Ordered Troponin I Q3H Lab 10/16/23 14:30 Ordered 12-lead EKG Request [ECG Request] Stat Y 10/16/23 08:23 Ordered ECG Data Tracing #1: I reviewed this ECG and interpreted as documented below: Ventricular rate of 88 normal sinus rhythm no acute ischemic changes noted Q waves noted in the inferior leads no acute ST elevations or depressions there is left axis deviation no significant conduction abnormalities Medical Decision Narrative: 83-year-old male presented today with above history and physical. [place] to be in significant discomfort having difficulty moving his neck. He is focally tender in the midline and off to the side of the paraspinal musculature in the cervical spine area. Most likely this is musculoskeletal in nature however other things in the differential would be spine pathology such as pathologic fracture metastatic disease, vascular dissection particular the recent admission with largely unremarkable cath for NSTEMI and chest pain and intervention in the arterial system in the right upper extremity which is the location of the side of his pain. Will get CT angios of the head and neck noncontrasted CT scan of the head and CT angio of the chest to rule out dissection. He did have a 3.8 cm possible thoracic aneurysm noted on recent heart cath as well this will be evaluated further on CT angio today. Patient does not have any abnormalities on neurologic exam no evidence of stroke. Also has no meningismus this is not consistent with meningitis etc. Tylenol and morphine will be administered in addition to IV fluids given the contrast bolus administration will reassess. Reassessment 10:32 AM patient feeling much better is able to move his neck as normal neurologic exam serially he is able to move his upper extremities no concern for stroke or infectious etiology at this point. CT angio of the chest neck and head were performed which I first interpreted and shows no vascular abnormality specifically no evidence of any complication from the recent left heart cath to the aortic root or any other major vessels particularly in the neck. No hematoma or other pathology to explain the patient's neck pain or symptoms. This is most likely musculoskeletal in retrospect with his localized pain. He was reassured he has been advised to take a muscle relaxer as well as Tylenol for his symptoms to return with any strokelike symptoms high fevers or other concerns. No evidence of heart attack or any other cardiopulmonary emergency noted either. Patient was discharged in stable and improved condition. Critical Care Critical Care Time Critical Care Time: No
[2023-10-16] MEDS: MORPHINE 4MG/ML SYRINGE 4 MG IV (08:44)
[2023-10-16] MEDS: LACTATED RINGERS 1000ML 1,000 ML 999 ML IV (08:44)
[2023-10-16] MEDS: ACETAMINOPHEN 1,000MG/100ML VIAL 1000 MG IV (08:44)
[2023-10-16] MEDS: ONDANSETRON 4MG/2ML VIAL 4 MG IV ×2 (08:44→09:49)
[2023-10-16 08:45] VITALS: BP 119/59; PULSE 79; O2SAT 95
[2023-10-16 08:49] LABS: Basophils # 0.1 K/mm3 (0-0.2); Basophils % 0.7 % (0.1-2.0); Eosinophils # 0.3 K/mm3 (0.0-0.4); Eosinophils % 2.4 % (0.1-12.0); Hematocrit 39.3 % (42.0-52.0); Hemoglobin 12.7 g/dL (14.1-18.0); Lymphocytes # 1.8 K/mm3 (0.7-4.5); Mean Corpuscular HGB Conc 32.2 g/dL (31.8-35.4); Mean Corpuscular Hemoglobin 31.7 pg (27.0-31.2); Mean Corpuscular Volume 98.6 fl (80-94); Mean Platelet Volume 7.8 fl (7.4-10.4); Neutrophils # 8.7 K/mm3 (1.8-7.8); Neutrophils % 73.8 % (37.0-80.0); Platelet Count 343 K/mm3 (142-424); Red Blood Count 3.99 M/mm3 (4.60-6.20); Red Cell Distribution Width 14.2 % (11.5-17.5); White Blood Count 11.8 K/mm3 (4.8-10.8)
[2023-10-16 08:52] LABS: Chloride 102 mmol/L (98-107); Potassium 4.8 mmoL/L (3.5-5.1); Sodium 138 mmol/L (136-145)
[2023-10-16 08:55] LABS: Alanine Aminotransferase 23 U/L (12-78); Albumin/Globulin Ratio 1.3 (1.1-1.8); Alkaline Phosphatase 92 U/L (38-126); Anion Gap 8.8 mEq/L (5-15); Aspartate Amino Transferase 31 U/L (17-59); Bilirubin,Total 0.7 mg/dl (0.2-1.3); Blood Urea Nitrogen 13 mg/dl (9-20); Calcium 9.2 mg/dl (8.4-10.2); Carbon Dioxide 32 mmol/L (22.0-30.0); Creatinine Clearance Estimated 69 mL/min (50-200); Estimated Glomerular Filt Rate 108 ml/min (>60); GFR (African American) 131 ML/MIN (>60); Globulin 3.2 g/dL (1.3-3.2); Glucose 120 mg/dl (74-100); Total Protein,Serum 7.2 g/dl (6.3-8.2)
[2023-10-16 08:57] LABS: Activated Partial Thrombo Time 29.7 seconds (22.8-30.6); INR 0.98 (0.9-1.1)
[2023-10-16 09:00] VITALS: BP 109/59; PULSE 70; O2SAT 94
[2023-10-16 09:09] LABS: Troponin I < 0.01 ng/ml (0.00-0.034)
--- NOTE | 2023-10-16 09:17 | PC.NURSE ---
pt going to XR
[2023-10-16 09:18] LABS: NT Pro Brain Natriuretic Pep. 375 pg/mL (0-450)
--- NOTE | 2023-10-16 09:18 | PC.NURSE ---
PT TO CT
--- NOTE | 2023-10-16 09:41 | PC.NURSE ---
pt back in room from CT
--- NOTE | 2023-10-16 09:41 | PC.NURSE ---
pt back from XR
[2023-10-16] MEDS: IOPAMIDOL-370 (76%);100ML BOTTLE 186 ML IV (09:46)
[2023-10-16] MEDS: 0.9 % SODIUM CHLORIDE 50 ML VIAL IV (09:46)
[2023-10-16] MEDS: SODIUM CHLORIDE 0.9% 10ML SYR (RAD ONLY) 10 ML IV (09:46)
[2023-10-16 10:00] VITALS: BP 102/57; PULSE 78; O2SAT 92
--- NOTE | 2023-10-16 10:20 | PC.NURSE ---
DR WEEKS AT BEDSIDE TO UPDATE PT AND FAMILY
[2023-10-16 10:32] VITALS: BP 109/68; PULSE 77; RESP 18; TEMP 36.9; O2SAT 96
[2023-10-16 11:00] LABS: Troponin I < 0.01 ng/ml (0.00-0.034)
== END 2023-10-16 10:41 | disposition home or self-care (01) ==
PROVIDERS: Emergency Provider Student in an Organized Health Care Education/Training Program; PCP Family Medicine
DX: M54.2 Cervicalgia (principal); J44.9 Chronic obstructive pulmonary disease, unspecified; I10 Essential (primary) hypertension; E78.5 Hyperlipidemia, unspecified; Z86.79 Personal history of other diseases of the circulatory system; Z95.5 Presence of coronary angioplasty implant and graft
CPT/HCPCS: 70450; 70496; 70498; 71275; 80053; 83880; 84484; 85025; 85610; 85730; 93005; 96361; 96374; 96375; 96376; 99285; J0131; J2270; J2405; J7120; Q9967

== ENCOUNTER 2024-04-24 13:48 | Outpatient (CLI) | payer MEDICARE, MEDICAID, SELFPAY ==
[2024-04-24 14:27] LABS: Basophils # 0.1 K/mm3 (0-0.2); Basophils % 0.9 % (0.1-2.0); Eosinophils # 0.1 K/mm3 (0.0-0.4); Eosinophils % 0.9 % (0.1-12.0); Hematocrit 41.2 % (42.0-52.0); Hemoglobin 13.1 g/dL (14.1-18.0); Lymphocytes # 1.4 K/mm3 (0.7-4.5); Lymphocytes % 20.7 % (10-50); Mean Corpuscular HGB Conc 31.8 g/dL (31.8-35.4); Mean Corpuscular Hemoglobin 30.2 pg (27.0-31.2); Mean Corpuscular Volume 94.9 fl (80-94); Mean Platelet Volume 9.9 fl (7.4-10.4); Monocytes # 0.7 K/mm3 (0.1-1.0); Monocytes % 9.6 % (1.7-9.3); Neutrophils # 4.7 K/mm3 (1.8-7.8); Neutrophils % 67.5 % (37.0-80.0); Platelet Count 275 K/mm3 (142-424); Red Blood Count 4.34 M/mm3 (4.60-6.20); Red Cell Distribution Width 13.6 % (11.5-17.5)
[2024-04-24 15:13] LABS: Alanine Aminotransferase 21 U/L (12-78); Albumin Level 4.1 g/dl (3.5-5.0); Alkaline Phosphatase 95 U/L (38-126); Anion Gap 13.5 mEq/L (5-15); Aspartate Amino Transferase 27 U/L (17-59); Bilirubin,Direct 0.1 mg/dl (0.0-0.4); Bilirubin,Indirect 0.4 mg/dL (0.0-0.9); Bilirubin,Total 0.5 mg/dl (0.2-1.3); Bilirubin,Unconjugated 0.4 mg/dL (0.0-1.1); Blood Urea Nitrogen 22 mg/dl (9-20); Carbon Dioxide 28 mmol/L (22.0-30.0); Chloride 104 mmol/L (98-107); Chol/HDL Ratio 4.5 (1-3.5); Cholesterol 138 mg/dl (140-200); Estimated Glomerular Filt Rate 159 ml/min (>60); GFR (African American) 193 ML/MIN (>60); Glucose 116 mg/dl (74-100); HDL Cholesterol 31 mg/dl (40-60); Magnesium 1.9 mg/dl (1.6-2.3); Potassium 4.5 mmoL/L (3.5-5.1); Sodium 141 mmol/L (136-145); Total Protein,Serum 6.8 g/dl (6.3-8.2); Triglycerides 229 mg/dl (30-150); VLDL Cholesterol 46 mg/dL (0-40)
[2024-04-24 15:24] LABS: Direct LDL Cholesterol 54.14 mg/dL (100-129)
[2024-04-24 15:31] LABS: Free T4 (Free Thyroxine) 1.16 ng/dl (0.78-2.19)
[2024-04-24 15:48] LABS: Thyroid Stimulating Hormone 1.52 uIU/mL (0.465-4.68)
== END 2024-04-24 23:59 | disposition home or self-care (01) ==
LOC: LAB 13:49
PROVIDERS: PCP Family Medicine; Visit Provider Nurse Practitioner
DX: R06.09 Other forms of dyspnea (principal); R94.31 Abnormal electrocardiogram [ECG] [EKG]; I25.110 Atherosclerotic heart disease of native coronary artery with unstable angina pectoris; E78.2 Mixed hyperlipidemia; I10 Essential (primary) hypertension
CPT/HCPCS: 36415; 80048; 80061; 80076; 83735; 84439; 84443; 85025

== ENCOUNTER 2024-05-04 12:55 | Outpatient (CLI) | payer MEDICARE, MEDICAID, SELFPAY ==
--- NOTE | 2024-05-04 13:16 | CA_ITS ---
APPROVED REPORT EXAM: Comprehensive 2D, Doppler, and color-flow Echocardiogram Tongue Carrier: FEDERICA Campbell, RVS Ht: 5 ft 7 in Wt: 186lbs BSA: 1.96 BP: 135/80 mmHg Indications: CAD, [place] , abn EKG, Murmur, , COPD, Ex-smoker, SOB, HTN, HLD 2D Dimensions IVSd 0.66 cm LVEF (Visual) 50.70 % PWd 0.83 cm LVEF (Amezcua's) 47.00 % LVDd 5.87 cm LV Volume 99.20 mL LVDs 4.33 cm LA Volume 54.70 mL Aortic Root 3.00 cm LA Volume Index 27.90 mL/m2 (M/F) 16-34 Left Atrium 3.84 cm EF AP4 45.20 % RVID Base (AP4) 3.33 cm (M/F) 2.5-4.1 EF AP2 47.8 % LVOT 2.09 cm (M/F) 1.5-2.5 EF BP 47.0 % GL Strain -18.0 % M-Mode Dimensions RVDd 2.29 cm (0.9-2.6) LVDd 5.87 cm (3.5-5.7) Ao Diam 3.45 cm (2.0-3.7) LVDs 4.51 cm (3.5-5.7) IVSd 0.72 cm (0.6-1.1) PWd 0.68 cm (0.6-1.1) EF (Teich) 52.80% EPSs 0.72 cm FS 27.20% EDV (Teich) 196.90 mL TAPSE 1.74 (<1.7) ESV (Teich) 92.90 mL LV Diastology E Decel Time 269 (160-240 msec) E/A Ratio 0.79 MED E' 6.6 (>= 7 cm/sec) MED A' 9.50 cm/s E'/MED E' Ratio 12.09 (<= 14) LAT E' 7.0 (>= 10 cm/sec) LAT A' 12.10 cm/s E/LAT E' Ratio 11.40 (<= 14) Aortic Valve LVOT Max 90.0 (70-110 cm/s) KEVIN Index 0.80 cm2/m2 LVOT VTI 21.75 cm AoV Peak Aashish. 212.0 (50-130 cm/s) AO Peak GR. 17.70 mmHg AO Mean GR. 9.50 (<5 mmHg) AO VTI 47.8 (18-25 cm) KEVIN (VTI) 1.56 (2.5-4.5 cm2) Mitral Valve MV E Max Aashish. 80.0 (40-130 cm/s) MV A Velocity 101.0 (40-130 cm/s) E/A Ratio 0.79 MV Decel. Time 269 (160-240 ms) Left Ventricle The left ventricle is normal size. The left ventricular systolic function is low normal. There is increased LV wall thickness. There is normal LV segmental wall motion. Transmitral Doppler flow pattern suggests impaired LV relaxation. LVEF is 50%. Right Ventricle The right ventricle is normal size. The right ventricular systolic function is normal. Atria The left atrium size is normal. The right atrium size is normal. There is no Doppler evidence of interatrial shunt. Aortic Valve Aortic valve is mildly thickened. Mild aortic stenosis is present. KEVIN by continuity equation is 1.6 cm???. Peak velocity is 2.1 m/s. Mean AV gradient is 10 mmHg. Max AV gradient is 17 mmHg. Trace aortic regurgitation. Mitral Valve The mitral valve is mildly thickened. No evidence of mitral valve stenosis. Mild mitral regurgitation. Tricuspid Valve Tricuspid valve is grossly normal in structure and function. Mild tricuspid regurgitation. RVSP is 20-25 mmHg. Pulmonic Valve The pulmonary valve is normal in structure. Mild pulmonic regurgitation. Great Vessels The aortic root is normal in size. The ascending aorta is not well-visualized. IVC is normal in size and collapses >50% with inspiration. Pericardium There is no pericardial effusion. Other Information Study Quality: Fair Conclusion Low normal LV systolic function (LVEF 50%). Normal RV size and function. Mild (KEVIN by continuity equation is 1.6 cm???. Peak velocity is 2.1 m/s. Mean AV gradient is 10 mmHg. Max AV gradient is 17 mmHg). Mild MR, mild TR, mild PI. Electronically signed by : Carol Urbano MD 05/14/2024 12:38:59
== END 2024-05-04 23:59 | disposition home or self-care (01) ==
LOC: RT 12:57
PROVIDERS: PCP Family Medicine; Visit Provider Nurse Practitioner
DX: I35.0 Nonrheumatic aortic (valve) stenosis (principal); I34.0 Nonrheumatic mitral (valve) insufficiency; I36.1 Nonrheumatic tricuspid (valve) insufficiency; I37.1 Nonrheumatic pulmonary valve insufficiency; R06.09 Other forms of dyspnea; R94.31 Abnormal electrocardiogram [ECG] [EKG]; I10 Essential (primary) hypertension; I25.110 Atherosclerotic heart disease of native coronary artery with unstable angina pectoris; E78.2 Mixed hyperlipidemia
CPT/HCPCS: 93306

== ENCOUNTER 2024-08-30 07:02 | Day surgery (SDC) | payer MEDICARE, MEDICAID, SELFPAY ==
[2024-08-30] VITALS (12 sets, daily range): BP systolic 109–148; BP diastolic 55–93; PULSE 58–86; RESP 18; TEMP 36.6; O2SAT 91–96; BMI 29.2
--- NOTE | 2024-08-30 07:17 | IR_ITS ---
APPROVED REPORT Patient Location: Outpatient PROCEDURES Selective coronary angiogram Drug-eluting stent deployment to the ostial left main artery extending into the proximal LAD Intravascular ultrasound INDICATION Coronary artery disease, Worsening angina pectoris, Nonsurgical bypass candidate, Complex intervention needing intravascular IVUS guidance, Unprotected left main stenting Informed consent was obtained prior to the procedure. COMPLICATIONS NONE Estimated Blood Loss: LESS THAN 10 ML TECHNIQUE One percent lidocaine used to anesthetize the right anterior aspect of the wrist. The right radial artery was accessed via the Seldinger technique. A 6 Armenian sheath was placed in the right radial artery. 2.5 mg of Verapamil, 800 mcg of nitroglycerin, 1mg Lidocaine and 5000 U Heparin were given through the arterial sheath. The JL3 catheter was also used to perform selective coronary angiogram. At the end the diagnostic angiogram therapeutic Was administered giving a therapeutic ACT and the guide catheter was left in the left main artery and a Choice PT extra-support wire placed in the proximal LAD. A 3.5 x 26 mm [place] frontier stent was deployed at 20 shayy in the ostial left main artery extending in the proximal LAD reducing the stenosis. Intravascular ultrasound probe was then advanced which demonstrated the stent was undersized proximally and in the distal left main artery therefore a 4 mm x 12 mm noncompliant balloon was deployed at 24 shayy further expanding the stent. Repeat IVUS demonstrated improvement with not perfect but still excellent expansion of the left main artery. The subtotally occluded circumflex artery was occluded after the procedure. The right coronary artery was never engaged as it was known this vessel is chronically occluded from repeat angiography ANGIOGRAPHIC RESULTS The left main artery Has a distal eccentric 50 to 60% stenosis The left anterior descending artery Is proximally widely patent and has mid vessel 20% stenosis The circumflex artery Nondominant and has an ostial proximal greater than 90% stenosis accompanied by FARHANA I flow. Following the procedure the circumflex artery was occluded The right coronary artery Dominant known to be proximally occluded and fills via [id number] collaterals primarily through the LAD The OTOOLE ventriculogram reveals Not performed The left ventricular end-diastolic pressure Not measured IMPRESSION Severe left main disease as described above Chronically occluded right coronary artery which is filled via [id number] collaterals from the LAD Subtotally occluded circumflex artery accompanied by chronic FARHANA I flow Successful stenting of the left main artery extending to the LAD severe disease reduced to less than 10% with 1 drug-eluting stent PLAN 1. Dual antiplatelet therapy 2. Cardiac rehabilitation 3. LDL less than 55 to proceed with high intensity statin 4. Avoidance of tobacco products 5. Risk factor modification Electronically signed by : Fausto Fontana MD 08/30/2024 11:09:34
[2024-08-30 08:22] LABS: Basophils % 0.5 % (0.1-2.0); Eosinophils # 0.1 Kmm3 (0.0-0.4); Eosinophils % 1.6 % (0.1-12.0); Hematocrit 44.3 % (42.0-52.0); Hemoglobin 14.1 g/dL (14.1-18.0); Immature Granulocytes # 0.03 10^3uL; Immature Granulocytes % 0.4 %; Lymphocytes # 1.9 K/mm3 (0.7-4.5); Lymphocytes % 25.4 % (10-50); Mean Corpuscular HGB Conc 31.8 g/dL (31.8-35.4); Mean Corpuscular Hemoglobin 31.1 pg (27.0-31.2); Mean Corpuscular Volume 97.8 fl (80-94); Mean Platelet Volume 9.2 fl (7.4-10.4); Neutrophils # 4.3 K/mm3 (1.8-7.8); Neutrophils % 59.1 % (37.0-80.0); Nucleated Red Blood Cells # 0 10^3/uL; Nucleated Red Blood Cells % 0 %; Platelet Count 249 K/mm3 (142-424); Red Blood Count 4.53 M/mm3 (4.60-6.20); Red Cell Distribution Width-SD 50.9 fL; White Blood Count 7.3 K/mm3 (4.8-10.8)
[2024-08-30 08:30] LABS: Chloride 102 mmol/L (98-107)
[2024-08-30 08:31] LABS: Potassium 4.2 mmoL/L (3.5-5.1); Sodium 140 mmol/L (136-145)
[2024-08-30 08:34] LABS: Anion Gap 7.2 mEq/L (5-15); Blood Urea Nitrogen 24 mg/dl (9-20); Calcium 11.1 mg/dl (8.4-10.2); Carbon Dioxide 35 mmol/L (22.0-30.0); Creatinine Clearance Estimated 67 mL/min (50-200); Estimated Glomerular Filt Rate 108 ml/min (>60); GFR (African American) 130 ML/MIN (>60); Glucose 105 mg/dl (74-100)
[2024-08-30] MEDS: diphenhydrAMINE 50MG/ML VIAL 50 MG IV (09:10)
[2024-08-30] MEDS: HEPARIN 1,000 UNITS/500ML NS (CATH LAB) 3000 UNIT IV (09:10)
[2024-08-30] MEDS: NITROGLYCERIN 800MCG/8ML SYR (CATH LAB) 800 MCG IA (09:11)
[2024-08-30] MEDS: VERAPAMIL 2.5MG/ML 2ML VIAL 2.5 MG IV (09:11)
[2024-08-30] MEDS: LIDOCAINE 1% 10ML MDV 10 ML IJ (09:11)
[2024-08-30] MEDS: HEPARIN 1,000 UNITS/ML 10ML VIAL (CATH LAB) 5000 UNIT IV (09:11)
[2024-08-30] MEDS: FENTANYL 100MCG/2ML VIAL 25 MCG IV (09:12)
[2024-08-30] MEDS: MIDAZOLAM HCL 1MG/ML 5ML VIAL 1 MG IV (09:12)
[2024-08-30] MEDS: 0.9 % SODIUM CHLORIDE 500 ML 25 ML IV (09:12)
[2024-08-30] MEDS: IOPAMIDOL-370 (76%);100ML BOTTLE 90 ML IV (14:03)
[2024-08-30 14:05] LABS: CATHL Activated Clotting Time 296 SEC (74-125)
== END 2024-08-30 13:20 | disposition home or self-care (01) ==
PROVIDERS: PCP Family Medicine; Visit Provider Internal Medicine
PROC: 4A023N7 Measurement of Cardiac Sampling and Pressure, Left Heart, Percutaneous Approach (ICD-10-PCS; CPT 93452; principal; 2024-08-30 10:15)
DX: I25.110 Atherosclerotic heart disease of native coronary artery with unstable angina pectoris (principal); R94.31 Abnormal electrocardiogram [ECG] [EKG]; I10 Essential (primary) hypertension; E78.5 Hyperlipidemia, unspecified; J44.89 Other specified chronic obstructive pulmonary disease; I35.0 Nonrheumatic aortic (valve) stenosis; K21.9 Gastro-esophageal reflux disease without esophagitis; I25.2 Old myocardial infarction; Z87.891 Personal history of nicotine dependence; Z95.5 Presence of coronary angioplasty implant and graft; Z79.02 Long term (current) use of antithrombotics/antiplatelets; Z79.82 Long term (current) use of aspirin; Z79.899 Other long term (current) drug therapy; Z88.2 Allergy status to sulfonamides; Z82.49 Family history of ischemic heart disease and other diseases of the circulatory system
CPT/HCPCS: 92978; 93454; C9600; 80048; 85025; 85347; 92928; 99152; 99153; C1725; C1769; C1874; J1200; J1644; J3010; J7040; Q9967

== ENCOUNTER 2024-09-24 17:58 | Observation (INO) | payer MEDICARE, MEDICAID, SELFPAY ==
--- OUTSIDE RECORDS SUMMARY | 2024-05-10 20:00 | XMS_ITS | CCD ---
Author Name Jodi Ochoa NP Address [address] [place] [address] Phone Organization [facility] Phone Care Team Providers Care Funeral Attendant Name Role Phone Unavailable Primary Care Provider Unavailabl e Unavailable Chronic Care Management Unavaila ble Summary Purpose DataExchange Insurance Providers Payer name Policy type / Coverage type Covered democrat ID Effective Begin Date Effective End Date [facility] [id number] Unknown Unknown Family history Mother Diagnosis Age At Onset CAD (Coronary Artery Disease) Unknown Father Diagnosis Age At Onset CAD (Coronary Artery Disease) Unknown Social History Social History Element Codes Description Effec tive Dates Marital status Unknown 02/03/2024 Number of children Unknown 3 4 Living arrangements Unknown Trailer 02/03/20 24 Number of children in household Unknown 0 02/03/2024 Number of adults in household Unknown 1 02/03/2024 Education level Unknown Some High School 02/03/20 24 Employment Unknown 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 [employer] 02/03/2024 Tobacco history Unknown Never Used 02/03/[address]: [id number] Never drinks alco hol 02/03/2024 Illegal/Recreational drug history Unknown Currently uses illegal/recreational drugs 02/03/2024 DNR Order/ Advanced Directive Unknown Full Code 02/03/2024 Allergies, Adverse Reactions, Alerts Substance Reaction Codes Entered Date Inactivated Date Status SULFA (SULFONAMIDE ANTIBIOTICS) *not specified, Unknown 02/03/2024 No Inactive Date Active *No known food allergies Unknown 02/03/2024 No I nactive Date Active *No known environmental allergies Unknown 02/03/2024 No Inactive Date Active Problems Condition Codes Effective Dates Condition St atus (R53.1-780.79) Weakness ICD-10: R53.1 ICD-9: 780.79 02/03/2024 Active (Z91.81-V15.88) History of falling ICD-1 0: Z91.81 ICD-9: V15.88 02/03/2024 Active (Z99.89-V46.8) Dependence on other enabling machines and devices ICD-10: Z99.89 ICD-9: V46.8 02/03/2024 Active Chronic obstructive pulmonar y disease, unspecified COPD type ICD-10: J44.9 ICD-9: 496 02/03/2024 Active Essential hypertension ICD-10: I10 ICD-9: 401.9 02/03/2024 Active Hypercholesterolemia ICD-10: E78.00 ICD-9: 272.0 03/09/2024 Active 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 02/25/2023 Active Encounter for general adult medical examination without abnormal findings ICD-10: Z00.00 ICD-9: V70.9 02/03/2024 Active Essential hypertension ICD-10: I10 02/25/2023 Activ e Gastroesophageal reflux dise ase without esophagitis ICD-10: K21.9 ICD-9: 530.81 02/03/2024 Active Gastroesophageal reflux dise ase without esophagitis ICD-10: K21.9 02/25/2023 Active Prostate cancer ICD-10: C61 ICD-9: 185 02/03/2024 Active Prostate cancer ICD-10: C61 05/08/2018 Active Medications Medication Codes Instructions Start Date Stop Date Status Fill Instructions Lipitor 40 mg tablet RxNorm: 918819 Take 1 Tablet(s) Oral every day . 4 03/03/20 25 Active clopidogrel (PLAVIX) 75 MG tablet RxNorm: 637325 Take 1 Tablet(s) Oral every day . 4 No Stop Date Active metoprolol succinate XL (TOPROL-XL) 25 MG 24 hr tablet RxNorm: 405168 Take 0.5 Tablet(s) Oral every day . 4 No Stop Date Active isosorbide mononitrate (IMDUR) 30 MG 24 hr tablet RxNorm: 174756 Take 1 Tablet(s) Oral every day . 4 No Stop Date Active Diclofenac Sodium (VOLTAREN) 1 % gel gel RxNorm: 816243 Apply 4 g topically to the appropriate area as directed 4 (Four) Times a Day. 4 No Stop Date Active tamsulosin (FLOMAX) 0.4 MG capsule 24 hr capsule RxNorm: 414618 Take 1 Capsule(s) Oral every night at bedtime . 4 No Stop Date Active esomeprazole (nexIUM) 20 MG capsule RxNorm: 515123 Take 1 Capsule(s) Oral every morning Before Breakfast . 4 No Stop Date Active albuterol sulfate HFA 108 (90 Base) MCG/ACT inhaler RxNorm: 3129041 INHALE 2 PUFFS BY MOUTH EVERY 4 (FOUR) HOURS NEEDED FOR WHEEZING 4 No Stop Date Active ipratropium (ATROVENT) 0.03 % nasal spray RxNorm: 1423617 USE 2 SPRAYS INTO THE NOSTRIL(S) DIRECTED BY PROVIDER 2 (TWO) TIMES A DAY. 4 No Stop Date Active leuprolide (Eligard) 45 MG injection RxNorm: 514395 Inject 45mg every 6 months 4 No Stop Date Active aspirin 81 MG EC tablet RxNorm: 292485 Take 1 Tablet(s) Oral every day . 4 Active atorvastatin (LIPITOR) 40 MG tablet RxNorm: 075887 Take 1 Tablet(s) Oral every day . 4 03/08/20 24 Inactive Medication Administered No Medication Administered data Procedures Procedure Codes Date MED LIST DOCD IN [facility] CPT-4: 1159F 05/11/2024 RVW MEDS BY RX/ IN [facility] CPT-4: 1160F 2024 Functional Status Assessed CPT-4: 1170F 05/11 Reason For Visit Reason For Visit Effective Dates Notes established patient visit 05/11/2024 Encounters Encounter Performer Location Location Address Codes Date () (EST PT) MODERATE COMPLEXITY TELEHEALTH VISIT Diagnosis: Chronic obstructive pulmonary disease, unspecified COPD type[ICD10: J44.9] Diagnosis: Essential hypertension[ICD10 : I10] Diagnosis: (Z99.89-V46.8) Dependence on other enabling machines and devices[ICD10: Z99.89] Diagnosis: (Z91.81-V15.88) History of falling[ICD10: Z91.81] Diagnosis: (R53.1-780.79) Weakness[ICD10: R53.1] Jodi Ochoa [place] [facility] [address] [facility] [address] [address] CPT-4: 56075 05/11/2024 Plan of Care Planned Activity Notes Codes Status Date Visit Plan: This is a pleasant 9 2 year old male that presents for follow up via telehealth. This is a telephone call only. Patient is in the [facility] and consents to treatment via telephone. Patient has been snowed into his home for a few weeks. He has been having people come by and bring him groceries. States that he is unable to get out of his home as he can not get his walker down his hill. He is afraid he will fall. He is on a fixed income and states that people have been very good to him and brought him things. He has not had any issues with breathing. States his blood pressure has been doing well. He has not fallen since we were there last. He is asking if we know of any community things that we can do to help him. J44.9-496 Chronic obstructive pulmonary disease, unspecified COPD type Continue Atrovent I10-401.9 Essential hypertension Continue lopressor Z99.89-V46.8 Dependence on other enabling machines and devices Z91.81-V15.88 History of falling R53.1-780.79 Weakness We will refer patient to get assistance with prescription delivery programs. We will also place referral for help with meal delivery. Patient will continue all his medication as prescribed. We will follow up with patient in one month for a recheck. Patient will contact us with any issues prior to next visit. Patient verbalized understanding and agreeable to plan of care. I spent 15 mins on the phone with this patient. 05/11/2024 Patient Education: Patient Medication Summary Completed 05/11/2024 Appointment: Jodi Ochoa WPtel: [address] [facility] [address] [place] [id number] 03/09/2024 Appointment: Jodi Ochoa WPtel: [address] [address] 02/03/2024 Referral: Home Care Delivered [facility] WPtel: [phone] [facility] 4th Floor Isaac [id number] [place] [facility] Confirmed Instructions Comment Date . This is a pleasant 83 year old male that presents for follow up via telehealth. This is a telephone call only. Patient is in the [facility] and consents to treatment via telephone. Patient has been snowed into his home for a few weeks. He has been having people come by and bring him groceries. States that he is unable to get out of his home as he can not get his walker down his hill. He is afraid he will fall. He is on a fixed income and states that people have been very good to him and brought him things. He has not had any issues with breathing. States his blood pressure has been doing well. He has not fallen since we were there last. He is asking if we know of any community things that we can do to help him. J44.9-496 Chronic obstructive pulmonary disease, unspecified COPD type Continue Atrovent I10-401.9 Essential hypertension Continue lopressor Z99.89-V46.8 Dependence on other enabling machines and devices Z91.81-V15.88 History of falling R53.1-780.79 Weakness We will refer patient to get assistance with prescription delivery programs. We will also place referral for help with meal delivery. Patient will continue all his medication as prescribed. We will follow up with patient in one month for a recheck. Patient will contact us with any issues prior to next visit. Patient verbalized understanding and agreeable to plan of care. I spent 15 mins on the phone with this patient. 05/11/2024 Medical Equipment No Medical Equipment data Advance Directives No Advance Directive data
[2024-09-24] VITALS (12 sets, daily range): BP systolic 134–158; BP diastolic 63–81; PULSE 65–94; RESP 14–21; TEMP 37; O2SAT 94–97; BMI 29.0
--- NOTE | 2024-09-24 18:00 | ECG_ITS ---
APPROVED REPORT Exam: Resting ECG HR:90 bpm ECG Measurements Heart Rate 90 AXES SD 139 P 60 QRSd 105 QRS -18 QT 356 T 128 QTc 404 Conclusion SINUS RHYTHM LEFT VENTRICULAR HYPERTROPHY AND ST-T CHANGE [VOLTAGE CRITERIA PLUS ST/T ABNORMALITY] POSSIBLE ANTERIOR MYOCARDIAL INFARCTION , PROBABLY OLD [30 ms Q WAVE IN V3/V4, OR R < 0.2 mV IN V4] INFERIOR MYOCARDIAL INFARCTION , OF INDETERMINATE AGE [40+ ms Q WAVE AND/OR ST/T ABNORMALITY IN II/aVF] ABNORMAL ECG Electronically signed by : EDDIE OSBORNE, 09/25/2024 08:29:59
--- NOTE | 2024-09-24 18:00 | HMH.EDGENADL ---
Discharge Plan Disposition Patient Disposition: Admitted Condition: Good Clinical Impressions Clinical Impression: Acute dyspnea, Abnormal ECG, Angina at rest Discharge ED Provider: Bowen Olson General Adult HPI <JESUS Chaparro - Last Filed: 09/24/24 18:54> General Chief complaint: Shortness of Breath/Dyspnea Stated complaint: Chest Pain Time Seen by Provider: 09/24/24 18:00 History of Present Illness HPI narrative: Patient presents for evaluation of dyspnea. Patient was sitting watching TV and he noted that he was starting to have dyspnea at rest. It was very similar to his previous episode in which she got a stent approximately a month ago. He does not have chest pain but is reporting some chest heaviness. He denies any fever chills hemoptysis hematochezia melena nausea vomiting diarrhea. He does have nitroglycerin at home but did not take it. Onset was approximately an hour prior to arrival. Related Data Home Medications ?Medication ?Instructions ?Recorded ?Confirmed tamsulosin 0.4 mg capsule 0.4 mg PO DAILY prostate 08/17/18 09/24/24 ipratropium bromide 21 mcg (0.03 2 spray intranasal BID Allergy 03/18/21 09/24/24 %) nasal spray symptoms albuterol sulfate 90 mcg/actuation 1 puff inhalation BID 10/25/23 09/24/24 aerosol inhaler isosorbide mononitrate 30 mg 30 mg PO DAILY 09/24/24 09/24/24 tablet,extended release 24 hr metoprolol succinate 25 mg 25 mg PO DAILY 09/24/24 09/24/24 tablet,extended release 24 hr nitroglycerin 0.4 mg sublingual 0.4 mg sublingual Q5M PRN Chest 09/24/24 09/24/24 tablet Pain Previous Rx's ?Medication ?Instructions ?Recorded aspirin 81 mg tablet,delayed 81 mg PO DAILY 30 days #90 tabs 12/22/23 release clopidogrel 75 mg tablet 75 mg PO DAILY #90 tabs 12/22/23 atorvastatin 40 mg tablet (Lipitor) 40 mg PO DAILY #30 tabs 03/23/24 blood pressure monitor (Blood #1 ea 08/23/24 Pressure Kit) losartan 50 mg tablet 50 mg PO DAILY #30 tabs 08/23/24 esomeprazole magnesium 20 mg 20 mg PO DAILY Acid Reflux #90 caps 09/06/24 capsule,delayed release Allergies Allergy/AdvReac Type Severity Reaction Status Date / Time Sulfa (Sulfonamide Allergy Unknown I-RASH Verified 09/06/24 10:33 Antibiotics) (SULFA (SULFONAMIDE ANTIBIOTICS)) [facility] <JESUS Chaparro - Last Filed: 09/24/24 18:54> [facility] Disclaimer: The information contained in this section may have been updated after the patient was seen, as this information can be updated by other users. Medical History Abnormal electrocardiogram [ECG] [EKG] CAD (coronary artery disease) Non-STEMI (non-ST elevated myocardial infarction) Physical debility Acute pain of left hip Acute urinary retention Acute UTI Acute urinary retention Hematuria Prostate cancer Colonoscopy planned Ulcer Urinary tract infection COPD (chronic obstructive pulmonary disease) Asthma Arthritis History of gastroesophageal reflux (GERD) Hyperlipidemia Hypertension Prostate cancer Urinary retention Hematuria Cellulitis Dental abscess Acute sinus infection Encounter for laboratory testing for COVID-19 virus Bilateral otitis media Spider bite Acute urinary retention Spondylosis Labyrinthitis of left ear Sinusitis Common cold Surgical History H/O abdominal surgery History of heart artery stent History of cardiac cath Family History Other Family history of acute congestive heart failure Social History (Updated 09/24/24 @ 21:10 by Kalani Lambert RN) Smoking Status: Former smoker tobacco type: cigarettes second hand exposure: No alcohol intake: former substance use type: denies use current occupational status: retired Travel in the last 8 weeks?: None household members: family housing: house current occupational exposures/hazards: No caffeine: Yes Have you lived/traveled outside [place] in past 30 days?: No Contact w/someone who lives/traveled outside US past 30 days?: No Exposure to someone with infectious disease in past 14 days?: No Do you have a fever (greater than 100.4 F or 38 C)?: No Have you tested positive for COVID-19?: No Exposed to someone with COVID-19 in past 14 days?: No Do you have a sore throat?: No Do you have a cough?: No Do you have any weakness?: No Are you experiencing any nausea/vomitting?: No Do you have any diarrhea?: No Are you experiencing any unusual bleeding?: No Do you have any muscle aches/pain?: No Do you have any abdominal pain?: No Are you experiencing loss of taste or smell?: No Other Medical History Have you received the Flu Vaccine for this season: No Have you received the Pneumonia Vaccine: Yes <JESUS Chaparro - Last Filed: 09/24/24 18:54> ROS Obtained: Yes Systems reviewed as appropriate & no additional complaints except as documented Physical Exam <JESUS Chaparro - Last Filed: 09/24/24 18:54> General General appearance: alert and in no apparent distress Respiratory Respiratory exam: Present normal lung sounds bilaterally Cardiovascular Cardiovascular exam: Present regular rate Neurological Exam Neurological exam: Present alert and oriented X3 Medical Decision Making <JESUS Chaparro - Last Filed: 09/24/24 18:54> Medical Records Medical records reviewed: Yes I reviewed the patient's medical records. Screening: Per USPSTF and CDC recommendations, given the prevalence of disease in our region, it is our hospital?s policy to screen for HIV and viral Hepatitis for all patients aged 18 and over and those with ongoing risk factors. Isra Inquiry Pt receiving controlled substance: No Vital Signs: 09/24/24 18:05 09/24/24 18:30 09/24/24 19:00 Temperature 98.6 F Temperature Source Oral Pulse Rate 90 75 Pulse Rate [Left] 94 H Respiratory Rate 14 20 15 Blood Pressure 158/81 H 143/71 H Blood Pressure [Right Arm] 156/76 H Blood Pressure Mean 95 Blood Pressure Mean [Right Arm] 102 Blood Pressure Source Blood Pressure Source [Right Arm] Automatic Cuff Blood Pressure Position Blood Pressure Position [Right Arm] Supine 02 Sat by Pulse Oximetry 94 L 94 L 95 Oxygen Delivery Method Room Air 09/24/24 19:15 09/24/24 19:30 09/24/24 19:45 Temperature Temperature Source Pulse Rate 73 67 70 Pulse Rate [Left] Respiratory Rate 17 16 Blood Pressure 142/64 H 134/70 136/71 Blood Pressure [Right Arm] Blood Pressure Mean 90 89 84 Blood Pressure Mean [Right Arm] Blood Pressure Source Blood Pressure Source [Right Arm] Blood Pressure Position Blood Pressure Position [Right Arm] 02 Sat by Pulse Oximetry 95 95 96 Oxygen Delivery Method 09/24/24 20:00 09/24/24 20:00 09/24/24 20:15 Temperature Temperature Source Pulse Rate 69 80 Pulse Rate [Left] Respiratory Rate 19 15 Blood Pressure 137/67 145/64 H Blood Pressure [Right Arm] Blood Pressure Mean 90 Blood Pressure Mean [Right Arm] Blood Pressure Source Blood Pressure Source [Right Arm] Blood Pressure Position Blood Pressure Position [Right Arm] 02 Sat by Pulse Oximetry 95 96 Oxygen Delivery Method 09/24/24 20:23 09/24/24 20:30 09/24/24 20:30 Temperature Temperature Source Pulse Rate 66 Pulse Rate [Left] Respiratory Rate 21 Blood Pressure 145/63 H Blood Pressure [Right Arm] Blood Pressure Mean 75 Blood Pressure Mean [Right Arm] Blood Pressure Source Blood Pressure Source [Right Arm] Blood Pressure Position Blood Pressure Position [Right Arm] 02 Sat by Pulse Oximetry 97 Oxygen Delivery Method Room Air 09/24/24 20:33 Temperature 98.6 F Temperature Source Oral Pulse Rate 80 Pulse Rate [Left] Respiratory Rate 15 Blood Pressure 145/64 H Blood Pressure [Right Arm] Blood Pressure Mean Blood Pressure Mean [Right Arm] Blood Pressure Source Automatic Cuff Blood Pressure Source [Right Arm] Blood Pressure Position Sitting Blood Pressure Position [Right Arm] 02 Sat by Pulse Oximetry Oxygen Delivery Method Room Air Lab Data Lab results reviewed: Yes I reviewed the patient's lab results. Lab Results 09/24/24 18:03: WBC 8.1, RBC 4.03 L, Hgb 12.8 L, Hct 39.1 L, MCV 97.0 H, MCH 31.8 H, MCHC 32.7, RDW 13.7, Plt Count 252, MPV 10.2, Neut % (Auto) 57.6, Lymph % (Auto) 31.1, [place] % (Auto) 9.9 H, Eos % (Auto) 0.6, Baso % (Auto) 0.6, Neut # (Auto) 4.7, Lymph # (Auto) 2.5, [place] # (Auto) 0.8, Eos # (Auto) 0.1, Baso # (Auto) 0.1, D-Dimer 0.67 H, Sodium 140, Potassium 4.6, Chloride 98, Carbon Dioxide 31 H, Anion Gap 15.6 H, BUN 19, Creatinine 0.60 L, Estimated Creat Clear 66, Estimated GFR 129, Est GFR ( Amer) 156, Glucose 113 H, Calcium 8.5, Magnesium 2.1, Total Bilirubin 1.0, AST 28, ALT 16, Alkaline Phosphatase 90, Troponin I < 0.01, NT-Pro-B Natriuret Pep 194, Total Protein 7.8, Albumin 4.5, Globulin 3.3 H, Albumin/Globulin Ratio 1.4, HCV Ab PRIYANKA w/Rflx PCR Qn Negative, HIV Ag/Ab Combo Qual Negative 09/24/24 18:03 09/24/24 18:03 Orders (Tests/Meds): ED MEDICATIONS Generic Name Dose Route Start Last Admin Trade Name Freq PRN Reason Stop Dose Admin Acetaminophen 650 mg 09/24/24 20:08 Acetaminophen 325mg Tab PO 10/24/24 20:07 Q4HP PRN Fever or Mild Pain (1-3) Hydrocodone Bitart/Acetaminophen 1 tab 09/24/24 20:08 Hydrocodone/Apap 5/325 Mg Tablet PO 10/24/24 20:07 Q4HP PRN Mild to Moderate Pain (1-6) Al Hydrox/Mg Hydrox/Simethicone 30 ml 09/24/24 20:08 Aluminum/Magnesium/Simethicone 30ml Udc PO 10/24/24 20:07 QIDP PRN Dyspepsia Albuterol Sulfate 1 puff 09/24/24 21:50 09/24/24 22:07 Albuterol-Hfa 90mcg/Puff Inhaler 8gm IH 10/24/24 21:49 1 puff BID MC Administration Aspirin 81 mg 09/24/24 21:55 09/24/24 22:00 Aspirin Ec 81mg Tablet PO 10/24/24 21:54 81 mg DAILY MC Administration Atorvastatin Calcium 40 mg 09/24/24 21:50 09/24/24 21:57 Atorvastatin 40mg Tablet PO 10/24/24 21:49 40 mg DAILY MC Administration Clopidogrel Bisulfate 75 mg 09/24/24 21:55 09/24/24 22:00 Clopidogrel 75mg Tab PO 10/24/24 21:54 75 mg DAILY MC Administration Docusate Sodium 100 mg 09/25/24 09:00 Docusate Sodium 100 Mg Capsule PO 10/25/24 08:59 DAILY MC Guaifenesin 600 mg 09/25/24 09:00 Guaifenesin 600 Mg Tab.Er.12h PO 10/25/24 08:59 BID MC Nitroglycerin/Dextrose 250 mls @ 1.5 mls/hr 09/24/24 18:30 09/24/24 19:49 Nitroglycerin 50mg/250ml D5w IV 10/24/24 18:29 0 mcg/min .Q24H MC 0 mls/hr Protocol Titration 5 MCG/MIN Irbesartan 75 mg 09/24/24 21:50 09/24/24 21:58 Irbesartan 75mg Tablet PO 10/24/24 21:49 75 mg DAILY MC Administration Isosorbide Mononitrate 30 mg 09/24/24 21:50 09/24/24 21:57 Isosorbide [place] 30mg Tab.Er.24h PO 10/24/24 21:49 30 mg DAILY MC Administration Metoprolol Succinate 25 mg 09/24/24 21:50 09/24/24 21:57 Metoprolol Succinate Xl 25mg Tablet PO 10/24/24 21:49 25 mg DAILY MC Administration Miscellaneous 1 unit 09/24/24 21:49 09/24/24 23:02 Aerochamber/Optihaler MC 09/24/24 21:50 Not Given ONCE ONE Ondansetron HCl 4 mg 09/24/24 20:08 Ondansetron 4mg/2ml Vial IV 10/24/24 20:07 Q8HP PRN Nausea Pantoprazole Sodium 40 mg 09/24/24 21:55 09/24/24 21:57 Pantoprazole 40mg Tablet PO 10/24/24 21:54 40 mg HS MC Administration Tamsulosin HCl 0.4 mg 09/24/24 21:55 09/24/24 21:57 Tamsulosin 0.4mg Capsule PO 10/24/24 21:54 0.4 mg DAILY MC Administration Discontinued Medications Generic Name Dose Route Start Last Admin Trade Name Freq PRN Reason Stop Dose Admin Heparin Sodium (Porcine) 5,000 unit 09/24/24 21:00 09/24/24 21:45 Heparin Sodium 5,000 Unit/Ml Vial SUBCUT 10/24/24 20:59 5,000 unit TID MC Administration Metoprolol Tartrate 5 mg 09/24/24 18:21 09/24/24 18:34 Metoprolol Tartrate 5mg/5ml Vial IV 09/24/24 18:22 5 mg ONCE ONE Administration ORDERS Category Date Time Status Chest XR -- portable [XR chest portable] Stat Exams 09/24/24 18:15 Completed BNP [NT Pro Brain Natriuretic Pep.] Stat Lab 09/24/24 18:03 Completed Basic Metabolic Panel AMLAB Lab 09/25/24 06:00 Ordered CBC w/Auto Diff [Complete Blood Count Auto Diff] Stat Lab 09/24/24 18:03 Completed CMP [Comprehensive Metabolic Panel] Stat Lab 09/24/24 18:03 Completed Complete Blood Count Auto Diff AMLAB Lab 09/25/24 06:00 Ordered D-Dimer Stat Lab 09/24/24 18:03 Completed HIV Combo Stat Lab 09/24/24 18:03 Completed Hepatitis C Ab Qual. W/ RFX Stat Lab 09/24/24 18:03 Completed Magnesium Stat Lab 09/24/24 18:03 Completed Trop I [Troponin I] Stat Lab 09/24/24 18:03 Completed Troponin I Q3H Lab 09/24/24 21:42 Completed Troponin I Q3H Lab 09/25/24 00:30 Ordered HEART Score History (anamnesis): Slightly suspicious ECG: Significant ST-deviation Age: >65 years Risk factors: Atherosclerosis history Medical Decision Narrative: In summary patient is a 84-year-old male who presents to the emergency department for evaluation of dyspnea and chest pressure. Patient is hemodynamically stable with a blood pressure of 156/76 heart rate 94 sinus rhythm on the bedside monitor breathing 14 times a minute satting at 94% on room air upon arrival, afebrile at 98.6. Physical exam reveals clear breath sounds no increased work of breathing or accessory muscle use, heart sounds S1-S2 regular rate and rhythm without murmurs gallops rubs or thrills. There is no dependent edema noted. Abdomen soft nontender no rebound or guarding no rigidity.. Differential diagnosis includes ACS versus CHF versus PE etc. Initial workup will be conducted with hematologic labs twelve-lead EKG plain film chest x-ray. Initial interventions include Tylenol Toradol. Initial workup is ordered and pending at the time of handoff to Dr. Olson at 1900 hrs. <Bowen Olson MD - Last Filed: 09/25/24 01:18> Vital Signs: 09/24/24 18:05 09/24/24 18:30 07/07/25 19:00 Temperature 98.6 F Temperature Source Oral Pulse Rate 90 75 Pulse Rate [Left] 94 H Respiratory Rate 14 20 15 Blood Pressure 158/81 H 143/71 H Blood Pressure [Right Arm] 156/76 H Blood Pressure Mean 95 Blood Pressure Mean [Right Arm] 102 Blood Pressure Source Blood Pressure Source [Right Arm] Automatic Cuff Blood Pressure Position Blood Pressure Position [Right Arm] Supine 02 Sat by Pulse Oximetry 94 L 94 L 95 Oxygen Delivery Method Room Air 09/24/24 19:15 09/24/24 19:30 09/24/24 19:45 Temperature Temperature Source Pulse Rate 73 67 70 Pulse Rate [Left] Respiratory Rate 17 16 Blood Pressure 142/64 H 134/70 136/71 Blood Pressure [Right Arm] Blood Pressure Mean 90 89 84 Blood Pressure Mean [Right Arm] Blood Pressure Source Blood Pressure Source [Right Arm] Blood Pressure Position Blood Pressure Position [Right Arm] 02 Sat by Pulse Oximetry 95 95 96 Oxygen Delivery Method 09/24/24 20:00 09/24/24 20:00 09/24/24 20:15 Temperature Temperature Source Pulse Rate 69 80 Pulse Rate [Left] Respiratory Rate 19 15 Blood Pressure 137/67 145/64 H Blood Pressure [Right Arm] Blood Pressure Mean 90 Blood Pressure Mean [Right Arm] Blood Pressure Source Blood Pressure Source [Right Arm] Blood Pressure Position Blood Pressure Position [Right Arm] 02 Sat by Pulse Oximetry 95 96 Oxygen Delivery Method 09/24/24 20:23 09/24/24 20:30 09/24/24 20:30 Temperature Temperature Source Pulse Rate 66 Pulse Rate [Left] Respiratory Rate 21 Blood Pressure 145/63 H Blood Pressure [Right Arm] Blood Pressure Mean 75 Blood Pressure Mean [Right Arm] Blood Pressure Source Blood Pressure Source [Right Arm] Blood Pressure Position Blood Pressure Position [Right Arm] 02 Sat by Pulse Oximetry 97 Oxygen Delivery Method Room Air 09/24/24 20:33 Temperature 98.6 F Temperature Source Oral Pulse Rate 80 Pulse Rate [Left] Respiratory Rate 15 Blood Pressure 145/64 H Blood Pressure [Right Arm] Blood Pressure Mean Blood Pressure Mean [Right Arm] Blood Pressure Source Automatic Cuff Blood Pressure Source [Right Arm] Blood Pressure Position Sitting Blood Pressure Position [Right Arm] 02 Sat by Pulse Oximetry Oxygen Delivery Method Room Air Lab Data Lab Results 09/24/24 18:03: WBC 8.1, RBC 4.03 L, Hgb 12.8 L, Hct 39.1 L, MCV 97.0 H, MCH 31.8 H, MCHC 32.7, RDW 13.7, Plt Count 252, MPV 10.2, Neut % (Auto) 57.6, Lymph % (Auto) 31.1, [place] % (Auto) 9.9 H, Eos % (Auto) 0.6, Baso % (Auto) 0.6, Neut # (Auto) 4.7, Lymph # (Auto) 2.5, [place] # (Auto) 0.8, Eos # (Auto) 0.1, Baso # (Auto) 0.1, D-Dimer 0.67 H, Sodium 140, Potassium 4.6, Chloride 98, Carbon Dioxide 31 H, Anion Gap 15.6 H, BUN 19, Creatinine 0.60 L, Estimated Creat Clear 66, Estimated GFR 129, Est GFR ( Amer) 156, Glucose 113 H, Calcium 8.5, Magnesium 2.1, Total Bilirubin 1.0, AST 28, ALT 16, Alkaline Phosphatase 90, Troponin I < 0.01, NT-Pro-B Natriuret Pep 194, Total Protein 7.8, Albumin 4.5, Globulin 3.3 H, Albumin/Globulin Ratio 1.4, HCV Ab PRIYANKA w/Rflx PCR Qn Negative, HIV Ag/Ab Combo Qual Negative Orders (Tests/Meds): ED MEDICATIONS Generic Name Dose Route Start Last Admin Trade Name Freq PRN Reason Stop Dose Admin Acetaminophen 650 mg 09/24/24 20:08 Acetaminophen 325mg Tab PO 10/24/24 20:07 Q4HP PRN Fever or Mild Pain (1-3) Hydrocodone Bitart/Acetaminophen 1 tab 09/24/24 20:08 Hydrocodone/Apap 5/325 Mg Tablet PO 10/24/24 20:07 Q4HP PRN Mild to Moderate Pain (1-6) Al Hydrox/Mg Hydrox/Simethicone 30 ml 09/24/24 20:08 Aluminum/Magnesium/Simethicone 30ml Udc PO 10/24/24 20:07 QIDP PRN Dyspepsia Albuterol Sulfate 1 puff 09/24/24 21:50 09/24/24 22:07 Albuterol-Hfa 90mcg/Puff Inhaler 8gm IH 10/24/24 21:49 1 puff BID MC Administration Aspirin 81 mg 09/24/24 21:55 09/24/24 22:00 Aspirin Ec 81mg Tablet PO 10/24/24 21:54 81 mg DAILY MC Administration Atorvastatin Calcium 40 mg 09/24/24 21:50 09/24/24 21:57 Atorvastatin 40mg Tablet PO 10/24/24 21:49 40 mg DAILY MC Administration Clopidogrel Bisulfate 75 mg 09/24/24 21:55 09/24/24 22:00 Clopidogrel 75mg Tab PO 10/24/24 21:54 75 mg DAILY MC Administration Docusate Sodium 100 mg 09/25/24 09:00 Docusate Sodium 100 Mg Capsule PO 10/25/24 08:59 DAILY MC Guaifenesin 600 mg 09/25/24 09:00 Guaifenesin 600 Mg Tab.Er.12h PO 10/25/24 08:59 BID MC Nitroglycerin/Dextrose 250 mls @ 1.5 mls/hr 09/24/24 18:30 09/24/24 19:49 Nitroglycerin 50mg/250ml D5w IV 10/24/24 18:29 0 mcg/min .Q24H MC 0 mls/hr Protocol Titration 5 MCG/MIN Irbesartan 75 mg 09/24/24 21:50 09/24/24 21:58 Irbesartan 75mg Tablet PO 10/24/24 21:49 75 mg DAILY MC Administration Isosorbide Mononitrate 30 mg 09/24/24 21:50 09/24/24 21:57 Isosorbide [place] 30mg Tab.Er.24h PO 10/24/24 21:49 30 mg DAILY MC Administration Metoprolol Succinate 25 mg 09/24/24 21:50 09/24/24 21:57 Metoprolol Succinate Xl 25mg Tablet PO 10/24/24 21:49 25 mg DAILY MC Administration Miscellaneous 1 unit 09/24/24 21:49 09/24/24 23:02 Aerochamber/Optihaler MC 09/24/24 21:50 Not Given ONCE ONE Ondansetron HCl 4 mg 09/24/24 20:08 Ondansetron 4mg/2ml Vial IV 10/24/24 20:07 Q8HP PRN Nausea Pantoprazole Sodium 40 mg 09/24/24 21:55 09/24/24 21:57 Pantoprazole 40mg Tablet PO 10/24/24 21:54 40 mg HS MC Administration Tamsulosin HCl 0.4 mg 09/24/24 21:55 09/24/24 21:57 Tamsulosin 0.4mg Capsule PO 10/24/24 21:54 0.4 mg DAILY MC Administration Discontinued Medications Generic Name Dose Route Start Last Admin Trade Name Freq PRN Reason Stop Dose Admin Heparin Sodium (Porcine) 5,000 unit 09/24/24 21:00 09/24/24 21:45 Heparin Sodium 5,000 Unit/Ml Vial SUBCUT 10/24/24 20:59 5,000 unit TID MC Administration Metoprolol Tartrate 5 mg 09/24/24 18:21 09/24/24 18:34 Metoprolol Tartrate 5mg/5ml Vial IV 09/24/24 18:22 5 mg ONCE ONE Administration ORDERS Category Date Time Status Chest XR -- portable [XR chest portable] Stat Exams 09/24/24 18:15 Completed BNP [NT Pro Brain Natriuretic Pep.] Stat Lab 09/24/24 18:03 Completed Basic Metabolic Panel AMLAB Lab 09/25/24 06:00 Ordered CBC w/Auto Diff [Complete Blood Count Auto Diff] Stat Lab 09/24/24 18:03 Completed CMP [Comprehensive Metabolic Panel] Stat Lab 09/24/24 18:03 Completed Complete Blood Count Auto Diff AMLAB Lab 09/25/24 06:00 Ordered D-Dimer Stat Lab 09/24/24 18:03 Completed HIV Combo Stat Lab 09/24/24 18:03 Completed Hepatitis C Ab Qual. W/ RFX Stat Lab 09/24/24 18:03 Completed Magnesium Stat Lab 09/24/24 18:03 Completed Trop I [Troponin I] Stat Lab 09/24/24 18:03 Completed Troponin I Q3H Lab 09/24/24 21:42 Completed Troponin I Q3H Lab 09/25/24 00:30 Ordered Medical Decision Narrative: In summary patient is a 84-year-old male who presents to the emergency department for evaluation of dyspnea and chest pressure. Patient is hemodynamically stable with a blood pressure of 156/76 heart rate 94 sinus rhythm on the bedside monitor breathing 14 times a minute satting at 94% on room air upon arrival, afebrile at 98.6. Physical exam reveals clear breath sounds no increased work of breathing or accessory muscle use, heart sounds S1-S2 regular rate and rhythm without murmurs gallops rubs or thrills. There is no dependent edema noted. Abdomen soft nontender no rebound or guarding no rigidity.. Differential diagnosis includes ACS versus CHF versus PE etc. Initial workup will be conducted with hematologic labs twelve-lead EKG plain film chest x-ray. Initial interventions include Tylenol Toradol. Initial workup is ordered and pending at the time of handoff to Dr. Olson at 1900 hrs. Bowen Olson MD Patient's workup was reviewed by me. No leukocytosis. No significant anemia. D-dimer mildly elevated 0.67, however when adjusted for age, this is not significant. Electrolytes unremarkable, no JOSH. Anion gap mildly elevated at 15.6. Initial troponin of 0.01. Chest x-ray interpreted by me personally and showed no acute findings. EKG interpreted by me personally and patient had ST depressions in lead II, V2 without ST elevation. Patient also has inverted T waves in aVL. These changes were not present on patient's previous EKGs. Otherwise patient's sinus rhythm with ventricular rate of 90 bpm. QTc normal at 404. I personally discussed patient's case and sent EKG to student success counselor, Dr. Fontana, who agreed that this does not appear to be a STEMI. He did recommend placing patient on a nitro drip and giving beta-blockers for better control of his heart rate and recommended admission. The patient's case was discussed with Dr. Calixto with the hospital medicine service who agreed to admit the patient. Critical Care <JESUS Chaparro - Last Filed: 09/24/24 18:54> Critical Care Time Critical Care Time: Yes Attestation: On 09/24/24, the high probability of a clinically significant, sudden or life threatening deterioration of the following system(s) required my full and direct attention, intervention and personal management. The time I documented below is in addition to time spent performing reported procedures but includes the following listed in this critical care notation. Total Time Total Critical Care Time: 30
--- OUTSIDE RECORDS SUMMARY | 2024-09-24 18:14 | XMS_ITS | Clinical Summary ---
Author Organization Healthcare Address [address] [id number] Care Team Providers Care Commercial [employer] Account Executive Name Role Phone Josh Dias MD Primary Care Provider [phone] Allergies No known active allergies Medications tamsulosin (Flomax) 0.4 MG 24 hr capsule Take 0.4 mg by mouth 1 (one) time each day. Active lisinopril 10 MG tablet Take 10 mg by mouth 1 (one) time each day. Active pravastatin (Pravachol) 40 MG tablet Take 40 mg by mouth every night. Active esomeprazole (NexIUM) [address] capsule Take 20 mg by mouth 1 (one) time each day before breakfast. Do not open capsule. Active FLUTICASONE FUROATE IN Inhale. Active ALBUTEROL IN Inhale. Active Active Problems Problem Noted Date Diagnosed Date Abnormal stress test 02/11/2021 Overview (02/23/2021): Added automatically from request for surgery [id number] SOB (shortness of breath) 02/11/2021 Overview (02/23/2021): Added automatically from request for surgery [id number] CAD (coronary artery disease) 02/11/2021 Overview (02/23/2021): Added automatically from request for surgery [id number] Social History Tobacco Use Types Packs/Day Years Used Date Smoking Tobacco: Never Assessed Sex and Gender Information Value Date Recorded Sex Assigned at Not on file Legal Sex Male 7:29 PM EDT Gender Identity Not on file Sexual Orientation Not on file Last Filed Vital Signs Vital Sign Reading Time Taken Comments Blood Pressure 109/61 02/23/2021 5:00 PM EST Pulse 108 02/23/2021 6:04 PM EST Temperature 36.7 C (98 F) 02/23/2021 3:50 PM EST Respiratory Rate 22 02/23/2021 6:04 PM EST Oxygen Saturation 95% 02/23/2021 6:04 PM EST Inhaled Oxygen Concentration - - Weight 90.7 kg (200 lb) 02/23/2021 6:30 AM EST Height 170.2 cm (5' 7 ) 02/23/2021 6:30 AM EST Body Mass Index 31.32 02/23/2021 6:30 AM EST Plan of Treatment Health Maintenance Due Date Last Done Comments [facility]-Depression Screening 1941 [facility]-Infant/Child/Adol SDOH Screenings 1940 [facility]- SDOH Screenings 08/01/1959 [facility]-Adult SDOH Screenings 08/01/1959 [facility]-DTaP,Tdap,and Td Vaccines (1 - Tdap) 1960 [facility]-Zoster Vaccines (1 of 2) 08/01/1991 [facility]-RSV Vaccine: 60+ Years or (1 - 1-dose 75+ series) 2016 [id number] Vaccine ( - season) 2023 01/23/2021, 06/12/2020, 05/22/2020 [facility]-Influenza Vaccine (#1) 11/19/202401/23, 12/29/2019, 04/12/2017, Additional history exists [facility]-Pneumococcal Vaccine: 50+ Years Completed 02/19/2016, 03/07/2014, 05/17/2007 HPV Vaccines Aged Out No longer eligi ble based on patient's age to complete this topic [facility]-HIB Vaccines Aged Out No longer e ligible based on patient's age to complete this topic [facility]-Hepatitis A Vaccines Aged Out No longer eligible based on patient's age to complete this topic [facility]-IPV Vaccines Aged Out No longer e ligible based on patient's age to complete this topic [facility]-Rotavirus Vaccines Aged Out No lo nger eligible based on patient's age to complete this topic Medical Devices Implanted Type Area Dry Roaster Device Identifier Shelf Expiration Date Model / Serial / Lot Vip Vascular Closure Device 6 Fr - [id number] Implanted:Qty: 1 on 02/23/2021 by Michael Ceballos MD at [facility] [id number] 11/18/2021 [id number] / / [id number] Stent Coronary Rolando Stent 3mm X 15mm - [id number] Implanted:Qty: 1 on 02/23/2021 by Michael Ceballos MD at [facility] N/A: Heart [id number] 08/06/2022 [id number] / / [id number] Stent Coronary Rolando Stent 3.5mm X 13mm - [id number] Implanted:Qty: 1 on 02/23/2021 by Michael Ceballos MD at [facility] N/A: Heart [id number] 10/09/2021 [id number] / / [id number] Insurance [place] MEDIC[id number] Care Teams Commercial Lines Account Executive Relationship Specialty Start Date End Date Josh Dias MD [facility] [place] [address] [facility] - General 08/01/20
--- OUTSIDE RECORDS SUMMARY | 2024-09-24 18:14 | XMS_ITS | Data Portability ---
Author Organization [facility] & JOSÉ MIGUEL Brown ADMIN Address [address] [place] [address] Care Team Providers Care Composite Science Teacher Name Role Phone VEDA SANTOS Primary Care Provider [phone] THOMAS FELIX Urologist Unavailable Assessment No assessment recorded. Plan of Treatment Reminders Order Date Submit Date Provider Last Modified By Organization Details Last Modified Time Details Appointments OV EST 15 2024 01:30P M Thomas Felix NP Not available Not available Not available Lab PSA, serum or plasma 2024 025 [facility] (Registration ), [address] [place], [address], 05/15/2024 12:51:41 PSA, serum or plasma 2023 024 [facility] (Registration ), [address] [place], [address], 11/01/2023 14:49:18 Referral None recorded. Procedures None recorded. Surgeries None recorded. Imaging None recorded. Medication Orders Eligard 45 mg (6 month) subcutane ous syringe 2024 025 [email or web address] Not available 05/15/2024 12:54:22 Eligard 45 mg (6 month) subcutane ous syringe 2023 024 [email or web address] [facility], [address] [place] [address], [address], [place], [address], 11/01/2023 13:34:09 Nystop 100,000 unit/gram topical powder 2023 024 [facility], [address], [address], [place], [address], 11/01/2023 13:40:30 Patient TargetsNo targets recorded. Patient InstructionsNo instructions recorded. Reason for Referral None Reported. Results Created Date Observation Date Name Description Value Unit Range Abnormal Flag Note LastModifiedBy Organization Detail LastModifiedTime 11/01/19 24 11/01/2023 PROST ATE SPECI FIC AG (PSA) prostate specific Ag (PSA) <0.13 NG/mL 0-4.0 Not Available [facility] ([facility]) [address] [facility], [place], [address], 11/01/2023 14:49:18 05/15/19 25 05/15/2024 PROST ATE SPECI FIC AG (PSA) prostate specific Ag (PSA) <0.13 NG/mL 0-4.0 Not Available [facility] ([facility]) [address] [facility], [place], [address], 05/15/2024 12:51:41 02/28/20 24 02/28/2024 audio gram No observ ation record ed. [email or web address] Not Available 2023 13:32:06 Result Notes None recorded. Problems Name Problem SNOMED Code Status Onset Date Resolution Date Notes Provider Name and Address Organization Details Recorded Time Sensorineural hearing loss 21782013 Active 2023 YONATAN LEON, ALEXANDER [address], [place], [address] , [place] - [facility] - [place] & [place] 4 13:20:09 Coronary arteriosclero sis 48621381 Active 2022 Marcy Pat null, [place] - [facility] [place] & [place] 3 14:31:50 Essential hypertension 34259824 Active 2022 Marcy Pat null, [place] [facility] - [facility] & [place] 3 14:31:57 Hyperlipidemi a 53104903 Active 2022 Marcy Pat null, [place] [facility] [place] & [place] 3 14:32:02 Carcinoma of prostate 087782804 Active 2022 Kymberly guzman, [facility] & [place] 3 11:06:48 Large prostate 077374773 Active 2022 Kymberly guzman, [facility] & [place] 3 11:06:52 Nocturia 609834288 Active 2022 Kymberly guzman, ROSENDO [facility] & [place] 3 11:07:10 Slowing of urinary stream 72239911 Active 2022 Kymberly guzman, [facility] & [place] 3 11:07:15 Notes:hx of prostate cancer urinary retention urinary tract infections COPD GERD Hyperlipidemia Heart Disease Ulcers Asthma Arthritis Problem Notes None recorded. Procedures Surgical History Date Name Laterality Status Provider Name and Address Organization Details Recorded Time 07/08/2022 Cystoscopy -Male completed Guillaume Brooks MD [address] [facility], [place], [address], [facility] & [place] 07/08/2022 16:15:43 Imaging Results None recorded. Procedure Notes None recorded. Medical Equipment None Reported. Allergies No known drug allergies Medications Name Sig Start Date Stop Date Status Note LastModified by Organization Details LastModified Time atorvastati n 40 mg tablet active Not Available Not Available Not Available bicalutamid e 50 mg tablet Take 1 tablet every day by oral route for 14 days. 10/01 completed Not Available Not Available Not Available doxycycline hyclate 100 mg capsule 10/01 completed Not Available Not Available Not Available clindamycin HCl 300 mg capsule Take 1 capsule every day by oral route. 04/02 completed Not Available Not Available Not Available pravastatin 40 mg tablet Take 1 tablet every day by oral route for 90 days. 10/31 completed Not Available Not Available Not Available Nystop 100,000 unit/gram topical powder APPLY TO THE AFFECTED AREA(S) BY TOPICAL ROUTE 2 TIMES PER DAY active Not Available Not Available No t Available ondansetron HCl 8 mg tablet TAKE 1 TABLET BY MOUTH EVERY 8 HOURS NEEDED 03/30 completed Not Available Not Available Not Available sucralfate 1 gram tablet 04/02 completed Not Available Not Available Not Available ondansetron HCl 4 mg tablet TAKE 1 TABLET BY MOUTH EVERY 6 TO 8 HOURS NEEDED 03/30 completed Not Available Not Available Not Available prednisone 20 mg tablet 10/31 completed Not Available Not Available Not Available isosorbide mononitrate ER 30 mg tablet,exte nded release 24 hr active Not Available Not Available Not Available clopidogrel 75 mg tablet Take 1 tablet every day by oral route for 90 days. active Not Available Not Available No t Available aspirin 81 mg tablet,january yed release Take 1 tablet every day by oral route. active Not Available Not Available No t Available prednisolon e acetate 1 % eye drops,suspe nsion 10/31 completed Not Available Not Available Not Available tamsulosin 0.4 mg capsule Take 1 capsule every day by oral route as directed for 90 days. active Not Available Not Available No t Available cephalexin 500 mg capsule 04/02 completed Not Available Not Available Not Available erythromyci n 5 mg/gram (0.5 %) eye ointment 04/18 completed Not Available Not Available Not Available naproxen sodium 550 mg tablet TAKE 1 TABLET BY MOUTH EVERY 12 HOURS NEEDED active Not Available Not Available No t Available lisinopril 10 mg tablet Take 1 tablet every day by oral route for 90 days. 10/31 completed Not Available Not Available Not Available lidocaine 5 % topical patch APPLY 1 PATCH EVERY DAY TOPICALLY TO AFFECTED AREA FOR UP TO 12 HOURS active Not Available Not Available No t Available nitroglycer in 0.4 mg sublingual tablet 10/31 completed Not Available Not Available Not Available metoprolol succinate ER 25 mg tablet,exte nded release 24 hr active Not Available Not Available Not Available cefuroxime axetil 500 mg tablet 04/02 completed Not Available Not Available Not Available levofloxaci n 500 mg tablet 04/02 completed Not Available Not Available Not Available albuterol sulfate HFA 90 mcg/actuati on aerosol inhaler active Not Available Not Available Not Available atropine 1 % eye drops 04/18 completed Not Available Not Available Not Available ondansetron 4 mg disintegrat ing tablet Place 2 tablets twice a day by transling ual route. 04/18 completed Not Available Not Available Not Available cefdinir 300 mg capsule Take 1 capsule every 12 hours by oral route for 7 days. 10/01 completed Not Available Not Available Not Available doxycycline hyclate 100 mg tablet 10/31 completed Not Available Not Available Not Available ipratropium bromide 21 mcg (0.03 %) nasal spray active Not Available Not Available Not Available naproxen 500 mg tablet 10/31 completed Not Available Not Available Not Available amoxicillin 875 mg-potassiu m clavulanate 125 mg tablet 03/30 completed Not Available Not Available Not Available esomeprazol e magnesium 20 mg capsule,del ayed release Take 1 capsule every day by oral route. active Not Available Not Available No t Available cyclobenzap rine 5 mg tablet TAKE 1 TABLET BY MOUTH THREE TIMES DAILY NEEDED active Not Available Not Available No t Available rosuvastati n 20 mg tablet 10/31 completed Not Available Not Available Not Available Eligard 45 mg (6 month) subcutaneou s syringe Inject 45mg every 6 months 2024 active Not Available Not Available Not Avai lable aspirin 04/18 completed Not Available Not Available Not Available Ipratropium Mcdonald (Nasal) 04/02 completed Not Available Not Available Not Available Vitals None Recorded Social History Question Answer Notes LastModified by [facility] Medical Details LastModified Time Tobacco Smoking Status Former Smoker Aleisha [facility] 03/17/2022 10:13:45 When Did You Quit Smoking? 6-10yearssin celastcigare tte Information not available 03/17/2022 Sex: Unknown Functional Status Question Answer Note LastModified by Organizat ion Details LastModified Time Do you use any illicit or recreational drugs? No Information not available 03/17/2022 What is your level of alcohol consumption? None former drinker Information not available 03/17/2022 Mental Status None recorded. Family History Nothing Reported Notes:Family history of acut e congestive heart failure Medical History Condition Response Depression Y Cancer Y Hyperlipidemia Y Heart Disease Y Past Encounters Encounter ID Performer Location Encounter Start Date Encounter Closed Date Diagnosis/Indication Diagnosis SNOMED-CT Code Diagnosis ICD10 Code Diagnosis Note [id number] Thomas Felix NP, S [facility] [address] [facility] [place] [address] 03/30/2022 10:27:42 03/30/2022 11:55:39 Carcinoma of prostate 479733744 C61 UA clearConti nue Tamsulosin 0.4mg dailyScrip t sent to pts pharmacy for Eligard. Pt will RTC for Eligard injection Large prostate 672547651 N40.0 Long-term current use of anticoagulant 552930581 Z79.01 History of urinary tract infection 5057936695 107 Z87.440 Nocturia 527063391 R35.1 Slowing of urinary stream 64797243 R39.12 [id number] Aldo Salcido MD [facility] [address] [place] [address] 04/02/2022 13:48:26 04/02/2022 15:13:50 Essential hypertension 65786535 I10 Continue current medication . Keep log Low-salt diet < 2 gm Na/day, Regular exercise Weight loss Coronary arteriosclerosis 36614331 I25.10 Multivesse l disease, Status post revascular ization of the LAD. He has residual OM and RCA disease.No anginal symptoms. Continue aggressive risk factor modificati on.Revascu larization of the proximal circumflex and or the RCA would be high risk potentiall y with Impella support. Hence the decision was made to medically manage Unless symptomati c Hyperlipidemia 50041835 E78.5 Continue statin Low fat/carboh ydrate diet Increase exercise Lose weight [id number] Guillaume Brooks MD [facility] [address] [place] [address],[address] [place] [address] 04/14/2022 13:29:11 04/14/2022 14:24:09 Carcinoma of prostate 533668480 C61 Large prostate 094167565 N40.0 History of urinary tract infection 5616324881 107 Z87.440 Long-term current use of anticoagulant 895983794 Z79.01 Nocturia 668865729 R35.1 Slowing of urinary stream 80460220 R39.12 [id number] Guillaume Brooks MD [facility] [address] [place] [address],[address] [place] [address] 05/26/2022 13:58:19 05/26/2022 14:32:29 Carcinoma of prostate 092006296 C61 Large prostate 887426857 N40.0 History of urinary tract infection 0753165897 107 Z87.440 Long-term current use of anticoagulant 249956911 Z79.01 Nocturia 191126291 R35.1 Slowing of urinary stream 41746165 R39.12 [id number] Guillaume Brooks MD [facility] [address] [place] [address],[address] [place] [address] 06/07/2022 14:29:55 06/07/2022 15:18:25 Carcinoma of prostate 691153735 C61 Large prostate 789148609 N40.0 Slowing of urinary stream 85027282 R39.12 Nocturia 411015753 R35.1 Retention of urine 22346 4002 R33.9 [id number] Guillaume Brooks MD [facility] [address] [place], [place] [address] [place] [address] 07/08/2022 12:25:39 07/08/2022 13:36:00 Carcinoma of prostate 168181982 C61 Slowing of urinary stream 48635576 R39.12 Nocturia 714605966 R35.1 Retention of urine 31338 4002 R33.9 Candidiasis of skin 4988 3006 B37.2 Brock hematuria 95227960 5 R31.0 resolved Chronic ra diation cystitis 810698181 N30.40 [id number] Guillaume Brooks MD [facility] [address] [place] [address],[address] [place] [address] 10/13/2022 12:59:32 10/14/2022 11:10:00 Carcinoma of prostate 202882296 C61 Slowing of urinary stream 77926386 R39.12 Nocturia 549163938 R35.1 Retention of urine 96133 4002 R33.9 Brock hematuria 44453333 5 R31.0 resolved Chronic ra diation cystitis 636968233 N30.40 Candidiasis of skin 4988 3006 B37.2 [id number] Aldo Salcido MD [facility] [address] [place] [address] 10/01/2022 12:59:58 10/01/2022 13:47:36 Essential hypertension 30377823 I10 Continue current medication . Keep log Low-salt diet < 2 gm Na/day, Regular exercise Weight loss Coronary arteriosclerosis 36773667 I25.10 No anginal or heart failure symptoms. Continue aggressive risk factor modificati on. Continue current cardiac regimen. Multivesse l disease, Status post revascular ization of the LAD. He has residual OM and RCA disease.No anginal symptoms. Continue aggressive risk factor modificati on.Revascu larization of the proximal circumflex and or the RCA would be high risk potentiall y with Impella support. Hence the decision was made to medically manage Unless symptomati c Hyperlipidemia 28207690 E78.5 Continue statin Low fat/carboh ydrate diet Increase exercise Lose weight [id number] Thomas Felix, DAI, S [facility] [address] [facility] [address] [place] [address] 04/18/2023 08:32:27 04/18/2023 09:06:33 Carcinoma of prostate 423834060 C61 Eligard injection given to pt. Reference # [id number] good from 04/05/2023 thru 04/04/2024P SA ordered provided to pt to get performedC ontinue Tamsulosin 0.4mg dailyStart Nystatin powder as neededRTC in 6 months for Eligard injection Slowing of urinary stream 99935737 R39.12 Nocturia 499200657 R35.1 Brock hematuria 49245603 5 R31.0 History of Retention of urine 74033 4002 R33.9 History of Candidiasis of skin 4988 3006 B37.2 [id number] Aldo Salcido MD [facility] [address] [place] [address] 04/18/2023 10:02:39 04/18/2023 10:49:02 Coronary arteriosclerosis 29237559 I25.10 Denies any anginal or heart failure symptoms.C ontinue aggressive risk factor modificati on.Continu e current cardiac regimen. Multivesse l disease, Status post revascular ization of the LAD. He has residual OM and RCA disease.No anginal symptoms. Continue aggressive risk factor modificati on.Revascu larization of the proximal circumflex and or the RCA would be high risk potentiall y with Impella support. Hence the decision was made to medically manage Unless symptomati c Essential hypertension 61303992 I10 Continue current medication . Keep log Low-salt diet < 2 gm Na/day, Regular exercise Weight loss Hyperlipidemia 33538722 E78.5 Continue statin Low fat/carboh ydrate diet Increase exercise Lose weight [id number] Thomas Felix NP, S [facility]-[address] [facility] [address] [place] [address] 10/17/2023 08:36:26 10/17/2023 10:17:18 Carcinoma of prostate 169580986 C61 [id number] Thomas Felix NP, S [facility]-[address] 00 [address] [facility] [address] [place] [address] 11/01/2023 12:55:59 11/01/2023 13:30:04 Carcinoma of prostate 773220590 C61 Eligard injection given to pt. Reference # [id number] good from 04/05/2023 thru 04/04/2024P SA ordered provided to pt to get performedC ontinue Tamsulosin 0.4mg dailyConti nue Nystatin powder as neededRTC in 6 months for Eligard injection Nocturia 349431875 R35.1 Candidiasis of skin 4988 3006 B37.2 [id number] [facility] [address] [facility] [place] [address] 02/28/2024 12:38:44 02/28/2024 13:22:40 Sensorineural hearing loss 46436486 H90.3 [id number] ALEXANDER [facility] [place] [address] [address] [facility] [address] [place] [address] 04/26/2024 12:48:22 04/26/2024 13:06:44 Sensorineural hearing loss 36776612 H90.3 [id number] [facility] [address] [facility] [address] [place] [address] 05/15/2024 10:14:34 05/15/2024 11:10:33 Carcinoma of prostate 847618390 C61 Eligard injection given to pt.PSA ordered provided to pt to get performed. Will call pt with resultsCon tinue Tamsulosin 0.4mg dailyRTC in 6 months for Eligard injection Slowing of urinary stream 07256480 R39.12 Nocturia 248592476 R35.1 [id number] ALEXANDER [facility] [place] [address] [address] [facility] [address] [place] [address] 05/29/2024 11:08:04 05/29/2024 11:21:26 Sensorineural hearing loss 91690914 H90.3 Health Concerns Section Related Observation LastModified by Organization Detai ls LastModified Time None Recorded Concern Status LastModified by Organization Details LastModified Time None Recorded Advance Directives Directive None Recorded Payers Insurance Date Sequence Insurance Name Policy Number Policy Mccormick Covered Member ID Mccormick Member ID Guarantor Name 05/29/2024 1 [employer] - DUAL COMPLETE (MEDICARE REPLACEMENT/A DVANTAGE - HMO) [id number] Waldemar Bolaños [id number] Waldemar Bolaños 07/30/2024 [employer] Waldemar Bolaños 05/29/2024 1 [id number] [facility] MEDIBLUE PLUS (MEDICARE REPLACEMENT HMO) [id number] Waldemar Bolaños [id number] Waldemar Bolaños 05/29/2024 2 MEDICAID-[facility] - FFS/TRADITION AL Waldemar Bolaños [id number] Waldemar Bolaoñs 04/26/2024 3 [place] Waldemar Bolaños [id number] Waldemar Bolaños Notes Date Note Type Note Provider Name and Address Organization Details Recorded Time 11/01/2023 text/html 83 yowm RTC for 6 month f/u of Prostate Cancer and Eligard injection. History of high grade prostate cancer. Patient was diagnosed with prostate cancer in 2017. His prostate biopsy revealed [place] 9 and 10 of 12 biopsies. He was started on hormonal therapy in February 2018 and then underwent combination brachytherapy in June 2017 followed by 25 external beam radiation treatments that ended in August. Patient has been on Eligard injections every 6. months,Patient is on Flomax 0 4 mg daily. Reports urinary stream is occasionally weak. Nocturia times 2-3. He denies any dysuria or gross hematuria. Pt is a DM and reports he used Nystatin to help with candiasis. States he needs a prescription for this.H/o Urinary retention (required emanuel cath) and gross hematuria in the past. Had cysto that was negative for any bladder lesions.Pt with h/o CAD with cardiac stent placement on chronic anticoagulation with Aspirin daily. Pt was on Plavix however, this was discontinued. States 2 weeks ago had NH, will be seeing Dr Gonzalez at [facility] for possible CABG. Previous PSA: < 0.13 on 04/18/2023, <0.13 on 10/13/2022, <0.13 on 03/30/2022 Thomas Felix NP, S [address] , [place], [address], [facility] & [place] 11/01/2023 13:44:27 02/28/2024 text/html Mr. Bolaños was seen today for an audiologic evaluation due to long-standing hearing loss bilaterally. He reports difficulty hearing well in background noise and in social settings. He denies drainage, aural fullness/pressure, and excessive noise exposure. Otoscopic inspection was unremarkable bilaterally. 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 Good word rec scores. 1-Discussed findings with Mr. Bolaños. 2-Rec hearing aids bilaterally. 3-F/u hearing testing annually. ALEXANDER FENTON [address], [place], [address], [facility] & [place] 02/28/2024 13:22:33 04/26/2024 text/html Patient was seen today for a hearing aid fitting via [facility]. ALEXANDER FENTON [address], [place], [address], [facility] & [place] 04/26/2024 13:09:30 05/15/2024 text/html 05/15/2024 83 yowm RTC for month f/u of Prostate Cancer and Eligard injection. Patient is on Flomax 0 4 mg daily. Reports urinary stream is stable. Nocturia times x2. He denies any dysuria, gross hematuria wt loss or bone pain.States did not have to have CABG performed. Still seeing Dr Fontana and Dr Gonzalez. 11/01/2023 83 yowm RTC for 6 month f/u of Prostate Cancer and Eligard injection. History of high grade prostate cancer. Patient was diagnosed with prostate cancer in 2018. His prostate biopsy revealed Devyn 9 and 10 of 12 biopsies. He was started on hormonal therapy in February 2018 and then underwent combination brachytherapy in June 2017 followed by 25 external beam radiation treatments that ended in August. Patient has been on Eligard injections every 6. months,Patient is on Flomax 0 4 mg daily. Reports urinary stream is occasionally weak. Nocturia times 2-3. He denies any dysuria or gross hematuria. Pt is a DM and reports he used Nystatin to help with candiasis. States he needs a prescription for this.H/o Urinary retention (required emanuel cath) and gross hematuria in the past. Had cysto that was negative for any bladder lesions.Pt with h/o CAD with cardiac stent placement on chronic anticoagulation with Aspirin daily. Pt was on Plavix however, this was discontinued. States 2 weeks ago had NH, will be seeing Dr Gonzalez at [facility] for possible CABG. 10/31: PSA < 0.131/: PSA < 0.137/: PSA < 0.131: PSA < 0.13 Thomas Felix NP, S [address], [place], [address], [facility] - [place] - [place] & [place] 05/15/2024 11:13:59 05/29/2024 text/html Patient was seen today for a hearing aid service. Cleaned and adjusted hearing aids this date. YONATAN LEON, ALEXANDER [address], [place], [address], [place] - [facility] - [place] & [place] 05/29/2024 11:23:32
--- NOTE | 2024-09-24 18:15 | XR_ITS ---
PROCEDURE INFORMATION: Exam: XR Chest Exam date and time: 09/24/2024 6:27 PM Age: 84 years old Clinical indication: Pain; Chest pressure; Additional info: Chest pain TECHNIQUE: Imaging protocol: Radiologic exam of the chest. Views: 1 view. COMPARISON: CT ANGIO CHEST 10/16/2023 9:37 AM FINDINGS: Lungs: Unremarkable. No consolidation. Chronic elevation right hemidiaphragm redemonstrated. Pleural spaces: Unremarkable. No pleural effusion. No pneumothorax. Heart/Mediastinum: Unremarkable. No cardiomegaly. Bones/joints: Unremarkable. IMPRESSION: Stable chest x-ray with no acute disease.
[2024-09-24] MEDS: METOPROLOL TARTRATE 5MG/5ML VIAL 5 MG IV (18:34)
[2024-09-24] MEDS: NITROGLYCERIN IN 5 % DEXTROSE 250 ML 1.5 MG IV (18:35)
[2024-09-24 18:42] LABS: Hematocrit 39.1 % (42.0-52.0); Hemoglobin 12.8 g/dL (14.1-18.0); Immature Granulocytes % 0.2 %; Mean Corpuscular HGB Conc 32.7 g/dL (31.8-35.4); Mean Corpuscular Hemoglobin 31.8 pg (27.0-31.2); Mean Corpuscular Volume 97.0 fl (80-94); Nucleated Red Blood Cells % 0 %; Platelet Count 252 K/mm3 (142-424); Red Blood Count 4.03 M/mm3 (4.60-6.20); Red Cell Distribution Width-SD 49.1 fL; White Blood Count 8.1 K/mm3 (4.8-10.8)
[2024-09-24 18:51] LABS: Alanine Aminotransferase 16 U/L (12-78); Albumin Level 4.5 g/dl (3.5-5.0); Albumin/Globulin Ratio 1.4 (1.1-1.8); Alkaline Phosphatase 90 U/L (38-126); Anion Gap 15.6 mEq/L (5-15); Aspartate Amino Transferase 28 U/L (17-59); Bilirubin,Total 1.0 mg/dl (0.2-1.3); Blood Urea Nitrogen 19 mg/dl (9-20); Calcium 8.5 mg/dl (8.4-10.2); Carbon Dioxide 31 mmol/L (22.0-30.0); Chloride 98 mmol/L (98-107); Creatinine Clearance Estimated 66 mL/min (50-200); Creatinine,Serum 0.60 mg/dl (0.66-1.25); Estimated Glomerular Filt Rate 129 ml/min (>60); GFR (African American) 156 ML/MIN (>60); Globulin 3.3 g/dL (1.3-3.2); Glucose 113 mg/dl (74-100); Magnesium 2.1 mg/dl (1.6-2.3); Potassium 4.6 mmoL/L (3.5-5.1); Sodium 140 mmol/L (136-145); Total Protein,Serum 7.8 g/dl (6.3-8.2)
[2024-09-24 18:56] LABS: D-Dimer 0.67 ug/mL (0.0-0.5)
[2024-09-24 19:02] LABS: NT Pro Brain Natriuretic Pep. 194 pg/mL (0-450)
[2024-09-24 19:10] LABS: Troponin I < 0.01 ng/ml (0.00-0.034)
--- OUTSIDE RECORDS SUMMARY | 2024-09-24 19:13 | XMS_ITS | CCD ---
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 4 03/03/20 25 Active clopidogrel (PLAVIX) 75 MG tablet RxNorm: 065254 Take 1 Tablet(s) Oral every day . 4 No Stop Date Active metoprolol succinate XL (TOPROL-XL) 25 MG 24 hr tablet RxNorm: 935435 Take 0.5 Tablet(s) Oral every day . 4 No Stop Date Active isosorbide mononitrate (IMDUR) 30 MG 24 hr tablet RxNorm: 946199 Take 1 Tablet(s) Oral every day . 4 No Stop Date Active Diclofenac Sodium (VOLTAREN) 1 % gel gel RxNorm: 168607 Apply 4 g topically to the appropriate area as directed 4 (Four) Times a Day. 4 No Stop Date Active tamsulosin (FLOMAX) 0.4 MG capsule 24 hr capsule RxNorm: 714215 Take 1 Capsule(s) Oral every night at bedtime . 4 No Stop Date Active esomeprazole (nexIUM) 20 MG capsule RxNorm: 977306 Take 1 Capsule(s) Oral every morning Before Breakfast . 4 No Stop Date Active albuterol sulfate HFA 108 (90 Base) MCG/ACT inhaler RxNorm: 2238941 INHALE 2 PUFFS BY MOUTH EVERY 4 (FOUR) HOURS NEEDED FOR WHEEZING 4 No Stop Date Active ipratropium (ATROVENT) 0.03 % nasal spray RxNorm: 9586020 USE 2 SPRAYS INTO THE NOSTRIL(S) DIRECTED BY PROVIDER 2 (TWO) TIMES A DAY. 4 No Stop Date Active leuprolide (Eligard) 45 MG injection RxNorm: 431017 Inject 45mg every 6 months 4 No Stop Date Active aspirin 81 MG EC tablet RxNorm: 520717 Take 1 Tablet(s) Oral every day . 4 Active atorvastatin (LIPITOR) 40 MG tablet RxNorm: 088208 Take 1 Tablet(s) Oral every day . 4 03/08/20 24 Inactive Medication Administered No Medication Administered data Procedures Procedure Codes Date MED LIST DOCD IN [facility] CPT-4: 1159F 05/11/2024 RVW MEDS BY RX/DR IN [facility] CPT-4: 1160F 2024 Functional Status Assessed CPT-4: 1170F 05/11 Most recent systolic blood pressure <130 mm Hg C PT-4: 3074F 03/09/2024 Most recent diastolic blood pressure < 80 mm hg CPT-4: 3078F 03/09/[address] [facility] CPT-4: 1159F 02/03/2024 RVW MEDS BY RX/DR IN [facility] CPT-4: 1160F 2023 Discharge Meds Reconciled w/ Current Med list CP T-4: 1111F 02/03/2024 Screening for clinical depre ssion is negative, follow-up plan not required CPT-4: G8510 02/03/2024 Vital Signs Date Vital 03/09/2024 Blood Pressure 1: 110/70 Code: 8480-6 BMI: 27.6 Code: 96581-0 Heart Rate 1: 67 bpm Height: 5'7 Code: 8302-2 Respiratory Rate: 16 bpm SpO2: 94% Temperature: 36.1 (C) / 97.0 (F) Weight: 176 lbs Code: 54730-2 02/03/2024 Blood Pressure 1: 120/60 Code: 8480-6 BMI: 27.7 Code: 08327-3 Heart Rate 1: 66 bpm Height: 5'7 Code: 8302-2 Respiratory Rate: 16 bpm SpO2: 96% Temperature: 36.4 (C) / 97.6 (F) Weight: 177 lbs Code: 42230-7 Reason For Visit Reason For Visit Effective Dates Notes established patient visit 05/11/2024 established patient visit 03/09/2024 new patient welcome visit 02/03/2024 Encounters Encounter Performer Location Location Address Codes Date (46169) (EST PT) MODERATE COMPLEXITY TELEHEALTH VISIT Diagnosis: Chronic obstructive pulmonary disease, unspecified COPD type[ICD10: J44.9] Diagnosis: Essential hypertension[ICD10: I10] Diagnosis: (Z99.89-V46.8) Dependence on other enabling machines and devices[ICD10: Z99.89] Diagnosis: (Z91.81-V15.88) History of falling[ICD10: Z91.81] Diagnosis: (R53.1-780.79) Weakness[ICD10: R53.1] Jodi Ochoa [place] [facility] [address] [place] [address] CPT-4: 49032 5 (00881) Home or Residence Visit Est Pt - Moderate Level, 40 mins Diagnosis: Chronic obstructive pulmonary disease, unspecified COPD type[ICD10: J44.9] Diagnosis: Essential hypertension[ICD10: I10] Diagnosis: Hypercholesterolemia[I CD10: E78.00] Diagnosis: (R53.1-780.79) Weakness[ICD10: R53.1] Diagnosis: (Z91.81-V15.88) History of falling[ICD10: Z91.81] Diagnosis: (Z99.89-V46.8) Dependence on other enabling machines and devices[ICD10: Z99.89] [facility] [place] [id number] CPT-4: 84473 4 (51899) Home or Residence Visit PATIENT FINANCIAL SPECIALIST - Moderate Level, 60 mins Diagnosis: Encounter for general adult medical examination without abnormal findings[ICD10: Z00.00] Diagnosis: Essential hypertension[ICD10: I10] Diagnosis: Chronic obstructive pulmonary disease, unspecified COPD type[ICD10: J44.9] Diagnosis: Gastroesophageal reflux disease without esophagitis[ICD10: K21.9] Diagnosis: Prostate cancer[ICD10: C61] Diagnosis: (Z99.89-V46.8) Dependence on other enabling machines and devices[ICD10: Z99.89] Diagnosis: (R53.1-780.79) Weakness[ICD10: R53.1] Diagnosis: (Z91.81-V15.88) History of falling[ICD10: Z91.81] [facility] [place] [address] CPT-4: 18946 4 Plan of Care Planned Activity Notes Codes Status Date Visit Plan: This is a pleasant 9 2 year old male that presents for follow up via telehealth. This is a telephone call only. Patient is in the [facility] and consents to treatment via telephone. Patient [...] on the phone with this patient. 05/11/2024 Appointment: Jodi Ochoa WPtel: [phone] [id number] ETV 05/11/2024 Patient Education: Patient Medication Summary Completed 05/11/2024 Visit Plan: J44.9-496 Chronic ob structive pulmonary disease, unspecified COPD type I10-401.9 Essential hypertension E78.00-272.0 Hypercholesterolemia R53.1-780.79 Weakness Z91.81-V15.88 History of falling Z99.89-V46.8 Dependence on other enabling machines and devices This is a pleasant 83 year old male that presents for follow up today. Patient states that since our last visit he has not heard from the [facility]. He has still been buying them from the store. He reports that his COPD has been doing well. His blood pressure has been in normal range. States it is always below 130 SBP. He is out of his statin and does not see the education diagnostician until March and is asking if we can refill his medication for him today. He is still using his walker to get around. He has not had any falls since our last visit with him. We will refill his lipitor today. We sent in extra refills so that he does not run out again. We did reach out to the company that his referral was sent to and they are stating his insurance is not covering supplies. We will have [facility] follow up on this today. Patient will continue to use his medications as prescribed. Pt will continue to use his walker. We will see patient back in one month for a recheck. Patient was encouraged to contact us if needs to be seen sooner. Patient verbazlied understanding and agreeable to plan of care. 03/09/2024 Appointment: Jodi Ochoa WPtel: [phone] [id number] E031 03/09/2024 Patient Education: Patient Medication Summary Completed 03/09/2024 Visit Plan: Z00.00-V70.9 Encount er for general adult medical examination without abnormal findings I10-401.9 Essential hypertension J44.9-496 Chronic obstructive pulmonary disease, unspecified COPD type K21.9-530.81 Gastroesophageal reflux disease without esophagitis C61-185 Prostate cancer Z99.89-V46.8 Dependence on other enabling machines and devices R53.1-780.79 Weakness Z91.81-V15.88 History of falling This is a pleasant 83 year old male that presents for his welcome visit. Patient has a history of prostate cancer. He is stll recieving treatment for his prostate cancer. He goes every 4-6 weeks for his injections. He states they say he is in remission. He had pellets placed and since that time he has had issues with urination. He states he has to use depends as he leaks urine since his treatments. He uses pull ups but they are very expensive. He states he has COPD and it is only in one lung according to his PCP. He uses his inhaler as needed. He does have GERD but states that his medications work well to control it. He has blood pressure issues but states with his medication he is doing well He has to use a walker to get around. He has someone who comes out and cleans his house for him. [facility] is a free service for him. He gets medicaid and food stamps at this time. He is asking if we can help with incontinace supplies. We will put in a order for Incontinace supplies for him today. With his leaking due to radiation treatments we will see if his insurance will aprove them. Patient has many supports in place [facility] with [facility] We did talk with him about contacting them to see if they can help fix a shower that he is using. He has difficulty getting in and out of the shower at this time. He will call them and we will follow up at next visit. Patient will continue his medications as prescribed. Patient will contact us sooner if he needs to be see before next appointment. Patient verbalized understandings and agreeable to plan of care. 02/03/2024 Appointment: Jodi Ochoa WPtel: [phone] [address] 02/03/2024 Patient Education: Patient Medication Summary Completed 02/03/2024 Referral: [facility] WPtel: [phone] [facility] 4th Floor Isaac [id number] Referral DME Company Confirmed Instructions Comment Date . This is a pleasant 83 year old male that presents for follow up via telehealth. This is a telephone call only. Patient is in the [facility] and consents to treatment via telephone. Patient [...] on the phone with this patient. 05/11/2024 . J44.9-496 Chronic obstruct shiraz pulmonary disease, unspecified COPD type I10-401.9 Essential hypertension E78.00-272.0 Hypercholesterolemia R53.1-780.79 Weakness Z91.81-V15.88 History of falling Z99.89-V46.8 Dependence on other enabling machines and devices This is a pleasant 83 year old male that presents for follow up today. Patient states that since our last visit he has not heard from the [facility]. He has still been buying them from the store. He reports that his COPD has been doing well. His blood pressure has been in normal range. States it is always below 130 SBP. He is out of his statin and does not see the education diagnostician until March and is asking if we can refill his medication for him today. He is still using his walker to get around. He has not had any falls since our last visit with him. We will refill his lipitor today. We sent in extra refills so that he does not run out again. We did reach out to the company that his referral was sent to and they are stating his insurance is not covering supplies. We will have [facility] follow up on this today. Patient will continue to use his medications as prescribed. Pt will continue to use his walker. We will see patient back in one month for a recheck. Patient was encouraged to contact us if needs to be seen sooner. Patient verbazlied understanding and agreeable to plan of care. 03/09/2024 . Z00.00-V70.9 Encounter for general adult medical examination without abnormal findings I10-401.9 Essential hypertension J44.9-496 Chronic obstructive pulmonary disease, unspecified COPD type K21.9-530.81 Gastroesophageal reflux disease without esophagitis C61-185 Prostate cancer Z99.89-V46.8 Dependence on other enabling machines and devices R53.1-780.79 Weakness Z91.81-V15.88 History of falling This is a pleasant 83 year old male that presents for his welcome visit. Patient has a history of prostate cancer. He is stll recieving treatment for his prostate cancer. He goes every 4-6 weeks for his injections. He states they say he is in remission. He had pellets placed and since that time he has had issues with urination. He states he has to use depends as he leaks urine since his treatments. He uses pull ups but they are very expensive. He states he has COPD and it is only in one lung according to his PCP. He uses his inhaler as needed. He does have GERD but states that his medications work well to control it. He has blood pressure issues but states with his medication he is doing well He has to use a walker to get around. He has someone who comes out and cleans his house for him. [facility] It is a free service for him. He gets medicaid and food stamps at this time. He is asking if we can help with incontinace supplies. We will put in a order for Incontinace supplies for him today. With his leaking due to radiation treatments we will see if his insurance will aprove them. Patient has many supports in place [facility] We did talk with him about contacting them to see if they can help fix a shower that he is using. He has difficulty getting in and out of the shower at this time. He will call them and we will follow up at next visit. Patient will continue his medications as prescribed. Patient will contact us sooner if he needs to be see before next appointment. Patient verbalized understandings and agreeable to plan of care. 02/03/2024 Medical Equipment No Medical Equipment data Advance Directives No Advance Directive data
--- OUTSIDE RECORDS SUMMARY | 2024-09-24 19:14 | XMS_ITS | CCD ---
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 4 03/03/20 25 Active clopidogrel (PLAVIX) 75 MG tablet RxNorm: 316343 Take 1 Tablet(s) Oral every day . 4 No Stop Date Active metoprolol succinate XL (TOPROL-XL) 25 MG 24 hr tablet RxNorm: 955590 Take 0.5 Tablet(s) Oral every day . 4 No Stop Date Active isosorbide mononitrate (IMDUR) 30 MG 24 hr tablet RxNorm: 703311 Take 1 Tablet(s) Oral every day . 4 No Stop Date Active Diclofenac Sodium (VOLTAREN) 1 % gel gel RxNorm: 905815 Apply 4 g topically to the appropriate area as directed 4 (Four) Times a Day. 4 No Stop Date Active tamsulosin (FLOMAX) 0.4 MG capsule 24 hr capsule RxNorm: 611158 Take 1 Capsule(s) Oral every night at bedtime . 4 No Stop Date Active esomeprazole (nexIUM) 20 MG capsule RxNorm: 402758 Take 1 Capsule(s) Oral every morning Before Breakfast . 4 No Stop Date Active albuterol sulfate HFA 108 (90 Base) MCG/ACT inhaler RxNorm: 8830686 INHALE 2 PUFFS BY MOUTH EVERY 4 (FOUR) HOURS NEEDED FOR WHEEZING 4 No Stop Date Active ipratropium (ATROVENT) 0.03 % nasal spray RxNorm: 6705678 USE 2 SPRAYS INTO THE NOSTRIL(S) DIRECTED BY PROVIDER 2 (TWO) TIMES A DAY. 4 No Stop Date Active leuprolide (Eligard) 45 MG injection RxNorm: 381140 Inject 45mg every 6 months 4 No Stop Date Active aspirin 81 MG EC tablet RxNorm: 351855 Take 1 Tablet(s) Oral every day . 4 Active atorvastatin (LIPITOR) 40 MG tablet RxNorm: 921942 Take 1 Tablet(s) Oral every day . 4 03/08/20 24 Inactive Medication Administered No Medication Administered data Procedures Procedure Codes Date MED LIST [facility] CPT-4: 1159F 05/11/2024 RVW MEDS BY RX/DR [facility] CPT-4: 1160F 2024 Functional Status Assessed CPT-4: 1170F 05/11 Most recent systolic blood pressure <130 mm Hg C PT-4: 3074F 03/09/2024 Most recent diastolic blood pressure < 80 mm hg CPT-4: 3078F 03/09/2024 MED LIST DOCD [facility] CPT-4: 1159F 02/03/2024 RVW MEDS BY RX/DR [facility] CPT-4: 1160F 2023 Discharge Meds Reconciled w/ Current Med list CP T-4: 1111F 02/03/2024 Screening for clinical depre ssion is negative, follow-up plan not required CPT-4: G8510 02/03/2024 Vital Signs Date Vital 03/09/2024 Blood Pressure 1: 110/70 Code: 8480-6 BMI: 27.6 Code: 57666-5 Heart Rate 1: 67 bpm Height: 5'7 Code: 8302-2 Respiratory Rate: 16 bpm SpO2: 94% Temperature: 36.1 (C) / 97.0 (F) Weight: 176 lbs Code: 04394-5 02/03/2024 Blood Pressure 1: 120/60 Code: 8480-6 BMI: 27.7 Code: 01866-5 Heart Rate 1: 66 bpm Height: 5'7 Code: 8302-2 Respiratory Rate: 16 bpm SpO2: 96% Temperature: 36.4 (C) / 97.6 (F) Weight: 177 lbs Code: 28627-9 Reason For Visit Reason For Visit Effective Dates Notes established patient visit 05/11/2024 established patient visit 03/09/2024 new patient welcome visit 02/03/2024 Encounters Encounter Performer Location Location Address Codes Date (20205) (EST PT) MODERATE COMPLEXITY TELEHEALTH VISIT Diagnosis: Chronic obstructive pulmonary disease, unspecified COPD type[ICD10: J44.9] Diagnosis: Essential hypertension[ICD10: I10] Diagnosis: (Z99.89-V46.8) Dependence on other enabling machines and devices[ICD10: Z99.89] Diagnosis: (Z91.81-V15.88) History of falling[ICD10: Z91.81] Diagnosis: (R53.1-780.79) Weakness[ICD10: R53.1] Jodi Ochoa [place] [facility] [address] [place] [address] CPT-4: 61852 5 (81770) Home or Residence Visit Est Pt - Moderate Level, 40 mins Diagnosis: Chronic obstructive pulmonary disease, unspecified COPD type[ICD10: J44.9] Diagnosis: Essential hypertension[ICD10: I10] Diagnosis: Hypercholesterolemia[I CD10: E78.00] Diagnosis: (R53.1-780.79) Weakness[ICD10: R53.1] Diagnosis: (Z91.81-V15.88) History of falling[ICD10: Z91.81] Diagnosis: (Z99.89-V46.8) Dependence on other enabling machines and devices[ICD10: Z99.89] [facility] [place] [id number] CPT-4: 79541 4 (32220) Home or Residence Visit [employer]CHNOLOGY [employer]NS[employer] - Moderate Level, 60 mins Diagnosis: Encounter for general adult medical examination without abnormal findings[ICD10: Z00.00] Diagnosis: Essential hypertension[ICD10: I10] Diagnosis: Chronic obstructive pulmonary disease, unspecified COPD type[ICD10: J44.9] Diagnosis: Gastroesophageal reflux disease without esophagitis[ICD10: K21.9] Diagnosis: Prostate cancer[ICD10: C61] Diagnosis: (Z99.89-V46.8) Dependence on other enabling machines and devices[ICD10: Z99.89] Diagnosis: (R53.1-780.79) Weakness[ICD10: R53.1] Diagnosis: (Z91.81-V15.88) History of falling[ICD10: Z91.81] [facility] [place] [id number] CPT-4: 37402 4 Plan of Care Planned Activity Notes Codes Status Date Visit Plan: This is a pleasant 9 2 year old male that presents for follow up via telehealth. This is a telephone call only. Patient is in the [facility] and consents to treatment via telephone. [...] with this patient. 05/11/2024 Appointment: Jodi Ochoa WPtel:[phone] [id number] ETV 05/11/2024 Patient Education: Patient Medication Summary [...] visit he has not heard from the [employer]. He has still been buying them from the store. He reports that his COPD has been doing well. His blood pressure has been in normal range. States it is always below 130 SBP. He is out of his statin and does not see the supervising editor news reel until March and is asking if we [...] plan of care. 03/09/2024 Appointment: Jodi Ochoa WPtel:[phone] [id number] E031 03/09/2024 Patient Education: Patient Medication Summary [...] of care. 02/03/2024 Appointment: Jodi Ochoa WPtel: [phone] [address] 02/03/2024 Patient Education: Patient Medication Summary Completed 02/03/2024 Referral: [facility] WPtel:[phone] [facility] 4th Floor Isaac [id number] Referral DME Company Confirmed Instructions Comment Date . This is a pleasant 83 year old male that presents for follow up via telehealth. This is a telephone call only. Patient is in the [facility] and consents to treatment via telephone. [...] visit he has not heard from the [employer]. He has still been buying them from the store. He reports that his COPD has been doing well. His blood pressure has been in normal range. States it is always below 130 SBP. He is out of his statin and does not see the supervising editor news reel until March and is asking if we [...]
[2024-09-24 19:53] LABS: Hepatitis C Ab Qual. W/ RFX NEGATIVE (Negative)
--- NOTE | 2024-09-24 21:44 | P.HP_ITS ---
<Statement entered by Christiano Snyder MD - 10/01/24 16:20> Personally evaluated patient and agree with plan of care as outlined by the PHONOGRAPH NEEDLE TIP MAKER. History of Present Illness *Admission Date: 09/24/24 *Reason for visit:: Dyspnea *History of present illness: Mr. Bolaños is a 84-year-old male who presents today with complaints of hypertension and dyspnea. Patient has a past medical history of CAD, NSTEMI, prostate cancer, COPD, asthma, hypertension, hyperlipidemia, and GERD. He states he was just getting off the phone and started to develop chest pressure. He states he got up and went to the kitchen and felt like his ears were popping. He thought his blood pressure was high so he took it. He states his blood pressure was 159/67. He reports this is high for him. He reports blood pressure and shortness of breath happen so quickly it felt like the time when he had a previous [place]. He also reports nausea and sweating during this time but have since resolved. He states he is a little more short of breath than usual but he attributes that to history of COPD, sinus congestion, and productive cough. He states he never had any chest pain today. Patient denies fever/chills, congestion, runny nose, chest pain, vomiting, diarrhea, constipation, headache, lightheadedness, dizziness, or syncope. [facility] Disclaimer: The information contained in this section may have been updated after the patient was seen, as this information can be updated by other users. Medical History Abnormal electrocardiogram [ECG] [EKG] CAD (coronary artery disease) Non-STEMI (non-ST elevated myocardial infarction) Physical debility Acute pain of left hip Acute urinary retention Acute UTI Acute urinary retention Hematuria Prostate cancer Colonoscopy planned Ulcer Urinary tract infection COPD (chronic obstructive pulmonary disease) Asthma Arthritis History of gastroesophageal reflux (GERD) Hyperlipidemia Hypertension Prostate cancer Urinary retention Hematuria Cellulitis Dental abscess Acute sinus infection Encounter for laboratory testing for COVID-19 virus Bilateral otitis media Spider bite Acute urinary retention Spondylosis Labyrinthitis of left ear Sinusitis Common cold Surgical History H/O abdominal surgery History of heart artery stent History of cardiac cath Family History Other Family history of acute congestive heart failure Social History (Updated 09/24/24 @ 21:10 by Kalani Lambert RN) Smoking Status: Former smoker tobacco type: cigarettes second hand exposure: No alcohol intake: former substance use type: denies use current occupational status: retired Travel in the last 8 weeks?: None household members: family housing: house current occupational exposures/hazards: No caffeine: Yes Have you lived/traveled outside [place] in past 30 days?: No Contact w/someone who lives/traveled outside US past 30 days?: No Exposure to someone with infectious disease in past 14 days?: No Do you have a fever (greater than 100.4 F or 38 C)?: No Have you tested positive for COVID-19?: No Exposed to someone with COVID-19 in past 14 days?: No Do you have a sore throat?: No Do you have a cough?: No Do you have any weakness?: No Are you experiencing any nausea/vomitting?: No Do you have any diarrhea?: No Are you experiencing any unusual bleeding?: No Do you have any muscle aches/pain?: No Do you have any abdominal pain?: No Are you experiencing loss of taste or smell?: No Other Medical History Have you received the Flu Vaccine for this season: Yes Have you received the Pneumonia Vaccine: Yes Review of Systems Constitutional Constitutional: Denies chills, Denies fever(s) and Denies headache(s) ENT Ears, Nose, Mouth, and Throat: Denies dizziness, Denies headache(s) and Denies nasal discharge *Cardiovascular Cardiovascular: Denies chest pain, Reports dyspnea and Denies lightheadedness Comments: Chest pressure *Respiratory Respiratory: Reports cough and Reports dyspnea *Gastrointestinal Gastrointestinal: Denies constipation, Denies loose stools, Reports nausea and Denies vomiting *Genitourinary Genitourinary: Reports system reviewed and no additional complaints, except as documented *Musculoskeletal Musculoskeletal: Reports system reviewed and no additional complaints, except as documented *Neurologic Neurologic: Denies dizziness and Denies headache(s) Meds Home Medications and Allergies Home Medications ?Medication ?Instructions ?Recorded ?Confirmed ?Type tamsulosin 0.4 mg capsule 0.4 mg PO DAILY prostate 09/24/24 History ipratropium bromide 21 mcg (0.03 2 spray intranasal BI D Allergy 03/18/21 09/24/24 History %) nasal spray symptoms albuterol sulfate 90 mcg/actuation 1 puff inhalation B ID 10/25/23 09/24/24 History aerosol inhaler aspirin 81 mg tablet,delayed 81 mg PO DAILY 30 days #9 0 tabs 12/22/23 09/24/24 Rx release clopidogrel 75 mg tablet 75 mg PO DAILY #90 tabs 100 06/1109/24/24 Rx atorvastatin 40 mg tablet (Lipitor) 40 mg PO DAILY #30 tabs 03/23/24 09/24/24 Rx blood pressure monitor (Blood #1 ea 08/23/24 09/24/24 Rx Pressure Kit) losartan 50 mg tablet 50 mg PO DAILY #30 tabs 08/1209/24/24 Rx esomeprazole magnesium 20 mg 20 mg PO DAILY Acid Reflu x #90 caps 09/06/24 09/24/24 Rx capsule,delayed release isosorbide mononitrate 30 mg 30 mg PO DAILY 09/24/24 0 09/24/24 History tablet,extended release 24 hr metoprolol succinate 25 mg 25 mg PO DAILY 09/24/2410/12 History tablet,extended release 24 hr nitroglycerin 0.4 mg sublingual 0.4 mg sublingual Q5M PRN Chest 09/24/24 09/24/24 History tablet Pain New Prescriptions to Start Prescriptions: Allergies Allergy/AdvReac Type Severity Reaction Status Date / Time Sulfa (Sulfonamide Allergy Unknown I-RASH Verified 09/06/24 10:33 Antibiotics) (SULFA (SULFONAMIDE ANTIBIOTICS)) Exam Data for Last 24 hours Vital signs and Labs for Last 24 Hours: Temp Pulse Resp BP Pulse Ox O2 Del Method 98.6 F 66 17 145/63 H 97 Room Air 09/24/24 20:33 09/24/24 20:54 09/24/24 20:54 09/24/24 20:54 09/24/24 20:54 09/24/24 21:00 Laboratory Results - last 24 hr 09/24/24 18:03: WBC 8.1, RBC 4.03 L, Hgb 12.8 L, Hct 39.1 L, MCV 97.0 H, MCH 31.8 H, MCHC 32.7, RDW 13.7, Plt Count 252, MPV 10.2, Neut % (Auto) 57.6, Lymph % (Auto) 31.1, [place] % (Auto) 9.9 H, Eos % (Auto) 0.6, Baso % (Auto) 0.6, Neut # (Auto) 4.7, Lymph # (Auto) 2.5, [place] # (Auto) 0.8, Eos # (Auto) 0.1, Baso # (Auto) 0.1, D-Dimer 0.67 H, Sodium 140, Potassium 4.6, Chloride 98, Carbon Dioxide 31 H, Anion Gap 15.6 H, BUN 19, Creatinine 0.60 L, Estimated Creat Clear 66, Estimated GFR 129, Est GFR ( Amer) 156, Glucose 113 H, Calcium 8.5, Magnesium 2.1, Total Bilirubin 1.0, AST 28, ALT 16, Alkaline Phosphatase 90, Troponin I < 0.01, NT-Pro-B Natriuret Pep 194, Total Protein 7.8, Albumin 4.5, Globulin 3.3 H, Albumin/Globulin Ratio 1.4, HCV Ab PRIYANKA w/Rflx PCR Qn Negative, HIV Ag/Ab Combo Qual Negative I & O for Last 24 hours: Intake & Output 09/21/24 09/22/24 09/23/24 09/24/24 23:59 23:59 23:59 23:59 Intake Total 1.85 / 1.85 Balance 1.85 / 1.85 Weight 83.915 kg *Routine HEENT Exam Head: Present normocephalic and atraumatic Eye: Present EOMI and PERRL ENT: Present mucous membranes moist and oropharynx clear *Routine Neck Exam Neck: Present supple and full ROM *Routine Respiratory Exam Respiratory: Present CTA bilaterally, normal respiratory effort, able to speak in complete sentences and symmetric chest movement; Absent accessory muscle use or respiratory distress *Routine Cardiovascular Exam Cardiovascular: Present RRR, Normal S1 and Normal S2 *Routine Abdominal Exam Abdominal: Present soft and normoactive bowel sounds; Absent tenderness or distended *Routine Rectal Exam Rectal:: deferred *Routine Genitalia Exam Genitalia:: deferred *Routine Extremities Exam Extremities: Present edema (2+ pitting edema noted to right lower extremity), full ROM, pulses intact and normal capillary refill *Routine Skin Exam Skin: Present intact, dry and warm *Routine Neurological Exam Neurological: Present alert, oriented X3 and CN II-XII intact Assessment and Plan *Assessment and plan (1) Dyspnea: Status: Acute Qualifiers: Dyspnea type: dyspnea on exertion Qualified Code(s): R06.09 - Other forms of dyspnea Category: Medical Code(s): R06.00 - Dyspnea, unspecified Plan: Patient denies chest pain but reports chest pressure History of COPD could be contributing to dyspnea as well as sinus congestion Initial troponin on admission <0.01 Trend troponins Cardiac monitoring Continue home dose of albuterol inhaler (2) Hypertension: Status: Acute Qualifiers: Hypertension type: primary hypertension Qualified Code(s): I10 - Essential (primary) hypertension Category: Medical Code(s): I10 - Essential (primary) hypertension Plan: Continue patient's home medications Ambo Mary 75 mg daily Imdur 30 mg daily Metoprolol 25 mg daily (3) CAD (coronary artery disease): Status: Acute Qualifiers: Coronary Disease-Associated Artery/Lesion type: [place] artery [place] vs. transplanted heart: eek heart Associated angina: with unstable angina Qualified Code(s): I25.110 - Atherosclerotic heart disease of [place] coronary artery with unstable angina pectoris Category: Medical Code(s): I25.10 - Atherosclerotic heart disease of [place] coronary artery without angina pectoris Plan: Continue home medications Aspirin 81 mg daily Plavix 75 mg daily (4) Hyperlipidemia: Status: Acute Qualifiers: Hyperlipidemia type: mixed hyperlipidemia Qualified Code(s): E78.2 - Mixed hyperlipidemia Category: Medical Code(s): E78.5 - Hyperlipidemia, unspecified Plan: Continue home medication Atorvastatin 40 mg daily Plan Spoke with ER provider. My decision to admit based on history of CAD, recent cardiac cath and stent placement on August 30, 2024.
[2024-09-24] MEDS: HEPARIN SODIUM 5,000 UNIT/ML VIAL 5000 UNIT SUBCUT (21:45)
[2024-09-24] MEDS: TAMSULOSIN 0.4MG CAPSULE 0.4 MG PO (21:57)
[2024-09-24] MEDS: ATORVASTATIN 40MG TABLET 40 MG PO (21:57)
[2024-09-24] MEDS: METOPROLOL SUCCINATE XL 25MG TABLET 25 MG PO (21:57)
[2024-09-24] MEDS: ISOSORBIDE MONO 30MG TAB.ER.24H 30 MG PO (21:57)
[2024-09-24] MEDS: PANTOPRAZOLE 40MG TABLET 40 MG PO (21:57)
[2024-09-24] MEDS: IRBESARTAN 75MG TABLET 75 MG PO (21:58)
[2024-09-24] MEDS: CLOPIDOGREL 75MG TAB 75 MG PO (22:00)
[2024-09-24] MEDS: ASPIRIN EC 81MG TABLET 81 MG PO (22:00)
[2024-09-24] MEDS: ALBUTEROL-HFA 90MCG/PUFF INHALER 8GM 1 PUFF IH (22:07)
[2024-09-24 22:23] LABS: Troponin I 0.01 ng/ml (0.00-0.034)
[2024-09-25] VITALS: BP 132/73; PULSE 70; PULSE 71; RESP 18; TEMP 36.9; O2SAT 94
[2024-09-25 02:00] LABS: Troponin I 0.03 ng/ml (0.00-0.034)
[2024-09-25 04:00] VITALS: BP 128/70; PULSE 60; PULSE 68; RESP 16; TEMP 36.9; O2SAT 95; BMI 29.0
--- NOTE | 2024-09-25 04:04 | PC.NURSE ---
Alert and oriented. Assist x1. Ambulates to the restroom. Room air. Complains of mild shortness of breath on exertion. No complaints of pain. Tele. 1+ pitting edema noted to RLE. Call light in reach.
[2024-09-25] MEDS: ALBUTEROL-HFA 90MCG/PUFF INHALER 8GM 1 PUFF IH (06:18)
[2024-09-25 06:48] LABS: Hematocrit 36.1 % (42.0-52.0); Hemoglobin 11.7 g/dL (14.1-18.0); Immature Granulocytes % 0.4 %; Mean Corpuscular HGB Conc 32.4 g/dL (31.8-35.4); Mean Corpuscular Hemoglobin 31.5 pg (27.0-31.2); Mean Corpuscular Volume 97.0 fl (80-94); Nucleated Red Blood Cells % 0 %; Platelet Count 233 K/mm3 (142-424); Red Blood Count 3.72 M/mm3 (4.60-6.20); Red Cell Distribution Width-SD 49.1 fL; White Blood Count 7.0 K/mm3 (4.8-10.8)
[2024-09-25 07:03] LABS: Anion Gap 13.5 mEq/L (5-15); Blood Urea Nitrogen 18 mg/dl (9-20); Calcium 8.9 mg/dl (8.4-10.2); Carbon Dioxide 31 mmol/L (22.0-30.0); Chloride 100 mmol/L (98-107); Creatinine Clearance Estimated 66 mL/min (50-200); Creatinine,Serum 0.60 mg/dl (0.66-1.25); Estimated Glomerular Filt Rate 129 ml/min (>60); GFR (African American) 156 ML/MIN (>60); Glucose 104 mg/dl (74-100); Potassium 4.5 mmoL/L (3.5-5.1); Sodium 140 mmol/L (136-145)
[2024-09-25 08:00] VITALS: BP 119/65; PULSE 60; PULSE 66; RESP 16; TEMP 36.6; O2SAT 95
[2024-09-25 08:20] VITALS: O2SAT 95
--- NOTE | 2024-09-25 08:36 | HMH.PHAINT1 ---
Pharmacy Intervention Comments: henrry medication list verified using list from outpatient pharmacy
[2024-09-25] MEDS: ISOSORBIDE MONO 30MG TAB.ER.24H 30 MG PO (09:29)
[2024-09-25] MEDS: DOCUSATE SODIUM 100 MG CAPSULE PO (09:29)
[2024-09-25] MEDS: IRBESARTAN 75MG TABLET 75 MG PO (09:29)
[2024-09-25] MEDS: guaiFENesin 600 MG TAB.ER.12H PO (09:29)
[2024-09-25] MEDS: CLOPIDOGREL 75MG TAB 75 MG PO (09:29)
[2024-09-25] MEDS: ASPIRIN EC 81MG TABLET 81 MG PO (09:29)
[2024-09-25] MEDS: METOPROLOL SUCCINATE XL 25MG TABLET 25 MG PO (09:29)
[2024-09-25 10:04] LABS: Troponin I 0.04 ng/ml (0.00-0.034)
--- NOTE | 2024-09-25 10:35 | P.DS_ITS ---
<Statement entered by Christiano Snyder MD - 10/01/24 16:20> Personally evaluated patient and agree with plan of care as outlined by the JEWELSMITH. General Admission date:: 09/24/24 Discharge date: 09/25/24 HPI HPI HPI: Mr. Bolaños is a 84-year-old male who presents today with complaints of hypertension and dyspnea. Patient has a past medical history of CAD, NSTEMI, prostate cancer, COPD, asthma, hypertension, hyperlipidemia, and GERD. He states he was just getting off the phone and started to develop chest pressure. He states he got up and went to the kitchen and felt like his ears were popping. He thought his blood pressure was high so he took it. He states his blood pressure was 159/67. He reports this is high for him. He reports blood pressure and shortness of breath happen so quickly it felt like the time when he had a previous [place]. He also reports nausea and sweating during this time but have since resolved. He states he is a little more short of breath than usual but he attributes that to history of COPD, sinus congestion, and productive cough. He states he never had any chest pain today. Patient denies fever/chills, congestion, runny nose, chest pain, vomiting, diarrhea, constipation, headache, lightheadedness, dizziness, or syncope. Hospital Course Hospital Course Hospital Course: Mr. Abebe is an 84-year-old male who presented to the emergency department yesterday evening with complaints of angina, shortness of breath elevated BP. He was admitted for overnight monitoring. Serial troponins were obtained, unremarkable. He does states that he has nitro at home, but has not had to take it. He states he originally came in because he was nervous because his blood pressure was elevated 159/67. Assessment of patient revealed he is no longer having any chest tightness, shortness of breath. States that it is resolved without intervention. Cardiology was consulted for further workup and assessment. Patient recently had cardiac cath with stent placement on 08/31/2024; normal EF. He had no significant changes on EKG during admission. Cardiology recommendation to continue DAPT, beta-yanick, statin. Increase Imdur to 60 mg daily. #Chronic stable angina #Coronary artery disease ?Per cardiology increase Imdur to 60 mg daily. Patient does have nitro as needed. ?Follow-up with cardiology in 2 weeks, sooner if needed. #Hypertension #Hyperlipidemia ? Patient takes atorvastatin 40 mg, Plavix 75 mg, aspirin 81 mg, losartan 50 mg, metoprolol succinate 12.5 mg. Continue all home medications. #COPD ?Patient has COPD. Currently managed with albuterol inhaler. States that at times he uses his inhaler 3-4 times daily. Discussed starting Trelegy inhaler daily. With Ventolin inhaler as needed. Total time spent on discharge 32 minutes in counseling, documentation, chart review, and direct care with patient. Exam Data for Last 24 hours Vital signs and Labs for Last 24 Hours: Temp Pulse Resp BP Pulse Ox O2 Del Method 97.8 F 66 16 119/65 95 Room Air 09/25/24 08:00 09/25/24 08:00 09/25/24 08:00 09/25/24 08:00 09/25/24 08:20 09/25/24 09:15 Laboratory Results - last 24 hr 09/24/24 18:03: WBC 8.1, RBC 4.03 L, Hgb 12.8 L, Hct 39.1 L, MCV 97.0 H, MCH 31.8 H, MCHC 32.7, RDW 13.7, Plt Count 252, MPV 10.2, Neut % (Auto) 57.6, Lymph % (Auto) 31.1, [place] % (Auto) 9.9 H, Eos % (Auto) 0.6, Baso % (Auto) 0.6, Neut # (Auto) 4.7, Lymph # (Auto) 2.5, [place] # (Auto) 0.8, Eos # (Auto) 0.1, Baso # (Auto) 0.1, D-Dimer 0.67 H, Sodium 140, Potassium 4.6, Chloride 98, Carbon Dioxide 31 H, Anion Gap 15.6 H, BUN 19, Creatinine 0.60 L, Estimated Creat Clear 66, Estimated GFR 129, Est GFR ( Amer) 156, Glucose 113 H, Calcium 8.5, Magnesium 2.1, Total Bilirubin 1.0, AST 28, ALT 16, Alkaline Phosphatase 90, Troponin I < 0.01, NT-Pro-B Natriuret Pep 194, Total Protein 7.8, Albumin 4.5, Globulin 3.3 H, Albumin/Globulin Ratio 1.4, HCV Ab PRIYANKA w/Rflx PCR Qn Negative, HIV Ag/Ab Combo Qual Negative 09/24/24 21:42: Troponin I 0.01 09/25/24 01:30: Troponin I 0.03 09/25/24 06:18: WBC 7.0, RBC 3.72 L, Hgb 11.7 L, Hct 36.1 L, MCV 97.0 H, MCH 31.5 H, MCHC 32.4, RDW 13.7, Plt Count 233, MPV 9.9, Neut % (Auto) 61.5, Lymph % (Auto) 21.6, [place] % (Auto) 14.9 H, Eos % (Auto) 0.9, Baso % (Auto) 0.7, Neut # (Auto) 4.3, Lymph # (Auto) 1.5, [place] # (Auto) 1.0, Eos # (Auto) 0.1, Baso # (Auto) 0.1, Sodium 140, Potassium 4.5, Chloride 100, Carbon Dioxide 31 H, Anion Gap 13.5, BUN 18, Creatinine 0.60 L, Estimated Creat Clear 66, Estimated GFR 129, Est GFR ( Amer) 156, Glucose 104 H, Calcium 8.9, Troponin I 0.04 H I & O for Last 24 hours: Intake & Output 09/22/24 09/23/24 09/24/24 09/25/24 23:59 23:59 23:59 23:59 Intake Total 1.85 / 181.85 420 / 420 Output Total 700 / 700 Balance 1.85 / -18.15 -280 / -280 Weight 83.915 kg 83.91 kg Constitutional Constitutional: no acute distress, average body habitus and cooperative *Routine HEENT Exam Head: Present normocephalic Eye: Present EOMI and PERRL ENT: Present mucous membranes moist *Routine Neck Exam Neck: Present supple; Absent lymphadenopathy Routine Chest/Breast/Axilla Exam Chest wall: Absent tenderness *Routine Respiratory Exam Respiratory: Present CTA bilaterally; Absent rhonchi, wheezes or crackles *Routine Cardiovascular Exam Cardiovascular: Present RRR *Routine Abdominal Exam Abdominal: Present soft and normoactive bowel sounds; Absent tenderness *Routine Rectal Exam Patient deferred: visual exam *Routine Exam Patient deferred: penile exam *Routine Extremities Exam Extremities: Absent cyanosis, clubbing or edema Comments: Right radial insertion site clean, dry, intact *Routine Skin Exam Skin: Present warm; Absent rash *Routine Neurological Exam Neurological: Present alert, oriented X3 and moving all extremities; Absent altered mental status Results Data Completed and Pending Labs on day of discharge: Labs from last 24 hours 09/25/24 09/25/24 09/24/24 06:18 01:30 21:42 WBC 7.0 RBC 3.72 L Hgb 11.7 L Hct 36.1 L MCV 97.0 H MCH 31.5 H MCHC 32.4 RDW 13.7 Plt Count 233 MPV 9.9 Neut % (Auto) 61.5 Lymph % (Auto) 21.6 [place] % (Auto) 14.9 H Eos % (Auto) 0.9 Baso % (Auto) 0.7 Neut # (Auto) 4.3 Lymph # (Auto) 1.5 [place] # (Auto) 1.0 Eos # (Auto) 0.1 Baso # (Auto) 0.1 D-Dimer Sodium 140 Potassium 4.5 Chloride 100 Carbon Dioxide 31 H Anion Gap 13.5 BUN 18 Creatinine 0.60 L Estimated Creat Clear 66 Estimated GFR 129 Est GFR ( Amer) 156 Glucose 104 H Calcium 8.9 Magnesium Total Bilirubin AST ALT Alkaline Phosphatase Troponin I 0.04 H 0.03 0.01 NT-Pro-B Natriuret Pep Total Protein Albumin Globulin Albumin/Globulin Ratio HCV Ab PRIYANKA w/Rflx PCR Qn HIV Ag/Ab Combo Qual 09/24/24 18:03 WBC 8.1 RBC 4.03 L Hgb 12.8 L Hct 39.1 L MCV 97.0 H MCH 31.8 H MCHC 32.7 RDW 13.7 Plt Count 252 MPV 10.2 Neut % (Auto) 57.6 Lymph % (Auto) 31.1 [place] % (Auto) 9.9 H Eos % (Auto) 0.6 Baso % (Auto) 0.6 Neut # (Auto) 4.7 Lymph # (Auto) 2.5 [place] # (Auto) 0.8 Eos # (Auto) 0.1 Baso # (Auto) 0.1 D-Dimer 0.67 H Sodium 140 Potassium 4.6 Chloride 98 Carbon Dioxide 31 H Anion Gap 15.6 H BUN 19 Creatinine 0.60 L Estimated Creat Clear 66 Estimated GFR 129 Est GFR ( Amer) 156 Glucose 113 H Calcium 8.5 Magnesium 2.1 Total Bilirubin 1.0 AST 28 ALT 16 Alkaline Phosphatase 90 Troponin I < 0.01 NT-Pro-B Natriuret Pep 194 Total Protein 7.8 Albumin 4.5 Globulin 3.3 H Albumin/Globulin Ratio 1.4 HCV Ab PRIYANKA w/Rflx PCR Qn Negative HIV Ag/Ab Combo Qual Negative DS: Diagnosis Discharge Diagnosis (1) Dyspnea: Status: Acute Code(s): R06.00 - Dyspnea, unspecified Qualifiers: Dyspnea type: dyspnea on exertion Qualified Code(s): R06.09 - Other forms of dyspnea (2) Hypertension: Status: Acute Code(s): I10 - Essential (primary) hypertension Qualifiers: Hypertension type: primary hypertension Qualified Code(s): I10 - Essential (primary) hypertension (3) CAD (coronary artery disease): Status: Acute Code(s): I25.10 - Atherosclerotic heart disease of [place] coronary artery without angina pectoris Qualifiers: Associated angina: with unstable angina Coronary Disease-Associated Artery/Lesion type: [place] artery [place] vs. transplanted heart: [place] heart Qualified Code(s): I25.110 - Atherosclerotic heart disease of [place] coronary artery with unstable angina pectoris (4) Hyperlipidemia: Status: Acute Code(s): E78.5 - Hyperlipidemia, unspecified Qualifiers: Hyperlipidemia type: mixed hyperlipidemia Qualified Code(s): E78.2 - Mixed hyperlipidemia (5) COPD (chronic obstructive pulmonary disease): Status: Acute Code(s): J44.9 - Chronic obstructive pulmonary disease, unspecified (6) Chronic stable angina: Status: Acute Code(s): I20.89 - Other forms of angina pectoris Meds Home Medications and Allergies Home Medications ?Medication ?Instructions ?Recorded ?Confirmed ?Type tamsulosin 0.4 mg capsule 0.4 mg PO HS 08/17/18 History ipratropium bromide 21 mcg (0.03 2 spray intranasal BI D Allergy 03/18/21 09/24/24 History %) nasal spray symptoms albuterol sulfate 90 mcg/actuation 1 puff inhalation B IDP PRN 10/25/23 09/25/24 History aerosol inhaler Shortness Of Breath aspirin 81 mg tablet,delayed 81 mg PO DAILY 30 days #9 0 tabs 12/22/23 09/24/24 Rx release clopidogrel 75 mg tablet 75 mg PO DAILY #90 tabs 100 06/1109/24/24 Rx atorvastatin 40 mg tablet (Lipitor) 40 mg PO DAILY #30 tabs 03/23/24 09/24/24 Rx blood pressure monitor (Blood #1 ea 08/23/24 09/24/24 Rx Pressure Kit) losartan 50 mg tablet 50 mg PO DAILY #30 tabs 08/1209/24/24 Rx esomeprazole magnesium 20 mg 20 mg PO DAILY Acid Reflu x #90 caps 09/06/24 09/24/24 Rx capsule,delayed release metoprolol succinate 25 mg 12.5 mg PO DAILY 09/24/24 0 09/25/24 History tablet,extended release 24 hr nitroglycerin 0.4 mg sublingual 0.4 mg sublingual Q5M PRN Chest 09/24/24 09/24/24 History tablet Pain fluticasone fur. 100 mcg-umeclid 1 inh inhalation JH Y 30 days #1 09/25/24 Rx 62.5 mcg-vilant 25 mcg ea inhalat.powder (Trelegy Ellipta) isosorbide mononitrate 30 mg 60 mg (2 x 30 mg) PO JH Y 30 days 09/25/24 Rx tablet,extended release 24 hr #60 tabs New Prescriptions to Start Prescriptions: [id number] [Trelegy Ellipta] Betsey Macedo isosorbide mononitrate Betsey Macedo Allergies Allergy/AdvReac Type Severity Reaction Status Date / Time Sulfa (Sulfonamide Allergy Unknown I-RASH Verified 09/06/24 10:33 Antibiotics) (SULFA (SULFONAMIDE ANTIBIOTICS)) Discharge Plan Disposition Patient Disposition: Home, Self-Care Condition: Good Follow up Plan Follow up with: Bernardo Rowland PA [Physician Senior Engineering Associate, Cardiology] - Enter time for follow up Josh Dias MD [Primary Care Provider, Medical] - Enter time for follow up Prescriptions/Medication Reconciliation: New isosorbide mononitrate 30 mg Tablet Extended Release 24 Hr 60 mg PO DAILY 30 Days Qty: 60 0RF Trelegy Ellipta 100-62.5-25 mcg Blister With Device 1 inh inhalation DAILY 30 Days Qty: 1 0RF Continued tamsulosin 0.4 mg capsule 0.4 mg PO HS ipratropium bromide 21 mcg (0.03 %) spray,non-aerosol 2 spray INTRANASAL BID Rx Instructions: administer into each nostril albuterol sulfate 90 mcg/actuation HFA aerosol inhaler 1 puff inhalation BIDP PRN (Reason: Shortness Of Breath) aspirin 81 mg tablet,delayed release (DR/EC) 81 mg PO DAILY 30 Days Qty: 90 3RF clopidogrel 75 mg tablet 75 mg PO DAILY Qty: 90 3RF atorvastatin [Lipitor] 40 mg tablet 40 mg PO DAILY Qty: 30 2RF losartan 50 mg tablet 50 mg PO DAILY Qty: 30 5RF (DME) blood pressure monitor [Blood Pressure Kit] Kit See Rx Instructions .Route Qty: 1 0RF Rx Instructions: As directed esomeprazole magnesium 20 mg capsule,delayed release(DR/EC) 20 mg PO DAILY Qty: 90 3RF metoprolol succinate 25 mg tablet extended release 24 hr 12.5 mg PO DAILY nitroglycerin 0.4 mg Tablet, Sublingual 0.4 mg SUBLINGUAL Q5M PRN (Reason: Chest Pain) Rx Instructions: do not exceed 3 doses per episode Discontinued isosorbide mononitrate 30 mg tablet extended release 24 hr 30 mg PO DAILY Problem Reconciliation Problems Reviewed?: Yes Patient Discharge Instructions ACTIVITY: Continue current activity DIET: cardiac Patient Instructions: Variant Angina: Heart Spasms, DI for Chronic Pain -- Adult, DI for Shortness of Breath, DI for Premature Ventricular Beats, How to Manage Shortness of Breath Print Language: Polish Providers Primary Care Provider: Josh Dias Admit Provider: Pablo Calixto Attending Provider: Pablo Calixto
--- NOTE | 2024-09-25 10:50 | P.CONCA_ITS ---
History of Present Illness History of Present Illness Consult date: 09/25/24 Requesting physician: Pablo Calixto Chief complaint: CP, SOA History of present illness: Mr. Bolaños is a very pleasant 84-year-old white male established patient of our office with a history of severe multivessel CAD diagnosed approximately 1 year ago. He was originally referred for bypass but was a poor candidate so after failing medical therapy he returned for stenting of his severely diseased LAD which procedurally occluded his left circumflex artery (a known possible complication and why bypass was originally recommended). He also has a known RCA chronic total occlusion. Despite this patient has normal ejection fraction and has been doing well at home since his heart cath on August 30. Patient reports yesterday he had a sudden onset mild shortness of breath chest discomfort and diaphoresis associated with a blood pressure in the 150s. He admits he was frightened and remembered he was told to come to the ER with any new symptoms so he did present to the emergency room yesterday for evaluation. He had normal serial troponins and EKG showed sinus rhythm without any significant new ischemic changes. Given that his symptoms were similar to prior [place] and he has extensive disease he was kept overnight for observation. This morning he reports has had no further symptoms and feels at his baseline and ready for discharge. [facility] Disclaimer: The information contained in this section may have been updated after the patient was seen, as this information can be updated by other users. Medical History Abnormal electrocardiogram [ECG] [EKG] CAD (coronary artery disease) Non-STEMI (non-ST elevated myocardial infarction) Physical debility Acute pain of left hip Acute urinary retention Acute UTI Acute urinary retention Hematuria Prostate cancer Colonoscopy planned Ulcer Urinary tract infection COPD (chronic obstructive pulmonary disease) Asthma Arthritis History of gastroesophageal reflux (GERD) Hyperlipidemia Hypertension Prostate cancer Urinary retention Hematuria Cellulitis Dental abscess Acute sinus infection Encounter for laboratory testing for COVID-19 virus Bilateral otitis media Spider bite Acute urinary retention Spondylosis Labyrinthitis of left ear Sinusitis Common cold Surgical History H/O abdominal surgery History of heart artery stent History of cardiac cath Family History Other Family history of acute congestive heart failure Social History Smoking Status: Former smoker tobacco type: cigarettes second hand exposure: No alcohol intake: former substance use type: denies use current occupational status: retired Travel in the last 8 weeks?: None household members: family housing: house current occupational exposures/hazards: No caffeine: Yes Have you lived/traveled outside [place] in past 30 days?: No Contact w/someone who lives/traveled outside [place] past 30 days?: No Exposure to someone with infectious disease in past 14 days?: No Do you have a fever (greater than 100.4 F or 38 C)?: No Have you tested positive for COVID-19?: No Exposed to someone with COVID-19 in past 14 days?: No Do you have a sore throat?: No Do you have a cough?: No Do you have any weakness?: No Are you experiencing any nausea/vomitting?: No Do you have any diarrhea?: No Are you experiencing any unusual bleeding?: No Do you have any muscle aches/pain?: No Do you have any abdominal pain?: No Are you experiencing loss of taste or smell?: No Review of Systems Constitutional Constitutional: Denies headache(s) Eyes Eyes: Denies loss of vision ENT Ears, Nose, Mouth, and Throat: Denies dizziness and Denies headache(s) *Cardiovascular Cardiovascular: Reports chest pain and Reports dyspnea *Respiratory Respiratory: Denies cough and Reports dyspnea *Gastrointestinal Gastrointestinal: Denies change in stool character, Denies nausea and Denies vomiting *Genitourinary Genitourinary: Denies difficulty urinating *Musculoskeletal Musculoskeletal: Denies muscle weakness Integumentary/Breasts Skin/Breast: Denies changing lesions *Neurologic Neurologic: Denies dizziness, Denies headache(s) and Denies loss of vision Exam Data for Last 24 hours Vital signs and Labs for Last 24 Hours: Temp Pulse Resp BP Pulse Ox O2 Del Method 97.8 F 66 16 119/65 95 Room Air 09/25/24 08:00 09/25/24 08:00 09/25/24 08:00 09/25/24 08:00 09/25/24 08:20 09/25/24 09:15 Laboratory Results - last 24 hr 09/24/24 18:03: WBC 8.1, RBC 4.03 L, Hgb 12.8 L, Hct 39.1 L, MCV 97.0 H, MCH 31. 8 H, MCHC 32.7, RDW 13.7, Plt Count 252, MPV 10.2, Neut % (Auto) 57.6, Lymph % (Auto) 31.1, Norman % (Auto) 9.9 H, Eos % (Auto) 0.6, Baso % (Auto) 0.6, Neut # (Auto) 4.7, Lymph # (Auto) 2.5, Norman # (Auto) 0.8, Eos # (Auto) 0.1, Baso # (Auto) 0.1, D-Dimer 0.67 H, Sodium 140, Potassium 4.6, Chloride 98, Carbon Dioxide 31 H, Anion Gap 15.6 H, BUN 19, Creatinine 0.60 L, Estimated Creat Clear 66, Estimated GFR 129, Est GFR ( Amer) 156, Glucose 113 H, Calcium 8.5, Magnesium 2.1, Total Bilirubin 1.0, AST 28, ALT 16, Alkaline Phosphatase 90, Troponin I < 0.01, NT-Pro-B Natriuret Pep 194, Total Protein 7.8, Albumin 4.5, Globulin 3.3 H, Albumin/Globulin Ratio 1.4, HCV Ab PRIYANKA w/Rflx PCR Qn Negative, HIV Ag/Ab Combo Qual Negative 09/24/24 21:42: Troponin I 0.01 09/25/24 01:30: Troponin I 0.03 09/25/24 06:18: WBC 7.0, RBC 3.72 L, Hgb 11.7 L, Hct 36.1 L, MCV 97.0 H, MCH 31.5 H, MCHC 32.4, RDW 13.7, Plt Count 233, MPV 9.9, Neut % (Auto) 61.5, Lymph % (Auto) 21.6, Norman % (Auto) 14.9 H, Eos % (Auto) 0.9, Baso % (Auto) 0.7, Neut # (Auto) 4.3, Lymph # (Auto) 1.5, Norman # (Auto) 1.0, Eos # (Auto) 0.1, Baso # (Auto) 0.1, Sodium 140, Potassium 4.5, Chloride 100, Carbon Dioxide 31 H, Anion Gap 13.5, BUN 18, Creatinine 0.60 L, Estimated Creat Clear 66, Estimated GFR 129, Est GFR ( Amer) 156, Glucose 104 H, Calcium 8.9, Troponin I 0.04 H I & O for Last 24 hours: Intake & Output 09/22/24 09/23/24 09/24/24 09/25/24 23:59 23:59 23:59 23:59 Intake Total 1.85 / 181.85 420 / 420 Output Total 700 / 700 Balance 1.85 / -18.15 -280 / -280 Weight 185 lb 184 lb 15.838 oz Constitutional Constitutional: no acute distress and cooperative *Routine HEENT Exam Eye: Present PERRL *Routine Respiratory Exam Respiratory: Present CTA bilaterally; Absent accessory muscle use, wheezes or crackles *Routine Cardiovascular Exam Cardiovascular: Present RRR, Normal S1 and Normal S2; Absent murmur, gallop or rubs *Routine Abdominal Exam Abdominal: Present soft; Absent tenderness *Routine Extremities Exam Extremities: Present pulses intact; Absent cyanosis or edema *Routine Skin Exam Skin: Present intact; Absent erythema or wounds *Routine Neurological Exam Neurological: Present alert and oriented X3 Routine Psychiatric Exam Psychiatric: Present cooperative Meds Home Medications and Allergies Home Medications ?Medication ?Instructions ?Recorded ?Confirmed ?Type tamsulosin 0.4 mg capsule 0.4 mg PO HS 08/17/18 History ipratropium bromide 21 mcg (0.03 2 spray intranasal BI D Allergy 03/18/21 0 09/24/24 History %) nasal spray symptoms albuterol sulfate 90 mcg/actuation 1 puff inhalation B IDP PRN 10/25/23 09/25/24 History aerosol inhaler Shortness Of Breath aspirin 81 mg tablet,delayed 81 mg PO DAILY 30 days #9 0 tabs 12/22/23 09/24/24 Rx release clopidogrel 75 mg tablet 75 mg PO DAILY #90 tabs 1006/1109/24/24 Rx atorvastatin 40 mg tablet (Lipitor) 40 mg PO DAILY #30 tabs 03/23/24 09/24/24 Rx blood pressure monitor (Blood #1 ea 08/23/24 09/24/24 Rx Pressure Kit) losartan 50 mg tablet 50 mg PO DAILY #30 tabs 0608/1209/24/24 Rx esomeprazole magnesium 20 mg 20 mg PO DAILY Acid Reflu x #90 caps 09/06/24 09/24/24 Rx capsule,delayed release isosorbide mononitrate 30 mg 30 mg PO DAILY 09/24/24 0 09/24/24 History tablet,extended release 24 hr metoprolol succinate 25 mg 12.5 mg PO DAILY 09/24/24 0 09/25/24 History tablet,extended release 24 hr nitroglycerin 0.4 mg sublingual 0.4 mg sublingual Q5M PRN Chest 09/24/24 09/24/24 History tablet Pain New Prescriptions to Start Prescriptions: Allergies Allergy/AdvReac Type Severity Reaction Status Date / Time Sulfa (Sulfonamide Allergy Unknown I-RASH Verified 09/06/24 10:33 Antibiotics) (SULFA (SULFONAMIDE ANTIBIOTICS)) Assessment and Plan *Assessment and plan (1) Chronic stable angina: Status: Acute Category: Medical Code(s): I20.89 - Other forms of angina pectoris (2) Multi-vessel coronary artery stenosis: Status: Acute Category: Medical Code(s): I25.10 - Atherosclerotic heart disease of [place] coronary artery without angina pectoris Plan MV-CAD with single episode of class 4 angina - known dz with recently stented LAD and chronically occluded LCX and RCA, normal EF - single episode of CP/SOA/Diaphoresis, resolved with time. - normal serial trop - no significant changes on EKG - symptoms resolved - discussed case with Dr. Fontana who did his recent procedure. He agrees with providing reassurance and increasing antianginals. No evidence of stent thrombosis. - Plan: Cont DAPT, BB, Statin. Increase Imdur to 60mg daily Htn - cont home meds - increase Imdur to 60mg CV stable for DC home with increased dose of Imdur to 60mg daily. F/u in our office 2 weeks. Call sooner with questions/concerns.
[2024-09-25] MEDS: FLUTICASONE/UMECLIDIN/VILANTER 100/62.5/25MCG INHALER 1 PUFF IH (11:55)
[2024-09-25] MEDS: ISOSORBIDE MONO 30MG TAB.ER.24H 60 MG PO (12:07)
--- NOTE | 2024-09-25 13:05 | HMH.PHAINT1 ---
Pharmacy Intervention Comments: DISCHARGE EDUCATION PROVIDED TO PT AND IMDUR DOSE CHANGE DISCUSSED. PT VERBALIZED UNDERSTANDING.
--- NOTE | 2024-09-26 10:58 | SW/DCPLANNER ---
Spoke with patient on the phone. Patient stated that he is doing well and just tired. Patient stated that he has lost his nitro pills while in hospital. Called over to med surg and talked with his nurse and she is going to look and see if she can locate his nitro pills. Patient stated that he is aware of his upcoming appointments. Patient stated that he was able to get his new medicine picked up. Patient stated that he has no concerns or questions at this time. [place]
== END 2024-09-25 16:03 | disposition home or self-care (01) ==
LOC: ER 18:55 → 2ND 20:38
PROVIDERS: Nurse Practitioner Family; Physician Assistant; Admitting Provider Internal Medicine Adolescent Medicine; Emergency Provider Student in an Organized Health Care Education/Training Program; PCP Family Medicine; Visit Provider Internal Medicine Adolescent Medicine
DX: I25.110 Atherosclerotic heart disease of native coronary artery with unstable angina pectoris (principal); I11.9 Hypertensive heart disease without heart failure; E78.2 Mixed hyperlipidemia; K21.9 Gastro-esophageal reflux disease without esophagitis; J44.89 Other specified chronic obstructive pulmonary disease; I25.2 Old myocardial infarction; Z87.891 Personal history of nicotine dependence; Z88.2 Allergy status to sulfonamides; Z95.5 Presence of coronary angioplasty implant and graft; Z86.79 Personal history of other diseases of the circulatory system; Z85.46 Personal history of malignant neoplasm of prostate; Z79.899 Other long term (current) drug therapy; Z79.82 Long term (current) use of aspirin; Z79.02 Long term (current) use of antithrombotics/antiplatelets
CPT/HCPCS: 96365; 96375; 36415; 71045; 80048; 80053; 83735; 83880; 84484; 85025; 85378; 86803; 87389; 93005; 94640; G0378; J1450; J1644

== ENCOUNTER 2025-03-15 19:59 | Emergency (ER) | payer MEDICARE, MEDICAID, SELFPAY ==
--- OUTSIDE RECORDS SUMMARY | 2025-01-29 14:15 | XMS_ITS | Encounter Summary ---
Author Organization [facility] Address [address] [place] [address] Care Team Providers Care Retail Shift Manager Name Role Phone Josh Dias MD Primary Care Provider + Reason for Visit * Reason Comments Medicare Wellness-subsequent Encounter Details Date Type Department Care Team (Late st Contact Info) Description 01/29/2025 2:15 PM EST Office Visit [facility] [address] [place] [address] Josh Dias MD [address] [place] [address] Medicare annual wellness visit, subsequent (Primary Dx); Annual physical exam; Arthritis, multiple joint involvement; Coronary artery disease involving [place] coronary artery of [place] heart without angina pectoris; Essential hypertension; Iron deficiency anemia due to chronic blood loss; Need for immunization against influenza; BPH with obstruction/lower urinary tract symptoms; Prostate cancer; Impaired mobility Social History Tobacco Use Types Packs/Day Years Used Date Smoking Tobacco: Former Cigarettes 0.3 20 1 - 1989 Smokeless Tobacco: Never Comments:20 cigs/week Alcohol Use Standard Drinks/Week Comments Not Currently 0 (1 standard drink = 0.6 oz pur e alcohol) quite in approx 1989 AUDIT-C Answer Date Recorded Frequency of Alcohol Consumption Never 05/08/2018 Average Number of Drinks Not on file 019 Frequency of Binge Drinking Not on file 04/21 PHQ-2 Answer Date Recorded Retired PHQ-9: Brief Depression Severity Measure Score 5 07/21/2022 PHQ-2 Answer Date Recorded Patient Health Questionnaire-2 Score 1 01/29/2025 Sex and Gender Information Value Date Recorded Sex Assigned at Not on file Legal Sex Male 1:01 PM EDT Gender Identity Not on file Sexual Orientation Not on file Occupation Industry Job Start Date Job End Date [employer] Not on file Not on file Not on file documented as of this encounter Last Filed Vital Signs Vital Sign Reading Time Taken Comments Blood Pressure 110/58 01/29/2025 2:08 PM EST Pulse 82 01/29/2025 2:08 PM EST Temperature 36.7 C (98 F) 01/29/2025 2:08 PM EST Respiratory Rate 18 01/29/2025 2:08 PM EST Oxygen Saturation 93% 01/29/2025 2:08 PM EST Inhaled Oxygen Concentration - - Weight 87.5 kg (192 lb 12.8 oz) 01/29/2025 2:08 PM EST Height 170.2 cm (5' 7 ) 01/29/2025 2:08 PM EST Body Mass Index 30.2 01/29/2025 2:08 PM EST documented in this encounter Functional Status * PHQ-2/PHQ-9: Depression Screening Question Answer Date of Assessment Author Little interest or pleasure in doing things Several days 01/29/2025 2:11 PM EST Makenna Romano MA Feeling down, depressed, or hopeless Not at all 01/29/2025 2:11 PM Makenna Yi MA Patient Health Questionnaire-2 Score 1 01/29/2025 2:11 PM EST Prabha Romano MA How difficult have these problems made it for you to do your work, take care of things at home, or get along with other people? Not difficult at all 01/29/2025 2:11 PM Makenna Yi MA documented as of this encounter Mental Status * PHQ-2/PHQ-9: Depression Screening Question Answer Entry Date Author Little interest or pleasure in doing things Several days 01/29/2025 2:11 PM Makenna Yi MA Feeling down, depressed, or hopeless Not at all 01/29/2025 2:11 PM Makenna Yi MA Patient Health Questionnaire-2 Score 1 01/29/2025 2:11 PM EST Makenna Romano MA How difficult have these problems made it for you to do your work, take care of things at home, or get along with other people? Not difficult at all 01/29/2025 2:11 PM EST Makenna Romano MA documented in this encounter Patient Instructions * Attachments The following attachments cannot be sent through Care Everywhere. * Health Maintenance After Age 65 (French) documented in this encounter Progress Notes * Josh Dias MD - 01/29/2025 2:15 PM ESTAssociated Problem(s): Arthritis, multiple joint involvement * Josh Dias MD - 01/29/2025 2:15 PM ESTAssociated Problem(s): Essential hypertension Orders: CBC (No Diff); Future Basic Metabolic Panel; Future * Josh Dias MD - 01/29/2025 2:15 PM ESTAssociated Problem(s): BPH with obstruction/lower urinary tract symptoms Orders: tamsulosin (FLOMAX) 0.4 MG capsule 24 hr capsule; Take 1 capsule by mouth every night at bedtime. * Josh Dias MD - 01/29/2025 2:15 PM ESTAssociated Problem(s): Prostate cancer * Josh Dias MD - 01/29/2025 2:15 PM EST Images from the original note were not included. Subjective The ABCs of the Annual Wellness Visit Medicare Wellness Visit Waldemar Bolaños is a 84 y.o. patient who presents for a Medicare Wellness Visit. The following portions of the patient's history were reviewed and updated as appropriate: allergies, current medications, past family history, past medical history, past social history, past surgical history, and problem list. Compared to one year ago, the patient's physical health is the same. Compared to one year ago, the patient's mental health is the same. Recent Hospitalizations: He was not admitted to the hospital during the last year. Current Medical Providers: Patient Care Team: Josh Dias MD as PCP - General (Family Medicine) Waldemar Beckford MD as Referring Physician (Urology) Schuyler Weems MD as Consulting Physician (Radiation Oncology) Aldo Salcido MD (Cardiology) Porfirio Choudhary PA-C (Physician Transit Man) Outpatient Medications Prior to Visit Medication Sig Dispense Refill aspirin 81 MG EC tablet Take 1 tablet by mouth Daily. atorvastatin (LIPITOR) 40 MG tablet Take 1 tablet by mouth Daily. azelastine (ASTELIN) 0.1 % nasal spray Administer 2 sprays into the nostril(s) as directed by provider 2 (Two) Times a Day. Use in each nostril as directed 30 mL 0 clopidogrel (PLAVIX) 75 MG tablet Take 1 tablet by mouth Daily. cyclobenzaprine (FLEXERIL) 5 MG tablet Take 1 tablet by mouth 3 (Three) Times a Day As Needed. Diclofenac Sodium (VOLTAREN) 1 % gel gel Apply 4 g topically to the appropriate area as directed 4 (Four) Times a Day. 350 g 2 esomeprazole (nexIUM) 20 MG capsule TAKE 1 CAPSULE BY MOUTH EVERY MORNING BEFORE BREAKFAST. 90 capsule 0 ipratropium (ATROVENT) 0.03 % nasal spray USE 2 SPRAYS INTO THE NOSTRIL(S) DIRECTED BY PROVIDER 2 (TWO) TIMES A DAY. 30 mL 1 isosorbide mononitrate (IMDUR) 30 MG 24 hr tablet Take 1 tablet by mouth 2 (Two) Times a Day. leuprolide (Eligard) 45 MG injection Inject 45mg every 6 months lidocaine (LIDODERM) 5 % APPLY 1 PATCH EVERY DAY TOPICALLY TO AFFECTED AREA FOR UP TO 12 HOURS losartan (COZAAR) 50 MG tablet Take 1 tablet by mouth Daily. metoprolol succinate XL (TOPROL-XL) 25 MG 24 hr tablet Take 0.5 tablets by mouth Daily. Misc. Devices (Rollator Ultra-Light) misc Use 1 each Daily. 1 each 0 nitroglycerin (Nitrostat) 0.[address] 1 tablet under the tongue Every 5 (Five) Minutes As Needed for Chest Pain. Take no more than 3 doses in 15 minutes. 30 tablet 12 nystatin 437004 UNIT/GM powder Trelegy Ellipta 100-62.5-25 MCG/ACT inhaler Inhale 1 puff Daily. albuterol sulfate HFA 108 (90 Base) MCG/ACT inhaler INHALE 2 PUFFS BY MOUTH EVERY 4 (FOUR) HOURS ASNEEDED FOR WHEEZING 8.5 g 2 tamsulosin (FLOMAX) 0.4 MG capsule 24 hr capsule Take 1 capsule by mouth every night at bedtime. 90capsule 3 ferrous sulfate 325 (65 FE) MG tablet Take 1 tablet by mouth Daily With Breakfast. (Patient not taking: Reported on 01/29/2025) 30 tablet 3 No facility-administered medications prior to visit. No opioid medication identified on active medication list. I have reviewed chart for other potential high risk medication/s and harmful drug interactions in the elderly. Aspirin is on active medication list. Aspirin use is indicated based on review of current medical condition/s. Pros and cons of this therapy have been discussed today. Benefits of this medication outweigh potential harm. Patient has been encouraged to continue taking this medication. . Patient Active Problem List Diagnosis Prostate cancer BPH with obstruction/lower urinary tract symptoms Essential hypertension Gastroesophageal reflux disease without esophagitis Arthritis, multiple joint involvement Advance Care Planning Advance Directive is not on file. ACP discussion was held with the patient during this visit. Patient does not have an advance directive, information provided. Objective Vitals: 01/29/25 1408 BP: 110/58 Pulse: 82 Resp: 18 Temp: 98 ??F (36.7 ??C) SpO2: 93% Weight: 87.5 kg (192 lb 12.8 oz) Height: 170.2 cm (67 ) PainSc: 5 PainLoc: Back Comment: Back and legs Estimated body mass index is 30.2 kg/m?? as calculated from the following: Height as of this encounter: 170.2 cm (67 ). Weight as of this encounter: 87.5 kg (192 lb 12.8 oz). Does the patient have evidence of cognitive impairment? No Health Risk Assessment Smoking Status: Social History Tobacco Use Smoking Status Former Current packs/day: 0.00 Average packs/day: 0.3 packs/day for 20.0 years (5.0 ttl pk-yrs) Types: Cigarettes Start date: 1969 Quit date: 1989 Years since quittin.9 Smokeless Tobacco Never Tobacco Comments 20 cigs/week Alcohol Consumption: Social History Substance and Sexual Activity Alcohol Use Not Currently Comment: quite in approx 1989 Fall Risk Screen MARYANNADI Fall Risk Assessment was completed, and patient is at HIGH risk for falls. Assessment completed on:01/29/2025 Depression Screening Little interest or pleasure in doing things? Several days Feeling down, depressed, or hopeless? Not at all PHQ-2 Total Score 1 Health Habits and Functional and Cognitive Screenin01/29/2025 2:09 PM Functional & Cognitive Status Do you have difficulty preparing food and eating? No Do you have difficulty bathing yourself, getting dressed or grooming yourself? Yes Do you have difficulty using the toilet? No Do you have difficulty moving around from place to place? Yes Do you have trouble with steps or getting out of a bed or a chair? Yes Current Diet Limited Junk Food Dental Exam Unknown Eye Exam Up to date Exercise (times per week) 0 times per week Current Exercises Include No Regular Exercise Do you need help using the phone? No Are you deaf or do you have serious difficulty hearing? No Do you need help to go to places out of walking distance? Yes Do you need help shopping? No Do you need help preparing meals? No Do you need help with housework? Yes Do you need help with laundry? No Do you need help taking your medications? No Do you need help managing money? No Do you ever drive or ride in a car without wearing a seat belt? No Have you felt unusual fatigue (could be tiredness), stress, anger or loneliness in the last month? Yes Who do you live with? Alone If you need help, do you have trouble finding someone available to you? Yes Have you been bothered in the last four weeks by sexual problems? No Do you have difficulty concentrating, remembering or making decisions? No Age-appropriate Screening Schedule: Refer to the list below for future screening recommendations based on patient's age, sex and/or medical conditions. Orders for these recommended tests are listed in the plan section. The patient has been provided with a written plan. Health Maintenance List Health Maintenance Topic Date Due ZOSTER VACCINE (1 of 2) Never done TDAP/TD VACCINES (1 - Tdap) 02/01/2010 RSV Vaccine - Adults (1 - 1-dose 75+ series) Never done LIPID PANEL 02/26/2024 COVID-19 Vaccine (8 - Pfizer risk 2023- season) 2024 ANNUAL WELLNESS VISIT 01/29/2026 INFLUENZA VACCINE Completed Pneumococcal Vaccine 50+ Completed [facility] Preventative Services Quick Reference Risk Factors Identified During Encounter Chronic Pain: Natural history and expected course discussed. Questions answered. Cont Voltaren Immunizations Discussed/Encouraged: Influenza and COVID19 Cardiology f/u every 6 months Oncology f/u every 6 months The above risks/problems have been discussed with the patient. Pertinent information has been shared with the patient in the After Visit Summary. An After Visit Summary and PPPS were made available to the patient. Follow Up: Next Medicare Wellness visit to be scheduled in 1 year. Additional E&M Note during same encounter follows: Patient has additional, significant, and separately identifiable condition(s)/problem(s) that require work above and beyond the Medicare Wellness Visit Chief Complaint Medicare Wellness-subsequent Subjective HPI Waldemar is also being seen today for an annual adult preventative physical exam. Review of Systems Cardiovascular: Negative for chest pain, palpitations and leg swelling. Genitourinary: Positive for frequency. Musculoskeletal: Positive for arthralgias. All other systems reviewed and are negative. Objective Vital Signs: BP 110/58 Pulse 82 Temp 98 ??F (36.7 ??C) Resp 18 Ht 170.2 cm (67 ) Wt 87.5 kg (192 lb 12.8 oz) SpO2 93% BMI 30.20 kg/m?? Physical Exam Constitutional: General: He is not in acute distress. Appearance: Normal appearance. He is not ill-appearing. HENT: Head: Normocephalic and atraumatic. Right Ear: Tympanic membrane and ear canal normal. Left Ear: Tympanic membrane and ear canal normal. Nose: Nose normal. Mouth/Throat: Mouth: Mucous membranes are moist. Pharynx: Oropharynx is clear. No posterior oropharyngeal erythema. Eyes: Extraocular Movements: Extraocular movements intact. Conjunctiva/sclera: Conjunctivae normal. Pupils: Pupils are equal, round, and reactive to light. Cardiovascular: Rate and Rhythm: Normal rate and regular rhythm. Pulses: Normal pulses. Heart sounds: Normal heart sounds. Pulmonary: Effort: Pulmonary effort is normal. No respiratory distress. Breath sounds: Normal breath sounds. Abdominal: General: Abdomen is flat. Bowel sounds are normal. Palpations: Abdomen is soft. Tenderness: There is no abdominal tenderness. Musculoskeletal: Right hand: Decreased range of motion. Cervical back: Neck supple. Decreased range of motion. Thoracic back: Decreased range of motion. Lumbar back: Decreased range of motion. Right knee: Decreased range of motion. Left knee: Decreased range of motion. Lymphadenopathy: Cervical: No cervical adenopathy. Skin: General: Skin is warm and dry. Capillary Refill: Capillary refill takes less than 2 seconds. Neurological: General: No focal deficit present. Mental Status: He is alert and oriented to person, place, and time. Mental status is at baseline. Cranial Nerves: No cranial nerve deficit. Sensory: No sensory deficit. Motor: No weakness. Psychiatric: Mood and Affect: Mood normal. Behavior: Behavior normal. Thought Content: Thought content normal. Judgment: Judgment normal. The following data was reviewed by: Josh Dias MD on 01/29/2025: Common labs 10/05/2024 11:47 01/10/2025 13:00 Common Labs Hemoglobin 12.7 13.9 Hematocrit 39.5 42.3 Assessment and Plan Additional age appropriate preventative wellness advice topics were discussed during today's preventative wellness exam(some topics already addressed during AWV portion of the note above): Physical Activity: Advised cardiovascular activity 150 minutes per week as tolerated. (example brisk walk for 30 minutes, 5 days a week). Nutrition: Discussed nutrition plan with patient. Information shared in after visit summary. Goal is for a well balanced diet to enhance overall health. Motor Vehicle Safety Discussion: Wearing Seatbelt While in Motor Vehicle recommendation. Adhering to posted speed limit recommendation. Injury Prevention Discussion: Information shared in after visit summary. 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 Prostate cancer Impaired mobility I Recommend POWER WHEEL CHAIR to assist with MRADL'S INSIDE THE HOME AND PROMOTE SAFETY TO PREVENT FALLS. Follow Up Return in about 6 months (around 07/29/2025). Patient was given instructions and counseling regarding his condition or for health maintenance advice. Please see specific information pulled into the AVS if appropriate. documented in this encounter Plan of Treatment Scheduled Orders Name Type Priority Associated Diagnoses Orde r Schedule CBC (No Diff) Lab Routine Coronary artery disease involving [place] coronary artery of [place] heart without angina pectoris Essential hypertension Expected: 04/29/2025 (Approximate), Expires: 04/30/2026 Iron Profile w/o Ferritin Lab Routine Iron deficiency anemia due to chronic blood loss Expected: 04/29/2025 (Approximate), Expires: 04/30/2026 Lipid Panel Lab Routine Iron deficiency anemia due to chronic blood loss Expected: 04/29/2025 (Approximate), Expires: 04/30/2026 Basic Metabolic Panel Lab Routine Essential hypertension Expected: 04/29/2025 (Approximate), Expires: 04/30/2026 documented as of this encounter Visit Diagnoses Diagnosis Medicare annual wellness visit, subsequent- Primary Annual physical exam Routine general medical examination at a health care facility Arthritis, multiple joint involvement Unspecified arthropathy, multiple sites Coronary artery disease involving [place] coronary artery of [place] heart without angina pectoris Essential hypertension Unspecified essential hypertension Iron deficiency anemia due to chronic blood loss Iron deficiency anemia secondary to blood loss (chronic) Need for immunization against influenza Need for prophylactic vaccination and inoculation against influenza BPH with obstruction/lower urinary tract symptoms Prostate cancer Malignant neoplasm of prostate Impaired mobility Other ill-defined conditions documented in this encounter Care Teams Retail Shift Manager Relationship Specialty Start Date End Date Josh Dias MD PCP - General Family Medicine 04/12/18 documented as of this encounter
[2025-03-15 20:09] VITALS: BP 156/73; PULSE 86; O2SAT 94
[2025-03-15 20:13] VITALS: BP 156/73; PULSE 88; RESP 18; TEMP 36.8; O2SAT 93; BMI 29.0
--- NOTE | 2025-03-15 20:15 | ED_ITS ---
<Statement entered by Veronica Aaron MD - 03/15/25 23:22> I was consulted by the JAYLEEN, and we discussed the complexity of the problems being addressed. I approved the treatment and management plan for this patient's care in the emergency department, thus performing a substantive portion of the medical decision making. Veronica Aaron MD, YOVANY, FACEP Discharge Plan Disposition Patient Disposition: Home, Self-Care Condition: Good Prescriptions Prescriptions: New pseudoephedrine HCl [Sudafed] 30 mg tablet 30 mg PO Q4H PRN (Reason: nasal congestion) Qty: 20 0RF Rx Instructions: DNExceed 4 doses/24h No Action tamsulosin 0.4 mg capsule 0.4 mg PO HS albuterol sulfate 90 mcg/actuation HFA aerosol inhaler 1 puff inhalation BIDP PRN (Reason: Shortness Of Breath) aspirin 81 mg tablet,delayed release (DR/EC) 81 mg PO DAILY 30 Days Qty: 90 3RF atorvastatin [Lipitor] 40 mg tablet 40 mg PO DAILY Qty: 30 2RF (DME) blood pressure monitor [Blood Pressure Kit] Kit See Rx Instructions .Route Qty: 1 0RF Rx Instructions: As directed esomeprazole magnesium 20 mg capsule,delayed release(DR/EC) 20 mg PO DAILY Qty: 90 3RF isosorbide mononitrate 30 mg tablet extended release 24 hr 60 mg PO DAILY 90 Days Qty: 180 2RF clopidogrel 75 mg tablet 75 mg PO DAILY Qty: 90 3RF Trelegy Ellipta 100-62.5-25 mcg blister with device 1 inh inhalation DAILY 30 Days Qty: 1 2RF metoprolol succinate 25 mg tablet extended release 24 hr See Rx Instructions .ROUTE .COMPLEX Qty: 90 2RF Dose Instruction: TAKE 1/2 TABLET BY MOUTH DAILY Rx Instructions: TAKE 1/2 TABLET BY MOUTH DAILY ipratropium bromide 21 mcg (0.03 %) spray,non-aerosol 2 spray INTRANASAL BID Qty: 30 0RF Rx Instructions: administer into each nostril losartan 50 mg tablet 50 mg PO DAILY Qty: 30 5RF nitroglycerin 0.4 mg Tablet, Sublingual 0.4 mg SUBLINGUAL Q5M PRN (Reason: Chest Pain) Rx Instructions: do not exceed 3 doses per episode Referrals Follow up/Referrals: Arun,Josh Minesh, MD [Primary Care Provider, Medical] - See instructions Activity Restrictions/Add. Instructions Additional Instructions/Restrictions: You were evaluated on an emergency basis. It is very important that you follow- up with your primary care provider and any specialist who we discussed within the next 2 days in order to better assess your health more comprehensively. For example, incidental findings on imaging or laboratory results that were performed today may be discovered, which do not require immediate medical care, but may impact your health in the future. If your symptoms worsen or persist, please return to the emergency department immediately for reassessment. Take all medications as prescribed. In queue for allowing me to participate in your health care, and I hope you feel better soon. Clinical Impressions Clinical Impression: Viral respiratory illness Instructions Patient Instructions: DI for Viral Upper Respiratory Infection in Adults Print Language Print Language: Armenian Discharge ED Provider: Veronica Aaron General Adult HPI General Chief complaint: Fever Stated complaint: Fever,body aches Time Seen by Provider: 03/15/25 20:13 History of Present Illness HPI narrative: 84-year-old male presents to the emergency department with complaints of bodyaches, fever, congestion with nonproductive cough that started earlier today. He states he had a Tmax of 100.6. He reports that he took Tylenol at approximately 6 PM tonight. He denies chest pain, shortness of breath, nausea, vomiting, diarrhea. Related Data Home Medications ?Medication ?Instructions ?Recorded ?Confirmed tamsulosin 0.4 mg capsule 0.4 mg PO HS 08/17/18 albuterol sulfate 90 mcg/actuation 1 puff inhalation B IDP PRN 10/25/23 10/09/24 aerosol inhaler Shortness Of Breath nitroglycerin 0.4 mg sublingual 0.4 mg sublingual Q5M PRN Chest 09/24/24 10/09/24 tablet Pain Previous Rx's ?Medication ?Instructions ?Recorded aspirin 81 mg tablet,delayed 81 mg PO DAILY 30 days #9 0 tabs 12/22/23 release atorvastatin 40 mg tablet (Lipitor) 40 mg PO DAILY #30 tabs 03/23/24 blood pressure monitor (Blood #1 ea 08/23/24 Pressure Kit) esomeprazole magnesium 20 mg 20 mg PO DAILY Acid Reflu x #90 caps 09/06/24 capsule,delayed release clopidogrel 75 mg tablet 75 mg PO DAILY #90 tabs 10/19 04/14 fluticasone fur. 100 mcg-umeclid 1 inh inhalation JH Y 30 days #1 10/29/24 62.5 mcg-vilant 25 mcg ea inhalat.powder (Trelegy Ellipta) isosorbide mononitrate 30 mg 60 mg (2 x 30 mg) PO JH Y 90 days 10/29/24 tablet,extended release 24 hr #180 tabs metoprolol succinate 25 mg See Rx Instructions .Route 10/31/24 tablet,extended release 24 hr .COMPLEX #90 tabs ipratropium bromide 21 mcg (0.03 2 spray intranasal BI D Allergy 12/25/24 %) nasal spray symptoms #30 mL losartan 50 mg tablet 50 mg PO DAILY #30 tabs 05/15 pseudoephedrine HCl 30 mg tablet 30 mg PO Q4H PRN nasa l congestion 03/15/25 (Sudafed) #20 tabs Allergies Allergy/AdvReac Type Severity Reaction Status Date / Time Sulfa (Sulfonamide Allergy Unknown I-RASH Verified 10/09/24 10:56 Antibiotics) (SULFA (SULFONAMIDE ANTIBIOTICS)) [facility] Disclaimer: The information contained in this section may have been updated after the patient was seen, as this information can be updated by other users. Medical History (Updated 03/15/25 @ 21:56 by Aleisha Coyne) Angina at rest Abnormal ECG Acute dyspnea Atypical angina Dyspnea Unstable angina Chest pain Abnormal electrocardiogram [ECG] [EKG] CAD (coronary artery disease) Non-STEMI (non-ST elevated myocardial infarction) Physical debility Acute pain of left hip Acute urinary retention Acute UTI Acute urinary retention Hematuria Prostate cancer Colonoscopy planned Ulcer Urinary tract infection COPD (chronic obstructive pulmonary disease) Asthma Arthritis History of gastroesophageal reflux (GERD) Hyperlipidemia Hypertension Prostate cancer Urinary retention Hematuria Cellulitis Dental abscess Acute sinus infection Encounter for laboratory testing for COVID-19 virus Bilateral otitis media Spider bite Acute urinary retention Spondylosis Labyrinthitis of left ear Sinusitis Common cold Surgical History H/O abdominal surgery History of heart artery stent History of cardiac cath Family History Other Family history of acute congestive heart failure Social History Smoking Status: Never smoker second hand exposure: No alcohol intake: former substance use type: denies use current occupational status: retired Travel in the last 8 weeks?: None household members: family housing: house current occupational exposures/hazards: No caffeine: Yes Have you lived/traveled outside US in past 30 days?: No Contact w/someone who lives/traveled outside US past 30 days?: No Exposure to someone with infectious disease in past 14 days?: No Do you have a fever (greater than 100.4 F or 38 C)?: No Have you tested positive for COVID-19?: No Exposed to someone with COVID-19 in past 14 days?: No Do you have a sore throat?: No Do you have a cough?: No Do you have any weakness?: No Do you have any diarrhea?: No Are you experiencing any unusual bleeding?: No Do you have any muscle aches/pain?: No Do you have any abdominal pain?: No Are you experiencing loss of taste or smell?: No Other Medical History Have you received the Flu Vaccine for this season: No Have you received the Pneumonia Vaccine: Yes ROS Obtained: Yes other Constitutional Constitutional: Reports body ache, Reports fever(s) and Reports malaise ENT Ears, Nose, Mouth, and Throat: Reports nasal congestion Respiratory Respiratory: Reports cough Physical Exam Narrative Physical exam: General: Awake, aware, in no acute distress HEENT: Normocephalic, no evidence of trauma CV: RRR, rubs, or gallops. Patient does have heart murmur Pulm: CTA bilaterally with no rhonchi, rales, wheezes ABD: Nontender, no swelling, guarding, or rebound tenderness Psych, appropriate mood and affect General General appearance: alert Respiratory Respiratory exam: Present normal lung sounds bilaterally Cardiovascular Cardiovascular exam: Present regular rate Neurological Exam Neurological exam: Present alert Medical Decision Making Medical Records Screening: Per USPSTF and CDC recommendations, given the prevalence of disease in our region, it is our hospital?s policy to screen for HIV and viral Hepatitis for all patients aged 18 and over and those with ongoing risk factors. Isra Inquiry Pt receiving controlled substance: No Vital Signs: 03/15/25 20:09 03/15/25 20:13 03/15/25 20:18 Temperature 98.3 F Temperature Source Oral Oral Pulse Rate 86 Pulse Rate [Right] 88 Respiratory Rate 18 Blood Pressure 156/73 H Blood Pressure [Right Arm] 156/73 H Blood Pressure Mean [Right Arm] 100 Blood Pressure Source [Right Arm] Automatic Cuff Blood Pressure Position [Right Arm] Sitting 02 Sat by Pulse Oximetry 94 L 93 L Oxygen Delivery Method Room Air 03/15/25 20:29 Temperature Temperature Source Pulse Rate 80 Pulse Rate [Right] Respiratory Rate 18 Blood Pressure 156/73 H Blood Pressure [Right Arm] Blood Pressure Mean [Right Arm] Blood Pressure Source [Right Arm] Blood Pressure Position [Right Arm] 02 Sat by Pulse Oximetry 96 Oxygen Delivery Method Room Air Lab Data Lab Results 03/15/25 20:15: SARS-CoV-2 (PCR) Not detected, Influenza A Untype (PCR) Not detected, Influenza Type B (PCR) Not detected Orders (Tests/Meds): ORDERS Category Date Time Status XR chest portable Stat Exams 03/15/25 20:51 Taken Rapid PCR Covid and Flu A/B Stat Lab 03/15/25 20:15 Completed Medical Decision Narrative: Initial impression of presenting illness: 84-year-old male presents the emergency department with complaints of nonproductive cough, congestion, body aches, fever that started earlier today. He states he had a Tmax of 100.6. He reports taking Tylenol at approximately 6 PM. he denies chest pain, shortness of breath, nausea, vomiting, diarrhea. Differential diagnosis includes but is not limited to: Viral illness, pneumonia, COPD exacerbation Patient arrives hemodynamically stable, afebrile, without respiratory distress with vital signs interpreted by myself. Initial physical exam: Lung sounds are clear bilaterally. Does have heart murmur which he states he is aware of. Rest of exam is unremarkable Initial diagnostic plan: COVID and flu swab, chest x-ray Results from initial plan were reviewed and interpreted by myself, pertinent positives include: COVID and flu swabs were negative. Chest x-ray was unremarkable for acute findings Interventions: Patient was given a dose of Sudafed prior to discharge for relief of his sinus congestion Patient was made aware of the results and the findings, upon reevaluation patient has remained stable throughout stay, symptoms remained stable. Upon re evaluation patient is resting comfortably in bed with no signs of acute distress. He remains afebrile and is maintaining SpO2 on room air without difficulty. Disposition: Reviewed findings today's workup with patient informed him that his COVID and flu swabs were negative as well as his chest x-ray. Recommended that he increase his fluid intake and rest for the next couple days. Recommended nanette t he continue with Tylenol as needed for fever control as well as Sudafed for relief of his congestion. Directed him to return to the emergency department with chest pain, shortness of breath, uncontrolled fevers, inability to tolerate p.o. Patient is agreeable to plan of care. Patient made aware of findings and had a detailed discussion with symptomatic care and return precautions, patient voiced understanding. Critical Care Critical Care Time Critical Care Time: No
--- OUTSIDE RECORDS SUMMARY | 2025-03-15 20:16 | XMS_ITS | Encounter Summary ---
Author Organization [facility] Address [address] [place] [address] Care Team Providers Care Merchandise Adjustment Clerk Name Role Phone Josh Dias MD Primary Care Provider + Encounter Details Date Type Department Care Team (Late st Contact Info) Description 08/15/2024 Results Follow-Up [facility] [address] [place] [address] Colby Vanegas PA [address] [place] [address] Social History Tobacco Use Types Packs/Day Years Used Date Smoking Tobacco: Former Cigarettes 0.3 20 1 0 - 1989 Smokeless Tobacco: Never Comments:20 cigs/week [...] Answer Date Recorded Patient Health Questionnaire-2 Score 0 07/17/2024 Sex and Gender Information Value Date Recorded Sex Assigned at Not on file Legal Sex Male 1:01 PM EDT Gender Identity Not on file Sexual Orientation Not on file Occupation Industry Job Start Date Job End Date [employer] Not on file Not on file Not on file documented as of this encounter Plan of Treatment Not on file documented as of this encounter Visit Diagnoses Not on filedocumented in this encounter Care Teams Merchandise Adjustment Clerk Relationship Specialty Start Date End Date Josh Dias MD PCP - General Family Medicine 04/12/18 documented as of this encounter
--- OUTSIDE RECORDS SUMMARY | 2025-03-15 20:16 | XMS_ITS | Clinical Summary ---
Author Organization [facility] Address [address] [place] [address] Care Team Providers Care Consulting Sme Name Role Phone Josh Dias MD Primary Care Provider + Allergies Active Allergy Reactions Criticality Noted Date Comments Sulfa Antibiotics Rash Low 11/07/2023 Medications aspirin 81 MG EC tablet Take 1 tablet by mouth Daily. Active leuprolide (Eligard) 45 MG injection Inject 45mg every 6 months 04/18/19 24 Active Diclofenac Sodium (VOLTAREN) 1 % gel gelIndications:Renee verito osteoarthritis of left knee Apply 4 g topically to the appropriate area as directed 4 (Four) Times a Day. 350 g 2 05/26/19 24 Active clopidogrel (PLAVIX) 75 MG tablet Take 1 tablet by mouth Daily. 10/11/19 24 Active metoprolol succinate XL (TOPROL-XL) 25 MG 24 hr tablet Take 0.5 tablets by mouth Daily. 10/11/19 24 Active isosorbide mononitrate (IMDUR) 30 MG 24 hr tablet Take 1 tablet by mouth 2 (Two) Times a Day. 10/11/19 24 Active nitroglycerin (Nitrostat) 0.4 MG SL tabletIndications: Coronary artery disease involving ekuk coronary artery of ekuk heart without angina pectoris Place 1 tablet under the tongue Every 5 (Five) Minutes As Needed for Chest Pain. Take no more than 3 doses in 15 minutes. 30 tablet 12 10/17/19 24 Active atorvastatin (LIPITOR) 40 MG tablet Take 1 tablet by mouth Daily. Active esomeprazole (nexIUM) 20 MG capsuleIndications :Gastroesophageal reflux disease without esophagitis TAKE 1 CAPSULE BY MOUTH EVERY MORNING BEFORE BREAKFAST. 90 capsule 06/01/19 25 Active cyclobenzaprine (FLEXERIL) 5 MG tablet Take 1 tablet by mouth 3 (Three) Times a Day As Needed. Active lidocaine (LIDODERM) 5 % APPLY 1 PATCH EVERY DAY TOPICALLY TO AFFECTED AREA FOR UP TO 12 HOURS Active nystatin 813685 UNIT/GM powder 07/04/19 25 Active Misc. Devices (Rollator Ultra-Light) miscIndications:Pr imary osteoarthritis of both knees,Fall in home, sequela,Gait disturbance Use 1 each Daily. 1 each 07/18/19 25 Active azelastine (ASTELIN) 0.1 % nasal sprayIndications:P ND (post-nasal drip) Administer 2 sprays into the nostril(s) as directed by provider 2 (Two) Times a Day. Use in each nostril as directed 30 mL 08/15/19 25 Active Trelegy Ellipta 100-62.5-25 MCG/ACT inhaler Inhale 1 puff Daily. 09/26/19 25 Active losartan (COZAAR) 50 MG tablet Take 1 tablet by mouth Daily. 08/24/19 25 Active ipratropium (ATROVENT) 0.03 % nasal spray USE 2 SPRAYS INTO THE NOSTRIL(S) DIRECTED BY PROVIDER 2 (TWO) TIMES A DAY. 30 mL 1 12/25/19 25 Active tamsulosin (FLOMAX) 0.4 MG capsule 24 hr capsuleIndications :BPH with obstruction/lower urinary tract symptoms Take 1 capsule by mouth every night at bedtime. 90 capsule 3 01/30/20 25 Active albuterol sulfate HFA 108 (90 Base) MCG/ACT inhaler Inhale 2 puffs Every 4 (Four) Hours As Needed for Wheezing. 8.5 g 5 01/30/20 25 Active Active Problems Problem Noted Date Diagnosed Date Arthritis, multiple joint involvement 01/29/2025 Assessment & Plan (02/19/2025 11:17 AM EST): BPH with obstruction/lower urinary tract symptom s 02/25/2023 Overview (02/25/2023): Refill Tamsulosin Assessment & Plan (02/19/2025 11:17 AM EST): Orders: tamsulosin (FLOMAX) 0.4 MG capsule 24 hr capsule; Take 1 capsule by mouth every night at bedtime. Essential hypertension 02/25/2023 Overview (02/25/2023): Controlled. Refill Lisinopril/Hctz Assessment & Plan (02/19/2025 11:17 AM EST): Orders: CBC (No Diff); Future Basic Metabolic Panel; Future Gastroesophageal reflux disease without esophagi tis 02/25/2023 Overview (02/25/2023): Stable on Nexium. Refill Nexium Prostate cancer 05/08/2018 Cancer Staging:Clinical stage from 02/06/2018:Stage IIIC(cT2c, cN0, cM0, PSA: 10.6, Grade Group: 5) - Signed by Schuyler Weems MD on 05/08/2018 Assessment & Plan (02/19/2025 11:17 AM EST): Encounters Date Type Department Care Team Description 02/07/[address] [facility] [address] [place] [phone] Josh Dias MD 01/29/2025 2:15 PM EST Office Visit [facility] [address] [phone] Josh Dias MD Medicare annual wellness visit, subsequent (Primary Dx); Annual physical exam; Arthritis, multiple joint involvement; Coronary artery disease involving ekuk coronary artery of ekuk heart without angina pectoris; Essential hypertension; Iron deficiency anemia due to chronic blood loss; Need for immunization against influenza; BPH with obstruction/lower urinary tract symptoms; Prostate cancer; Impaired mobility 01/29/2025 Travel 01/11/2025 Results Follow-Up [facility] [address] [phone] Josh Dias MD 01/10/2025 12:50 PM EDT Lab [facility] [address] [phone] 01/10/2025 Travel 12/22/2024 Refill [facility] [address] [phone] Josh Dias MD from Last 3 Months Immunizations Immunization Administration Dates Next Due Flu Vaccine Quad PF >36MO 04/12/2017,02/19/2016 Fluad Quad 65+ 01/23/2021 Fluzone (or Fluarix & Flulav al for VFC) >6mos 02/04/2023,01/27/2022,04/12/2017,02/18 Fluzone High-Dose 65+YRS 01/29/2025,12/20,03/10/2019,02/06 Fluzone High-Dose 65+yrs 12/29/2019 Pneumococcal Conjugate 13-Va lent (PCV13) 03/07/2014 Pneumococcal Polysaccharide (PPSV23) 02/19/2016, 05/17/2007 Td, Unspecified 01/31/2010 Family History Medical History Relation Name Comments Arthritis Father Heart attack Father Heart disease Father Hyperlipidemia Father Hypertension Father Stroke Father Arthritis Mother Diabetes Mother Heart disease Mother Stroke Mother Obesity Sister Relation Name Status Comments Father Mother Sister Social History Tobacco Use Types Packs/Day Years [...] file Not on file Not on file Last Filed Vital Signs [...] Mass Index 30.2 01/29/2025 2:08 PM EST Plan of Treatment Health Maintenance Due Date Last Done Comments ZOSTER VACCINE (1 of 2) 08/01/1991 TDAP/TD VACCINES (1 - Tdap) 02/01/2010 01/31/2010 RSV Vaccine - Adults (1 - 1- dose 75+ series) 2016 LIPID PANEL 02/26/2024 02/25/2023 COVID-19 Vaccine (8 - Pfizer risk 2023- season) 2024 01/16/2024, 02/04/2023, 01/27/2022, Additional history exists ANNUAL WELLNESS VISIT 01/29/2026 01/29/2025, 025 Pneumococcal Vaccine 50+ Completed 016, 03/07/2014, 05/17/2007 INFLUENZA VACCINE Completed 01/29/2025, , 02/04/2023, Additional history exists Medical Devices Implanted Type Area Executive Admin Device Identifier Shelf Expiration Date Model / Serial / Lot Seed Prost Interstitial Loose [id number] - [id number] Implanted:Qty: 120 on 07/04/2018 by Waldemar Beckford MD at [facility] Implant N/A: Prostate THERAGENICS RAFAELA 07/26/2018 [id number] / / [id number] Procedures Procedure Name Priority Date/Time Associated Diagnosis Comments HEMOGLOBIN AND HEMATOCRIT, BLOOD Routine 01/10/2025 1:00 PM EDT LIPID PANEL Routine 02/25/2023 3:24 PM EST Coronary artery disease involving ekuk coronary artery of ekuk heart without angina pectoris from Last 3 Months or Most Recently Relevant to Health Maintenance Results * Hemoglobin & Hematocrit, Blood (01/10/2025 1:00 PM EDT) Hemoglobin 13.9 13.0 - 17.7 g/dL [facility] Hematocrit 42.3 37.5 - 51.0 % [facility] 01/10/2025 1:00 PM EDT 01/10/2025 Narrative [facility] (AMBULATORY) - 01/11/2025 6:09 AM EDT Performed at: [facility] [id number] Digital Content Manager: Luis Miguel Conrad PhD, Phone: [phone] Patient Fasting: Y Josh Dias MD LAB BLOOD ORDERABLES Fin al Result [facility] (AMBULATORY) [address] [place] [address], [place] [phone] [facility] [address] [place] [address], [place] [phone] * (ABNORMAL) Lipid Panel (02/25/2023 3:24 PM EST) Total Cholesterol 179 100 - 199 mg/dL [facility] Triglycerides 212(H) 0 - 149 mg/dL [facility] HDL Cholesterol 36(L) >39 mg/dL [facility] VLDL Cholesterol Juan Ramon 37 5 - 40 mg/dL [facility] LDL Chol Calc (NIH) 106(H) 0 - 99 mg/dL [facility] Blood 02/25/2023 3:24 PM EST 02/25/2023 Narrative [facility] (AMBULATORY) - 02/26/2023 6:11 AM EST Performed at: - [facility] [id number] Digital Content Manager: Luis Miguel Conrad PhD, Phone: [phone] Patient Fasting: Y Josh Dias MD LAB BLOOD ORDERABLES Fin al Result [facility] ([facility]UL[facility]ORY) [address] [place] [address], [place] [phone] [facility] [address] [place] [address], from Last 3 Months or Most Recently Relevant to Health Maintenance Insurance MEDICAID [place] [employer] MEDICARE ADVANTAGE [facility] Care Teams Consulting Sme Relationship Specialty Start Date End Date Josh Dias MD PCP - General Family Medicine 04/12/18
--- OUTSIDE RECORDS SUMMARY | 2025-03-15 20:16 | XMS_ITS | Encounter Summary ---
Author Organization [facility] Address [address] [place] [address] Care Team Providers Care Bandoleer Straightener Stamper Name Role Phone Josh Santos MD Primary Care Provider + Encounter Details Date Type Department Care Team (Late st Contact Info) Description 02/07/2025 Telephone [facility] [address] [place] [address] Josh Santos MD [address] [place] [address] Social History Tobacco Use Types [...] on file documented as of this encounter Miscellaneous Notes * Telephone Encounter - Paz Haddad MA - 02/20/2025 3:29 PM EST Faxed addended office not to [facility] at * Telephone Encounter - Paz Haddad MA - 02/20/2025 12:20 PM EST Did you happen to get a fax number for this message? * Telephone Encounter - Angella Mohan RegSched Rep - 02/07/2025 11:17 AM EST ADDITIONAL QUESTIONS REGARDING MOBILE CHAIR THEY DID AN EVALUATION ON 02/06/2025. NEEDS AN ADDENDUM TO THE 01/29 DR SANTOS NOTE: STATING RECOMMENDING POWER WHEEL CHAIR FROM 01/29 NOTE NEEDS TO BE CHANGED TO: [employer] INSIDE THE HOME AND PROMOTE SAFETY TO PREVENT FALLS. documented in this encounter Plan of Treatment Not on file documented as of this encounter Visit Diagnoses Not on filedocumented in this encounter Care Teams Bandoleer Straightener Stamper Relationship Specialty Start Date End Date Josh Santos MD PCP - General Family Medicine 04/12/18 documented as of this encounter
--- OUTSIDE RECORDS SUMMARY | 2025-03-15 20:16 | XMS_ITS | Encounter Summary ---
Author Organization [facility] Address [address] [place] [address] Care Team Providers Care Bunch Breaker Name Role Phone Josh Dias MD Primary Care Provider + Reason for Visit * Reason Onset Date Comments Med Refill 05/23/2023 Encounter Details Date Type Department Care Team (Late st Contact Info) Description 05/23/2023 Refill [facility] [address] [place] [address] Josh Dias MD [address] [place] [address] Gastroesophageal reflux disease without esophagitis; BPH with obstruction/lower urinary tract symptoms; Essential hypertension; Coronary artery disease involving [place] coronary artery of [place] heart without angina pectoris Social History Tobacco Use Types Packs/Day Years [...] Score 5 07/21/2022 PHQ-2 Answer Date Recorded Retired PHQ-9: Brief Depression Severity Measure Score 0 05/26/2023 Sex and Gender Information Value Date Recorded Sex Assigned at Not on file Legal Sex Male 1:01 PM EDT Gender Identity Not on file Sexual Orientation Not on file documented as of this encounter Miscellaneous Notes * Telephone Encounter - Nisa Kohler RegSched Rep - 05/23/2023 1:20 PM EST Caller: Waldemar Bolaños Relationship: Self Best call back number: [phone] Requested Prescriptions: Requested Prescriptions Pending Prescriptions Disp Refills ipratropium (ATROVENT) 0.03 % nasal spray 30 mL 11 Si sprays into the nostril(s) as directed by provider 2 (Two) Times a Day. albuterol sulfate HFA 108 (90 Base) MCG/ACT inhaler 8.5 g 11 Sig: Inhale 2 puffs Every 4 (Four) Hours As Needed for Wheezing. esomeprazole (nexIUM) 20 MG capsule 90 capsule 3 Sig: Take 1 capsule by mouth Every Morning Before Breakfast. tamsulosin (FLOMAX) 0.4 MG capsule 24 hr capsule 90 capsule 3 Sig: Take 1 capsule by mouth every night at bedtime. lisinopril (PRINIVIL,ZESTRIL) 10 MG tablet 90 tablet 3 Sig: Take 1 tablet by mouth Every Night. rosuvastatin (Crestor) 20 MG tablet 90 tablet 3 Sig: Take 1 tablet by mouth Daily. Pharmacy where request should be sent: Last office visit with prescribing clinician: 02/25/2023 Last telemedicine visit with prescribing clinician: Visit date not found Next office visit with prescribing clinician: 08/26/2023 Additional details provided by patient: PT HAS NO PILLS LEFT ON ANY MEDICATION Does the patient have less than a 3 day supply: [x] Yes [] No Would you like a call back once the refill request has been completed: [x] Yes [] No If the office needs to give you a call back, can they leave a voicemail: [] Yes [] No documented in this encounter Plan of Treatment Not on file documented as of this encounter Visit Diagnoses Diagnosis Gastroesophageal reflux disease without esophagitis Esophageal reflux BPH with obstruction/lower urinary tract symptoms Essential hypertension Unspecified essential hypertension Coronary artery disease involving [place] coronary artery of [place] heart without angina pectoris documented in this encounter Additional Health Concerns Assessment Noted Time PHQ-2 Depression Total Score: 2 07/22/19 23 3:01 PM EDT documented as of this encounter Care Teams Bunch Breaker Relationship Specialty Start Date End Date Josh Dias MD PCP - General Family Medicine 04/12/18 documented as of this encounter
--- OUTSIDE RECORDS SUMMARY | 2025-03-15 20:16 | XMS_ITS | Encounter Summary ---
Author Organization [facility] Address [address] [place] [address] Care Team Providers Care Master Baker Name Role Phone Josh Dias MD Primary Care Provider + Encounter Details Date Type Department Care Team (Late st Contact Info) Description 10/07/2024 Results Follow-Up [facility] [address] [place] [address] Josh Dias MD [address] [place] [address] Social History Tobacco Use Types [...] encounter Miscellaneous Notes * Telephone Encounter - Juliana Whitaker RegSched Rep - 10/09/2024 12:06 PM EDT PATIENT IS CALLING TO LET THE OFFICE KNOW THAT [facility] HAS NOT RECEIVED AN IRON SUPPLEMENT. documented in this encounter Plan of Treatment Not on file documented as of this encounter Visit Diagnoses Not on filedocumented in this encounter Care Teams Master Baker Relationship Specialty Start Date End Date Josh Dias MD PCP - General Family Medicine 04/12/18 documented as of this encounter
--- OUTSIDE RECORDS SUMMARY | 2025-03-15 20:16 | XMS_ITS | Encounter Summary ---
Author Organization [facility] Address [address] [place] [address] Care Team Providers Care Fabric Inspector Name Role Phone Josh Dias MD Primary Care Provider + Encounter Details Date Type Department Care Team (Late st Contact Info) Description 01/11/2025 Results Follow-Up [facility] [address] [place] [address] Josh Dias MD [address] [place] [address] Social History Tobacco Use Types [...] on filedocumented in this encounter Care Teams Fabric Inspector Relationship Specialty Start Date End Date Josh Dias MD PCP - General Family Medicine 04/12/18 documented as of this encounter
--- OUTSIDE RECORDS SUMMARY | 2025-03-15 20:16 | XMS_ITS | Encounter Summary ---
Author Organization [facility] Address [address] [place] [address] Care Team Providers Care Trim Technician Name Role Phone Josh Dias MD Primary Care Provider + Encounter Details Date Type Department Care Team (Latest Contact Info) Description 01/29/2025 Travel Social History Tobacco Use Types Packs/Day Years [...] on filedocumented in this encounter Care Teams Trim Technician Relationship Specialty Start Date End Date Josh Dias MD PCP - General Family Medicine 04/12/18 documented as of this encounter
--- OUTSIDE RECORDS SUMMARY | 2025-03-15 20:16 | XMS_ITS | Clinical Summary ---
Author Organization [facility] Address [address] [id number] Care Team Providers Care Extension Specialist Name Role Phone Josh Dias MD Primary Care Provider Allergies No known active allergies Medications tamsulosin [...] (02/23/2021): Added automatically from request for surgery [id number] CAD (coronary artery disease) 02/11/2021 Overview (02/23/2021): Added automatically from request for surgery [id number] Resolved Problems Problem Noted Date Diagnosed Date Resolved Date SOB (shortness of breath) 02/11/2021 Overview (02/23/2021): Added automatically from request for surgery [id number] Social History Tobacco Use Types Packs/Day Years [...] or (1 - 1-dose 75+ series) 2016 [id number] Vaccine ( season) 2024 01/23/2021, 06/12/2020, 05/22/2020 [facility]-Influenza Vaccine (#1) 11/19/202401/23, 12/29/2019, 04/12/2017, Additional history exists [facility]-Pneumococcal Vaccine: 50+ Years Completed 02/19/2016, 03/07/2014, 05/17/2007 HPV Vaccines (No Doses Required) Completed [facility]-HIB Vaccines Aged Out No longer e [...] this topic Medical Devices Implanted Type Area Fish Fryer Device Identifier Shelf Expiration Date Model / Serial / Lot Vip Vascular Closure Device 6 Fr - [id number] Implanted:Qty: 1 on 02/23/2021 by Michael Ceballos MD at [facility] [id number] 11/18/2021 [id number] / / [id number] Stent Coronary Rolando Stent 3mm X 15mm - [id number] Implanted:Qty: 1 on 02/23/2021 by Michael Ceballos MD at [facility] N/A: Heart [id number] 08/06/2022 [id number] / / [id number] Stent Coronary Rolando Stent 3.5mm X 13mm - [id number] Implanted:Qty: 1 on 02/23/2021 by Michael Ceballos MD at [facility] N/A: Heart [id number] 10/09/2021 [id number] / / [id number] Insurance [employer] Care Teams Extension Specialist Relationship Specialty Start Date End Date Josh Dias MD [address] [place] [address] PCP - General 08/01/20
[2025-03-15 20:20] LABS: Coronavirus 19, PCR Not Detected (NotDetected); Influenza A, PCR Not Detected (NotDetected); Influenza B, PCR Not Detected (NotDetected)
[2025-03-15 20:29] VITALS: BP 156/73; PULSE 80; RESP 18; O2SAT 96
--- NOTE | 2025-03-15 20:51 | XR_ITS ---
PROCEDURE INFORMATION: Exam: XR Chest Exam date and time: 03/15/2025 9:23 PM Age: 84 years old Clinical indication: Cough and fever; Additional info: Cough/fever TECHNIQUE: Imaging protocol: Radiologic exam of the chest. Views: 1 view. COMPARISON: CR XR CHEST PORTABLE 09/24/2024 6:27 PM FINDINGS: Lungs: Low lung volumes. Normal pulmonary vessels. No focal infiltrates. Pleural spaces: Unremarkable. No pleural effusion. No pneumothorax. Heart/Mediastinum: Mild cardiomegaly. Diaphragm: Elevation right hemidiaphragm similar to 09/24/2024. Bones/joints: Unremarkable. IMPRESSION: 1. Low lung volumes. 2. Mild cardiomegaly. 3. Elevation right hemidiaphragm similar to 09/24/2024. 4. Normal pulmonary vessels. 5. No focal infiltrates.
--- NOTE | 2025-03-15 20:55 | PC.NURSE ---
Pt provided with a warm blanket.
[2025-03-15 22:22] VITALS: BP 150/60; PULSE 79; RESP 20; TEMP 36.9; O2SAT 94
== END 2025-03-15 22:24 | disposition home or self-care (01) ==
PROVIDERS: Nurse Practitioner Family; Emergency Provider Student in an Organized Health Care Education/Training Program; PCP Family Medicine
DX: R50.9 Fever, unspecified (principal); R09.81 Nasal congestion; J06.9 Acute upper respiratory infection, unspecified; B34.9 Viral infection, unspecified
CPT/HCPCS: 71045; 87636; 99283; 99284